=== PATIENT | male | born 1965 | race Hispanic/Latino ===

== ENCOUNTER 2022-12-07 20:18 | Emergency (ER) | payer OTHER ==
--- OUTSIDE RECORDS SUMMARY | 2022-12-07 20:35 | XMS REPORT | Continuity of Care Document ---
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 13:43:00, [place] DoseBolus Dose ketorolac 2012-09 No Neil 30 mg, Mem oria 2-10 Yee Route: IV, l 18:44: Drug form: [place] 00 INJ, ONCE, Dosing Weight 95.455, kg, Priority: STAT, Start date: 09/01/13 12:44:00, Stop date: 09/01/13 12:44:00 Sodium 2012- No Neil 1,000 mL, Mem oria Chloride 2-10 Yee Rate: l 0.9% 18:44: 1,000 [place] ([place]) IV 00 ml/hr, 1000 mL Infuse over: 1 hr, Route: IV, Dosing Weight 95.455 kg, Total Volume: 1,000, Priority: STAT, Start date: 09/01/13 12:44:00, Duration: 1 doses or times, Stop date: 09/01/13 13:43:00, [place] DoseBolus Dose ketorolac 2012-09 No Neil 30 mg, Mem oria 2-10 Yee Route: IV, l 18:44: Drug form: [place] 00 INJ, ONCE, Dosing Weight 95.455, kg, Priority: STAT, Start date: 09/01/13 12:44:00, Stop date: 09/01/13 12:44:00 Sodium 2012- No Neil 1,000 mL, Mem oria Chloride 2-10 Yee Rate: l 0.9% 18:44: 1,000 [place] ([place]) IV 00 ml/hr, 1000 mL Infuse over: 1 hr, Route: IV, Dosing Weight 95.455 kg, Total Volume: 1,000, Priority: STAT, Start date: 09/01/13 12:44:00, Duration: 1 doses or times, Stop date: 09/01/13 13:43:00, [place] DoseBolus Dose ketorolac 2012-09 No Neil 30 mg, Mem oria 2-10 Yee Route: IV, l 18:44: Drug form: [place] 00 INJ, ONCE, Dosing Weight 95.455, kg, Priority: STAT, Start date: 09/01/13 12:44:00, Stop date: 09/01/13 12:44:00 morphine 2012-09 No Neil 4 mg, Memor ia Sulfate 2-10 Yee Route: l 16:34: IVP, ONCE, [place] 00 Dosing Weight 95.455, kg, Start date: 09/01/13 10:34:00, Stop date: 09/01/13 10:34:00 morphine 2012-09 No Neil 4 mg, Memor ia Sulfate 2-10 Yee Route: l 16:34: IVP, ONCE, Dosing Weight 95.455, kg, Start date: 09/01/13 10:34:00, Stop date: 09/01/13 10:34:00 morphine 2012-09 No Neil 4 mg, Memor ia Sulfate 2-10 Yee Route: l 16:34: IVP, ONCE, Dosing Weight 95.455, kg, Start date: 09/01/13 10:34:00, Stop date: 09/01/13 10:34:00 Sodium 2012-09 No Neil 1,000 mL, Mem oria Chloride 2-10 Yee Rate: l 0.9% 16:33: 1,000 [place] ([place]) IV 00 ml/hr, 1000 mL Infuse over: 1 hr, Route: IV, Dosing Weight 95.455 kg, Total Volume: 1,000, Priority: STAT, Start date: 09/01/13 10:33:00, Duration: 1 doses or times, Stop date: 09/01/13 11:32:00, [place] DoseBolus Dose Sodium 2012-09 No Neil 1,000 mL, Mem oria Chloride 2-10 Yee Rate: l 0.9% 16:33: 1,000 [place] ([place]) IV 00 ml/hr, 1000 mL Infuse over: 1 hr, Route: IV, Dosing Weight 95.455 kg, Total Volume: 1,000, Priority: STAT, Start date: 09/01/13 10:33:00, Duration: 1 doses or times, Stop date: 09/01/13 11:32:00, [place] DoseBolus Dose Sodium 2013- No Neil 1,000 mL, Mem oria Chloride 2-10 Yee Rate: l 0.9% 16:33: 1,000 [place] ([place]) IV 00 ml/hr, 1000 mL Infuse over: 1 hr, Route: IV, Dosing Weight 95.455 kg, Total Volume: 1,000, Priority: STAT, Start date: 09/01/13 10:33:00, Duration: 1 doses or times, Stop date: 09/01/13 11:32:00, [place] DoseBolus Dose pravastatin pravastatin No 1 Q1D pravastati [facility] 10 mg 10 mg n 10 mg n tablet Take tablet Take tablet Health 1 tablet 1 tablet Take 1 Box every day every day tablet by oral by oral every day route for route for by oral 90 days. 90 days. route for 90 days. pravastatin pravastatin No 1 Q1D pravastati [facility] 20 mg 20 mg n 20 mg n tablet Take tablet Take tablet Health 1 tablet 1 tablet Take 1 Box every day every day tablet by oral by oral every day route. route. by oral route. red yeast red yeast No 600mg Q1D red yeast [facility] rice 600 mg rice 600 mg rice 600 n capsule capsule mg capsule [facility] Take 600 mg Take 600 mg Take 600 Box every day every day mg every by oral by oral day by route. route. oral route. Suprep Suprep No Suprep [facility] Bowel Prep Bowel Prep Bowel Prep n Kit 17.5 Kit 17.5 Kit 17.5 [facility] gram-3.13 gram-3.13 gram-3.13 Box gram-1.6 gram-1.6 gram-1.6 gram oral gram oral gram oral solution solution solution aspirin aspirin No aspirin [facility] ciprofloxac ciprofloxac No ciprofloxa [facility] in 500 mg in 500 mg rere 500 mg n tablet Take tablet Take tablet Health 1 tablet 1 tablet Take 1 Box every 12 every 12 tablet hours by hours by every 12 oral route oral route hours by for 10 for 10 oral route days. days. for 10 days. dicyclomine dicyclomine No dicyclomin [facility] 20 mg 20 mg e 20 mg n tablet tablet tablet Health Box famotidine famotidine No famotidine [facility] Box Fish Oil Fish Oil No Fish Oil [facility] Box Lexapro 10 Lexapro 10 No 1 Q1D Lexapro 10 [facility] mg tablet mg tablet mg tablet n Take 1 Take 1 Take 1 Health tablet tablet tablet Box every day every day every day by oral by oral by oral route for route for route for 90 days. 90 days. 90 days. lisinopril lisinopril No 1 Q1D lisinopril [facility] 30 mg 30 mg 30 mg n tablet Take tablet Take tablet Health 1 tablet 1 tablet Take 1 Box every day every day tablet by oral by oral every day route for route for by oral 90 days. 90 days. route for 90 days. metronidazo metronidazo No metronidaz [facility] le 500 mg le 500 mg ole 500 mg n tablet Take tablet Take tablet Health 1 tablet 1 tablet Take 1 Box every 8 every 8 tablet hours by hours by every 8 oral route oral route hours by for 10 for 10 oral route days. days. for 10 days. montelukast montelukast No montelukas [facility] 10 mg 10 mg t 10 mg n tablet tablet tablet Health Box multivitami multivitami No multivitam [facility] n n in n Health Box pravastatin pravastatin No 1 Q1D pravastati [facility] 10 mg 10 mg n 10 mg n tablet Take tablet Take tablet Health 1 tablet 1 tablet Take 1 Box every day every day tablet by oral by oral every day route for route for by oral 90 days. 90 days. route for 90 days. pravastatin pravastatin No 1 Q1D pravastati [facility] 20 mg 20 mg n 20 mg n tablet Take tablet Take tablet Health 1 tablet 1 tablet Take 1 Box every day every day tablet by oral by oral every day route. route. by oral route. red yeast red yeast No 600mg Q1D red yeast [facility] rice 600 mg rice 600 mg rice 600 n capsule capsule mg capsule [facility] Take 600 mg Take 600 mg Take 600 Box every day every day mg every by oral by oral day by route. route. oral route. Suprep Suprep No Suprep [facility] Bowel Prep Bowel Prep Bowel Prep n Kit 17.5 Kit 17.5 Kit 17.5 [facility] gram-3.13 gram-3.13 gram-3.13 Box gram-1.6 gram-1.6 gram-1.6 gram oral gram oral gram oral solution solution solution tadalafil 5 tadalafil 5 No tadalafil [facility] mg tablet mg tablet 5 mg n Take 1 Take 1 tablet Health tablet tablet Take 1 Box every day every day tablet by oral by oral every day route for route for by oral 30 days. 30 days. route for 30 days. aspirin aspirin No aspirin [facility] ciprofloxac ciprofloxac No ciprofloxa [facility] in 500 mg in 500 mg rere 500 mg n tablet Take tablet Take tablet Health 1 tablet 1 tablet Take 1 Box every 12 every 12 tablet hours by hours by every 12 oral route oral route hours by for 10 for 10 oral route days. days. for 10 days. dicyclomine dicyclomine No dicyclomin [facility] 20 mg 20 mg e 20 mg n tablet tablet tablet Health Box famotidine famotidine No famotidine [facility] Box Fish Oil Fish Oil No Fish Oil [facility] Box Lexapro 10 Lexapro 10 No 1 Q1D Lexapro 10 [facility] mg tablet mg tablet mg tablet n Take 1 Take 1 Take 1 Health tablet tablet tablet Box every day every day every day by oral by oral by oral route for route for route for 90 days. 90 days. 90 days. lisinopril lisinopril No 1 Q1D lisinopril [facility] 30 mg 30 mg 30 mg n tablet Take tablet Take tablet Health 1 tablet 1 tablet Take 1 Box every day every day tablet by oral by oral every day route for route for by oral 90 days. 90 days. route for 90 days. metronidazo metronidazo No metronidaz [facility] le 500 mg le 500 mg ole 500 mg n tablet Take tablet Take tablet Health 1 tablet 1 tablet Take 1 Box every 8 every 8 tablet hours by hours by every 8 oral route oral route hours by for 10 for 10 oral route days. days. for 10 days. montelukast montelukast No montelukas [facility] 10 mg 10 mg t 10 mg n tablet tablet tablet Health Box multivitami multivitami No multivitam [place] n n in n Health Box pravastatin pravastatin No 1 Q1D pravastati [place] 10 mg 10 mg n 10 mg n tablet Take tablet Take tablet Health 1 tablet 1 tablet Take 1 Box every day every day tablet by oral by oral every day route for route for by oral 90 days. 90 days. route for 90 days. pravastatin pravastatin No 1 Q1D pravastati [place] 20 mg 20 mg n 20 mg n tablet Take tablet Take tablet Health 1 tablet 1 tablet Take 1 Box every day every day tablet by oral by oral every day route. route. by oral route. red yeast red yeast No 600mg Q1D red yeast [place] rice 600 mg rice 600 mg rice 600 n capsule capsule mg capsule a [facility] Take 600 mg Take 600 mg Take 600 Box every day every day mg every by oral by oral day by route. route. oral route. Suprep Suprep No Suprep [place] Bowel Prep Bowel Prep Bowel Prep n Kit 17.5 Kit 17.5 Kit 17.5 [facility] gram-3.13 gram-3.13 gram-3.13 Box gram-1.6 gram-1.6 gram-1.6 gram oral gram oral gram oral solution solution solution tadalafil 5 tadalafil 5 No tadalafil [place] mg tablet mg tablet 5 mg n TAKE 1 TAKE 1 tablet Health TABLET BY TABLET BY TAKE 1 Box MOUTH EVERY MOUTH EVERY TABLET BY DAY DAY MOUTH EVERY DAY Advil Advil No Advil [facility] Box aspirin aspirin No aspirin [facility] Fish Oil Fish Oil No Fish Oil [facility] Box gabapentin gabapentin No 1capsul Q1D gabapentin [place] 300 mg 300 mg e(s) 300 mg n capsule capsule capsule Health Take 1 Take 1 Take 1 Box capsule capsule capsule every day every day every day by oral by oral by oral route at route at route at bedtime. bedtime. bedtime. lisinopril lisinopril No lisinopril [place] 10 mg 10 mg 10 mg n tablet tablet tablet Health Box Medrol Medrol No 1dose Medrol [place] (Chris) 4 mg (Chris) 4 mg pk(s) (Chris) 4 mg n tablets in tablets in tablets in Health a dose pack a dose pack a dose Box Take 1 dose Take 1 dose pack Take pk by oral pk by oral 1 dose pk route. route. by oral route. meloxicam meloxicam No 1 Q1D meloxicam [place] 15 mg 15 mg 15 mg n tablet Take tablet Take tablet Health 1 tablet 1 tablet Take 1 Box every day every day tablet by oral by oral every day route. route. by oral route. multivitami multivitami No multivitam [place] n n in n Health Box pravastatin pravastatin No pravastati [place] 10 mg 10 mg n 10 mg n tablet tablet tablet Health Box Advil Advil No Advil [place] [facility] Box aspirin aspirin No aspirin [facility] Box cyclobenzap cyclobenzap No 1 Q1D cyclobenza [facility] rine 10 mg rine 10 mg kevin 10 n tablet Take tablet Take mg tablet Health 1 tablet 1 tablet Take 1 Box every day every day tablet by oral by oral every day route at route at by oral bedtime. bedtime. route at bedtime. Fish Oil Fish Oil No Fish Oil [facility] Box lisinopril lisinopril No lisinopril [place] 10 mg 10 mg 10 mg n tablet tablet tablet Health Box multivitami multivitami No multivitam [place] n n in n [facility] Box naproxen naproxen No 1 BID naproxen [facility] 500 mg 500 mg 500 mg n tablet Take tablet Take tablet Health 1 tablet 1 tablet Take 1 Box twice a day twice a day tablet by oral by oral twice a route. route. day by oral route. pravastatin pravastatin No pravastati [place] 10 mg 10 mg n 10 mg n tablet tablet tablet Health Box Advil Advil No Advil [place] [facility] Box aspirin aspirin No aspirin [facility] cyclobenzap cyclobenzap No 1 Q1D cyclobenza [facility] rine 10 mg rine 10 mg kevin 10 n tablet Take tablet Take mg tablet Health 1 tablet 1 tablet Take 1 Box every day every day tablet by oral by oral every day route at route at by oral bedtime. bedtime. route at bedtime. Fish Oil Fish Oil No Fish Oil [facility] Box lisinopril lisinopril No lisinopril [place] 10 mg 10 mg 10 mg n tablet tablet tablet Health Box multivitami multivitami No multivitam [place] n n in n [facility] Box naproxen naproxen No 1 BID naproxen [facility] 500 mg 500 mg 500 mg n tablet Take tablet Take tablet Health 1 tablet 1 tablet Take 1 Box twice a day twice a day tablet by oral by oral twice a route. route. day by oral route. pravastatin pravastatin No pravastati [place] 10 mg 10 mg n 10 mg n tablet tablet tablet Health Box Advil Advil No Advil [place] [facility] Box aspirin aspirin No aspirin [facility] cyclobenzap cyclobenzap No 1 Q1D cyclobenza [facility] rine 10 mg rine 10 mg kevin 10 n tablet Take tablet Take mg tablet Health 1 tablet 1 tablet Take 1 Box every day every day tablet by oral by oral every day route at route at by oral bedtime. bedtime. route at bedtime. Fish Oil Fish Oil No Fish Oil [facility] Box gabapentin gabapentin No gabapentin [place] 100 mg 100 mg 100 mg n capsule capsule capsule Health Box lisinopril lisinopril No lisinopril [place] 10 mg 10 mg 10 mg n tablet tablet tablet Health Box multivitami multivitami No multivitam [place] n n in n [facility] Box naproxen naproxen No 1 BID naproxen [facility] 500 mg 500 mg 500 mg n tablet Take tablet Take tablet Health 1 tablet 1 tablet Take 1 Box twice a day twice a day tablet by oral by oral twice a route. route. day by oral route. pravastatin pravastatin No pravastati [place] 10 mg 10 mg n 10 mg n tablet tablet tablet Health Box Advil Advil No Advil [place] Box aspirin aspirin No aspirin [facility] Augmentin Augmentin No 1 Q12H Augmentin [facility] 875 mg-125 875 mg-125 875 mg-125 n mg tablet mg tablet mg tablet Health Take 1 Take 1 Take 1 Box tablet tablet tablet every 12 every 12 every 12 hours by hours by hours by oral route. oral route. oral route. Fish Oil Fish Oil No Fish Oil [facility] Box gabapentin gabapentin No gabapentin [place] 100 mg 100 mg 100 mg n capsule capsule capsule Health Box lisinopril lisinopril No lisinopril [place] 10 mg 10 mg 10 mg n tablet tablet tablet Health Box lisinopril lisinopril No 1 Q1D lisinopril [place] 20 mg 20 mg 20 mg n tablet Take tablet Take tablet Health 1 tablet 1 tablet Take 1 Box every day every day tablet by oral by oral every day route. route. by oral route. multivitami multivitami No multivitam [place] n n in n [facility] Box pravastatin pravastatin No pravastati [place] 10 mg 10 mg n 10 mg n tablet tablet tablet Health Box Advil Advil No Advil [place] n [facility] Box amoxicillin amoxicillin No amoxicilli [facility] 875 875 n 875 n mg-potassiu mg-potassiu mg-potassi [facility] Box clavulanate clavulanate clavulanat 125 mg 125 mg e 125 mg tablet Take tablet Take tablet 1 tablet 1 tablet Take 1 every 12 every 12 tablet hours by hours by every 12 oral route. oral route. hours by oral route. aspirin aspirin No aspirin [facility] Box Fish Oil Fish Oil No Fish Oil [facility] n [facility] Box gabapentin gabapentin No gabapentin [place] 100 mg 100 mg 100 mg n capsule capsule capsule Health Box Lexapro 5 Lexapro 5 No 1 Q1D Lexapro 5 [place] mg tablet mg tablet mg tablet n Take 1 Take 1 Take 1 Health tablet tablet tablet Box every day every day every day by oral by oral by oral route. route. route. lisinopril lisinopril No 1 Q1D lisinopril [place] 20 mg 20 mg 20 mg n tablet Take tablet Take tablet Health 1 tablet 1 tablet Take 1 Box every day every day tablet by oral by oral every day route. route. by oral route. multivitami multivitami No multivitam [facility] n n in n [facility] Box pravastatin pravastatin No pravastati [place] 10 mg 10 mg n 10 mg n tablet tablet tablet Health Box Advil Advil No Advil [place] Box aspirin aspirin No aspirin [facility] Box escitalopra escitalopra No escitalopr [place] m 5 mg m 5 mg am 5 mg n tablet Take tablet Take tablet Health 1 tablet 1 tablet Take 1 Box every day every day tablet by oral by oral every day route. route. by oral route. Fish Oil Fish Oil No Fish Oil [facility] Box lisinopril lisinopril No lisinopril [place] 10 mg 10 mg 10 mg n tablet tablet tablet Health Box lisinopril lisinopril No 1 Q1D lisinopril [place] 20 mg 20 mg 20 mg n tablet Take tablet Take tablet Health 1 tablet 1 tablet Take 1 Box every day every day tablet by oral by oral every day route. route. by oral route. multivitami multivitami No multivitam [place] n n in n [facility] Box pravastatin pravastatin No pravastati [place] 10 mg 10 mg n 10 mg n tablet tablet tablet Health Box Advil Advil No Advil [place] [facility] Box aspirin aspirin No aspirin [facility] Box escitalopra escitalopra No escitalopr [place] m 5 mg m 5 mg am 5 mg n tablet Take tablet Take tablet Health 1 tablet 1 tablet Take 1 Box every day every day tablet by oral by oral every day route. route. by oral route. famotidine famotidine No famotidine [facility] Box Fish Oil Fish Oil No Fish Oil [facility] Box Lexapro 10 Lexapro 10 No 1 Q1D Lexapro 10 [facility] mg tablet mg tablet mg tablet n Take 1 Take 1 Take 1 Health tablet tablet tablet Box every day every day every day by oral by oral by oral route. route. route. lisinopril lisinopril No lisinopril [place] 10 mg 10 mg 10 mg n tablet tablet tablet Health Box lisinopril lisinopril No 1 Q1D lisinopril [place] 20 mg 20 mg 20 mg n tablet Take tablet Take tablet Health 1 tablet 1 tablet Take 1 Box every day every day tablet by oral by oral every day route. route. by oral route. multivitami multivitami No multivitam [facility] n n in n [facility] Box pravastatin pravastatin No 1 Q1D pravastati [place] 10 mg 10 mg n 10 mg n tablet Take tablet Take tablet Health 1 tablet 1 tablet Take 1 Box every day every day tablet by oral by oral every day route. route. by oral route. Advil Advil No Advil [facility] Box aspirin aspirin No aspirin [facility] Box escitalopra escitalopra No escitalopr [place] m 5 mg m 5 mg am 5 mg n tablet Take tablet Take tablet Health 1 tablet 1 tablet Take 1 Box every day every day tablet by oral by oral every day route. route. by oral route. famotidine famotidine No famotidine [facility] Box Fish Oil Fish Oil No Fish Oil [facility] Box Lexapro 10 Lexapro 10 No 1 Q1D Lexapro 10 [facility] mg tablet mg tablet mg tablet n Take 1 Take 1 Take 1 Health tablet tablet tablet Box every day every day every day by oral by oral by oral route. route. route. lisinopril lisinopril No lisinopril [place] 10 mg 10 mg 10 mg n tablet tablet tablet Health Box lisinopril lisinopril No 1 Q1D lisinopril [place] 20 mg 20 mg 20 mg n tablet Take tablet Take tablet Health 1 tablet 1 tablet Take 1 Box every day every day tablet by oral by oral every day route. route. by oral route. multivitami multivitami No multivitam [facility] n n in n [facility] Box pravastatin pravastatin No 1 Q1D pravastati [place] 10 mg 10 mg n 10 mg n tablet Take tablet Take tablet Health 1 tablet 1 tablet Take 1 Box every day every day tablet by oral by oral every day route. route. by oral route. aspirin aspirin No aspirin [facility] Box Cialis 5 mg Cialis 5 mg No 1 Q1D Cialis 5 [facility] tablet Take tablet Take mg tablet n 1 tablet 1 tablet Take 1 Healt h every day every day tablet Box by oral by oral every day route. route. by oral route. escitalopra escitalopra No escitalopr [place] m 5 mg m 5 mg am 5 mg n tablet Take tablet Take tablet Health 1 tablet 1 tablet Take 1 Box every day every day tablet by oral by oral every day route. route. by oral route. famotidine famotidine No famotidine [facility] n [facility] Box Fish Oil Fish Oil No Fish Oil [facility] Box Lexapro 10 Lexapro 10 No 1 Q1D Lexapro 10 [facility] mg tablet mg tablet mg tablet n Take 1 Take 1 Take 1 Health tablet tablet tablet Box every day every day every day by oral by oral by oral route. route. route. lisinopril lisinopril No 1 Q1D lisinopril [facility] 20 mg 20 mg 20 mg n tablet Take tablet Take tablet Health 1 tablet 1 tablet Take 1 Box every day every day tablet by oral by oral every day route. route. by oral route. multivitami multivitami No multivitam [facility] n n in n [facility] Box pravastatin pravastatin No 1 Q1D pravastati [facility] 10 mg 10 mg n 10 mg n tablet Take tablet Take tablet Health 1 tablet 1 tablet Take 1 Box every day every day tablet by oral by oral every day route. route. by oral route. aspirin aspirin No aspirin [facility] Box Cialis 5 mg Cialis 5 mg No 1 Q1D Cialis 5 [facility] tablet Take tablet Take mg tablet n 1 tablet 1 tablet Take 1 Healt h every day every day tablet Box by oral by oral every day route. route. by oral route. escitalopra escitalopra No escitalopr [facility] m 5 mg m 5 mg am 5 mg n tablet Take tablet Take tablet Health 1 tablet 1 tablet Take 1 Box every day every day tablet by oral by oral every day route. route. by oral route. famotidine famotidine No famotidine [facility] n [facility] Box Fish Oil Fish Oil No Fish Oil [facility] Box Lexapro 10 Lexapro 10 No 1 Q1D Lexapro 10 [facility] mg tablet mg tablet mg tablet n Take 1 Take 1 Take 1 Health tablet tablet tablet Box every day every day every day by oral by oral by oral route. route. route. lisinopril lisinopril No 1 Q1D lisinopril [facility] 20 mg 20 mg 20 mg n tablet Take tablet Take tablet Health 1 tablet 1 tablet Take 1 Box every day every day tablet by oral by oral every day route. route. by oral route. multivitami multivitami No multivitam [facility] n n in n [facility] Box pravastatin pravastatin No 1 Q1D pravastati [facility] 10 mg 10 mg n 10 mg n tablet Take tablet Take tablet Health 1 tablet 1 tablet Take 1 Box every day every day tablet by oral by oral every day route. route. by oral route. aspirin aspirin No aspirin [facility] Box Cialis 5 mg Cialis 5 mg No 1 Q1D Cialis 5 [facility] tablet Take tablet Take mg tablet n 1 tablet 1 tablet Take 1 Healt h every day every day tablet Box by oral by oral every day route. route. by oral route. escitalopra escitalopra No escitalopr [place] m 5 mg m 5 mg am 5 mg n tablet Take tablet Take tablet Health 1 tablet 1 tablet Take 1 Box every day every day tablet by oral by oral every day route. route. by oral route. famotidine famotidine No famotidine [facility] n [facility] Box Fish Oil Fish Oil No Fish Oil [facility] Box Lexapro 10 Lexapro 10 No 1 Q1D Lexapro 10 [facility] mg tablet mg tablet mg tablet n Take 1 Take 1 Take 1 Health tablet tablet tablet Box every day every day every day by oral by oral by oral route. route. route. lisinopril lisinopril No 1 Q1D lisinopril [facility] 30 mg 30 mg 30 mg n tablet Take tablet Take tablet Health 1 tablet 1 tablet Take 1 Box every day every day tablet by oral by oral every day route. route. by oral route. multivitami multivitami No multivitam [facility] n n in n Health Box pravastatin pravastatin No 1 Q1D pravastati [facility] 10 mg 10 mg n 10 mg n tablet Take tablet Take tablet Health 1 tablet 1 tablet Take 1 Box every day every day tablet by oral by oral every day route. route. by oral route. aspirin aspirin No aspirin [facility] Box Cialis 5 mg Cialis 5 mg No 1 Q1D Cialis 5 [facility] tablet Take tablet Take mg tablet n 1 tablet 1 tablet Take 1 Healt h every day every day tablet Box by oral by oral every day route. route. by oral route. escitalopra escitalopra No escitalopr [place] m 5 mg m 5 mg am 5 mg n tablet Take tablet Take tablet Health 1 tablet 1 tablet Take 1 Box every day every day tablet by oral by oral every day route. route. by oral route. famotidine famotidine No famotidine [facility] n [facility] Box Fish Oil Fish Oil No Fish Oil [facility] Box Lexapro 10 Lexapro 10 No 1 Q1D Lexapro 10 [facility] mg tablet mg tablet mg tablet n Take 1 Take 1 Take 1 Health tablet tablet tablet Box every day every day every day by oral by oral by oral route. route. route. lisinopril lisinopril No 1 Q1D lisinopril [facility] 30 mg 30 mg 30 mg n tablet Take tablet Take tablet Health 1 tablet 1 tablet Take 1 Box every day every day tablet by oral by oral every day route. route. by oral route. multivitami multivitami No multivitam [facility] n n in n Health Box pravastatin pravastatin No 1 Q1D pravastati [facility] 10 mg 10 mg n 10 mg n tablet Take tablet Take tablet Health 1 tablet 1 tablet Take 1 Box every day every day tablet by oral by oral every day route. route. by oral route. aspirin aspirin No aspirin [facility] Cialis 5 mg Cialis 5 mg No 1 Q1D Cialis 5 [place] tablet Take tablet Take mg tablet n 1 tablet 1 tablet Take 1 [facility] every day every day tablet Box by oral by oral every day route. route. by oral route. escitalopra escitalopra No escitalopr [facility] m 5 mg m 5 mg am 5 mg n tablet Take tablet Take tablet Health 1 tablet 1 tablet Take 1 Box every day every day tablet by oral by oral every day route. route. by oral route. famotidine famotidine No famotidine [facility] Box Fish Oil Fish Oil No Fish Oil [facility] Box Lexapro 10 Lexapro 10 No 1 Q1D Lexapro 10 [facility] mg tablet mg tablet mg tablet n Take 1 Take 1 Take 1 Health tablet tablet tablet Box every day every day every day by oral by oral by oral route. route. route. lisinopril lisinopril No 1 Q1D lisinopril [facility] 30 mg 30 mg 30 mg n tablet Take tablet Take tablet Health 1 tablet 1 tablet Take 1 Box every day every day tablet by oral by oral every day route. route. by oral route. multivitami multivitami No multivitam [facility] n in n [facility] Box pravastatin pravastatin No 1 Q1D pravastati [facility] 10 mg 10 mg n 10 mg n tablet Take tablet Take tablet Health 1 tablet 1 tablet Take 1 Box every day every day tablet by oral by oral every day route. route. by oral route. aspirin aspirin No aspirin [facility] cefdinir cefdinir No 1capsul Q12H cefdinir [facility] 300 mg 300 mg e(s) 300 mg n capsule capsule capsule Health Take 1 Take 1 Take 1 Box capsule capsule capsule every 12 every 12 every 12 hours by hours by hours by oral route. oral route. oral route. Cialis 5 mg Cialis 5 mg No 1 Q1D Cialis 5 [place] tablet Take tablet Take mg tablet n 1 tablet 1 tablet Take 1 [facility] every day every day tablet Box by oral by oral every day route. route. by oral route. famotidine famotidine No famotidine [facility] Box Fish Oil Fish Oil No Fish Oil [facility] Box Lexapro 10 Lexapro 10 No 1 Q1D Lexapro 10 [facility] mg tablet mg tablet mg tablet n Take 1 Take 1 Take 1 Health tablet tablet tablet Box every day every day every day by oral by oral by oral route. route. route. lisinopril lisinopril No 1 Q1D lisinopril [facility] 40 mg 40 mg 40 mg n tablet Take tablet Take tablet Health 1 tablet 1 tablet Take 1 Box every day every day tablet by oral by oral every day route. route. by oral route. multivitami multivitami No multivitam [facility] n n in n [facility] Box pravastatin pravastatin No 1 Q1D pravastati [facility] 10 mg 10 mg n 10 mg n tablet Take tablet Take tablet Health 1 tablet 1 tablet Take 1 Box every day every day tablet by oral by oral every day route. route. by oral route. amoxicillin amoxicillin No 1 Q12H amoxicilli [facility] [id number] n 875 n mg-potassiu mg-potassiu mg-potassi [facility] clavulanate clavulanate clavulanat 125 mg 125 mg e 125 mg tablet Take tablet Take tablet 1 tablet 1 tablet Take 1 every 12 every 12 tablet hours by hours by every 12 oral route. oral route. hours by oral route. aspirin aspirin No aspirin [facility] cefdinir cefdinir No 1capsul Q12H cefdinir [facility] 300 mg 300 mg e(s) 300 mg n capsule capsule capsule Health Take 1 Take 1 Take 1 Box capsule capsule capsule every 12 every 12 every 12 hours by hours by hours by oral route. oral route. oral route. Cialis 5 mg Cialis 5 mg No 1 Q1D Cialis 5 [place] tablet Take tablet Take mg tablet n 1 tablet 1 tablet Take 1 [facility] every day every day tablet Box by oral by oral every day route. route. by oral route. famotidine famotidine No famotidine [facility] Box Fish Oil Fish Oil No Fish Oil [facility] Box Lexapro 10 Lexapro 10 No 1 Q1D Lexapro 10 [place] mg tablet mg tablet mg tablet n Take 1 Take 1 Take 1 Health tablet tablet tablet Box every day every day every day by oral by oral by oral route. route. route. lisinopril lisinopril No 1 Q1D lisinopril [facility] 40 mg 40 mg 40 mg n tablet Take tablet Take tablet Health 1 tablet 1 tablet Take 1 Box every day every day tablet by oral by oral every day route. route. by oral route. multivitami multivitami No multivitam [place] n n in n [facility] Box pravastatin pravastatin No 1 Q1D pravastati [place] 10 mg 10 mg n 10 mg n tablet Take tablet Take tablet Health 1 tablet 1 tablet Take 1 Box every day every day tablet by oral by oral every day route. route. by oral route. amoxicillin amoxicillin No amoxicilli [facility] [id number] n 875 n mg-potassiu mg-potassiu mg-potassi [facility] clavulanate clavulanate clavulanat 125 mg 125 mg e 125 mg tablet Take tablet Take tablet 1 tablet 1 tablet Take 1 every 12 every 12 tablet hours by hours by every 12 oral route. oral route. hours by oral route. aspirin aspirin No aspirin [facility] Box cefdinir cefdinir No 1capsul Q12H cefdinir [place] 300 mg 300 mg e(s) 300 mg n capsule capsule capsule Health Take 1 Take 1 Take 1 Box capsule capsule capsule every 12 every 12 every 12 hours by hours by hours by oral route. oral route. oral route. Cialis 5 mg Cialis 5 mg No 1 Q1D Cialis 5 [place] tablet Take tablet Take mg tablet n 1 tablet 1 tablet Take 1 [facility]alt [facility] every day every day tablet Box by oral by oral every day route. route. by oral route. famotidine famotidine No famotidine [facility] Box Fish Oil Fish Oil No Fish Oil [facility] Box Lexapro 10 Lexapro 10 No 1 Q1D Lexapro 10 [place] mg tablet mg tablet mg tablet n Take 1 Take 1 Take 1 Health tablet tablet tablet Box every day every day every day by oral by oral by oral route. route. route. lisinopril lisinopril No 1 Q1D lisinopril [facility] 40 mg 40 mg 40 mg n tablet Take tablet Take tablet Health 1 tablet 1 tablet Take 1 Box every day every day tablet by oral by oral every day route. route. by oral route. multivitami multivitami No multivitam [place] n n in n [facility] Box pravastatin pravastatin No pravastati [place] 10 mg 10 mg n 10 mg n tablet Take tablet Take tablet Health 1 tablet 1 tablet Take 1 Box every day every day tablet by oral by oral every day route. route. by oral route. amoxicillin amoxicillin No amoxicilli [facility] [id number] n 875 n mg-potassiu mg-potassiu mg-potassi [facility] Box clavulanate clavulanate clavulanat 125 mg 125 mg e 125 mg tablet Take tablet Take tablet 1 tablet 1 tablet Take 1 every 12 every 12 tablet hours by hours by every 12 oral route. oral route. hours by oral route. aspirin aspirin No aspirin [facility] Box cefdinir cefdinir No 1capsul Q12H cefdinir [place] 300 mg 300 mg e(s) 300 mg n capsule capsule capsule Health Take 1 Take 1 Take 1 Box capsule capsule capsule every 12 every 12 every 12 hours by hours by hours by oral route. oral route. oral route. Cialis 5 mg Cialis 5 mg No 1 Q1D Cialis 5 [place] tablet Take tablet Take mg tablet n 1 tablet 1 tablet Take 1 [facility]alt [facility] every day every day tablet Box by oral by oral every day route. route. by oral route. famotidine famotidine No famotidine [facility] n [facility] Box Fish Oil Fish Oil No Fish Oil [facility] Box Lexapro 10 Lexapro 10 No 1 Q1D Lexapro 10 [place] mg tablet mg tablet mg tablet n Take 1 Take 1 Take 1 Health tablet tablet tablet Box every day every day every day by oral by oral by oral route. route. route. lisinopril lisinopril No 1 Q1D lisinopril [facility] 40 mg 40 mg 40 mg n tablet Take tablet Take tablet Health 1 tablet 1 tablet Take 1 Box every day every day tablet by oral by oral every day route. route. by oral route. multivitami multivitami No multivitam [facility] n n in n [facility] Box pravastatin pravastatin No pravastati [facility] 10 mg 10 mg n 10 mg n tablet Take tablet Take tablet Health 1 tablet 1 tablet Take 1 Box every day every day tablet by oral by oral every day route. route. by oral route. red yeast red yeast No 600mg Q1D red yeast [place] rice 600 mg rice 600 mg rice 600 n capsule capsule mg capsule [facility] Take 600 mg Take 600 mg Take 600 Box every day every day mg every by oral by oral day by route. route. oral route. aspirin aspirin No aspirin [facility] Cialis 5 mg Cialis 5 mg No 1 Q1D Cialis 5 [place] tablet Take tablet Take mg tablet n 1 tablet 1 tablet Take 1 [facility] every day every day tablet Box by oral by oral every day route. route. by oral route. famotidine famotidine No famotidine [facility] Box Fish Oil Fish Oil No Fish Oil [facility] Box Lexapro 10 Lexapro 10 No 1 Q1D Lexapro 10 [place] mg tablet mg tablet mg tablet n Take 1 Take 1 Take 1 Health tablet tablet tablet Box every day every day every day by oral by oral by oral route. route. route. lisinopril lisinopril No 1 Q1D lisinopril [facility] 40 mg 40 mg 40 mg n tablet Take tablet Take tablet Health 1 tablet 1 tablet Take 1 Box every day every day tablet by oral by oral every day route. route. by oral route. multivitami multivitami No multivitam [place] n n in n [facility] Box ofloxacin ofloxacin No ofloxacin [facility] 0.3 % ear 0.3 % ear 0.3 % ear n drops drops drops Health INSTILL 10 INSTILL 10 INSTILL 10 Box DROPS INTO DROPS INTO DROPS INTO AFFECTED AFFECTED AFFECTED EAR(S) BY EAR(S) BY EAR(S) BY OTIC ROUTE OTIC ROUTE OTIC ROUTE ONCE DAILY ONCE DAILY ONCE DAILY x 7 days x 7 days x 7 days pravastatin pravastatin No pravastati [facility] 10 mg 10 mg n 10 mg n tablet Take tablet Take tablet Health 1 tablet 1 tablet Take 1 Box every day every day tablet by oral by oral every day route. route. by oral route. red yeast red yeast No 600mg Q1D red yeast [place] rice 600 mg rice 600 mg rice 600 n capsule capsule mg capsule [facility] Take 600 mg Take 600 mg Take 600 Box every day every day mg every by oral by oral day by route. route. oral route. aspirin aspirin No aspirin [facility] Box Cialis 5 mg Cialis 5 mg No 1 Q1D Cialis 5 [place] tablet Take tablet Take mg tablet n 1 tablet 1 tablet Take 1 [facility] every day every day tablet Box by oral by oral every day route. route. by oral route. famotidine famotidine No famotidine [facility] Box Fish Oil Fish Oil No Fish Oil [facility] Box Lexapro 10 Lexapro 10 No 1 Q1D Lexapro 10 [place] mg tablet mg tablet mg tablet n Take 1 Take 1 Take 1 Health tablet tablet tablet Box every day every day every day by oral by oral by oral route. route. route. lisinopril lisinopril No 1 Q1D lisinopril [facility] 40 mg 40 mg 40 mg n tablet Take tablet Take tablet Health 1 tablet 1 tablet Take 1 Box every day every day tablet by oral by oral every day route. route. by oral route. multivitami multivitami No multivitam [place] n n in n [facility] Box ofloxacin ofloxacin No ofloxacin [place] 0.3 % ear 0.3 % ear 0.3 % ear n drops drops drops Health INSTILL 10 INSTILL 10 INSTILL 10 Box DROPS INTO DROPS INTO DROPS INTO AFFECTED AFFECTED AFFECTED EAR(S) BY EAR(S) BY EAR(S) BY OTIC ROUTE OTIC ROUTE OTIC ROUTE ONCE DAILY ONCE DAILY ONCE DAILY x 7 days x 7 days x 7 days pravastatin pravastatin No pravastati [facility] 10 mg 10 mg n 10 mg n tablet Take tablet Take tablet Health 1 tablet 1 tablet Take 1 Box every day every day tablet by oral by oral every day route. route. by oral route. pravastatin pravastatin No 1 Q1D pravastati [facility] 20 mg 20 mg n 20 mg n tablet Take tablet Take tablet Health 1 tablet 1 tablet Take 1 Box every day every day tablet by oral by oral every day route. route. by oral route. red yeast red yeast No 600mg Q1D red yeast [facility] rice 600 mg rice 600 mg rice 600 n capsule capsule mg capsule [facility] Take 600 mg Take 600 mg Take 600 Box every day every day mg every by oral by oral day by route. route. oral route. aspirin aspirin No aspirin [facility] Box Cialis 5 mg Cialis 5 mg No 1 Q1D Cialis 5 [place] tablet Take tablet Take mg tablet n 1 tablet 1 tablet Take 1 [facility]alt [facility] every day every day tablet Box by oral by oral every day route. route. by oral route. famotidine famotidine No famotidine [facility] Box Fish Oil Fish Oil No Fish Oil [facility] Box Lexapro 10 Lexapro 10 No 1 Q1D Lexapro 10 [facility] mg tablet mg tablet mg tablet n Take 1 Take 1 Take 1 Health tablet tablet tablet Box every day every day every day by oral by oral by oral route. route. route. lisinopril lisinopril No 1 Q1D lisinopril [facility] 30 mg 30 mg 30 mg n tablet Take tablet Take tablet Health 1 tablet 1 tablet Take 1 Box every day every day tablet by oral by oral every day route. route. by oral route. multivitami multivitami No multivitam [place] n n in n [facility] Box ofloxacin ofloxacin No ofloxacin [place] 0.3 % ear 0.3 % ear 0.3 % ear n drops drops drops Health INSTILL 10 INSTILL 10 INSTILL 10 Box DROPS INTO DROPS INTO DROPS INTO AFFECTED AFFECTED AFFECTED EAR(S) BY EAR(S) BY EAR(S) BY OTIC ROUTE OTIC ROUTE OTIC ROUTE ONCE DAILY ONCE DAILY ONCE DAILY x 7 days x 7 days x 7 days pravastatin pravastatin No pravastati [facility] 10 mg 10 mg n 10 mg n tablet Take tablet Take tablet Health 1 tablet 1 tablet Take 1 Box every day every day tablet by oral by oral every day route. route. by oral route. pravastatin pravastatin No 1 Q1D pravastati [facility] 20 mg 20 mg n 20 mg n tablet Take tablet Take tablet Health 1 tablet 1 tablet Take 1 Box every day every day tablet by oral by oral every day route. route. by oral route. red yeast red yeast No 600mg Q1D red yeast [facility] rice 600 mg rice 600 mg rice 600 n capsule capsule mg capsule [facility] Take 600 mg Take 600 mg Take 600 Box every day every day mg every by oral by oral day by route. route. oral route. aspirin aspirin No aspirin [facility] Box Cialis 5 mg Cialis 5 mg No 1 Q1D Cialis 5 [place] tablet Take tablet Take mg tablet n 1 tablet 1 tablet Take 1 [facility]alt h every day every day tablet Box by oral by oral every day route. route. by oral route. ciprofloxac ciprofloxac No 1 Q12H ciprofloxa [facility] in 500 mg in 500 mg rere 500 mg n tablet Take tablet Take tablet Health 1 tablet 1 tablet Take 1 Box every 12 every 12 tablet hours by hours by every 12 oral route oral route hours by for 10 for 10 oral route days. days. for 10 days. famotidine famotidine No famotidine [facility] Box Fish Oil Fish Oil No Fish Oil [facility] Box Lexapro 10 Lexapro 10 No 1 Q1D Lexapro 10 [place] mg tablet mg tablet mg tablet n Take 1 Take 1 Take 1 Health tablet tablet tablet Box every day every day every day by oral by oral by oral route. route. route. lisinopril lisinopril No 1 Q1D lisinopril [facility] 30 mg 30 mg 30 mg n tablet Take tablet Take tablet Health 1 tablet 1 tablet Take 1 Box every day every day tablet by oral by oral every day route. route. by oral route. metronidazo metronidazo No 1 Q8H metronidaz [place] le 500 mg le 500 mg ole 500 mg n tablet Take tablet Take tablet Health 1 tablet 1 tablet Take 1 Box every 8 every 8 tablet hours by hours by every 8 oral route oral route hours by for 10 for 10 oral route days. days. for 10 days. multivitami multivitami No multivitam [place] n n in n [facility] Box pravastatin pravastatin No 1 Q1D pravastati [facility] 20 mg 20 mg n 20 mg n tablet Take tablet Take tablet Health 1 tablet 1 tablet Take 1 Box every day every day tablet by oral by oral every day route. route. by oral route. red yeast red yeast No 600mg Q1D red yeast [place] rice 600 mg rice 600 mg rice 600 n capsule capsule mg capsule [facility] Take 600 mg Take 600 mg Take 600 Box every day every day mg every by oral by oral day by route. route. oral route. aspirin aspirin No aspirin [facility] Cialis 5 mg Cialis 5 mg No 1 Q1D Cialis 5 [place] tablet Take tablet Take mg tablet n 1 tablet 1 tablet Take 1 [facility]alt h every day every day tablet Box by oral by oral every day route. route. by oral route. ciprofloxac ciprofloxac No ciprofloxa [facility] in 500 mg in 500 mg rere 500 mg n tablet Take tablet Take tablet Health 1 tablet 1 tablet Take 1 Box every 12 every 12 tablet hours by hours by every 12 oral route oral route hours by for 10 for 10 oral route days. days. for 10 days. famotidine famotidine No famotidine [facility] Box Fish Oil Fish Oil No Fish Oil [facility] Box Lexapro 10 Lexapro 10 No 1 Q1D Lexapro 10 [place] mg tablet mg tablet mg tablet n Take 1 Take 1 Take 1 Health tablet tablet tablet Box every day every day every day by oral by oral by oral route. route. route. lisinopril lisinopril No 1 Q1D lisinopril [facility] 30 mg 30 mg 30 mg n tablet Take tablet Take tablet Health 1 tablet 1 tablet Take 1 Box every day every day tablet by oral by oral every day route. route. by oral route. metronidazo metronidazo No metronidaz [place] le 500 mg le 500 mg ole 500 mg n tablet Take tablet Take tablet Health 1 tablet 1 tablet Take 1 Box every 8 every 8 tablet hours by hours by every 8 oral route oral route hours by for 10 for 10 oral route days. days. for 10 days. multivitami multivitami No multivitam [place] n n in n [facility] Box pravastatin pravastatin No 1 Q1D pravastati [facility] 20 mg 20 mg n 20 mg n tablet Take tablet Take tablet Health 1 tablet 1 tablet Take 1 Box every day every day tablet by oral by oral every day route. route. by oral route. red yeast red yeast No 600mg Q1D red yeast [place] rice 600 mg rice 600 mg rice 600 n capsule capsule mg capsule [facility] Take 600 mg Take 600 mg Take 600 Box every day every day mg every by oral by oral day by route. route. oral route. aspirin aspirin No aspirin [facility] Box Cialis 5 mg Cialis 5 mg No 1 Q1D Cialis 5 [place] tablet Take tablet Take mg tablet n 1 tablet 1 tablet Take 1 [facility]alt h every day every day tablet Box by oral by oral every day route. route. by oral route. ciprofloxac ciprofloxac No ciprofloxa [facility] in 500 mg in 500 mg rere 500 mg n tablet Take tablet Take tablet Health 1 tablet 1 tablet Take 1 Box every 12 every 12 tablet hours by hours by every 12 oral route oral route hours by for 10 for 10 oral route days. days. for 10 days. famotidine famotidine No famotidine [facility] Box Fish Oil Fish Oil No Fish Oil [facility] Box Lexapro 10 Lexapro 10 No 1 Q1D Lexapro 10 [facility] mg tablet mg tablet mg tablet n Take 1 Take 1 Take 1 Health tablet tablet tablet Box every day every day every day by oral by oral by oral route. route. route. lisinopril lisinopril No 1 Q1D lisinopril [facility] 30 mg 30 mg 30 mg n tablet Take tablet Take tablet Health 1 tablet 1 tablet Take 1 Box every day every day tablet by oral by oral every day route. route. by oral route. metronidazo metronidazo No metronidaz [place] le 500 mg le 500 mg ole 500 mg n tablet Take tablet Take tablet Health 1 tablet 1 tablet Take 1 Box every 8 every 8 tablet hours by hours by every 8 oral route oral route hours by for 10 for 10 oral route days. days. for 10 days. multivitami multivitami No multivitam [place] n n in n [facility] Box pravastatin pravastatin No 1 Q1D pravastati [facility] 20 mg 20 mg n 20 mg n tablet Take tablet Take tablet Health 1 tablet 1 tablet Take 1 Box every day every day tablet by oral by oral every day route. route. by oral route. red yeast red yeast No 600mg Q1D red yeast [place] rice 600 mg rice 600 mg rice 600 n capsule capsule mg capsule [facility] Take 600 mg Take 600 mg Take 600 Box every day every day mg every by oral by oral day by route. route. oral route. aspirin aspirin No aspirin [facility] Box Cialis 5 mg Cialis 5 mg No 1 Q1D Cialis 5 [place] tablet Take tablet Take mg tablet n 1 tablet 1 tablet Take 1 [facility]alt h every day every day tablet Box by oral by oral every day route. route. by oral route. ciprofloxac ciprofloxac No ciprofloxa [place] in 500 mg in 500 mg rere 500 mg n tablet Take tablet Take tablet Health 1 tablet 1 tablet Take 1 Box every 12 every 12 tablet hours by hours by every 12 oral route oral route hours by for 10 for 10 oral route days. days. for 10 days. famotidine famotidine No famotidine [facility] Box Fish Oil Fish Oil No Fish Oil [facility] Box Lexapro 10 Lexapro 10 No 1 Q1D Lexapro 10 [place] mg tablet mg tablet mg tablet n Take 1 Take 1 Take 1 Health tablet tablet tablet Box every day every day every day by oral by oral by oral route. route. route. lisinopril lisinopril No 1 Q1D lisinopril [facility] 30 mg 30 mg 30 mg n tablet Take tablet Take tablet Health 1 tablet 1 tablet Take 1 Box every day every day tablet by oral by oral every day route. route. by oral route. metronidazo metronidazo No metronidaz [place] le 500 mg le 500 mg ole 500 mg n tablet Take tablet Take tablet Health 1 tablet 1 tablet Take 1 Box every 8 every 8 tablet hours by hours by every 8 oral route oral route hours by for 10 for 10 oral route days. days. for 10 days. multivitami multivitami No multivitam [place] n n in n [facility] Box pravastatin pravastatin No 1 Q1D pravastati [facility] 20 mg 20 mg n 20 mg n tablet Take tablet Take tablet Health 1 tablet 1 tablet Take 1 Box every day every day tablet by oral by oral every day route. route. by oral route. red yeast red yeast No 600mg Q1D red yeast [place] rice 600 mg rice 600 mg rice 600 n capsule capsule mg capsule [facility] Take 600 mg Take 600 mg Take 600 Box every day every day mg every by oral by oral day by route. route. oral route. aspirin aspirin No aspirin [facility] Box Cialis 5 mg Cialis 5 mg No 1 Q1D Cialis 5 [place] tablet Take tablet Take mg tablet n 1 tablet 1 tablet Take 1 [facility] every day every day tablet Box by oral by oral every day route. route. by oral route. ciprofloxac ciprofloxac No ciprofloxa [place] in 500 mg in 500 mg rere 500 mg n tablet Take tablet Take tablet Health 1 tablet 1 tablet Take 1 Box every 12 every 12 tablet hours by hours by every 12 oral route oral route hours by for 10 for 10 oral route days. days. for 10 days. dicyclomine dicyclomine No dicyclomin [facility] 20 mg 20 mg e 20 mg n tablet tablet tablet Health Box famotidine famotidine No famotidine [place] [facility] Box Fish Oil Fish Oil No Fish Oil [facility] Box Lexapro 10 Lexapro 10 No 1 Q1D Lexapro 10 [facility] mg tablet mg tablet mg tablet n Take 1 Take 1 Take 1 Health tablet tablet tablet Box every day every day every day by oral by oral by oral route for route for route for 90 days. 90 days. 90 days. lisinopril lisinopril No 1 Q1D lisinopril [facility] 30 mg 30 mg 30 mg n tablet Take tablet Take tablet Health 1 tablet 1 tablet Take 1 Box every day every day tablet by oral by oral every day route. route. by oral route. metronidazo metronidazo No metronidaz [place] le 500 mg le 500 mg ole 500 mg n tablet Take tablet Take tablet Health 1 tablet 1 tablet Take 1 Box every 8 every 8 tablet hours by hours by every 8 oral route oral route hours by for 10 for 10 oral route days. days. for 10 days. montelukast montelukast No montelukas [facility] 10 mg 10 mg t 10 mg n tablet tablet tablet Health Box multivitami multivitami No multivitam [place] n n in n [facility] Box pravastatin pravastatin No pravastati [facility] 10 mg 10 mg n 10 mg n tablet tablet tablet Health Box pravastatin pravastatin No 1 Q1D pravastati [facility] 20 mg 20 mg n 20 mg n tablet Take tablet Take tablet Health 1 tablet 1 tablet Take 1 Box every day every day tablet by oral by oral every day route. route. by oral route. red yeast red yeast No 600mg Q1D red yeast [place] rice 600 mg rice 600 mg rice 600 n capsule capsule mg capsule [facility] Take 600 mg Take 600 mg Take 600 Box every day every day mg every by oral by oral day by route. route. oral route. Suprep Suprep No Suprep [facility] Bowel Prep Bowel Prep Bowel Prep n Kit 17.5 Kit 17.5 Kit 17.5 [facility] gram-3.13 gram-3.13 gram-3.13 Box gram-1.6 gram-1.6 gram-1.6 gram oral gram oral gram oral solution solution solution aspirin aspirin No aspirin [facility] Box Cialis 5 mg Cialis 5 mg No 1 Q1D Cialis 5 [place] tablet Take tablet Take mg tablet n 1 tablet 1 tablet Take 1 [facility] every day every day tablet Box by oral by oral every day route. route. by oral route. ciprofloxac ciprofloxac No ciprofloxa [facility] in 500 mg in 500 mg rere 500 mg n tablet Take tablet Take tablet Health 1 tablet 1 tablet Take 1 Box every 12 every 12 tablet hours by hours by every 12 oral route oral route hours by for 10 for 10 oral route days. days. for 10 days. dicyclomine dicyclomine No dicyclomin [facility] 20 mg 20 mg e 20 mg n tablet tablet tablet Health Box famotidine famotidine No famotidine [facility] Box Fish Oil Fish Oil No Fish Oil [facility] Lexapro 10 Lexapro 10 No 1 Q1D Lexapro 10 [facility] mg tablet mg tablet mg tablet n Take 1 Take 1 Take 1 Health tablet tablet tablet Box every day every day every day by oral by oral by oral route for route for route for 90 days. 90 days. 90 days. lisinopril lisinopril No 1 Q1D lisinopril [facility] 30 mg 30 mg 30 mg n tablet Take tablet Take tablet Health 1 tablet 1 tablet Take 1 Box every day every day tablet by oral by oral every day route for route for by oral 90 days. 90 days. route for 90 days. metronidazo metronidazo No metronidaz [facility] le 500 mg le 500 mg ole 500 mg n tablet Take tablet Take tablet Health 1 tablet 1 tablet Take 1 Box every 8 every 8 tablet hours by hours by every 8 oral route oral route hours by for 10 for 10 oral route days. days. for 10 days. montelukast montelukast No montelukas [facility] 10 mg 10 mg t 10 mg n tablet tablet tablet Health Box multivitami multivitami No multivitam [facility] n n in n [facility] Box pravastatin pravastatin No pravastati [facility] 10 mg 10 mg n 10 mg n tablet tablet tablet Health Box pravastatin pravastatin No 1 Q1D pravastati [facility] 20 mg 20 mg n 20 mg n tablet Take tablet Take tablet Health 1 tablet 1 tablet Take 1 Box every day every day tablet by oral by oral every day route. route. by oral route. red yeast red yeast No 600mg Q1D red yeast [facility] rice 600 mg rice 600 mg rice 600 n capsule capsule mg capsule [facility] Take 600 mg Take 600 mg Take 600 Box every day every day mg every by oral by oral day by route. route. oral route. Suprep Suprep No Suprep [facility] Bowel Prep Bowel Prep Bowel Prep n Kit 17.5 Kit 17.5 Kit 17.5 [facility] gram-3.13 gram-3.13 gram-3.13 Box gram-1.6 gram-1.6 gram-1.6 gram oral gram oral gram oral solution solution solution aspirin aspirin No aspirin [facility] Cialis 5 mg Cialis 5 mg No 1 Q1D Cialis 5 [facility] tablet Take tablet Take mg tablet n 1 tablet 1 tablet Take 1 Healt h every day every day tablet Box by oral by oral every day route. route. by oral route. ciprofloxac ciprofloxac No ciprofloxa [facility] in 500 mg in 500 mg rere 500 mg n tablet Take tablet Take tablet Health 1 tablet 1 tablet Take 1 Box every 12 every 12 tablet hours by hours by every 12 oral route oral route hours by for 10 for 10 oral route days. days. for 10 days. dicyclomine dicyclomine No dicyclomin [facility] 20 mg 20 mg e 20 mg n tablet tablet tablet Health Box famotidine famotidine No famotidine [facility] Box Fish Oil Fish Oil No Fish Oil [facility] Lexapro 10 Lexapro 10 No 1 Q1D Lexapro 10 [facility] mg tablet mg tablet mg tablet n Take 1 Take 1 Take 1 Health tablet tablet tablet Box every day every day every day by oral by oral by oral route for route for route for 90 days. 90 days. 90 days. lisinopril lisinopril No 1 Q1D lisinopril [facility] 30 mg 30 mg 30 mg n tablet Take tablet Take tablet Health 1 tablet 1 tablet Take 1 Box every day every day tablet by oral by oral every day route for route for by oral 90 days. 90 days. route for 90 days. metronidazo metronidazo No metronidaz [facility] le 500 mg le 500 mg ole 500 mg n tablet Take tablet Take tablet Health 1 tablet 1 tablet Take 1 Box every 8 every 8 tablet hours by hours by every 8 oral route oral route hours by for 10 for 10 oral route days. days. for 10 days. montelukast montelukast No montelukas [facility] 10 mg 10 mg t 10 mg n tablet tablet tablet Health Box multivitami multivitami No multivitam [facility] n n in n [facility] Box pravastatin pravastatin No pravastati [facility] 10 mg 10 mg n 10 mg n tablet tablet tablet Health Box pravastatin pravastatin No 1 Q1D pravastati [facility] 20 mg 20 mg n 20 mg n tablet Take tablet Take tablet Health 1 tablet 1 tablet Take 1 Box every day every day tablet by oral by oral every day route. route. by oral route. red yeast red yeast No 600mg Q1D red yeast [facility] rice 600 mg rice 600 mg rice 600 n capsule capsule mg capsule [facility] Take 600 mg Take 600 mg Take 600 Box every day every day mg every by oral by oral day by route. route. oral route. Suprep Suprep No Suprep [facility] Bowel Prep Bowel Prep Bowel Prep n Kit 17.5 Kit 17.5 Kit 17.5 [facility] gram-3.13 gram-3.13 gram-3.13 Box gram-1.6 gram-1.6 gram-1.6 gram oral gram oral gram oral solution solution solution aspirin aspirin No aspirin [facility] Cialis 5 mg Cialis 5 mg No 1 Q1D Cialis 5 [facility] tablet Take tablet Take mg tablet n 1 tablet 1 tablet Take 1 [facility]alt h every day every day tablet Box by oral by oral every day route for route for by oral 30 days. 30 days. route for 30 days. ciprofloxac ciprofloxac No ciprofloxa [facility] in 500 mg in 500 mg rere 500 mg n tablet Take tablet Take tablet Health 1 tablet 1 tablet Take 1 Box every 12 every 12 tablet hours by hours by every 12 oral route oral route hours by for 10 for 10 oral route days. days. for 10 days. dicyclomine dicyclomine No dicyclomin [facility] 20 mg 20 mg e 20 mg n tablet tablet tablet Health Box famotidine famotidine No famotidine [facility] Box Fish Oil Fish Oil No Fish Oil [facility] Lexapro 10 Lexapro 10 No 1 Q1D Lexapro 10 [facility] mg tablet mg tablet mg tablet n Take 1 Take 1 Take 1 Health tablet tablet tablet Box every day every day every day by oral by oral by oral route for route for route for 90 days. 90 days. 90 days. lisinopril lisinopril No 1 Q1D lisinopril [facility] 30 mg 30 mg 30 mg n tablet Take tablet Take tablet Health 1 tablet 1 tablet Take 1 Box every day every day tablet by oral by oral every day route for route for by oral 90 days. 90 days. route for 90 days. metronidazo metronidazo No metronidaz [facility] le 500 mg le 500 mg ole 500 mg n tablet Take tablet Take tablet Health 1 tablet 1 tablet Take 1 Box every 8 every 8 tablet hours by hours by every 8 oral route oral route hours by for 10 for 10 oral route days. days. for 10 days. montelukast montelukast No montelukas [facility] 10 mg 10 mg t 10 mg n tablet tablet tablet Health Box multivitami multivitami No multivitam [facility] n n in n [facility] Box pravastatin pravastatin No pravastati [facility] 10 mg 10 mg n 10 mg n tablet tablet tablet Health Box pravastatin pravastatin No 1 Q1D pravastati [facility] 20 mg 20 mg n 20 mg n tablet Take tablet Take tablet Health 1 tablet 1 tablet Take 1 Box every day every day tablet by oral by oral every day route. route. by oral route. red yeast red yeast No 600mg Q1D red yeast [facility] rice 600 mg rice 600 mg rice 600 n capsule capsule mg capsule [facility] Take 600 mg Take 600 mg Take 600 Box every day every day mg every by oral by oral day by route. route. oral route. Suprep Suprep No Suprep [facility] Bowel Prep Bowel Prep Bowel Prep n Kit 17.5 Kit 17.5 Kit 17.5 a lt gram-3.13 gram-3.13 gram-3.13 Box gram-1.6 gram-1.6 gram-1.6 gram oral gram oral gram oral solution solution solution aspirin aspirin No aspirin [facility] Cialis 5 mg Cialis 5 mg No 1 Q1D Cialis 5 [facility] tablet Take tablet Take mg tablet n 1 tablet 1 tablet Take 1 [facility]alt h every day every day tablet Box by oral by oral every day route for route for by oral 30 days. 30 days. route for 30 days. ciprofloxac ciprofloxac No ciprofloxa [facility] in 500 mg in 500 mg rere 500 mg n tablet Take tablet Take tablet Health 1 tablet 1 tablet Take 1 Box every 12 every 12 tablet hours by hours by every 12 oral route oral route hours by for 10 for 10 oral route days. days. for 10 days. dicyclomine dicyclomine No dicyclomin [facility] 20 mg 20 mg e 20 mg n tablet tablet tablet Health Box famotidine famotidine No famotidine [facility] Box Fish Oil Fish Oil No Fish Oil [facility] Lexapro 10 Lexapro 10 No 1 Q1D Lexapro 10 [facility] mg tablet mg tablet mg tablet n Take 1 Take 1 Take 1 Health tablet tablet tablet Box every day every day every day by oral by oral by oral route for route for route for 90 days. 90 days. 90 days. lisinopril lisinopril No 1 Q1D lisinopril [facility] 30 mg 30 mg 30 mg n tablet Take tablet Take tablet Health 1 tablet 1 tablet Take 1 Box every day every day tablet by oral by oral every day route for route for by oral 90 days. 90 days. route for 90 days. metronidazo metronidazo No metronidaz [facility] le 500 mg le 500 mg ole 500 mg n tablet Take tablet Take tablet Health 1 tablet 1 tablet Take 1 Box every 8 every 8 tablet hours by hours by every 8 oral route oral route hours by for 10 for 10 oral route days. days. for 10 days. montelukast montelukast No montelukas [facility] 10 mg 10 mg t 10 mg n tablet tablet tablet Health Box multivitami multivitami No multivitam [facility] n n in n [facility] Box pravastatin pravastatin No 1 Q1D pravastati [facility] 10 mg 10 mg n 10 mg n tablet Take tablet Take tablet Health 1 tablet 1 tablet Take 1 Box every day every day tablet by oral by oral every day route for route for by oral 90 days. 90 days. route for 90 days. pravastatin pravastatin No 1 Q1D pravastati [facility] 20 mg 20 mg n 20 mg n tablet Take tablet Take tablet Health 1 tablet 1 tablet Take 1 Box every day every day tablet by oral by oral every day route. route. by oral route. red yeast red yeast No 600mg Q1D red yeast [facility] rice 600 mg rice 600 mg rice 600 n capsule capsule mg capsule [facility] Take 600 mg Take 600 mg Take 600 Box every day every day mg every by oral by oral day by route. route. oral route. Suprep Suprep No Suprep [facility] Bowel Prep Bowel Prep Bowel Prep n Kit 17.5 Kit 17.5 Kit 17.5 [facility] gram-3.13 gram-3.13 gram-3.13 Box gram-1.6 gram-1.6 gram-1.6 gram oral gram oral gram oral solution solution solution aspirin aspirin No aspirin [facility] Cialis 5 mg Cialis 5 mg No 1 Q1D Cialis 5 [facility] tablet Take tablet Take mg tablet n 1 tablet 1 tablet Take 1 [facility]alt h every day every day tablet Box by oral by oral every day route for route for by oral 30 days. 30 days. route for 30 days. ciprofloxac ciprofloxac No ciprofloxa [facility] in 500 mg in 500 mg rere 500 mg n tablet Take tablet Take tablet Health 1 tablet 1 tablet Take 1 Box every 12 every 12 tablet hours by hours by every 12 oral route oral route hours by for 10 for 10 oral route days. days. for 10 days. dicyclomine dicyclomine No dicyclomin [facility] 20 mg 20 mg e 20 mg n tablet tablet tablet Health Box famotidine famotidine No famotidine [facility] Box Fish Oil Fish Oil No Fish Oil [facility] Lexapro 10 Lexapro 10 No 1 Q1D Lexapro 10 [facility] mg tablet mg tablet mg tablet n Take 1 Take 1 Take 1 Health tablet tablet tablet Box every day every day every day by oral by oral by oral route for route for route for 90 days. 90 days. 90 days. lisinopril lisinopril No 1 Q1D lisinopril [facility] 30 mg 30 mg 30 mg n tablet Take tablet Take tablet Health 1 tablet 1 tablet Take 1 Box every day every day tablet by oral by oral every day route for route for by oral 90 days. 90 days. route for 90 days. lisinopril lisinopril No 1 Q1D lisinopril [facility] 40 mg 40 mg 40 mg n tablet Take tablet Take tablet Health 1 tablet 1 tablet Take 1 Box every day every day tablet by oral by oral every day route for route for by oral 30 days. 30 days. route for 30 days. metronidazo metronidazo No metronidaz [facility] le 500 mg le 500 mg ole 500 mg n tablet Take tablet Take tablet Health 1 tablet 1 tablet Take 1 Box every 8 every 8 tablet hours by hours by every 8 oral route oral route hours by for 10 for 10 oral route days. days. for 10 days. montelukast montelukast No montelukas [facility] 10 mg 10 mg t 10 mg n tablet tablet tablet Health Box multivitami multivitami No multivitam [facility] n n in n [facility] Box pravastatin pravastatin No 1 Q1D pravastati [facility] 20 mg 20 mg n 20 mg n tablet Take tablet Take tablet Health 1 tablet 1 tablet Take 1 Box every day every day tablet by oral by oral every day route for route for by oral 90 days. 90 days. route for 90 days. red yeast red yeast No 600mg Q1D red yeast [facility] rice 600 mg rice 600 mg rice 600 n capsule capsule mg capsule [facility] Take 600 mg Take 600 mg Take 600 Box every day every day mg every by oral by oral day by route. route. oral route. Suprep Suprep No Suprep [facility] Bowel Prep Bowel Prep Bowel Prep n Kit 17.5 Kit 17.5 Kit 17.5 [facility] gram-3.13 gram-3.13 gram-3.13 Box gram-1.6 gram-1.6 gram-1.6 gram oral gram oral gram oral solution solution solution aspirin aspirin No aspirin [facility] Cialis 5 mg Cialis 5 mg No 1 Q1D Cialis 5 [facility] tablet Take tablet Take mg tablet n 1 tablet 1 tablet Take 1 [facility]alt h every day every day tablet Box by oral by oral every day route for route for by oral 30 days. 30 days. route for 30 days. ciprofloxac ciprofloxac No ciprofloxa [facility] in 500 mg in 500 mg rere 500 mg n tablet Take tablet Take tablet Health 1 tablet 1 tablet Take 1 Box every 12 every 12 tablet hours by hours by every 12 oral route oral route hours by for 10 for 10 oral route days. days. for 10 days. dicyclomine dicyclomine No dicyclomin [facility] 20 mg 20 mg e 20 mg n tablet tablet tablet Health Box famotidine famotidine No famotidine [facility] Box Fish Oil Fish Oil No Fish Oil [facility] Lexapro 10 Lexapro 10 No 1 Q1D Lexapro 10 [facility] mg tablet mg tablet mg tablet n Take 1 Take 1 Take 1 Health tablet tablet tablet Box every day every day every day by oral by oral by oral route for route for route for 90 days. 90 days. 90 days. lisinopril lisinopril No 1 Q1D lisinopril [facility] 40 mg 40 mg 40 mg n tablet Take tablet Take tablet Health 1 tablet 1 tablet Take 1 Box every day every day tablet by oral by oral every day route for route for by oral 30 days. 30 days. route for 30 days. metronidazo metronidazo No metronidaz [facility] le 500 mg le 500 mg ole 500 mg n tablet Take tablet Take tablet Health 1 tablet 1 tablet Take 1 Box every 8 every 8 tablet hours by hours by every 8 oral route oral route hours by for 10 for 10 oral route days. days. for 10 days. montelukast montelukast No montelukas [facility] 10 mg 10 mg t 10 mg n tablet tablet tablet Health Box multivitami multivitami No multivitam [facility] n n in n [facility] Box pravastatin pravastatin No 1 Q1D pravastati [facility] 20 mg 20 mg n 20 mg n tablet Take tablet Take tablet Health 1 tablet 1 tablet Take 1 Box every day every day tablet by oral by oral every day route for route for by oral 90 days. 90 days. route for 90 days. red yeast red yeast No 600mg Q1D red yeast [facility] rice 600 mg rice 600 mg rice 600 n capsule capsule mg capsule [facility] Take 600 mg Take 600 mg Take 600 Box every day every day mg every by oral by oral day by route. route. oral route. Suprep Suprep No Suprep [facility] Bowel Prep Bowel Prep Bowel Prep n Kit 17.5 Kit 17.5 Kit 17.5 [facility] gram-3.13 gram-3.13 gram-3.13 Box gram-1.6 gram-1.6 gram-1.6 gram oral gram oral gram oral solution solution solution aspirin aspirin No aspirin [facility] Cialis 5 mg Cialis 5 mg No 1 Q1D Cialis 5 [facility] tablet Take tablet Take mg tablet n 1 tablet 1 tablet Take 1 [facility]alt h every day every day tablet Box by oral by oral every day route for route for by oral 30 days. 30 days. route for 30 days. ciprofloxac ciprofloxac No ciprofloxa [facility] in 500 mg in 500 mg rere 500 mg n tablet Take tablet Take tablet Health 1 tablet 1 tablet Take 1 Box every 12 every 12 tablet hours by hours by every 12 oral route oral route hours by for 10 for 10 oral route days. days. for 10 days. dicyclomine dicyclomine No dicyclomin [facility] 20 mg 20 mg e 20 mg n tablet tablet tablet Health Box famotidine famotidine No famotidine [facility] Box Fish Oil Fish Oil No Fish Oil [facility] Box hydrochloro hydrochloro No 1capsul Q1D hydrochlor [facility] thiazide thiazide e(s) othiazide n 12.5 mg 12.5 mg 12.5 mg Health capsule capsule capsule Box Take 1 Take 1 Take 1 capsule capsule capsule every day every day every day by oral by oral by oral route for route for route for 30 days. 30 days. 30 days. Lexapro 10 Lexapro 10 No 1 Q1D Lexapro 10 [facility] mg tablet mg tablet mg tablet n Take 1 Take 1 Take 1 Health tablet tablet tablet Box every day every day every day by oral by oral by oral route for route for route for 90 days. 90 days. 90 days. lisinopril lisinopril No 1 Q1D lisinopril [facility] 40 mg 40 mg 40 mg n tablet Take tablet Take tablet Health 1 tablet 1 tablet Take 1 Box every day every day tablet by oral by oral every day route for route for by oral 30 days. 30 days. route for 30 days. metronidazo metronidazo No metronidaz [facility] le 500 mg le 500 mg ole 500 mg n tablet Take tablet Take tablet Health 1 tablet 1 tablet Take 1 Box every 8 every 8 tablet hours by hours by every 8 oral route oral route hours by for 10 for 10 oral route days. days. for 10 days. montelukast montelukast No montelukas [facility] 10 mg 10 mg t 10 mg n tablet tablet tablet Health Box multivitami multivitami No multivitam [facility] n n in n [facility] Box pravastatin pravastatin No 1 Q1D pravastati [facility] 20 mg 20 mg n 20 mg n tablet Take tablet Take tablet Health 1 tablet 1 tablet Take 1 Box every day every day tablet by oral by oral every day route for route for by oral 90 days. 90 days. route for 90 days. red yeast red yeast No 600mg Q1D red yeast [facility] rice 600 mg rice 600 mg rice 600 n capsule capsule mg capsule [facility] Take 600 mg Take 600 mg Take 600 Box every day every day mg every by oral by oral day by route. route. oral route. Suprep Suprep No Suprep [facility] Bowel Prep Bowel Prep Bowel Prep n Kit 17.5 Kit 17.5 Kit 17.5 [facility] gram-3.13 gram-3.13 gram-3.13 Box gram-1.6 gram-1.6 gram-1.6 gram oral gram oral gram oral solution solution solution aspirin aspirin No aspirin [facility] ciprofloxac ciprofloxac No ciprofloxa [facility] in 500 mg in 500 mg rere 500 mg n tablet Take tablet Take tablet Health 1 tablet 1 tablet Take 1 Box every 12 every 12 tablet hours by hours by every 12 oral route oral route hours by for 10 for 10 oral route days. days. for 10 days. dicyclomine dicyclomine No dicyclomin [facility] 20 mg 20 mg e 20 mg n tablet tablet tablet Health Box famotidine famotidine No famotidine [facility] Box Fish Oil Fish Oil No Fish Oil [facility] Box hydrochloro hydrochloro No 1capsul Q1D hydrochlor [facility] thiazide thiazide e(s) othiazide n 12.5 mg 12.5 mg 12.5 mg Health capsule capsule capsule Box Take 1 Take 1 Take 1 capsule capsule capsule every day every day every day by oral by oral by oral route for route for route for 30 days. 30 days. 30 days. Lexapro 10 Lexapro 10 No 1 Q1D Lexapro 10 [facility] mg tablet mg tablet mg tablet n Take 1 Take 1 Take 1 Health tablet tablet tablet Box every day every day every day by oral by oral by oral route for route for route for 90 days. 90 days. 90 days. lisinopril lisinopril No 1 Q1D lisinopril [facility] 40 mg 40 mg 40 mg n tablet Take tablet Take tablet Health 1 tablet 1 tablet Take 1 Box every day every day tablet by oral by oral every day route for route for by oral 30 days. 30 days. route for 30 days. metronidazo metronidazo No metronidaz [facility] le 500 mg le 500 mg ole 500 mg n tablet Take tablet Take tablet Health 1 tablet 1 tablet Take 1 Box every 8 every 8 tablet hours by hours by every 8 oral route oral route hours by for 10 for 10 oral route days. days. for 10 days. montelukast montelukast No montelukas [facility] 10 mg 10 mg t 10 mg n tablet tablet tablet Health Box multivitami multivitami No multivitam [facility] n n in n [facility] Box omeprazole omeprazole No 1capsul Q1D omeprazole [facility] 20 mg 20 mg e(s) 20 mg n capsule,del capsule,del capsule,de Health ayed ayed layed Box release release release Take 1 Take 1 Take 1 capsule capsule capsule every day every day every day by oral by oral by oral route. route. route. pravastatin pravastatin No 1 Q1D pravastati [facility] 20 mg 20 mg n 20 mg n tablet Take tablet Take tablet Health 1 tablet 1 tablet Take 1 Box every day every day tablet by oral by oral every day route for route for by oral 90 days. 90 days. route for 90 days. red yeast red yeast No 600mg Q1D red yeast [facility] rice 600 mg rice 600 mg rice 600 n capsule capsule mg capsule [facility] Take 600 mg Take 600 mg Take 600 Box every day every day mg every by oral by oral day by route. route. oral route. Suprep Suprep No Suprep [facility] Bowel Prep Bowel Prep Bowel Prep n Kit 17.5 Kit 17.5 Kit 17.5 [facility] gram-3.13 gram-3.13 gram-3.13 Box gram-1.6 gram-1.6 gram-1.6 gram oral gram oral gram oral solution solution solution tadalafil 5 tadalafil 5 No tadalafil [facility] mg tablet mg tablet 5 mg n TAKE 1 TAKE 1 tablet Health TABLET BY TABLET BY TAKE 1 Box MOUTH EVERY MOUTH EVERY TABLET BY DAY DAY MOUTH EVERY DAY aspirin aspirin No aspirin [facility] Box ciprofloxac ciprofloxac No ciprofloxa [facility] in 500 mg in 500 mg rere 500 mg n tablet Take tablet Take tablet Health 1 tablet 1 tablet Take 1 Box every 12 every 12 tablet hours by hours by every 12 oral route oral route hours by for 10 for 10 oral route days. days. for 10 days. dicyclomine dicyclomine No dicyclomin [facility] 20 mg 20 mg e 20 mg n tablet tablet tablet Health Box famotidine famotidine No famotidine [facility] n [facility] Box Fish Oil Fish Oil No Fish Oil [facility] Box hydrochloro hydrochloro No 1capsul Q1D hydrochlor [facility] thiazide thiazide e(s) othiazide n 12.5 mg 12.5 mg 12.5 mg Health capsule capsule capsule Box Take 1 Take 1 Take 1 capsule capsule capsule every day every day every day by oral by oral by oral route for route for route for 30 days. 30 days. 30 days. Lexapro 10 Lexapro 10 No 1 Q1D Lexapro 10 [facility] mg tablet mg tablet mg tablet n Take 1 Take 1 Take 1 Health tablet tablet tablet Box every day every day every day by oral by oral by oral route for route for route for 90 days. 90 days. 90 days. lisinopril lisinopril No 1 Q1D lisinopril [facility] 40 mg 40 mg 40 mg n tablet Take tablet Take tablet Health 1 tablet 1 tablet Take 1 Box every day every day tablet by oral by oral every day route for route for by oral 30 days. 30 days. route for 30 days. metronidazo metronidazo No metronidaz [facility] le 500 mg le 500 mg ole 500 mg n tablet Take tablet Take tablet Health 1 tablet 1 tablet Take 1 Box every 8 every 8 tablet hours by hours by every 8 oral route oral route hours by for 10 for 10 oral route days. days. for 10 days. montelukast montelukast No montelukas [facility] 10 mg 10 mg t 10 mg n tablet tablet tablet Health Box multivitami multivitami No multivitam [facility] n n in n [facility] Box omeprazole omeprazole No 1capsul Q1D omeprazole [facility] 20 mg 20 mg e(s) 20 mg n capsule,del capsule,del capsule,de Health ayed ayed layed Box release release release Take 1 Take 1 Take 1 capsule capsule capsule every day every day every day by oral by oral by oral route. route. route. pravastatin pravastatin No 1 Q1D pravastati [facility] 20 mg 20 mg n 20 mg n tablet Take tablet Take tablet Health 1 tablet 1 tablet Take 1 Box every day every day tablet by oral by oral every day route for route for by oral 90 days. 90 days. route for 90 days. red yeast red yeast No 600mg Q1D red yeast [facility] rice 600 mg rice 600 mg rice 600 n capsule capsule mg capsule [facility] Take 600 mg Take 600 mg Take 600 Box every day every day mg every by oral by oral day by route. route. oral route. Suprep Suprep No Suprep [facility] Bowel Prep Bowel Prep Bowel Prep n Kit 17.5 Kit 17.5 Kit 17.5 [facility] gram-3.13 gram-3.13 gram-3.13 Box gram-1.6 gram-1.6 gram-1.6 gram oral gram oral gram oral solution solution solution tadalafil 5 tadalafil 5 No tadalafil [facility] mg tablet mg tablet 5 mg n TAKE 1 TAKE 1 tablet Health TABLET BY TABLET BY TAKE 1 Box MOUTH EVERY MOUTH EVERY TABLET BY DAY DAY MOUTH EVERY DAY aspirin aspirin No aspirin [facility] Box ciprofloxac ciprofloxac No ciprofloxa [facility] in 500 mg in 500 mg rere 500 mg n tablet Take tablet Take tablet Health 1 tablet 1 tablet Take 1 Box every 12 every 12 tablet hours by hours by every 12 oral route oral route hours by for 10 for 10 oral route days. days. for 10 days. dicyclomine dicyclomine No dicyclomin [facility] 20 mg 20 mg e 20 mg n tablet tablet tablet Health Box famotidine famotidine No famotidine [facility] n [facility] Box Fish Oil Fish Oil No Fish Oil [facility] Box hydrochloro hydrochloro No 1capsul Q1D hydrochlor [facility] thiazide thiazide e(s) othiazide n 12.5 mg 12.5 mg 12.5 mg Health capsule capsule capsule Box Take 1 Take 1 Take 1 capsule capsule capsule every day every day every day by oral by oral by oral route for route for route for 30 days. 30 days. 30 days. Lexapro 10 Lexapro 10 No 1 Q1D Lexapro 10 [facility] mg tablet mg tablet mg tablet n Take 1 Take 1 Take 1 Health tablet tablet tablet Box every day every day every day by oral by oral by oral route for route for route for 90 days. 90 days. 90 days. lisinopril lisinopril No 1 Q1D lisinopril [facility] 40 mg 40 mg 40 mg n tablet Take tablet Take tablet Health 1 tablet 1 tablet Take 1 Box every day every day tablet by oral by oral every day route for route for by oral 30 days. 30 days. route for 30 days. metronidazo metronidazo No metronidaz [facility] le 500 mg le 500 mg ole 500 mg n tablet Take tablet Take tablet Health 1 tablet 1 tablet Take 1 Box every 8 every 8 tablet hours by hours by every 8 oral route oral route hours by for 10 for 10 oral route days. days. for 10 days. montelukast montelukast No montelukas [facility] 10 mg 10 mg t 10 mg n tablet tablet tablet Health Box multivitami multivitami No multivitam [facility] n n in n Health Box omeprazole omeprazole No 1capsul Q1D omeprazole [facility] 20 mg 20 mg e(s) 20 mg n capsule,del capsule,del capsule,de Health ayed ayed layed Box release release release Take 1 Take 1 Take 1 capsule capsule capsule every day every day every day by oral by oral by oral route. route. route. pravastatin pravastatin No 1 Q1D pravastati [facility] 20 mg 20 mg n 20 mg n tablet Take tablet Take tablet Health 1 tablet 1 tablet Take 1 Box every day every day tablet by oral by oral every day route for route for by oral 90 days. 90 days. route for 90 days. red yeast red yeast No 600mg Q1D red yeast [facility] rice 600 mg rice 600 mg rice 600 n capsule capsule mg capsule [facility] Take 600 mg Take 600 mg Take 600 Box every day every day mg every by oral by oral day by route. route. oral route. Suprep Suprep No Suprep [facility] Bowel Prep Bowel Prep Bowel Prep n Kit 17.5 Kit 17.5 Kit 17.5 [facility] gram-3.13 gram-3.13 gram-3.13 Box gram-1.6 gram-1.6 gram-1.6 gram oral gram oral gram oral solution solution solution tadalafil 5 tadalafil 5 No tadalafil [facility] mg tablet mg tablet 5 mg n TAKE 1 TAKE 1 tablet Health TABLET BY TABLET BY TAKE 1 Box MOUTH EVERY MOUTH EVERY TABLET BY DAY DAY MOUTH EVERY DAY aspirin aspirin No aspirin [facility] Box ciprofloxac ciprofloxac No ciprofloxa [facility] in 500 mg in 500 mg rere 500 mg n tablet Take tablet Take tablet Health 1 tablet 1 tablet Take 1 Box every 12 every 12 tablet hours by hours by every 12 oral route oral route hours by for 10 for 10 oral route days. days. for 10 days. dicyclomine dicyclomine No dicyclomin [facility] 20 mg 20 mg e 20 mg n tablet tablet tablet Health Box famotidine famotidine No famotidine [facility] n [facility] Box Fish Oil Fish Oil No Fish Oil [facility] Box hydrochloro hydrochloro No 1capsul Q1D hydrochlor [facility] thiazide thiazide e(s) othiazide n 12.5 mg 12.5 mg 12.5 mg [facility] capsule capsule capsule Box Take 1 Take 1 Take 1 capsule capsule capsule every day every day every day by oral by oral by oral route for route for route for 30 days. 30 days. 30 days. Lexapro 10 Lexapro 10 No 1 Q1D Lexapro 10 [facility] mg tablet mg tablet mg tablet n Take 1 Take 1 Take 1 Health tablet tablet tablet Box every day every day every day by oral by oral by oral route for route for route for 90 days. 90 days. 90 days. lisinopril lisinopril No 1 Q1D lisinopril [facility] 40 mg 40 mg 40 mg n tablet Take tablet Take tablet Health 1 tablet 1 tablet Take 1 Box every day every day tablet by oral by oral every day route for route for by oral 30 days. 30 days. route for 30 days. metronidazo metronidazo No metronidaz [facility] le 500 mg le 500 mg ole 500 mg n tablet Take tablet Take tablet Health 1 tablet 1 tablet Take 1 Box every 8 every 8 tablet hours by hours by every 8 oral route oral route hours by for 10 for 10 oral route days. days. for 10 days. montelukast montelukast No montelukas [facility] 10 mg 10 mg t 10 mg n tablet tablet tablet Health Box multivitami multivitami No multivitam [facility] n n in n [facility] Box omeprazole omeprazole No 1capsul Q1D omeprazole [facility] 20 mg 20 mg e(s) 20 mg n capsule,del capsule,del capsule,de [facility] ayed ayed layed Box release release release Take 1 Take 1 Take 1 capsule capsule capsule every day every day every day by oral by oral by oral route. route. route. pravastatin pravastatin No 1 Q1D pravastati [facility] 20 mg 20 mg n 20 mg n tablet Take tablet Take tablet Health 1 tablet 1 tablet Take 1 Box every day every day tablet by oral by oral every day route for route for by oral 90 days. 90 days. route for 90 days. red yeast red yeast No 600mg Q1D red yeast [facility] rice 600 mg rice 600 mg rice 600 n capsule capsule mg capsule [facility] Take 600 mg Take 600 mg Take 600 Box every day every day mg every by oral by oral day by route. route. oral route. Suprep Suprep No Suprep [facility] Bowel Prep Bowel Prep Bowel Prep n Kit 17.5 Kit 17.5 Kit 17.5 [facility] gram-3.13 gram-3.13 gram-3.13 Box gram-1.6 gram-1.6 gram-1.6 gram oral gram oral gram oral solution solution solution tadalafil 5 tadalafil 5 No tadalafil [facility] mg tablet mg tablet 5 mg n TAKE 1 TAKE 1 tablet Health TABLET BY TABLET BY TAKE 1 Box MOUTH EVERY MOUTH EVERY TABLET BY DAY DAY MOUTH EVERY DAY aspirin aspirin No aspirin [facility] Box Cialis 5 mg Cialis 5 mg No 1 Q1D Cialis 5 [facility] tablet Take tablet Take mg tablet n 1 tablet 1 tablet Take 1 Healt h every day every day tablet Box by oral by oral every day route for route for by oral 90 days. 90 days. route for 90 days. ciprofloxac ciprofloxac No ciprofloxa [facility] in 500 mg in 500 mg rere 500 mg n tablet Take tablet Take tablet Health 1 tablet 1 tablet Take 1 Box every 12 every 12 tablet hours by hours by every 12 oral route oral route hours by for 10 for 10 oral route days. days. for 10 days. dicyclomine dicyclomine No dicyclomin [facility] 20 mg 20 mg e 20 mg n tablet tablet tablet Health Box famotidine famotidine No famotidine [facility] n [facility] Box Fish Oil Fish Oil No Fish Oil [facility] Box hydrochloro hydrochloro No 1capsul Q1D hydrochlor [facility] thiazide thiazide e(s) othiazide n 12.5 mg 12.5 mg 12.5 mg [facility] capsule capsule capsule Box Take 1 Take 1 Take 1 capsule capsule capsule every day every day every day by oral by oral by oral route for route for route for 30 days. 30 days. 30 days. Lexapro 10 Lexapro 10 No 1 Q1D Lexapro 10 [facility] mg tablet mg tablet mg tablet n Take 1 Take 1 Take 1 Health tablet tablet tablet Box every day every day every day by oral by oral by oral route for route for route for 90 days. 90 days. 90 days. lisinopril lisinopril No 1 Q1D lisinopril [facility] 40 mg 40 mg 40 mg n tablet Take tablet Take tablet Health 1 tablet 1 tablet Take 1 Box every day every day tablet by oral by oral every day route for route for by oral 90 days. 90 days. route for 90 days. metronidazo metronidazo No metronidaz [facility] le 500 mg le 500 mg ole 500 mg n tablet Take tablet Take tablet Health 1 tablet 1 tablet Take 1 Box every 8 every 8 tablet hours by hours by every 8 oral route oral route hours by for 10 for 10 oral route days. days. for 10 days. montelukast montelukast No montelukas [facility] 10 mg 10 mg t 10 mg n tablet tablet tablet Health Box multivitami multivitami No multivitam [facility] n n in n [facility] Box omeprazole omeprazole No 1capsul Q1D omeprazole [facility] 20 mg 20 mg e(s) 20 mg n capsule,del capsule,del capsule,de [facility] ayed ayed layed Box release release release Take 1 Take 1 Take 1 capsule capsule capsule every day every day every day by oral by oral by oral route. route. route. pravastatin pravastatin No 1 Q1D pravastati [facility] 20 mg 20 mg n 20 mg n tablet Take tablet Take tablet Health 1 tablet 1 tablet Take 1 Box every day every day tablet by oral by oral every day route for route for by oral 90 days. 90 days. route for 90 days. red yeast red yeast No 600mg Q1D red yeast [facility] rice 600 mg rice 600 mg rice 600 n capsule capsule mg capsule [facility] Take 600 mg Take 600 mg Take 600 Box every day every day mg every by oral by oral day by route. route. oral route. Suprep Suprep No Suprep [facility] Bowel Prep Bowel Prep Bowel Prep n Kit 17.5 Kit 17.5 Kit 17.5 [facility] gram-3.13 gram-3.13 gram-3.13 Box gram-1.6 gram-1.6 gram-1.6 gram oral gram oral gram oral solution solution solution aspirin aspirin No aspirin [facility] Box Cialis 5 mg Cialis 5 mg No 1 Q1D Cialis 5 [facility] tablet Take tablet Take mg tablet n 1 tablet 1 tablet Take 1 [facility]alt h every day every day tablet Box by oral by oral every day route for route for by oral 90 days. 90 days. route for 90 days. ciprofloxac ciprofloxac No ciprofloxa [facility] in 500 mg in 500 mg rere 500 mg n tablet Take tablet Take tablet Health 1 tablet 1 tablet Take 1 Box every 12 every 12 tablet hours by hours by every 12 oral route oral route hours by for 10 for 10 oral route days. days. for 10 days. dicyclomine dicyclomine No dicyclomin [facility] 20 mg 20 mg e 20 mg n tablet tablet tablet Health Box famotidine famotidine No famotidine [facility] n [facility] Box Fish Oil Fish Oil No Fish Oil [facility] Box hydrochloro hydrochloro No 1capsul Q1D hydrochlor [facility] thiazide thiazide e(s) othiazide n 12.5 mg 12.5 mg 12.5 mg [facility] capsule capsule capsule Box Take 1 Take 1 Take 1 capsule capsule capsule every day every day every day by oral by oral by oral route for route for route for 30 days. 30 days. 30 days. Lexapro 10 Lexapro 10 No 1 Q1D Lexapro 10 [facility] mg tablet mg tablet mg tablet n Take 1 Take 1 Take 1 Health tablet tablet tablet Box every day every day every day by oral by oral by oral route for route for route for 90 days. 90 days. 90 days. lisinopril lisinopril No 1 Q1D lisinopril [facility] 40 mg 40 mg 40 mg n tablet Take tablet Take tablet Health 1 tablet 1 tablet Take 1 Box every day every day tablet by oral by oral every day route for route for by oral 90 days. 90 days. route for 90 days. metronidazo metronidazo No metronidaz [facility] le 500 mg le 500 mg ole 500 mg n tablet Take tablet Take tablet Health 1 tablet 1 tablet Take 1 Box every 8 every 8 tablet hours by hours by every 8 oral route oral route hours by for 10 for 10 oral route days. days. for 10 days. montelukast montelukast No montelukas [facility] 10 mg 10 mg t 10 mg n tablet tablet tablet Health Box multivitami multivitami No multivitam [facility] n n in n [facility] Box omeprazole omeprazole No 1capsul Q1D omeprazole [facility] 20 mg 20 mg e(s) 20 mg n capsule,del capsule,del capsule,de [facility] ayed ayed layed Box release release release Take 1 Take 1 Take 1 capsule capsule capsule every day every day every day by oral by oral by oral route. route. route. pravastatin pravastatin No 1 Q1D pravastati [facility] 20 mg 20 mg n 20 mg n tablet Take tablet Take tablet Health 1 tablet 1 tablet Take 1 Box every day every day tablet by oral by oral every day route for route for by oral 90 days. 90 days. route for 90 days. red yeast red yeast No 600mg Q1D red yeast [facility] rice 600 mg rice 600 mg rice 600 n capsule capsule mg capsule [facility] Take 600 mg Take 600 mg Take 600 Box every day every day mg every by oral by oral day by route. route. oral route. Suprep Suprep No Suprep [facility] Bowel Prep Bowel Prep Bowel Prep n Kit 17.5 Kit 17.5 Kit 17.5 [facility] gram-3.13 gram-3.13 gram-3.13 Box gram-1.6 gram-1.6 gram-1.6 gram oral gram oral gram oral solution solution solution aspirin aspirin No aspirin [facility] Box ciprofloxac ciprofloxac No ciprofloxa [facility] in 500 mg in 500 mg rere 500 mg n tablet Take tablet Take tablet Health 1 tablet 1 tablet Take 1 Box every 12 every 12 tablet hours by hours by every 12 oral route oral route hours by for 10 for 10 oral route days. days. for 10 days. dicyclomine dicyclomine No dicyclomin [facility] 20 mg 20 mg e 20 mg n tablet tablet tablet Health Box famotidine famotidine No famotidine [facility] n [facility] Box Fish Oil Fish Oil No Fish Oil [facility] Box hydrochloro hydrochloro No hydrochlor [facility] thiazide thiazide othiazide n 12.5 mg 12.5 mg 12.5 mg [facility] capsule capsule capsule Box TAKE ONE TAKE ONE TAKE ONE CAPSULE BY CAPSULE BY CAPSULE BY MOUTH ONCE MOUTH ONCE MOUTH ONCE A DAY FOR A DAY FOR A DAY FOR 30 DAYS 30 DAYS 30 DAYS Lexapro 10 Lexapro 10 No 1 Q1D Lexapro 10 [facility] mg tablet mg tablet mg tablet n Take 1 Take 1 Take 1 Health tablet tablet tablet Box every day every day every day by oral by oral by oral route for route for route for 90 days. 90 days. 90 days. lisinopril lisinopril No lisinopril [facility] 40 mg 40 mg 40 mg n tablet TAKE tablet TAKE tablet Health ONE TABLET ONE TABLET TAKE ONE Box BY MOUTH BY MOUTH TABLET BY ONCE A DAY ONCE A DAY MOUTH ONCE A DAY metronidazo metronidazo No metronidaz [facility] le 500 mg le 500 mg ole 500 mg n tablet Take tablet Take tablet [facility] 1 tablet 1 tablet Take 1 Box every 8 every 8 tablet hours by hours by every 8 oral route oral route hours by for 10 for 10 oral route days. days. for 10 days. montelukast montelukast No montelukas [facility] 10 mg 10 mg t 10 mg n tablet tablet tablet [facility] Box multivitami multivitami No multivitam [facility] n n in n [facility] Box omeprazole omeprazole No 1capsul Q1D omeprazole [facility] 20 mg 20 mg e(s) 20 mg n capsule,del capsule,del capsule,de [facility] ayed ayed layed Box release release release Take 1 Take 1 Take 1 capsule capsule capsule every day every day every day by oral by oral by oral route. route. route. pravastatin pravastatin No 1 Q1D pravastati [facility] 20 mg 20 mg n 20 mg n tablet Take tablet Take tablet [facility] 1 tablet 1 tablet Take 1 Box every day every day tablet by oral by oral every day route for route for by oral 90 days. 90 days. route for 90 days. red yeast red yeast No 600mg Q1D red yeast [facility] rice 600 mg rice 600 mg rice 600 n capsule capsule mg capsule [facility] Take 600 mg Take 600 mg Take 600 Box every day every day mg every by oral by oral day by route. route. oral route. Suprep Suprep No Suprep [facility] Bowel Prep Bowel Prep Bowel Prep n Kit 17.5 Kit 17.5 Kit 17.5 [facility] gram-3.13 gram-3.13 gram-3.13 Box gram-1.6 gram-1.6 gram-1.6 gram oral gram oral gram oral solution solution solution tadalafil 5 tadalafil 5 No tadalafil [facility] mg tablet mg tablet 5 mg n TAKE 1 TAKE 1 tablet Health TABLET BY TABLET BY TAKE 1 Box MOUTH EVERY MOUTH EVERY TABLET BY DAY DAY MOUTH EVERY DAY aspirin aspirin No aspirin [facility] Box famotidine famotidine No famotidine [facility] n [facility] Box Fish Oil Fish Oil No Fish Oil [facility] Box hydrochloro hydrochloro No hydrochlor [facility] thiazide thiazide othiazide n 12.5 mg 12.5 mg 12.5 mg [facility] capsule capsule capsule Box TAKE ONE TAKE ONE TAKE ONE CAPSULE BY CAPSULE BY CAPSULE BY MOUTH ONCE MOUTH ONCE MOUTH ONCE A DAY FOR A DAY FOR A DAY FOR 30 DAYS 30 DAYS 30 DAYS Lexapro 10 Lexapro 10 No 1 Q1D Lexapro 10 [facility] mg tablet mg tablet mg tablet n Take 1 Take 1 Take 1 Health tablet tablet tablet Box every day every day every day by oral by oral by oral route for route for route for 90 days. 90 days. 90 days. lisinopril lisinopril No lisinopril [facility] 40 mg 40 mg 40 mg n tablet TAKE tablet TAKE tablet Health ONE TABLET ONE TABLET TAKE ONE Box BY MOUTH BY MOUTH TABLET BY ONCE A DAY ONCE A DAY MOUTH ONCE A DAY multivitami multivitami No multivitam [facility] n n in n [facility] Box omeprazole omeprazole No 1capsul Q1D omeprazole [facility] 20 mg 20 mg e(s) 20 mg n capsule,del capsule,del capsule,de [facility] ayed ayed layed Box release release release Take 1 Take 1 Take 1 capsule capsule capsule every day every day every day by oral by oral by oral route. route. route. pravastatin pravastatin No 1 Q1D pravastati [facility] 20 mg 20 mg n 20 mg n tablet Take tablet Take tablet Health 1 tablet 1 tablet Take 1 Box every day every day tablet by oral by oral every day route for route for by oral 90 days. 90 days. route for 90 days. tadalafil 5 tadalafil 5 No tadalafil [facility] mg tablet mg tablet 5 mg n TAKE 1 TAKE 1 tablet Health TABLET BY TABLET BY TAKE 1 Box MOUTH EVERY MOUTH EVERY TABLET BY DAY DAY MOUTH EVERY DAY aspirin aspirin No aspirin [facility] Box escitalopra escitalopra No escitalopr [facility] m 10 mg m 10 mg am 10 mg n tablet TAKE tablet TAKE tablet Health ONE TABLET ONE TABLET TAKE ONE Box BY MOUTH BY MOUTH TABLET BY ONCE A DAY ONCE A DAY MOUTH ONCE A DAY famotidine famotidine No famotidine [facility] n [facility] Box Fish Oil Fish Oil No Fish Oil [facility] Box hydrochloro hydrochloro No hydrochlor [facility] thiazide thiazide othiazide n 12.5 mg 12.5 mg 12.5 mg [facility] capsule capsule capsule Box TAKE ONE TAKE ONE TAKE ONE CAPSULE BY CAPSULE BY CAPSULE BY MOUTH ONCE MOUTH ONCE MOUTH ONCE A DAY FOR A DAY FOR A DAY FOR 30 DAYS 30 DAYS 30 DAYS lisinopril lisinopril No lisinopril [facility] 40 mg 40 mg 40 mg n tablet TAKE tablet TAKE tablet Health ONE TABLET ONE TABLET TAKE ONE Box BY MOUTH BY MOUTH TABLET BY ONCE A DAY ONCE A DAY MOUTH ONCE A DAY multivitami multivitami No multivitam [facility] n n in n [facility] Box omeprazole omeprazole No omeprazole [facility] 20 mg 20 mg 20 mg n capsule,del capsule,del capsule,de [facility] ayed ayed layed Box release release release TAKE ONE TAKE ONE TAKE ONE CAPSULE BY CAPSULE BY CAPSULE BY MOUTH ONCE MOUTH ONCE MOUTH ONCE A DAY A DAY A DAY pravastatin pravastatin No 1 Q1D pravastati [facility] 20 mg 20 mg n 20 mg n tablet Take tablet Take tablet Health 1 tablet 1 tablet Take 1 Box every day every day tablet by oral by oral every day route for route for by oral 90 days. 90 days. route for 90 days. tadalafil 5 tadalafil 5 No tadalafil [facility] mg tablet mg tablet 5 mg n TAKE 1 TAKE 1 tablet Health TABLET BY TABLET BY TAKE 1 Box MOUTH EVERY MOUTH EVERY TABLET BY DAY DAY MOUTH EVERY DAY aspirin aspirin No aspirin [facility] Box escitalopra escitalopra No escitalopr [facility] m 10 mg m 10 mg am 10 mg n tablet TAKE tablet TAKE tablet Health ONE TABLET ONE TABLET TAKE ONE Box BY MOUTH BY MOUTH TABLET BY ONCE A DAY ONCE A DAY MOUTH ONCE A DAY famotidine famotidine No famotidine [facility] n [facility] Box Fish Oil Fish Oil No Fish Oil [facility] Box hydrochloro hydrochloro No 1capsul Q1D hydrochlor [facility] thiazide thiazide e(s) othiazide n 12.5 mg 12.5 mg 12.5 mg [facility] capsule capsule capsule Box Take 1 Take 1 Take 1 capsule capsule capsule every day every day every day by oral by oral by oral route for route for route for 30 days. 30 days. 30 days. lisinopril lisinopril No lisinopril [facility] 40 mg 40 mg 40 mg n tablet TAKE tablet TAKE tablet Health ONE TABLET ONE TABLET TAKE ONE Box BY MOUTH BY MOUTH TABLET BY ONCE A DAY ONCE A DAY MOUTH ONCE A DAY multivitami multivitami No multivitam [facility] n n in n [facility] Box omeprazole omeprazole No omeprazole [facility] 20 mg 20 mg 20 mg n capsule,del capsule,del capsule,de [facility] ayed ayed layed Box release release release TAKE ONE TAKE ONE TAKE ONE CAPSULE BY CAPSULE BY CAPSULE BY MOUTH ONCE MOUTH ONCE MOUTH ONCE A DAY A DAY A DAY pravastatin pravastatin No 1 Q1D pravastati [facility] 20 mg 20 mg n 20 mg n tablet Take tablet Take tablet Health 1 tablet 1 tablet Take 1 Box every day every day tablet by oral by oral every day route for route for by oral 90 days. 90 days. route for 90 days. tadalafil 5 tadalafil 5 No tadalafil [facility] mg tablet mg tablet 5 mg n TAKE 1 TAKE 1 tablet Health TABLET BY TABLET BY TAKE 1 Box MOUTH EVERY MOUTH EVERY TABLET BY DAY DAY MOUTH EVERY DAY aspirin aspirin No aspirin [facility] Box escitalopra escitalopra No escitalopr [facility] m 10 mg m 10 mg am 10 mg n tablet TAKE tablet TAKE tablet Health ONE TABLET ONE TABLET TAKE ONE Box BY MOUTH BY MOUTH TABLET BY ONCE A DAY ONCE A DAY MOUTH ONCE A DAY famotidine famotidine No famotidine [facility] n [facility] Box Fish Oil Fish Oil No Fish Oil [facility] Box hydrochloro hydrochloro No hydrochlor [facility] thiazide thiazide othiazide n 12.5 mg 12.5 mg 12.5 mg Health capsule capsule capsule Box TAKE ONE TAKE ONE TAKE ONE CAPSULE BY CAPSULE BY CAPSULE BY MOUTH ONCE MOUTH ONCE MOUTH ONCE A DAY FOR A DAY FOR A DAY FOR 30 DAYS 30 DAYS 30 DAYS lisinopril lisinopril No lisinopril [facility] 40 mg 40 mg 40 mg n tablet TAKE tablet TAKE tablet Health ONE TABLET ONE TABLET TAKE ONE Box BY MOUTH BY MOUTH TABLET BY ONCE A DAY ONCE A DAY MOUTH ONCE A DAY multivitami multivitami No multivitam [facility] n n in n [facility] Box omeprazole omeprazole No omeprazole [facility] 20 mg 20 mg 20 mg n capsule,del capsule,del capsule,de [facility] ayed ayed layed Box release release release TAKE ONE TAKE ONE TAKE ONE CAPSULE BY CAPSULE BY CAPSULE BY MOUTH ONCE MOUTH ONCE MOUTH ONCE A DAY A DAY A DAY pravastatin pravastatin No 1 Q1D pravastati [facility] 20 mg 20 mg n 20 mg n tablet Take tablet Take tablet Health 1 tablet 1 tablet Take 1 Box every day every day tablet by oral by oral every day route for route for by oral 90 days. 90 days. route for 90 days. tadalafil 5 tadalafil 5 No tadalafil [facility] mg tablet mg tablet 5 mg n TAKE 1 TAKE 1 tablet Health TABLET BY TABLET BY TAKE 1 Box MOUTH EVERY MOUTH EVERY TABLET BY DAY DAY MOUTH EVERY DAY aspirin aspirin No aspirin [facility] Box escitalopra escitalopra No escitalopr [facility] m 10 mg m 10 mg am 10 mg n tablet TAKE tablet TAKE tablet Health ONE TABLET ONE TABLET TAKE ONE Box BY MOUTH BY MOUTH TABLET BY ONCE A DAY ONCE A DAY MOUTH ONCE A DAY famotidine famotidine No famotidine [facility] n [facility] Box Fish Oil Fish Oil No Fish Oil [facility] Box hydrochloro hydrochloro No hydrochlor [facility] thiazide thiazide othiazide n 12.5 mg 12.5 mg 12.5 mg Health capsule capsule capsule Box TAKE ONE TAKE ONE TAKE ONE CAPSULE BY CAPSULE BY CAPSULE BY MOUTH ONCE MOUTH ONCE MOUTH ONCE A DAY FOR A DAY FOR A DAY FOR 30 DAYS 30 DAYS 30 DAYS lisinopril lisinopril No lisinopril [facility] 40 mg 40 mg 40 mg n tablet TAKE tablet TAKE tablet Health ONE TABLET ONE TABLET TAKE ONE Box BY MOUTH BY MOUTH TABLET BY ONCE A DAY ONCE A DAY MOUTH ONCE A DAY multivitami multivitami No multivitam [facility] n n in n [facility] Box omeprazole omeprazole No omeprazole [facility] 20 mg 20 mg 20 mg n capsule,del capsule,del capsule,de Health ayed ayed layed Box release release release TAKE ONE TAKE ONE TAKE ONE CAPSULE BY CAPSULE BY CAPSULE BY MOUTH ONCE MOUTH ONCE MOUTH ONCE A DAY A DAY A DAY pravastatin pravastatin No 1 Q1D pravastati [facility] 20 mg 20 mg n 20 mg n tablet Take tablet Take tablet Health 1 tablet 1 tablet Take 1 Box every day every day tablet by oral by oral every day route for route for by oral 90 days. 90 days. route for 90 days. tadalafil 5 tadalafil 5 No tadalafil [facility] mg tablet mg tablet 5 mg n TAKE 1 TAKE 1 tablet Health TABLET BY TABLET BY TAKE 1 Box MOUTH EVERY MOUTH EVERY TABLET BY DAY DAY MOUTH EVERY DAY aspirin aspirin No aspirin [facility] Box escitalopra escitalopra No escitalopr [facility] m 10 mg m 10 mg am 10 mg n tablet TAKE tablet TAKE tablet Health ONE TABLET ONE TABLET TAKE ONE Box BY MOUTH BY MOUTH TABLET BY ONCE A DAY ONCE A DAY MOUTH ONCE A DAY famotidine famotidine No famotidine [facility] n [facility] Box Fish Oil Fish Oil No Fish Oil [facility] Box hydrochloro hydrochloro No 1capsul Q1D hydrochlor [facility] thiazide thiazide e(s) othiazide n 12.5 mg 12.5 mg 12.5 mg Health capsule capsule capsule Box Take 1 Take 1 Take 1 capsule capsule capsule every day every day every day by oral by oral by oral route for route for route for 30 days. 30 days. 30 days. lisinopril lisinopril No lisinopril [facility] 40 mg 40 mg 40 mg n tablet TAKE tablet TAKE tablet Health ONE TABLET ONE TABLET TAKE ONE Box BY MOUTH BY MOUTH TABLET BY ONCE A DAY ONCE A DAY MOUTH ONCE A DAY multivitami multivitami No multivitam [facility] n n in n [facility] Box omeprazole omeprazole No omeprazole [facility] 20 mg 20 mg 20 mg n capsule,del capsule,del capsule,de Health ayed ayed layed Box release release release TAKE ONE TAKE ONE TAKE ONE CAPSULE BY CAPSULE BY CAPSULE BY MOUTH ONCE MOUTH ONCE MOUTH ONCE A DAY A DAY A DAY pravastatin pravastatin No 1 Q1D pravastati [facility] 20 mg 20 mg n 20 mg n tablet Take tablet Take tablet Health 1 tablet 1 tablet Take 1 Box every day every day tablet by oral by oral every day route for route for by oral 90 days. 90 days. route for 90 days. tadalafil 5 tadalafil 5 No tadalafil [facility] mg tablet mg tablet 5 mg n TAKE 1 TAKE 1 tablet Health TABLET BY TABLET BY TAKE 1 Box MOUTH EVERY MOUTH EVERY TABLET BY DAY DAY MOUTH EVERY DAY aspirin aspirin No aspirin [facility] Box Cialis 5 mg Cialis 5 mg No 1 Q1D Cialis 5 [facility] tablet Take tablet Take mg tablet n 1 tablet 1 tablet Take 1 Healt h every day every day tablet Box by oral by oral every day route for route for by oral 90 days. 90 days. route for 90 days. escitalopra escitalopra No escitalopr [facility] m 10 mg m 10 mg am 10 mg n tablet TAKE tablet TAKE tablet Health ONE TABLET ONE TABLET TAKE ONE Box BY MOUTH BY MOUTH TABLET BY ONCE A DAY ONCE A DAY MOUTH ONCE A DAY famotidine famotidine No famotidine [facility] Box Fish Oil Fish Oil No Fish Oil [facility] Box hydrochloro hydrochloro No 1capsul Q1D hydrochlor [facility] thiazide thiazide e(s) othiazide n 12.5 mg 12.5 mg 12.5 mg Health capsule capsule capsule Box Take 1 Take 1 Take 1 capsule capsule capsule every day every day every day by oral by oral by oral route for route for route for 30 days. 30 days. 30 days. lisinopril lisinopril No lisinopril [facility] 40 mg 40 mg 40 mg n tablet TAKE tablet TAKE tablet Health ONE TABLET ONE TABLET TAKE ONE Box BY MOUTH BY MOUTH TABLET BY ONCE A DAY ONCE A DAY MOUTH ONCE A DAY multivitami multivitami No multivitam [facility] n n in n Health Box omeprazole omeprazole No omeprazole [facility] 20 mg 20 mg 20 mg n capsule,del capsule,del capsule,de Health ayed ayed layed Box release release release TAKE ONE TAKE ONE TAKE ONE CAPSULE BY CAPSULE BY CAPSULE BY MOUTH ONCE MOUTH ONCE MOUTH ONCE A DAY A DAY A DAY pravastatin pravastatin No 1 Q1D pravastati [facility] 20 mg 20 mg n 20 mg n tablet Take tablet Take tablet Health 1 tablet 1 tablet Take 1 Box every day every day tablet by oral by oral every day route for route for by oral 90 days. 90 days. route for 90 days. aspirin aspirin No aspirin [facility] Box escitalopra escitalopra No escitalopr [facility] m 10 mg m 10 mg am 10 mg n tablet TAKE tablet TAKE tablet Health ONE TABLET ONE TABLET TAKE ONE Box BY MOUTH BY MOUTH TABLET BY ONCE A DAY ONCE A DAY MOUTH ONCE A DAY famotidine famotidine No famotidine [facility] Box Fish Oil Fish Oil No Fish Oil [facility] Box hydrochloro hydrochloro No hydrochlor [facility] thiazide thiazide othiazide n 12.5 mg 12.5 mg 12.5 mg Health capsule capsule capsule Box TAKE ONE TAKE ONE TAKE ONE CAPSULE BY CAPSULE BY CAPSULE BY MOUTH ONCE MOUTH ONCE MOUTH ONCE A DAY A DAY A DAY lisinopril lisinopril No lisinopril [facility] 40 mg 40 mg 40 mg n tablet TAKE tablet TAKE tablet Health ONE TABLET ONE TABLET TAKE ONE Box BY MOUTH BY MOUTH TABLET BY ONCE A DAY ONCE A DAY MOUTH ONCE A DAY multivitami multivitami No multivitam [facility] n in n [facility] Box omeprazole omeprazole No omeprazole [facility] 20 mg 20 mg 20 mg n capsule,del capsule,del capsule,de Health ayed ayed layed Box release release release TAKE ONE TAKE ONE TAKE ONE CAPSULE BY CAPSULE BY CAPSULE BY MOUTH ONCE MOUTH ONCE MOUTH ONCE A DAY A DAY A DAY pravastatin pravastatin No 1 Q1D pravastati [facility] 20 mg 20 mg n 20 mg n tablet Take tablet Take tablet Health 1 tablet 1 tablet Take 1 Box every day every day tablet by oral by oral every day route for route for by oral 90 days. 90 days. route for 90 days. tadalafil 5 tadalafil 5 No tadalafil [facility] mg tablet mg tablet 5 mg n TAKE ONE TAKE ONE tablet Healt [facility] TABLET BY TABLET BY TAKE ONE B ox MOUTH ONCE MOUTH ONCE TABLET BY A DAY FOR A DAY FOR MOUTH ONCE 90 DAYS 90 DAYS A DAY FOR 90 DAYS aspirin aspirin No aspirin [facility] Box Cialis 5 mg Cialis 5 mg No 1 Q1D Cialis 5 [facility] tablet Take tablet Take mg tablet n 1 tablet 1 tablet Take 1 Healt h every day every day tablet Box by oral by oral every day route for route for by oral 30 days. 30 days. route for 30 days. ciprofloxac ciprofloxac No ciprofloxa [facility] in 500 mg in 500 mg rere 500 mg n tablet Take tablet Take tablet Health 1 tablet 1 tablet Take 1 Box every 12 every 12 tablet hours by hours by every 12 oral route oral route hours by for 10 for 10 oral route days. days. for 10 days. dicyclomine dicyclomine No dicyclomin [facility] 20 mg 20 mg e 20 mg n tablet tablet tablet Health Box famotidine famotidine No famotidine [facility] Box Fish Oil Fish Oil No Fish Oil [facility] Box Lexapro 10 Lexapro 10 No 1 Q1D Lexapro 10 [facility] mg tablet mg tablet mg tablet n Take 1 Take 1 Take 1 Health tablet tablet tablet Box every day every day every day by oral by oral by oral route for route for route for 90 days. 90 days. 90 days. lisinopril lisinopril No 1 Q1D lisinopril [facility] 30 mg 30 mg 30 mg n tablet Take tablet Take tablet Health 1 tablet 1 tablet Take 1 Box every day every day tablet by oral by oral every day route for route for by oral 90 days. 90 days. route for 90 days. metronidazo metronidazo No metronidaz [facility] le 500 mg le 500 mg ole 500 mg n tablet Take tablet Take tablet Health 1 tablet 1 tablet Take 1 Box every 8 every 8 tablet hours by hours by every 8 oral route oral route hours by for 10 for 10 oral route days. days. for 10 days. montelukast montelukast No montelukas [facility] 10 mg 10 mg t 10 mg n tablet tablet tablet Health Box multivitami multivitami No multivitam [facility] n n in n Health Box pravastatin pravastatin No 1 Q1D pravastati [facility] 10 mg 10 mg n 10 mg n tablet Take tablet Take tablet Health 1 tablet 1 tablet Take 1 Box every day every day tablet by oral by oral every day route for route for by oral 90 days. 90 days. route for 90 days. pravastatin pravastatin No 1 Q1D pravastati [facility] 20 mg 20 mg n 20 mg n tablet Take tablet Take tablet Health 1 tablet 1 tablet Take 1 Box every day every day tablet by oral by oral every day route. route. by oral route. red yeast red yeast No 600mg Q1D red yeast [facility] rice 600 mg rice 600 mg rice 600 n capsule capsule mg capsule Hea lth Take 600 mg Take 600 mg Take 600 Box every day every day mg every by oral by oral day by route. route. oral route. Suprep Suprep No Suprep [facility] Bowel Prep Bowel Prep Bowel Prep n Kit 17.5 Kit 17.5 Kit 17.5 Hea lth gram-3.13 gram-3.13 gram-3.13 Box gram-1.6 gram-1.6 gram-1.6 gram oral gram oral gram oral solution solution solution aspirin aspirin No aspirin [facility] Box Cialis 5 mg Cialis 5 mg No 1 Q1D Cialis 5 [facility] tablet Take tablet Take mg tablet n 1 tablet 1 tablet Take 1 Healt h every day every day tablet Box by oral by oral every day route for route for by oral 30 days. 30 days. route for 30 days. ciprofloxac ciprofloxac No ciprofloxa [facility] in 500 mg in 500 mg rere 500 mg n tablet Take tablet Take tablet Health 1 tablet 1 tablet Take 1 Box every 12 every 12 tablet hours by hours by every 12 oral route oral route hours by for 10 for 10 oral route days. days. for 10 days. dicyclomine dicyclomine No dicyclomin [facility] 20 mg 20 mg e 20 mg n tablet tablet tablet Health Box famotidine famotidine No famotidine [facility] Box Fish Oil Fish Oil No Fish Oil [facility] Box Lexapro 10 Lexapro 10 No 1 Q1D Lexapro 10 [facility] mg tablet mg tablet mg tablet n Take 1 Take 1 Take 1 Health tablet tablet tablet Box every day every day every day by oral by oral by oral route for route for route for 90 days. 90 days. 90 days. lisinopril lisinopril No 1 Q1D lisinopril [facility] 30 mg 30 mg 30 mg n tablet Take tablet Take tablet Health 1 tablet 1 tablet Take 1 Box every day every day tablet by oral by oral every day route for route for by oral 90 days. 90 days. route for 90 days. metronidazo metronidazo No metronidaz [facility] le 500 mg le 500 mg ole 500 mg n tablet Take tablet Take tablet Health 1 tablet 1 tablet Take 1 Box every 8 every 8 tablet hours by hours by every 8 oral route oral route hours by for 10 for 10 oral route days. days. for 10 days. montelukast montelukast No montelukas [facility] 10 mg 10 mg t 10 mg n tablet tablet tablet Health Box multivitami multivitami No multivitam [facility] n n in n [facility] Box Immunizations Ordered Immunization Filled Immunization Date Status Commen ts Source Name Name Influenza Virus 2022-09-23 Completed [facility] garcia Vaccine, age 6 months 00:00:00 - E xternal and up Influenza Virus 2020-07-20 Completed [facility] garcia Vaccine, age 6 months 00:00:00 and up Influenza Virus 2020-07-20 Completed [facility] garcia Vaccine, age 6 months 00:00:00 - E xternal and up Influenza Virus 2018-08-21 Completed [facility] Se ybold Vaccine, age 6 months 00:00:00 and up Pneumococcal Vaccine, 2018-08-21 Completed Farhan sey Seybold Polysaccharide 00:00:00 Influenza Virus 2018-08-21 Completed [facility] Se ybold Vaccine, age 6 months 00:00:00 - E xternal and up Pneumococcal Vaccine, 2018-08-21 Completed Farhan sey Seybold Polysaccharide 00:00:00 - External Shingles IM 2018-04-28 Completed [facility] Seybol d (Shingrix) 00:00:00 Shingles IM 2018-04-28 Completed [facility] Seybol d (Shingrix) 00:00:00 - External Shingles IM 2017-12-24 Completed [facility] Seybol d (Shingrix) 00:00:00 Shingles IM 2017-12-24 Completed [facility] Seybol d (Shingrix) 00:00:00 - External Influenza Virus 2017-08-20 Completed [facility] Se ybold Vaccine, age 6 months 00:00:00 and up Influenza Virus 2017-08-20 Completed [facility] Se ybold Vaccine, age 6 months 00:00:00 - E xternal and up Tdap- (Boostrix, 2016-03-23 Completed [facility] toussaint Adacel) 00:00:00 Tdap- (Boostrix, 2016-03-23 Completed [facility] jenkinsbodemetrio Adacel) 00:00:00 - External Vital Signs Vital Name Observation Time Observation Value Comments Source Height 2022-11-27 00:00:00 67 [in_i] [facility] Height 2022-11-16 00:00:00 67 [in_i] [facility] Height 2022-11-12 00:00:00 67 [in_i] [facility] Systolic blood 2022-10-25 14:16:00 110 mm[Hg] [facility] Willybold - pressure External Diastolic blood 2022-10-25 14:16:00 62 mm[Hg] Russell villa Seybold - pressure External Heart rate 2022-10-25 14:16:00 76 /min [facility] jenkinsbold - External Respiratory rate 2022-10-25 14:16:00 18 /min Qiana ey Seybold - External Body height 2022-10-25 14:16:00 172.7 cm [facility] toussaint - External Body weight 2022-10-25 14:16:00 95.255 kg [facility] toussaint - External BMI 2022-10-25 14:16:00 31.93 kg/m2 [facility] toussaint - External Oxygen saturation in 2022-10-25 14:16:00 99 /min [facility] Emmanuel - Arterial blood by External Pulse oximetry Height 2022-10-24 00:00:00 67 [in_i] [facility] Box BP Diastolic 2022-10-23 00:00:00 88 mm[Hg] [facility] Box Height 2022-10-23 00:00:00 67 [in_i] [facility] Box BP Systolic 2022-10-23 00:00:00 130 mm[Hg] [facility] Box Height 2022-10-11 00:00:00 67 [in_i] [facility] Box BP Diastolic 2022-10-04 00:00:00 84 mm[Hg] [facility] Box Height 2022-10-04 00:00:00 67 [in_i] [facility] Box BP Systolic 2022-10-04 00:00:00 155 mm[Hg] [facility] Box BP Diastolic 2022-09-20 00:00:00 89 mm[Hg] [facility] Box Height 2022-09-20 00:00:00 67 [in_i] [facility] Box BMI (Body Mass Index) 2022-09-20 00:00:00 31.8 kg/m2 [facility] BP Systolic 2022-09-20 00:00:00 137 mm[Hg] [facility] Box Body Weight 2022-09-20 00:00:00 203 [lb_av] [facility] Box Height 2022-09-19 00:00:00 67 [in_i] [facility] Box Height 2022-09-04 00:00:00 67 [in_i] [facility] Box Height 2022-08-29 00:00:00 67 [in_i] [facility] Box Height 2022-08-15 00:00:00 67 [in_i] [facility] Box BP Diastolic 2022-08-13 00:00:00 79 mm[Hg] [facility] Box Height 2022-08-13 00:00:00 67 [in_i] [facility] Box BP Systolic 2022-08-13 00:00:00 121 mm[Hg] [facility] Box Height 2022-08-10 00:00:00 67 [in_i] [facility] Box BP Diastolic 2022-08-09 00:00:00 86 mm[Hg] [facility] Box Height 2022-08-09 00:00:00 67 [in_i] [facility] Box BMI (Body Mass Index) 2022-08-09 00:00:00 31.8 kg/m2 [facility] Box BP Systolic 2022-08-09 00:00:00 152 mm[Hg] [facility] Box Body Weight 2022-08-09 00:00:00 203 [lb_av] [facility] Box BP Diastolic 2022-08-08 00:00:00 88 mm[Hg] [facility] Box Height 2022-08-08 00:00:00 67 [in_i] [facility] Box BP Systolic 2022-08-08 00:00:00 150 mm[Hg] [facility] Box BP Diastolic 2022-07-31 00:00:00 80 mm[Hg] [facility] Box Height 2022-07-31 00:00:00 67 [in_i] [facility] Box BP Systolic 2022-07-31 00:00:00 155 mm[Hg] [facility] Box Height 2022-07-30 00:00:00 67 [in_i] [facility] Box BP Diastolic 2022-07-12 00:00:00 91 mm[Hg] [facility] Box Height 2022-07-12 00:00:00 67 [in_i] [facility] Box BP Systolic 2022-07-12 00:00:00 156 mm[Hg] [facility] Box BP Diastolic 2022-07-02 00:00:00 85 mm[Hg] [facility] Box Height 2022-07-02 00:00:00 67 [in_i] [facility] Box BP Systolic 2022-07-02 00:00:00 136 mm[Hg] [facility] Box Height 2022-06-28 00:00:00 67 [in_i] [facility] Box Height 2022-06-07 00:00:00 67 [in_i] [facility] Box Height 2022-05-29 00:00:00 67 [in_i] [facility] Box Height 2022-04-05 00:00:00 67 [in_i] [facility] Box Height 2022-03-27 00:00:00 67 [in_i] [facility] Box Height 2022-02-26 00:00:00 67 [in_i] [facility] Box Height 2022-02-22 00:00:00 67 [in_i] [facility] Box BP Diastolic 2022-02-15 00:00:00 81 mm[Hg] [facility] Box Height 2022-02-15 00:00:00 67 [in_i] [facility] Box BP Systolic 2022-02-15 00:00:00 115 mm[Hg] [facility] Box BP Diastolic 2022-02-06 00:00:00 85 mm[Hg] [facility] Box Height 2022-02-06 00:00:00 67 [in_i] [facility] Box BMI (Body Mass Index) 2022-02-06 00:00:00 31.8 kg/m2 [facility] Box BP Systolic 2022-02-06 00:00:00 125 mm[Hg] [facility] Box Body Weight 2022-02-06 00:00:00 203 [lb_av] [facility] Box BP Diastolic 2022-01-22 00:00:00 80 mm[Hg] [facility] Box Height 2022-01-22 00:00:00 67 [in_i] [facility] Box BP Systolic 2022-01-22 00:00:00 134 mm[Hg] [facility] Box Height 2022-01-11 00:00:00 67 [in_i] [facility] Box BP Diastolic 2022-01-01 00:00:00 84 mm[Hg] [facility] Box Height 2022-01-01 00:00:00 67 [in_i] [facility] Box BP Systolic 2022-01-01 00:00:00 130 mm[Hg] [facility] Box BP Diastolic 2021-12-27 00:00:00 87 mm[Hg] [facility] Box Height 2021-12-27 00:00:00 67 [in_i] [facility] Box BP Systolic 2021-12-27 00:00:00 132 mm[Hg] [facility] Box Height 2021-12-26 00:00:00 67 [in_i] [facility] Box BP Diastolic 2021-12-15 00:00:00 82 mm[Hg] [facility] Box Height 2021-12-15 00:00:00 67 [in_i] [facility] Box BMI (Body Mass Index) 2021-12-15 00:00:00 32.1 kg/m2 [facility] Box BP Systolic 2021-12-15 00:00:00 118 mm[Hg] [facility] Body Weight 2021-12-15 00:00:00 205 [lb_av] [facility] Box BP Diastolic 2021-11-27 00:00:00 84 mm[Hg] [facility] Box Height 2021-11-27 00:00:00 67 [in_i] [facility] Box BMI (Body Mass Index) 2021-11-27 00:00:00 32.4 kg/m2 [facility] Box BP Systolic 2021-11-27 00:00:00 129 mm[Hg] [facility] Body Weight 2021-11-27 00:00:00 207 [lb_av] [facility] Height 2021-11-21 00:00:00 67 [in_i] [facility] Box Height 2021-11-20 00:00:00 67 [in_i] [facility] Box BP Diastolic 2021-10-18 00:00:00 87 mm[Hg] [facility] Height 2021-10-18 00:00:00 67 [in_i] [facility] BP Systolic 2021-10-18 00:00:00 150 mm[Hg] [facility] Systolic blood 2021-10-12 20:48:00 150 mm[Hg] [facility] Seybold pressure Diastolic blood 2021-10-12 20:48:00 88 mm[Hg] Kelse y Seybold pressure Heart rate 2021-10-12 20:48:00 78 /min [facility] S alicebold Body temperature 2021-10-12 20:48:00 36.11 Brenda Qiana ey Seybold Respiratory rate 2021-10-12 20:48:00 18 /min Qiana ey Seybold Body height 2021-10-12 20:48:00 174 cm [facility] S eybold Body weight 2021-10-12 20:48:00 94.348 kg [facility] S eybold BMI 2021-10-12 20:48:00 31.16 kg/m2 [facility] S eybold BP Diastolic 2021-09-26 00:00:00 99 mm[Hg] [facility] Box Height 2021-09-26 00:00:00 67 [in_i] [facility] Box BMI (Body Mass Index) 2021-09-26 00:00:00 31.3 kg/m2 [facility] Box BP Systolic 2021-09-26 00:00:00 157 mm[Hg] [facility] Box Body Weight 2021-09-26 00:00:00 200 [lb_av] [facility] Box BP Diastolic 2021-09-19 00:00:00 115 mm[Hg] [facility] Box Height 2021-09-19 00:00:00 67 [in_i] [facility] Box BP Systolic 2021-09-19 00:00:00 152 mm[Hg] [facility] Box BP Diastolic 2021-05-18 00:00:00 92 mm[Hg] [facility] Box Height 2021-05-18 00:00:00 67 [in_i] [facility] Box BMI (Body Mass Index) 2021-05-18 00:00:00 32.4 kg/m2 [facility] Box BP Systolic 2021-05-18 00:00:00 140 mm[Hg] [facility] Box Body Weight 2021-05-18 00:00:00 207 [lb_av] [facility] Box BP Diastolic 2021-05-05 00:00:00 85 mm[Hg] [facility] Box Height 2021-05-05 00:00:00 67 [in_i] [facility] Box BMI (Body Mass Index) 2021-05-05 00:00:00 31.8 kg/m2 [facility] Box BP Systolic 2021-05-05 00:00:00 124 mm[Hg] [facility] Box Body Weight 2021-05-05 00:00:00 202.8 [lb_av] [facility] Box BP Diastolic 2021-04-26 00:00:00 99 mm[Hg] [facility] Box Height 2021-04-26 00:00:00 67 [in_i] [facility] Box BMI (Body Mass Index) 2021-04-26 00:00:00 32.1 kg/m2 [facility] Box BP Systolic 2021-04-26 00:00:00 139 mm[Hg] [facility] Box Body Weight 2021-04-26 00:00:00 205 [lb_av] [facility] BP Diastolic 2021-04-21 00:00:00 101 mm[Hg] [facility] Box Height 2021-04-21 00:00:00 67 [in_i] [facility] BP Systolic 2021-04-21 00:00:00 154 mm[Hg] [facility] Systolic blood 2021-04-04 14:24:00 143 mm[Hg] [facility] Diastolic blood 2021-04-04 14:24:00 92 mm[Hg] [facility] Heart rate 2021-04-04 14:24:00 94 [facility] Body temperature 2021-04-04 14:24:00 [facility].22 [facility] Body weight 2021-04-04 14:24:00 [facility]89 [facility] BMI 2021-04-04 14:24:00 33.11 kg[facility]m2 [facility] Body height 2021-03-07 19:51:00 [facility].2 [facility] Body weight 2021-03-07 19:51:00 [facility]255 [facility] BMI 2021-03-07 19:51:00 32.89 kg[facility]m2 [facility] Body height 2021-03-07 19:51:00 [facility]2 [facility] Body weight 2021-03-07 19:51:00 [facility]255 [facility] BMI 2021-03-07 19:51:00 32.89 kg[facility]m2 [facility] BP Diastolic 2021-02-27 00:00:00 100 mm[Hg] [facility] Height 2021-02-27 00:00:00 67 [in_i] [facility] BP Systolic 2021-02-27 00:00:00 158 mm[Hg] [facility] BP Diastolic 2021-02-06 00:00:00 95 mm[Hg] [facility] Height 2021-02-06 00:00:00 67 [in_i] [facility] BMI (Body Mass Index) 2021-02-06 00:00:00 34.1 kg/m2 [facility] BP Systolic 2021-02-06 00:00:00 140 mm[Hg] [facility] Body Weight 2021-02-06 00:00:00 218 [lb_av] [facility] Temperature Oral (F) 2014-12-13 18:54:00 98.2 F [facility] Heart Rate 2014-12-13 18:54:00 [facility] Respitory Rate 2014-12-13 18:54:00 [facility] Systolic (mm Hg) 2014-12-13 18:54:00 [facility] Diastolic (mm Hg) 2014-12-13 18:54:00 [facility] [place] Weight 2014-12-13 16:01:00 [facility] BMI Calculated 2014-12-13 16:01:00 [facility] [place] Height 2014-12-13 16:01:00 175.26 cm [facility] Heart Rate 2014-12-13 16:01:00 [facility] Systolic (mm Hg) 2014-12-13 16:01:00 [facility] Diastolic (mm Hg) 2014-12-13 16:01:00 [facility] Respitory Rate 2014-12-13 16:01:00 [facility] Temperature Oral (F) 2014-12-13 16:01:00 98.6 F [facility] Diastolic (mm Hg) 2014-05-07 21:08:00 [facility] Systolic (mm Hg) 2014-05-07 21:08:00 [facility] Heart Rate 2014-05-07 21:08:00 [facility] Respitory Rate 2014-05-07 21:08:00 [facility] Height 2014-05-07 15:54:00 172.72 cm [facility] Weight 2014-05-07 15:54:00 [facility] BMI Calculated 2014-05-07 15:54:00 [facility] Temperature Oral (F) 2014-05-07 15:54:00 98.1 F [facility] Respitory Rate 2014-05-07 15:54:00 [facility] [place] Heart Rate 2014-05-07 15:54:00 [facility] Diastolic (mm Hg) 2014-05-07 15:54:00 [facility] [place] Systolic (mm Hg) 2014-05-07 15:54:00 [facility] [place] Diastolic (mm Hg) 2013-09-01 21:35:00 [facility] [place] Respitory Rate 2013-09-01 21:35:00 [facility] [place] Systolic (mm Hg) 2013-09-01 21:35:00 [facility] Heart Rate 2013-09-01 21:35:00 [facility] Temperature Oral (F) 2013-09-01 21:35:00 100.3 F [facility] Temperature Oral (F) 2013-09-01 20:11:00 99.2 F [facility] Heart Rate 2013-09-01 20:11:00 [facility] Systolic (mm Hg) 2013-09-01 20:11:00 [facility] Respitory Rate 2013-09-01 20:11:00 [facility] Diastolic (mm Hg) 2013-09-01 20:11:00 [facility] [place] Temperature Oral (F) 2013-09-01 19:00:00 99.7 F [facility] Weight 2013-09-01 14:50:00 [facility] Height 2013-09-01 14:50:00 177.8 cm [facility] Heart Rate 2013-09-01 14:50:00 [facility] Respitory Rate 2013-09-01 14:50:00 [facility] Diastolic (mm Hg) 2013-09-01 14:50:00 [facility] Systolic (mm Hg) 2013-09-01 14:50:00 [facility] Procedures Procedure Date / Time Performing Clinician Source Performed XR, chest, 2 view 2022-10-24 00:00:00 [facility] Box electrocardiogram 2022-08-20 00:00:00 [facility] Box CT ABDOMEN AND PELVIS W +W/O 2022-02-06 00:00:00 [facility] $500 Box ECG- ADULT 2021-10-12 21:38:41 Foreign Obrien bold XR SHOULDER 2+ VIEWS RIGHT 2021-03-07 20:12:28 LillieStuart barba [facility] US, duplex, venous, upper 2021-02-27 00:00:00 [facility] extremity, unilateral Box XR, shoulder 2021-02-13 00:00:00 [facility] Box XR, cervical spine 2021-02-13 00:00:00 [facility] Excision of Colon 2019-10-25 00:00:00 [facility] Colonoscopy 2017-09-23 00:00:00 [facility] Box Procedure on Shoulder 2009-09-23 00:00:00 [facility] Box Complete Repair of Rotator 2009-09-23 00:00:00 [facility] Cuff Box Appendectomy [facility] Plan of Care Planned Activity Planned Date Details Comments Source Future Scheduled Test 2026-03-23 DTAP/TDAP/TD [facility] 00:00:00 VACCINES (2 - Td or Medical Center Tdap) [code = DTAP/TDAP/TD VACCINES (2 - Td or Tdap)] Diagnostic Test 2022-07-12 lipid panel, serum [facility] Pending 00:00:00 [code = lipid panel, Box serum] Future Scheduled Test 2021-12-[address] [facility] 00:00:00 (procedure) [code = [facility] [id number]] Future Scheduled Test 2021-05-[address] VACC[address] [facility] 00:00:00 (#1) [code = [facility] INFLUENZA VACCINE (#1)] Future Scheduled Test 2020-09-[address] [facility] 00:00:00 (12+) [code = [facility] DEPRESSION SCREENING (12+)] Future Scheduled Test 2013-12-07 SHINGLES VACCINES ([address] [facility] 00:00:00 of 2) [code = [facility] SHINGLES VACCINES (1 of 2)] Future Scheduled Test 1981-12-[address] [facility] 00:00:00 SCREENING [code = [facility] nter HEPATITIS C SCREENING] Future Scheduled Test 1975 COVID-19 VACCINE (1) [facility] 00:00:00 [code = COVID-[address] VACCINE (1)] Future Scheduled Test [facility]:00 malignant neoplasm Medical C enter of colon (procedure) [code = [id number]] Encounters Start End Encounter Admission Attending Care Care Encounter Source Date/Time Date/Time Type Type Clinicians Facility Department ID 2021-04-04 Outpatient DK ARENAS [facility] [id number] [place] 10:25:45 Health 2021-03-21 Outpatient STUART FENG [facility] [id number] [place] 15:49:05 Health 2021-03-07 Outpatient [facility] [id number] [place] 14:59:27 Health 2022-11-27 2022-11-27 Jordi CARLAB [facility] [place] 00:00:00 00:00:00 Omar: Flor najera [facility]324 [facility] [place] [address], [facility] PROPERTY [address] , Ph. 2022-11-16 2022-11-16 Outpatient DanielleOls B [facility] 425 [place] 00:00:00 00:00:00 zeski 224 n Health Box 2022-11-16 2022-11-16 Outpatient DanielleOls B B 425 [place] 00:00:00 00:00:00 zeski 307 n [facility] 2022-11-16 2022-11-16 Jordi HHB [facility] 24 [place] 00:00:00 00:00:00 Omar: Flor najera 7324 [facility] [place] [address], [facility] PROPERTY [address] , Ph. 2022-11-12 2022-11-12 Jordi B [facility] 20 [place] 00:00:00 00:00:00 Omar: Flor Bacon n [address] [facility] [address] [place] [address] , Ph. 2022-11-01 2022-11-01 Outpatient DanielleOls B [facility] 425 [place] 00:00:00 00:00:00 zeski 209 n Health Box 2022-11-01 2022-11-01 Outpatient DanielleOls B B 425 [place] 00:00:00 00:00:00 zeski 220 n Health Box 2022-11-01 2022-11-01 Outpatient DanielleOls B B 425 [place] 00:00:00 00:00:00 zeski 221 n Health Box 2022-10-25 2022-10-25 Outpatient LAURA SARABIA [id number] 95 [place] 10:00:00 10:00:00 Seybol d 2022-10-25 2022-10-25 Outpatient LAB47 MAHOGANY MAHOGANY [id number] 38 [place] 08:45:00 08:45:00 Seybol d 2022-10-25 2022-10-25 Outpatient CARUSO, MAHOGANY CEDENOSEY [id number] 25 [place] 08:00:00 08:00:00 RAPHAEL Seyb old 2022-10-24 2022-10-24 Jordi [facility] [place] 00:00:00 00:00:00 Omar: Flor - n 7324 [facility] [place] [address], [facility] PROPERTY [address] , Ph. 2022-10-23 2022-10-23 Jordi [facility] [place] 00:00:00 00:00:00 Omar: Flor - n 7324 [facility] [place] [address], [facility] PROPERTY [address] , Ph. 2022-10-11 2022-10-11 Jordi [facility] 19 [place] 00:00:00 00:00:00 Omar: Flor - n 7324 [facility] [place] [address], [facility] PROPERTY [address] , Ph. 2022-10-04 2022-10-04 Jordi [facility] [place] 00:00:00 00:00:00 Omar: Flor n 7324 [facility] [place] [address], [facility] PROPERTY [address] , Ph. 2022-09-20 2022-09-[address] [facility] 425 [place] 00:00:00 00:00:00 india Shrestha [facility] 2022-09-20 2022-09-[address] Brooks [facility] 425 [place] 00:00:00 00:00:00 zeski 123 n Health Box 2022-09-20 2022-09-20 Outpatient DanielleOls B [facility] 425 [place] 00:00:00 00:00:00 zeski 131 n Health Box 2022-09-20 2022-09-20 Outpatient DanielleOls B B 425 [place] 00:00:00 00:00:00 zeski 201 n Health Box 2022-09-20 2022-09-20 Outpatient DanielleOls B [facility] 425 [place] 00:00:00 00:00:00 zeski 229 n Health Box 2022-09-20 2022-09-20 Concha [facility] 229 [place] 00:00:00 00:00:00 Chuck najera 7324 [facility] [place] [address], [facility] [place]ERTY [address] , Ph. 2022-09-19 2022-09-19 Outpatient ConchaOls [facility] 425 [place] 00:00:00 00:00:00 zeski 228 n Health Box 2022-09-19 2022-09-19 Concha [facility] 228 [place] 00:00:00 00:00:00 Chuck najera 7324 [facility] [place] [address], [facility] PROPERTY [address] , Ph. 2022-09-04 2022-09-04 Outpatient ConchaOls [facility] 425 [place] 00:00:00 00:00:00 zeski 213 n Health Box 2022-09-04 2022-09-04 Erin Loy [facility] [id number] [place] 00:00:00 00:00:00 Flor Amado PA: 7324 [facility] Box y [place] [address], [facility] PROPERTY [address] , Ph. 2022-08-29 2022-08-29 Outpatient ConchaOls B B 425 [place] 00:00:00 00:00:00 zeski 207 n Health Box 2022-08-29 2022-08-29 Jordi HHB [facility] [id number] [place] 00:00:00 00:00:00 Omar: Flor - n 7324 [facility] Box y [place] [address], [facility] PROPERTY [address] , Ph. 2022-08-20 2022-08-20 Outpatient Brooks B [facility] 425 [place] 00:00:00 00:00:00 zeski 128 n Health Box 2022-08-15 2022-08-15 Jordi B [facility] [id number] [place] 00:00:00 00:00:00 Omar: Flor - n 7324 [facility] [place] [address], [facility] PROPERTY [address] , Ph. 2022-08-13 2022-08-[address] [facility] 425 [place] 00:00:00 00:00:00 zeski 121 n Health Box 2022-08-13 2022-08-13 Jordi B [facility] [id number] [place] 00:00:00 00:00:00 Omar: Flor - n 7324 [facility] Box y [place] [address], [facility] PROPERTY [address] , Ph. 2022-08-10 2022-08-10 [address] Brooks [facility] 425 [place] 00:00:00 00:00:00 zeski 118 n Health Box 2022-08-10 2022-08-10 Jordi B [facility] [id number] [place] 00:00:00 00:00:00 Omar: Flor - n 7324 [facility] Box y [place] [address], [facility] PROPERTY [address] , Ph. 2022-08-09 2022-08-09 Outpatient Brooks B B 425 [place] 00:00:00 00:00:00 zeski 117 n Health Box 2022-08-09 2022-08-09 Erin AGUIRREB [facility] [id number] [place] 00:00:00 00:00:00 Flor Amado PA: 7324 [facility] Box y [place] [address], [facility] PROPERTY [address] , Ph. 2022-08-08 2022-08-08 Outpatient Brooks B [facility] 425 [place] 00:00:00 00:00:00 zeski 116 n Health [place] 2022-08-08 2022-08-08 Jordi VICENTE [facility] [id number] [place] 00:00:00 00:00:00 Omar: Flor najera 7324 [facility] [place] [address], [facility] PROPERTY [address] , Ph. 2022-07-31 2022-07-[address] Brooks [facility] 425 [place] 00:00:00 00:00:00 edgarski 108 n Health Box 2022-07-31 2022-07-31 Erin VICENTE [facility] [id number] [place] 00:00:00 00:00:00 Flor Amado PA: 7324 [facility] Box y [place] [address], [facility] PROPERTY [address] , Ph. 2022-07-30 2022-07-30 Outpatient Brooks [facility] 425 [place] 00:00:00 00:00:00 zeski 107 n Health Box 2022-07-30 2022-07-30 [facility] [id number] [place] 00:00:00 00:00:00 Omar: Flor Guidry n 7314 [facility] Box y [place] [address], [facility] PROPERTY [address] , Ph. 2022-07-12 2022-07-12 Outpatient ConchaOls CARLAB B 425 [place] 00:00:00 00:00:00 zeski 020 n Health Box 2022-07-12 2022-07-12 Jordi HHB [facility] [place] 00:00:00 00:00:00 Omar: Flor najera [address] [facility], [facility] [address], [facility] BOXER [address] PROPERTY , Ph. 2022-07-02 2022-07-02 Outpatient Brooks B B 425 [place] 00:00:00 00:00:00 zeski 010 n Health Box 2022-07-02 2022-07-02 Jrodi CARLAB [facility] [place] 00:00:00 00:00:00 Omar: Flor najera [address] [facility], [facility] [address], [facility] BOXER [address] PROPERTY , Ph. 2022-06-28 2022-06-28 Outpatient Brooks Loy B 425 [place] 00:00:00 00:00:00 zeski 006 n Health Box 2022-06-28 2022-06-28 Erin AGUIRREB [facility] 06 [place] 00:00:00 00:00:00 Flor Amado PA: [address] [facility] [address], [facility] BOXER [address] PROPERTY , Ph. 2022-06-07 2022-06-07 Outpatient Brooks Loy B 425 [place] 00:00:00 00:00:00 zeski 915 n Health Box 2022-06-07 2022-06-07 Outpatient JULES Nelson [id number] 00:00:00 00:00:00 Jordi [id number] 2022-06-07 2022-06-07 Jordi B [facility] [place] 00:00:00 00:00:00 Omar: Hub - n [address] [facility], [address], OnSite [facility] BOXER [address] PROPERTY , Ph. 2022-05-29 2022-05-29 Outpatient ConchaOls B HHB 425 [place] 00:00:00 00:00:00 zeski 906 n [facility] 2022-05-29 2022-05-29 Outpatient Omar, HHB B [id number] 00:00:00 00:00:00 Jordi [id number] 2022-05-29 2022-05-29 Jodri B [facility] 06 [place] 00:00:00 00:00:00 Omar: Hub - n [address] [facility], [address], OnSite [facility] BOXER [address] PROPERTY , Ph. 2022-04-06 2022-04-06 Outpatient ConchaOls B B 425 [place] 09:45:00 09:45:00 zeski 715 n [facility] 2022-04-05 2022-04-05 Outpatient ConchaOls B HHB 425 [place] 12:25:00 12:25:00 zeski 714 n [facility] 2022-04-05 2022-04-05 Outpatient Omar, HHB B [id number] 00:00:00 00:00:00 Jordi [id number] 2022-04-05 2022-04-05 Outpatient Omar, HHB HHB [id number] 00:00:00 00:00:00 Jordi [id number] 2022-04-05 2022-04-05 Jordi B [facility] 14 [place] 00:00:00 00:00:00 Omar: Hub - n [address] [facility], [address], OnSite [facility] BOXER [address] PROPERTY , Ph. 2022-03-27 2022-03-27 Outpatient Brooks Loy [facility] 425 [place] 03:29:00 03:29:00 zeski 705 n Health Box 2022-03-27 2022-03-27 Outpatient JULES Nelson Loy [id number] 00:00:00 00:00:00 Jordi [id number] 2022-03-27 2022-03-27 Jordi VICENTE [facility] 05 [place] 00:00:00 00:00:00 Omar: Hub - n [address] [facility], [address], OnSite [facility] BOXER [address] PROPERTY , Ph. 2022-02-26 2022-02-26 Outpatient Brooks Loy [facility] 425 [place] 05:37:00 05:37:00 zeski 606 n Health [place] 2022-02-26 2022-02-26 Outpatient JULES Brown Loy [id number] 00:00:00 00:00:00 Concha [id number] 2022-02-26 2022-02-26 Concha VICENTE [facility] 606 [place] 00:00:00 00:00:00 Stephanie: Hub - n [address] [facility], [address], OnSite [facility] BOXER [address] PROPERTY , Ph. 2022-02-22 2022-02-22 Outpatient Brooks Loy [facility] 425 [place] 03:08:00 03:08:00 zeski 602 n Health Box 2022-02-22 2022-02-22 Concha VICENTE [facility] 602 [place] 00:00:00 00:00:00 Stephanie: Hub - n [address] [facility], [address], OnSite [facility] BOXER [address] PROPERTY , Ph. 2022-02-22 2022-02-22 Outpatient JULES Brown Loy [id number] 00:00:00 00:00:00 Concha [id number] 2022-02-15 2022-02-15 Outpatient Brooks Loy [facility] 425 [place] 04:29:00 04:29:00 zeski 526 n Health Box 2022-02-15 2022-02-15 Concha [facility] 526 [place] 00:00:00 00:00:00 Stephanie: Hub - n [address] [facility], [address], OnSite [facility] BOXER [address] PROPERTY , Ph. 2022-02-15 2022-02-15 Outpatient JULES Brown [facility] [id number] 00:00:00 00:00:00 Concha [id number] 2022-02-06 Outpatient Brooks Loy [facility] 425 [place] 07:32:00 07:32:00 zeski 517 n Health Box 2022-02-06 2022-02-06 Concha [facility] 517 [place] 00:00:00 00:00:00 Stephanie: Hub - n [address] [facility], [address], On[address] [facility] BOXER [address] PROPERTY , Ph. 2022-02-06 2022-02-06 Outpatient JULES Brown Loy [id number] 00:00:00 00:00:00 Concha [id number] 2022-01-23 2022-01-23 Outpatient Brooks Loy [facility] 425 [place] 05:21:00 05:21:00 zeski 503 n Health Box 2022-01-22 2022-01-22 Concha Loy [facility] 502 [place] 00:00:00 00:00:00 Stephanie: Hub - n [address] [facility], [address], OnSite [facility] BOXER [address] PROPERTY , Ph. 2022-01-22 2022-01-22 Outpatient JULES Brown Loy [id number] 00:00:00 00:00:00 Concha [id number] 2022-01-11 2022-01-11 Outpatient Brooks Loy [facility] 425 [place] 03:19:00 03:19:00 zeski 421 n Health Box 2022-01-11 2022-01-11 Concha Loy [facility] 421 [place] 00:00:00 00:00:00 Stephanie: Hub - n [address] [facility], [address], OnSite [facility] BOXER [address] PROPERTY , Ph. 2022-01-11 2022-01-11 Outpatient JULES Brown Loy [id number] 00:00:00 00:00:00 Concha [id number] 2022-01-02 2022-01-02 Outpatient Brooks Loy [facility] 425 [place] 10:51:00 10:51:00 zeski 412 n Health Box 2022-01-01 2022-01-01 [address] Brooks [facility] 425 [place] 03:47:00 03:47:00 zeski 411 n Health Box 2022-01-01 2022-01-01 Concha Loy [facility] 411 [place] 00:00:00 00:00:00 Stephanie: Hub - n [address] [facility], [address], OnSite [facility] BOXER [address] PROPERTY , Ph. 2022-01-01 2022-01-01 Outpatient JULES Brown B [id number] 00:00:00 00:00:00 Concha [id number] 2021-12-27 2021-12-27 [address]patient Brooks [facility] 425 [place] 04:58:00 04:58:00 zeski 406 n Health Box 2021-12-27 2021-12-27 Concha [facility] 406 [place] 00:00:00 00:00:00 Stephanie: Hub - n [address] [facility], [address], OnSite [facility] BOXER [address] PROPERTY , Ph. 2021-12-27 2021-12-27 Outpatient CARLA BrownLoy [facility] [id number] 00:00:00 00:00:00 Concha [id number] 2021-12-26 2021-12-26 Outpatient Brooks [facility] 425 [place] 01:17:00 01:17:00 zeski 405 n Health Box 2021-12-26 2021-12-26 Concha [facility] 405 [place] 00:00:00 00:00:00 Stephanie: Hub - n [address] [facility], [address], OnSite [facility] BOXER [address] PROPERTY , Ph. 2021-12-26 2021-12-26 Outpatient CARLA BrownLoy [facility] [id number] 00:00:00 00:00:00 Concha [id number] 2021-12-15 2021-12-[address] Brooks [facility] 425 [place] 02:03:00 02:03:00 zeski 325 n Health Box 2021-12-15 2021-12-15 Concha [facility] 325 [place] 00:00:00 00:00:00 Stephanie: Hub - n [address] [facility], [address], On[address] [facility] BOXER [address] PROPERTY , Ph. 2021-12-15 2021-12-15 Outpatient JULES Brown Loy beefe [id number] 00:00:00 00:00:00 Concha [id number] 2021-12-07 2021-12-07 Out[address]Ols [facility] 425 [place] 02:07:00 02:07:00 zeski 317 n Health Box 2021-11-30 2021-11-30 Outpatient ConchaOls Loy [facility] 425 [place] 12:50:00 12:50:00 zeski 310 n Health Box 2021-11-27 2021-11-27 Outpatient ConchaOls Loy [facility] 425 [place] 03:14:00 03:14:00 zeski 307 n Health Box 2021-11-27 2021-11-27 Concha [facility] 307 [place] 00:00:00 00:00:00 Stephanie: Hub - n [address] [facility], [address], OnSite [facility] BOXER [address] PROPERTY , Ph. 2021-11-27 2021-11-27 Outpatient JULES Brown Loy [id number] 00:00:00 00:00:00 Concha [id number] 2021-11-22 2021-11-22 Outpatient Brooks Loy [facility] 425 [place] 08:52:00 08:52:00 zeski 302 n Health Box 2021-11-21 2021-11-21 Outpatient ConchaOls Loy [facility] 425 [place] 09:30:00 09:30:00 zeski 301 n Health Box 2021-11-21 2021-11-21 Concha [facility] [place] [facility] 301 [place] 00:00:00 00:00:00 Stephanie: Hub - n [address] [facility], [address], OnSite [facility] BOXER [address] PROPERTY , Ph. 2021-11-21 2021-11-21 Outpatient Stephanie Loy B [id number] 00:00:00 00:00:00 Concha [id number] 2021-11-20 2021-11-[address] Brooks [facility] 425 [place] 09:28:00 09:28:00 zeski 228 n Health [place] 2021-11-20 2021-11-20 Concha Loy [facility] 228 [place] 00:00:00 00:00:00 Stephanie: Hub - n [address] [facility], [address], OnSite [facility] BOXER [address] PROPERTY , Ph. 2021-11-20 2021-11-20 Outpatient Stephanie Loy [facility] [id number] 00:00:00 00:00:00 Concha [id number] 2021-10-24 2021-10-24 Outpatient MAHOGANY OBRIEN [id number] [place] 00:00:00 00:00:00 FOREIGN ramirez 2021-10-18 2021-10-[address] Brooks [facility] 425 [place] 11:42:00 11:42:00 zeski 126 n [facility] 2021-10-18 2021-10-18 Outpatient Jasonbecky Loy Loy [id number] 00:00:00 00:00:00 Concha [id number] 2021-10-18 2021-10-18 Concha VICENTE [facility] 126 [place] 00:00:00 00:00:00 Stephanie: Hub - n [address] [facility], [address], OnSite [facility] BOXER [address] PROPERTY , Ph. 2021-10-12 2021-10-12 Outpatient TRED08 MAHOGANY SARABIA [id number] [place] 16:15:00 16:15:00 Seybol d 2021-10-12 2021-10-12 Outpatient LAB08 MAHOGANY SARABIA [id number] [place] 15:45:00 15:45:00 Seybol d 2021-10-12 2021-10-12 Office Nilesh NICAKar [id number] [place] 15:00:00 15:30:00 Visit Foreign [id number] Se ybold [id number] 2021-10-05 2021-10-05 Outpatient MAHOGANY OBRIEN [id number] [place] 08:15:00 08:15:00 FOREIGN Seybol d 2021-09-27 2021-09-27 Outpatient MAHOGANY OBRIEN [id number] [place] 00:00:00 00:00:00 FOREIGN Seybol d 2021-09-26 2021-09-26 [address] Brooks [facility] 425 [place] 11:14:00 11:14:00 zeski 104 n [facility] 2021-09-26 2021-09-26 Outpatient JULES Brown [id number] 00:00:00 00:00:00 Concha [id number] 2021-09-26 2021-09-26 Concha Loy [facility] 104 [place] 00:00:00 00:00:00 Stephanie: Hub - n [address] [facility], [address], OnSite [facility] BOXER [address] PROPERTY , Ph. 2021-09-19 2021-09-19 Outpatient Brooks Loy [facility] 425 [place] 11:25:00 11:25:00 zeski 228 n [facility] 2021-09-19 2021-09-19 Outpatient JULES BrownB [id number] 00:00:00 00:00:00 Concha [id number] 2021-09-19 2021-09-19 Concha [facility] 228 [place] 00:00:00 00:00:00 Olsindia: Hub - n [address] [facility], [address], OnSite [facility] BOXER [address] PROPERTY , Ph. 2021-06-16 2021-06-16 Outpatient Stephanie Loy [facility] [id number] 00:00:00 00:00:00 Concha [id number] 2021-06-16 Concha [facility] 924 [place] 00:00:00 00:00:00 Stephanie: Hub - n [address] [facility], [address], OnSite [facility] BOXER [address] PROPERTY , Ph. 2021-05-18 2021-05-18 [address] Brooks [facility] 425 [place] 09:02:00 09:02:00 zeski 826 n [facility] 2021-05-18 2021-05-[address] Stephanie [facility] [id number] 00:00:00 00:00:00 Concha [id number] 2021-05-18 2021-05-18 Concha [facility] [id number] 826 [place] 00:00:00 00:00:00 Stephanie: Hub - n [address] [facility], [address], On[address] [facility] BOXER [address] PROPERTY , Ph. 2021-05-05 2021-05-05 Outpatient ShayneSilvana [facility] 425 [place] 01:40:00 01:40:00 zeski 813 n [facility] 2021-05-052021-05-05 Outpatient Stephanie Loy B [id number] 00:00:00 00:00:00 Concha [id number] 2021-05-05 2021-05-05 Concha Loy [facility] 813 [place] 00:00:00 00:00:00 [place]: [place] [address] [facility], [facility] [address] TRIO , Ph. ELECTRIC 2021-04-26 2021-04-26 Outpatient Brooks [facility] 425 [place] 09:10:00 09:10:00 zerustyi 804 n [facility] 2021-04-26 2021-04-26 Outpatient JULES Brown Loy [id number] 00:00:00 00:00:00 Concha [id number] 2021-04-26 2021-04-26 Concha [facility] 804 [place] 00:00:00 00:00:00 Rosezesbecky: Hub - n [address] [facility], [place] [address], [facility] BOXER [address] PROPERTY , Ph. 2021-04-21 2021-04-21 Outpatient Brooks [facility] 425 [place] 11:37:00 11:37:00 zeyousif 730 n [facility] 2021-04-21 2021-04-21 Outpatient Stephanie Loy [facility] [id number] 00:00:00 00:00:00 Concha [id number] 2021-04-21 2021-04-21 Concha [facility] 730 [place] 00:00:00 00:00:00 Rosezesbecky: Hub - n [address] [facility], [place] [address], [facility] [address] PROPERTY , Ph. 2021-04-05 2021-04-05 Refill Stuart Feng [facility] [id number] [place] 00:00:00 00:00:00 ADELIA [id number] H ealth MEDICAL [id number] PLAZA 0 [id number] 2021-04-04 2021-04-04 Office Dk Arenas [facility] [id number] [place] 08:53:47 10:26:13 Visit ORTHO AND [id number] Health SPINE [id number] MEDICAL [id number] PLAZA 1 2021-03-21 2021-03-21 Office Stuart Feng UTP H [id number] [place] 13:59:28 15:46:35 Visit ADELIA [id number] H ealt MEDICAL [id number] PLAZA 0 [id number] 5 2021-03-13 2021-03-13 Telephone Reginaldo [facility]HH 1.2.269.102 [id number] 00:00:00 00:00:00 Jac DELVALLE 350.1.13.58 MEDICAL 9.2.7.2.686 PLAZA 6 [phone] 5 2021-03-13 2021-03-13 Telephone [facility] 1.2.777.208 [id number] [id number] NE 00:00:00 00:00:00 Jac DELVALLE 350.1.13.58 H ealt MEDICAL 9.2.7.2.686 PLAZA 8 [phone] 5 2021-03-07 2021-03-07 Office Stuart Feng [facility] H 1.2.840.114 12 [id number] 14:09:20 15:54:48 Visit [facility] 350.1.13.58 MEDICAL 9.2.7.2.686 PLAZA 8 [id number] 5 2021-03-07 2021-03-07 Office Stuart Feng [facility]TP H 1.2.840.114 12 [id number] NE 14:09:20 15:54:48 Visit ADELIA 350.1.13.58 H [facility] [place] 9.2.7.2.686 PLAZA 0 [id number] 5 2021-03-06 2021-03-06 Telephone Reginaldo [facility] 1.2.579.113 [id number] 00:00:00 00:00:00 Jac DELVALLE 350.1.13.58 MEDICAL 9.2.7.2.686 PLAZA 4 [id number] 5 2021-03-06 2021-03-06 Telephone Reginaldo, [facility] 1.2.148.356 [id number] NE 00:00:00 00:00:00 Jac DELVALLE 350.1.13.58 H [facility] [place] 9.2.7.2.686 PLAZA 0 [id number] 5 2021-02-27 2021-02-27 [address] [facility] [address] 04:18:00 04:18:00 [place] hospital7 [facility] 2021-02-27 2021-02-27 [facility] 00:[facility]00 00:00:00 Stephanie: [facility] - OC- n [address] [facility], [address], [place] [address] , Ph. 2021-02-27 2021-02-27 Outpatient JULES Brown [facility] [id number] 00:00:00 00:00:00 Concha [id number] 2021-02-27 2021-02-27 Outpatient Stephanie Loy [facility] [id number] 00:00:00 00:00:00 Concha [id number] 2021-02-27 2021-02-27 Outpatient JULES Brown [facility] [id number] 00:00:00 00:00:00 Concha [id number] 2021-02-06 2021-02-[address] [facility] [address] 10:04:00 10:04:00 zerustyi [address] 2021-02-06 2021-02-06 Outpatient JULES Brown [facility] [id number] [id number] 00:00:00 00:00:00 Concha [id number] 2021-02-06 2021-02-06 Concha JULES [facility] [address] 00:00:00 00:00:00 Stephanie: [facility] - [facility]OC- n [address], [address], [place] [address] , Ph. 2020-05-11 2020-05-11 Outpatient COH COH PDPFELD YBU COH 00:00:00 00:00:00 [id number] 2016-06-27 2016-06-27 Outpatient MHIE MHIE [id number] 15:45:00 15:45:00 03 amparo Mathew 2016-06-27 2016-06-27 Outpatient MHIE MHIE [id number] 15:45:00 15:45:00 03 amparo Mathew 2016-02-22 2016-02-22 Outpatient MHIE MHIE [id number] 08:45:00 08:45:00 02 amparo Mathew 2016-02-22 2016-02-22 Outpatient MHIE MHIE [id number] 08:45:00 08:45:00 02 amparo Mathew 2015-10-12 2015-10-12 Outpatient MHIE MHIE [id number] 15:45:00 15:45:00 01 amparo Mathew 2015-10-12 2015-10-12 Outpatient MHIE MHIE [id number] 15:45:00 15:45:00 01 amparo Mathew 2015-06-15 2015-06-15 Outpatient MHIE MHIE [id number] 08:15:00 08:15:00 00 amparo Mathew 2015-06-15 2015-06-15 Outpatient MHIE MHIE [id number] 08:15:00 08:15:00 00 amparo Mathew 2014-12-13 2014-12-13 [facility] [id number] 15:50:00 18:55:00 Emergency r [place] 07 l [facility] 2014-12-13 2014-12-13 [facility] [id number] 15:50:00 18:55:00 Emergency r [place] 07 l [facility] 2014-12-13 2014-12-13 Outpatient Mohsen Manriquez 2.16.840. 2.16.840. 1. [id number] 10:50:00 13:55:00 R [id number] 3.615.0.1 5.0.505 41 4704-08-15 2014-05-07 [facility] [id number] 15:53:00 21:11:00 Emergency r [place] 06 l [facility] 2014-05-07 2014-05-07 [facility] [id number] 15:53:00 21:11:00 Emergency r [place] 06 [facility] 2014-05-07 2014-05-07 Outpatient Nelson, 2.16.840. 2.16.840.1. 3 [id number] 10:53:00 16:11:00 [place] [id number] [place] 3.615.0.1 5.0.464 43 0577-12-10 2013-09-01 Outpatient 2.16.840. 2.16.840.1. 3 [id number] Memoria 08:42:00 15:51:00 [id number] l 3.615.0.[address] 2013-09-01 2013-09-01 Emergency nullFlavo [id number] [address] 08:42:00 15:51:00 [place] [address] amparo Mathew 2013-09-01 2013-09-01 Emergency nullFlavo [id number] [address] 08:42:00 15:51:[address] [place] Results Test Description Test Time Test Comments Results Result Comments Source Lipid 1996 panel - Serum or Plasma 2022-10-25 00:00:00 Test Item Value Reference Range Interpretation Comme nts Cholesterol [Mass/volume] in 205 mg/dL <200 H Serum or Plasma (test code = 2093-3) Cholesterol in HDL 53 mg/dL See_Comment [Automat ed message] The [Mass/volume] in Serum or sy stem which generated Plasma (test code = 2085-9) this result transmitted reference range : > or = 40. The referen ce range was not used to interpret this result as normal/abnormal . Triglyceride [Mass/volume] 125 mg/dL <150 in Serum or Plasma (test code = 2571-8) Cholesterol in LDL 128 mg/dL (calc) H [Mass/volume] in Serum or Plasma by calculation (test code = 73762-5) Cholesterol.total/Cholestero 3.9 (calc) <5.0 l in HDL [Mass Ratio] in Serum or Plasma (test code = 9830-1) Cholesterol non HDL 152 mg/dL (calc) <130 H [Mass/volume] in Serum or Plasma (test code = 35786-8) [facility] BoxComprehensive metabolic 2000 panel - Serum or Plasma 2022-10-25 00:00:00 Test Item Value Reference Range Interpretation Comments Glucose [Mass/volume] 125 mg/dL 65-99 H in Serum or Plasma (test code = 2345-7) Urea nitrogen 19 mg/dL 7-25 [Mass/volume] in Serum or Plasma (test code = 3094-0) Creatinine 1.05 mg/dL 0.70-1.30 [Mass/volume] in Serum or Plasma (test code = 2160-0) Glomerular filtration 82 mL/min/1.73m2 See_Comment [ Automated rate/1.73 sq message] The M.predicted [[facility] Rate[facility]Area] in Serum, generat ed this Plasma or Blood by result Creatinine-based transmitted formula (CKD-EPI 2020) refer ence range: (test code = 53651-7) > or = 60. The reference range was not used to interpret this result as normal/abnormal . Urea not applicable 6-22 nitrogen/Creatinine [Mass Ratio] in Serum or Plasma (test code = 3097-3) Sodium [Moles/volume] 139 mmol/L 135-146 in Serum or Plasma (test code = 2951-2) Potassium 4.8 mmol/L 3.5-5.3 [Moles/volume] in Serum or Plasma (test code = 2823-3) Chloride 104 mmol/L 98-110 [Moles/volume] in Serum or Plasma (test code = 2074-0) Carbon dioxide, total 28 mmol/L 20-32 [Moles/volume] in Serum or Plasma (test code = 2027-) Calcium [Mass/volume] 9.4 mg/dL 8.6-10.3 in Serum or Plasma (test code = 55642-3) Protein [Mass/volume] 6.7 g/dL 6.1-8.1 in Serum or Plasma (test code = 2885-2) Albumin [Mass/volume] 4.4 g/dL 3.6-5.1 in Serum or Plasma (test code = 175-7) Globulin [Mass/volume] 2.3 g/dL (calc) 1.9-3.7 in Serum by calculation (test code = 71586-7) Albumin/Globulin [Mass 1.9 (calc) 1.0-2.5 Ratio] in Serum or Plasma (test code = 175-0) Bilirubin.total 0.4 mg/dL 0.2-1.2 [Mass/volume] in Serum or Plasma (test code = 1974-) Alkaline phosphatase 41 U/L 35-144 [Enzymatic activity/volume] in Serum or Plasma (test code = 6768-6) Aspartate 12 U/L 10-35 aminotransferase [Enzymatic activity/volume] in Serum or Plasma (test code = 1920-8) Alanine 14 U/L 9-46 aminotransferase [Enzymatic activity/volume] in Serum or Plasma (test code = 1742-6) [facility] BoxLipid 1996 panel - Serum or [id number] 00:00:00 Test Item Value Reference Range Interpretation Comments Cholesterol 205 mg/dL <200 H [Mass/volume] in Serum or Plasma (test code = 2092-3) Cholesterol in HDL 53 mg/dL See_Comment [Automat ed [Mass/volume] in message] Th e system Serum or Plasma (test which generated code = 2084-) this result transmitted reference range : > or = 40. The reference range was not used to interpret this result as normal/abnormal . Triglyceride 125 mg/dL <150 [Mass/volume] in Serum or Plasma (test code = 2571-8) Cholesterol in LDL 128 mg/dL H [Mass/volume] in (calc) Serum or Plasma by calculation (test code = 85110-1) Cholesterol.total/Cho 3.9 (calc) <5.0 lesterol in HDL [Mass Ratio] in Serum or Plasma (test code = 9830-1) Cholesterol non HDL 152 mg/dL <130 H [Mass/volume] in (calc) Serum or Plasma (test code = 73207-4) [facility] - Serum or Plasma 2022-10-25 00:00:00 Test Item Value Reference Range Interpretation Comments Glucose [Mass/volume] 125 mg/dL 65-99 H in Serum or Plasma (test code = 2345-7) Urea nitrogen 19 mg/dL 7-25 [Mass/volume] in Serum or Plasma (test code = 3094-0) Creatinine 1.05 mg/dL 0.70-1.30 [Mass/volume] in Serum or Plasma (test code = 2160-0) Glomerular filtration 82 mL/min/1.73m2 See_Comment [ Automated rate/1.73 sq message] The M.predicted [Volume system w hich Rate/Area] in Serum, generat ed this Plasma or Blood by result Creatinine-based transmitted formula (CKD-EPI 2020) refer ence range: (test code = 52533-0) > or = 60. The reference range was not used to interpret this result as normal/abnormal . Urea not applicable 6-22 nitrogen/Creatinine [Mass Ratio] in Serum or Plasma (test code = 3097-3) Sodium [Moles/volume] 139 mmol/L 135-146 in Serum or Plasma (test code = 2951-2) Potassium 4.8 mmol/L 3.5-5.3 [Moles/volume] in Serum or Plasma (test code = 2823-3) Chloride 104 mmol/L 98-110 [Moles/volume] in Serum or Plasma (test code = 5-0) Carbon dioxide, total 28 mmol/L 20-32 [Moles/volume] in Serum or Plasma (test code = 2027-) Calcium [Mass/volume] 9.4 mg/dL 8.6-10.3 in Serum or Plasma (test code = 22171-7) Protein [Mass/volume] 6.7 g/dL 6.1-8.1 in Serum or Plasma (test code = 2885-2) Albumin [Mass/volume] 4.4 g/dL 3.6-5.1 in Serum or Plasma (test code = 1751-7) Globulin [Mass/volume] 2.3 g/dL (calc) 1.9-3.7 in Serum by calculation (test code = 42309-2) Albumin/Globulin [Mass 1.9 (calc) 1.0-2.5 Ratio] in Serum or Plasma (test code = 1759-0) Bilirubin.total 0.4 mg/dL 0.2-1.2 [Mass/volume] in Serum or Plasma (test code = 1975-2) Alkaline phosphatase 41 U/L 35-144 [Enzymatic activity/volume] in Serum or Plasma (test code = 6768-6) Aspartate 12 U/L 10-35 aminotransferase [Enzymatic activity/volume] in Serum or Plasma (test code = 1920-8) Alanine 14 U/L 9-46 aminotransferase [Enzymatic activity/volume] in Serum or Plasma (test code = 1742-6) [facility] W Auto Differential panel - [id number] 00:00:00 Test Item Value Reference Range Interpretation Comments Leukocytes [#/volume] in 5.3 thousand/uL 3.8-10.8 Blood by Automated count (test code = 6690-2) Erythrocytes [#/volume] in 4.51 million/uL 4.20-5.80 Blood by Automated count (test code = 789-8) Hemoglobin [Mass/volume] in 15.0 g/dL 13.2-17.1 Blood (test code = 718-7) Hematocrit [Volume Fraction] 42.0 % 38.5-50.0 of Blood by Automated count (test code = 4544-3) Erythrocyte mean corpuscular 93.1 fL 80.0-100.0 volume [Entitic volume] by Automated count (test code = 787-2) Erythrocyte mean corpuscular 33.3 pg 27.0-33.0 H hemoglobin [Entitic mass] by Automated count (test code = 785-6) Erythrocyte mean corpuscular 35.7 g/dL 32.0-36.0 hemoglobin concentration [Mass/volume] by Automated count (test code = 786-4) Erythrocyte distribution 12.6 % 11.0-15.0 width [Ratio] by Automated count (test code = 788-0) Platelets [#/volume] in Blood 244 thousand/uL 140-400 by Automated count (test code = 777-3) Platelet mean volume [Entitic 11.6 fL 7.5-12.5 volume] in Blood by Chari (test code = 776-5) Neutrophils [#/volume] in 3381 cells/uL 0608-0980 Blood by Automated count (test code = 751-8) Lymphocytes [#/volume] in 1383 cells/uL 850-3900 Blood by Automated count (test code = 731-0) Monocytes [#/volume] in Blood 461 cells/uL 200-950 by Automated count (test code = 742-7) Eosinophils [#/volume] in 42 cells/uL 15-500 Blood by Automated count (test code = 711-2) Basophils [#/volume] in Blood 32 cells/uL 0-200 by Automated count (test code = 704-7) Neutrophils/100 leukocytes in 63.8 % Blood by Automated count (test code = 770-8) Lymphocytes/100 leukocytes in 26.1 % Blood by Automated count (test code = 736-9) Monocytes/100 leukocytes in 8.7 % Blood by Automated count (test code = 5905-5) Eosinophils/100 leukocytes in 0.8 % Blood by Automated count (test code = 713-8) Basophils/100 leukocytes in 0.6 % Blood by Automated count (test code = 706-2) [facility] [id number] 00:00:00 Test Item Value Reference Range Interpretation Comments Hemoglobin 5.6 % of total HGB <5.7 A1c/Hemoglobin.total in Blood (test code = 4548-4) [facility] - Serum or [id number] 00:00:00 Test Item Value Reference Range Interpretation Comments Cholesterol 205 mg/dL <200 H [Mass/volume] in Serum or Plasma (test code = 2093-3) Cholesterol in HDL 53 mg/dL See_Comment [Automat ed [Mass/volume] in message] Th e system Serum or Plasma (test which generated code = 2085-9) this result transmitted reference range : > or = 40. The reference range was not used to interpret this result as normal/abnormal . Triglyceride 125 mg/dL <150 [Mass/volume] in Serum or Plasma (test code = 2571-8) Cholesterol in LDL 128 mg/dL H [Mass/volume] in (calc) Serum or Plasma by calculation (test code = 15667-9) Cholesterol.total/Cho 3.9 (calc) <5.0 lesterol in HDL [Mass Ratio] in Serum or Plasma (test code = 9830-1) Cholesterol non HDL 152 mg/dL <130 H [Mass/volume] in (calc) Serum or Plasma (test code = 07353-4) [facility] BoxComprehensive metabolic 2000 panel - Serum or Plasma 2022-10-25 00:00:00 Test Item Value Reference Range Interpretation Comments Glucose [Mass/volume] 125 mg/dL 65-99 H in Serum or Plasma (test code = 2345-7) Urea nitrogen 19 mg/dL 7-25 [Mass/volume] in Serum or Plasma (test code = 3094-0) Creatinine 1.05 mg/dL 0.70-1.30 [Mass/volume] in Serum or Plasma (test code = 2160-0) Glomerular filtration 82 mL/min/1.73m2 See_Comment [ Automated rate/1.73 sq message] The M.predicted [Volume system w hich Rate/Area] in Serum, generat ed this Plasma or Blood by result Creatinine-based transmitted formula (CKD-EPI 2020) refer ence range: (test code = 74001-0) > or = 60. The reference range was not used to interpret this result as normal/abnormal . Urea not applicable 6-22 nitrogen/Creatinine [Mass Ratio] in Serum or Plasma (test code = 3097-3) Sodium [Moles/volume] 139 mmol/L 135-146 in Serum or Plasma (test code = 2951-2) Potassium 4.8 mmol/L 3.5-5.3 [Moles/volume] in Serum or Plasma (test code = 2823-3) Chloride 104 mmol/L 98-110 [Moles/volume] in Serum or Plasma (test code = 2075-0) Carbon dioxide, total 28 mmol/L 20-32 [Moles/volume] in Serum or Plasma (test code = 2027-) Calcium [Mass/volume] 9.4 mg/dL 8.6-10.3 in Serum or Plasma (test code = 57448-9) Protein [Mass/volume] 6.7 g/dL 6.1-8.1 in Serum or Plasma (test code = 2885-2) Albumin [Mass/volume] 4.4 g/dL 3.6-5.1 in Serum or Plasma (test code = 1751-7) Globulin [Mass/volume] 2.3 g/dL (calc) 1.9-3.7 in Serum by calculation (test code = 59910-8) Albumin/Globulin [Mass 1.9 (calc) 1.0-2.5 Ratio] in Serum or Plasma (test code = 175-0) Bilirubin.total 0.4 mg/dL 0.2-1.2 [Mass/volume] in Serum or Plasma (test code = 1974-) Alkaline phosphatase 41 U/L 35-144 [Enzymatic activity/volume] in Serum or Plasma (test code = 6768-6) Aspartate 12 U/L 10-35 aminotransferase [Enzymatic activity/volume] in Serum or Plasma (test code = 1920-8) Alanine 14 U/L 9-46 aminotransferase [Enzymatic activity/volume] in Serum or Plasma (test code = 1742-6) [facility] W Auto Differential panel - [id number] 00:00:00 Test Item Value Reference Range Interpretation Comments Leukocytes [#/volume] in 5.3 thousand/uL 3.8-10.8 Blood by Automated count (test code = 6690-2) Erythrocytes [#/volume] in 4.51 million/uL 4.20-5.80 Blood by Automated count (test code = 789-8) Hemoglobin [Mass/volume] in 15.0 g/dL 13.2-17.1 Blood (test code = 718-7) Hematocrit [Volume Fraction] 42.0 % 38.5-50.0 of Blood by Automated count (test code = 4544-3) Erythrocyte mean corpuscular 93.1 fL 80.0-100.0 volume [Entitic volume] by Automated count (test code = 787-2) Erythrocyte mean corpuscular 33.3 pg 27.0-33.0 H hemoglobin [Entitic mass] by Automated count (test code = 785-6) Erythrocyte mean corpuscular 35.7 g/dL 32.0-36.0 hemoglobin concentration [Mass/volume] by Automated count (test code = 786-4) Erythrocyte distribution 12.6 % 11.0-15.0 width [Ratio] by Automated count (test code = 788-0) Platelets [#/volume] in Blood 244 thousand/uL 140-400 by Automated count (test code = 777-3) Platelet mean volume [Entitic 11.6 fL 7.5-12.5 volume] in Blood by Slick-Bin (test code = 776-5) Neutrophils [#/volume] in 3381 cells/uL 2889-4376 Blood by Automated count (test code = 751-8) Lymphocytes [#/volume] in 1383 cells/uL 850-3900 Blood by Automated count (test code = 731-0) Monocytes [#/volume] in Blood 461 cells/uL 200-950 by Automated count (test code = 742-7) Eosinophils [#/volume] in 42 cells/uL 15-500 Blood by Automated count (test code = 711-2) Basophils [#/volume] in Blood 32 cells/uL 0-200 by Automated count (test code = 704-7) Neutrophils/100 leukocytes in 63.8 % Blood by Automated count (test code = 770-8) Lymphocytes/100 leukocytes in 26.1 % Blood by Automated count (test code = 736-9) Monocytes/100 leukocytes in 8.7 % Blood by Automated count (test code = 5905-5) Eosinophils/100 leukocytes in 0.8 % Blood by Automated count (test code = 713-8) Basophils/100 leukocytes in 0.6 % Blood by Automated count (test code = 706-2) [facility].total in [id number] 00:00:00 Test Item Value Reference Range Interpretation Comments Hemoglobin 5.6 % of total HGB <5.7 A1c/Hemoglobin.total in Blood (test code = 4548-4) [facility] - Serum or [id number] 00:00:00 Test Item Value Reference Range Interpretation Comments Cholesterol 208 mg/dL <200 H [Mass/volume] in Serum or Plasma (test code = 2092-) Cholesterol in HDL 56 mg/dL See_Comment [Automat ed [Mass/volume] in message] e system Serum or Plasma (test which generated code = 2085-05) this result transmitted reference range : > or = 40. The reference range was not used to interpret this result as normal/abnormal . Triglyceride 103 mg/dL <150 [Mass/volume] in Serum or Plasma (test code = 2571-8) Cholesterol in LDL 131 mg/dL H [Mass/volume] in (calc) Serum or Plasma by calculation (test code = 53035-8) Cholesterol.total/Cho 3.7 (calc) <5.0 lesterol in HDL [Mass Ratio] in Serum or Plasma (test code = 9830-1) Cholesterol non HDL 152 mg/dL <130 H [Mass/volume] in (calc) Serum or Plasma (test code = 09163-8) [facility] BoxLipid 1995 panel - Serum or [id number] 00:00:00 Test Item Value Reference Range Interpretation Comments Cholesterol 208 mg/dL <200 H [Mass/volume] in Serum or Plasma (test code = 2092-) Cholesterol in HDL 56 mg/dL See_Comment [Automat ed [Mass/volume] in message] e system Serum or Plasma (test which generated code = 2085-05) this result transmitted reference range : > or = 40. The reference range was not used to interpret this result as normal/abnormal . Triglyceride 103 mg/dL <150 [Mass/volume] in Serum or Plasma (test code = 2571-8) Cholesterol in LDL 131 mg/dL H [Mass/volume] in (calc) Serum or Plasma by calculation (test code = 41157-2) Cholesterol.total/Cho 3.7 (calc) <5.0 lesterol in HDL [Mass Ratio] in Serum or Plasma (test code = 9830-1) Cholesterol non HDL 152 mg/dL <130 H [Mass/volume] in (calc) Serum or Plasma (test code = 60691-7) [facility] BoxLipid 1995 panel - Serum or [id number] 00:00:00 Test Item Value Reference Range Interpretation Comments Cholesterol 208 mg/dL <200 H [Mass/volume] in Serum or Plasma (test code = 2092-3) Cholesterol in HDL 56 mg/dL See_Comment [Automat ed [Mass/volume] in message] e system Serum or Plasma (test which generated code = 5-9) this result transmitted reference range : > or = 40. The reference range was not used to interpret this result as normal/abnormal . Triglyceride 103 mg/dL <150 [Mass/volume] in Serum or Plasma (test code = 2571-8) Cholesterol in LDL 131 mg/dL H [Mass/volume] in (calc) Serum or Plasma by calculation (test code = 90073-0) Cholesterol.total/Cho 3.7 (calc) <5.0 lesterol in HDL [Mass Ratio] in Serum or Plasma (test code = 9830-1) Cholesterol non HDL 152 mg/dL <130 H [Mass/volume] in (calc) Serum or Plasma (test code = 42597-8) [facility] BoxLipid 1995 panel - Serum or [id number] 00:00:00 Test Item Value Reference Range Interpretation Comments Cholesterol 208 mg/dL <200 H [Mass/volume] in Serum or Plasma (test code = 2092-3) Cholesterol in HDL 56 mg/dL See_Comment [Automat ed [Mass/volume] in message] e system Serum or Plasma (test which generated code = 5-9) this result transmitted reference range : > or = 40. The reference range was not used to interpret this result as normal/abnormal . Triglyceride 103 mg/dL <150 [Mass/volume] in Serum or Plasma (test code = 2571-8) Cholesterol in LDL 131 mg/dL H [Mass/volume] in (calc) Serum or Plasma by calculation (test code = 77709-3) Cholesterol.total/Cho 3.7 (calc) <5.0 lesterol in HDL [Mass Ratio] in Serum or Plasma (test code = 9830-1) Cholesterol non HDL 152 mg/dL <130 H [Mass/volume] in (calc) Serum or Plasma (test code = 73784-8) [facility] BoxLipid 1995 panel - Serum or [id number] 00:00:00 Test Item Value Reference Range Interpretation Comments Cholesterol 208 mg/dL <200 H [Mass/volume] in Serum or Plasma (test code = 3-3) Cholesterol in HDL 56 mg/dL See_Comment [Automat ed [Mass/volume] in message] Th e system Serum or Plasma (test which generated code = 2085-9) this result transmitted reference range : > or = 40. The reference range was not used to interpret this result as normal/abnormal . Triglyceride 103 mg/dL <150 [Mass/volume] in Serum or Plasma (test code = 2571-8) Cholesterol in LDL 131 mg/dL H [Mass/volume] in (calc) Serum or Plasma by calculation (test code = 14013-7) Cholesterol.total/Cho 3.7 (calc) <5.0 lesterol in HDL [Mass Ratio] in Serum or Plasma (test code = 9830-1) Cholesterol non HDL 152 mg/dL <130 H [Mass/volume] in (calc) Serum or Plasma (test code = 41278-8) [facility] BoxComprehensive metabolic 2000 panel - Serum or Plasma 2022-02-27 00:00:00 Test Item Value Reference Range Interpretation Comments Glucose [Mass/volume] 99 mg/dL 65-99 in Serum or Plasma (test code = 2345-7) Urea nitrogen 18 mg/dL 7-25 [Mass/volume] in Serum or Plasma (test code = 3094-0) Creatinine 0.99 mg/dL 0.70-1.33 [Mass/volume] in Serum or Plasma (test code = 2160-0) Glomerular filtration 84 mL/min/1.73m2 See_Comment [ Automated rate/1.73 sq message] The M.predicted among system [facility] non-blacks [Volume generated this Rate/Area] in Serum, result Plasma or Blood by transmitt ed Creatinine-based reference r [place]: formula (CKD-EPI) > or = 60. The (test code = 81789-9) refere nce range was not used to interpret this result as normal/abnormal . Glomerular filtration 97 mL/min/1.73m2 See_Comment [ Automated rate/1.73 sq message] The M.predicted among system [facility] blacks [Volume generated thi s Rate/Area] in Serum, result Plasma or Blood by transmitt ed Creatinine-based reference r [place]: formula (CKD-EPI) > or = 60. The (test code = 91724-3) refere nce range was not used to interpret this result as normal/abnormal . Urea not applicable 6-22 nitrogen/Creatinine [Mass Ratio] in Serum or Plasma (test code = 3097-3) Sodium [Moles/volume] 140 mmol/L 135-146 in Serum or Plasma (test code = 2951-2) Potassium 4.3 mmol/L 3.5-5.3 [Moles/volume] in Serum or Plasma (test code = 2823-3) Chloride 106 mmol/L 98-110 [Moles/volume] in Serum or Plasma (test code = 2074-0) Carbon dioxide, total 27 mmol/L 20-32 [Moles/volume] in Serum or Plasma (test code = 2027-) Calcium [Mass/volume] 9.1 mg/dL 8.6-10.3 in Serum or Plasma (test code = 29188-7) Protein [Mass/volume] 6.7 g/dL 6.1-8.1 in Serum or Plasma (test code = 2885-2) Albumin [Mass/volume] 4.5 g/dL 3.6-5.1 in Serum or Plasma (test code = 175-7) Globulin [Mass/volume] 2.2 g/dL (calc) 1.9-3.7 in Serum by calculation (test code = 43336-8) Albumin/Globulin [Mass 2.0 (calc) 1.0-2.5 Ratio] in Serum or Plasma (test code = 1759-0) Bilirubin.total 0.3 mg/dL 0.2-1.2 [Mass/volume] in Serum or Plasma (test code = 1974-) Alkaline phosphatase 35 U/L 35-144 [Enzymatic activity/volume] in Serum or Plasma (test code = 6768-6) Aspartate 13 U/L 10-35 aminotransferase [Enzymatic activity/volume] in Serum or Plasma (test code = 1920-8) Alanine 11 U/L 9-46 aminotransferase [Enzymatic activity/volume] in Serum or Plasma (test code = 1742-6) [facility] BoxLipid 1996 panel - Serum or [id number] 00:00:00 Test Item Value Reference Range Interpretation Comments Cholesterol 174 mg/dL <200 [Mass/volume] in Serum or Plasma (test code = 2092-3) Cholesterol in HDL 58 mg/dL See_Comment [Automat ed [Mass/volume] in message] Th e system Serum or Plasma (test which generated code = 5-9) this result transmitted reference range : > or = 40. The reference range was not used to interpret this result as normal/abnormal . Triglyceride 99 mg/dL <150 [Mass/volume] in Serum or Plasma (test code = 2571-8) Cholesterol in LDL 97 mg/dL [Mass/volume] in (calc) Serum or Plasma by calculation (test code = 81904-0) Cholesterol.total/Cho 3.0 (calc) <5.0 lesterol in HDL [Mass Ratio] in Serum or Plasma (test code = 9830-1) Cholesterol non HDL 116 mg/dL <130 [Mass/volume] in (calc) Serum or Plasma (test code = 29039-9) [facility] or Plasma 2022-02-16 00:00:00 Test Item Value Reference Range Interpretation Comments Glucose [Mass/volume] 108 mg/dL 65-139 in Serum or Plasma (test code = 2345-7) Urea nitrogen 17 mg/dL 7-25 [Mass/volume] in Serum or Plasma (test code = 3094-0) Creatinine 1.17 mg/dL 0.70-1.33 [Mass/volume] in Serum or Plasma (test code = 2160-0) Glomerular filtration 68 mL/min/1.73m2 See_Comment [ Automated rate/1.73 sq message] The M.predicted among system [facility] non-blacks [Volume generated this Rate/Area] in Serum, result Plasma or Blood by transmitt ed Creatinine-based reference r [place]: formula (CKD-EPI) > or = 60. The (test code = 01096-4) refere nce range was not used to interpret this result as normal/abnormal . Glomerular filtration 79 mL/min/1.73m2 See_Comment [ Automated rate/1.73 sq message] The M.predicted among system [facility] blacks [Volume generated thi s Rate/Area] in Serum, result Plasma or Blood by transmitt ed Creatinine-based reference r [place]: formula (CKD-EPI) > or = 60. The (test code = 63124-4) refere nce range was not used to interpret this result as normal/abnormal . Urea not applicable 6-22 nitrogen/Creatinine [Mass Ratio] in Serum or Plasma (test code = 3097-3) Sodium [Moles/volume] 137 mmol/L 135-146 in Serum or Plasma (test code = 2951-2) Potassium 5.4 mmol/L 3.5-5.3 H [Moles/volume] in Serum or Plasma (test code = 2823-3) Chloride 104 mmol/L 98-110 [Moles/volume] in Serum or Plasma (test code = 2074-0) Carbon dioxide, total 26 mmol/L 20-32 [Moles/volume] in Serum or Plasma (test code = 2027-) Calcium [Mass/volume] 9.7 mg/dL 8.6-10.3 in Serum or Plasma (test code = 55445-9) Protein [Mass/volume] 7.1 g/dL 6.1-8.1 in Serum or Plasma (test code = 2885-2) Albumin [Mass/volume] 4.6 g/dL 3.6-5.1 in Serum or Plasma (test code = 175-7) Globulin [Mass/volume] 2.5 g/dL (calc) 1.9-3.7 in Serum by calculation (test code = 53715-0) Albumin/Globulin [Mass 1.8 (calc) 1.0-2.5 Ratio] in Serum or Plasma (test code = 175-0) Bilirubin.total 0.4 mg/dL 0.2-1.2 [Mass/volume] in Serum or Plasma (test code = 1974-) Alkaline phosphatase 38 U/L 35-144 [Enzymatic activity/volume] in Serum or Plasma (test code = 6768-6) Aspartate 22 U/L 10-35 aminotransferase [Enzymatic activity/volume] in Serum or Plasma (test code = 192-8) Alanine 27 U/L 9-46 aminotransferase [Enzymatic activity/volume] in Serum or Plasma (test code = 174-6) [facility] BoxLipid 1996 panel - Serum or [id number] 00:00:00 Test Item Value Reference Range Interpretation Comments Cholesterol 174 mg/dL <200 [Mass/volume] in Serum or Plasma (test code = 2092-) Cholesterol in HDL 58 mg/dL See_Comment [Automat ed [Mass/volume] in message] Th e system Serum or Plasma (test which generated code = 2085-05) this result transmitted reference range : > or = 40. The reference range was not used to interpret this result as normal/abnormal . Triglyceride 99 mg/dL <150 [Mass/volume] in Serum or Plasma (test code = 2571-8) Cholesterol in LDL 97 mg/dL [Mass/volume] in (calc) Serum or Plasma by calculation (test code = 57259-4) Cholesterol.total/Cho 3.0 (calc) <5.0 lesterol in HDL [Mass Ratio] in Serum or Plasma (test code = 9830-1) Cholesterol non HDL 116 mg/dL <130 [Mass/volume] in (calc) Serum or Plasma (test code = 18895-0) [facility] - [facility] or Plasma 2022-02-16 00:00:00 Test Item Value Reference Range Interpretation Comments Glucose [Mass/volume] 108 mg/dL 65-139 in Serum or Plasma (test code = 2345-7) Urea nitrogen 17 mg/dL 7-25 [Mass/volume] in Serum or Plasma (test code = 3094-0) Creatinine 1.17 mg/dL 0.70-1.33 [Mass/volume] in Serum or Plasma (test code = 2160-0) Glomerular filtration 68 mL/min/1.73m2 See_Comment [ Automated rate/1.73 sq message] The M.predicted among system [facility] non-blacks [Volume generated this Rate/Area] in Serum, result Plasma or Blood by transmitt ed Creatinine-based reference r [place]: formula (CKD-EPI) > or = 60. The (test code = 97609-2) refere nce range was not used to interpret this result as normal/abnormal . Glomerular filtration 79 mL/min/1.73m2 See_Comment [ Automated rate/1.73 sq message] The M.predicted among system [facility] blacks [Volume generated thi s Rate/Area] in Serum, result Plasma or Blood by transmitt ed Creatinine-based reference r [place]: formula (CKD-EPI) > or = 60. The (test code = 84492-1) refere nce range was not used to interpret this result as normal/abnormal . Urea not applicable 6-22 nitrogen/Creatinine [Mass Ratio] in Serum or Plasma (test code = 3097-3) Sodium [Moles/volume] 137 mmol/L 135-146 in Serum or Plasma (test code = 2951-2) Potassium 5.4 mmol/L 3.5-5.3 H [Moles/volume] in Serum or Plasma (test code = 2823-3) Chloride 104 mmol/L 98-110 [Moles/volume] in Serum or Plasma (test code = 2074-0) Carbon dioxide, total 26 mmol/L 20-32 [Moles/volume] in Serum or Plasma (test code = 2027-) Calcium [Mass/volume] 9.7 mg/dL 8.6-10.3 in Serum or Plasma (test code = 60366-1) Protein [Mass/volume] 7.1 g/dL 6.1-8.1 in Serum or Plasma (test code = 2885-2) Albumin [Mass/volume] 4.6 g/dL 3.6-5.1 in Serum or Plasma (test code = 175-7) Globulin [Mass/volume] 2.5 g/dL (calc) 1.9-3.7 in Serum by calculation (test code = 72025-1) Albumin/Globulin [Mass 1.8 (calc) 1.0-2.5 Ratio] in Serum or Plasma (test code = 175-0) Bilirubin.total 0.4 mg/dL 0.2-1.2 [Mass/volume] in Serum or Plasma (test code = 1974-) Alkaline phosphatase 38 U/L 35-144 [Enzymatic activity/volume] in Serum or Plasma (test code = 6768-6) Aspartate 22 U/L 10-35 aminotransferase [Enzymatic activity/volume] in Serum or Plasma (test code = 192-8) Alanine 27 U/L 9-46 aminotransferase [Enzymatic activity/volume] in Serum or Plasma (test code = 174-6) [facility] BoxLipid 1996 panel - Serum or [id number] 00:00:00 Test Item Value Reference Range Interpretation Comments Cholesterol 204 mg/dL <200 H [Mass/volume] in Serum or Plasma (test code = 2092-) Cholesterol in HDL 57 mg/dL See_Comment [Automat ed [Mass/volume] in message] Th e system Serum or Plasma (test which generated code = 2085-05) this result transmitted reference range : > or = 40. The reference range was not used to interpret this result as normal/abnormal . Triglyceride 156 mg/dL <150 H [Mass/volume] in Serum or Plasma (test code = 2571-8) Cholesterol in LDL 120 mg/dL H [Mass/volume] in (calc) Serum or Plasma by calculation (test code = 61998-8) Cholesterol.total/Cho 3.6 (calc) <5.0 lesterol in HDL [Mass Ratio] in Serum or Plasma (test code = 9830-1) Cholesterol non HDL 147 mg/dL <130 H [Mass/volume] in (calc) Serum or Plasma (test code = 45775-2) [facility] metabolic 2000 panel - Serum or Plasma 2021-11-22 00:00:00 Test Item Value Reference Range Interpretation Comments Glucose [Mass/volume] 124 mg/dL 65-99 H in Serum or Plasma (test code = 2345-7) Urea nitrogen 19 mg/dL 7-25 [Mass/volume] in Serum or Plasma (test code = 3094-0) Creatinine 1.06 mg/dL 0.70-1.33 [Mass/volume] in Serum or Plasma (test code = 2160-0) Glomerular filtration 78 mL/min/1.73m2 See_Comment [ Automated rate/1.73 sq message] The M.predicted among system [facility] non-blacks [Volume generated this Rate/Area] in Serum, result Plasma or Blood by transmitt ed Creatinine-based reference r [place]: formula (CKD-EPI) > or = 60. The (test code = 89600-1) refere nce range was not used to interpret this result as normal/abnormal . Glomerular filtration 90 mL/min/1.73m2 See_Comment [ Automated rate/1.73 sq message] The M.predicted among system [facility] blacks [Volume generated thi s Rate/Area] in Serum, result Plasma or Blood by transmitt ed Creatinine-based reference r [place]: formula (CKD-EPI) > or = 60. The (test code = 78963-6) refere nce range was not used to interpret this result as normal/abnormal . Urea not applicable 6-22 nitrogen/Creatinine [Mass Ratio] in Serum or Plasma (test code = 3097-3) Sodium [Moles/volume] 139 mmol/L 135-146 in Serum or Plasma (test code = 2951-2) Potassium 5.2 mmol/L 3.5-5.3 [Moles/volume] in Serum or Plasma (test code = 2823-3) Chloride 105 mmol/L 98-110 [Moles/volume] in Serum or Plasma (test code = 2074-0) Carbon dioxide, total 28 mmol/L 20-32 [Moles/volume] in Serum or Plasma (test code = 2027-9) Calcium [Mass/volume] 9.7 mg/dL 8.6-10.3 in Serum or Plasma (test code = 31944-8) Protein [Mass/volume] 6.8 g/dL 6.1-8.1 in Serum or Plasma (test code = 2885-2) Albumin [Mass/volume] 4.3 g/dL 3.6-5.1 in Serum or Plasma (test code = 175-7) Globulin [Mass/volume] 2.5 g/dL (calc) 1.9-3.7 in Serum by calculation (test code = 81355-2) Albumin/Globulin [Mass 1.7 (calc) 1.0-2.5 Ratio] in Serum or Plasma (test code = 175-0) Bilirubin.total 0.4 mg/dL 0.2-1.2 [Mass/volume] in Serum or Plasma (test code = 1974-) Alkaline phosphatase 44 U/L 35-144 [Enzymatic activity/volume] in Serum or Plasma (test code = 6768-6) Aspartate 12 U/L 10-35 aminotransferase [Enzymatic activity/volume] in Serum or Plasma (test code = 1920-8) Alanine 13 U/L 9-46 aminotransferase [Enzymatic activity/volume] in Serum or Plasma (test code = 1742-6) [facility]em[facility].total in [id number] 00:00:00 Test Item Value Reference Range Interpretation Comments Hemoglobin 5.6 % of total HGB <5.7 A1c/Hemoglobin.total in Blood (test code = 4548-4) [facility] - Serum or [id number] 00:00:00 Test Item Value Reference Range Interpretation Comments Cholesterol 204 mg/dL <200 H [Mass/volume] in Serum or Plasma (test code = 209-3) Cholesterol in HDL 57 mg/dL See_Comment [Automat ed [Mass/volume] in message] Th e system Serum or Plasma (test which generated code = 2085-9) this result transmitted reference range : > or = 40. The reference range was not used to interpret this result as normal/abnormal . Triglyceride 156 mg/dL <150 H [Mass/volume] in Serum or Plasma (test code = 2571-8) Cholesterol in LDL 120 mg/dL H [Mass/volume] in (calc) Serum or Plasma by calculation (test code = 02395-3) Cholesterol.total/Cho 3.6 (calc) <5.0 lesterol in HDL [Mass Ratio] in Serum or Plasma (test code = 9830-1) Cholesterol non HDL 147 mg/dL <130 H [Mass/volume] in (calc) Serum or Plasma (test code = 86791-2) [facility] BoxComprehensive metabolic 2000 panel - Serum or Plasma 2021-11-22 00:00:00 Test Item Value Reference Range Interpretation Comments Glucose [Mass/volume] 124 mg/dL 65-99 H in Serum or Plasma (test code = 2345-7) Urea nitrogen 19 mg/dL 7-25 [Mass/volume] in Serum or Plasma (test code = 3094-0) Creatinine 1.06 mg/dL 0.70-1.33 [Mass/volume] in Serum or Plasma (test code = 2160-0) Glomerular filtration 78 mL/min/1.73m2 See_Comment [ Automated rate/1.73 sq message] The M.predicted among system [facility] non-blacks [Volume generated this Rate/Area] in Serum, result Plasma or Blood by transmitt ed Creatinine-based reference r [place]: formula (CKD-EPI) > or = 60. The (test code = 43366-1) refere nce range was not used to interpret this result as normal/abnormal . Glomerular filtration 90 mL/min/1.73m2 See_Comment [ Automated rate/1.73 sq message] The M.predicted among system [facility] blacks [Volume generated thi s Rate/Area] in Serum, result Plasma or Blood by transmitt ed Creatinine-based reference r [place]: formula (CKD-EPI) > or = 60. The (test code = 60603-6) refere nce range was not used to interpret this result as normal/abnormal . Urea not applicable 6-22 nitrogen/Creatinine [Mass Ratio] in Serum or Plasma (test code = 3097-3) Sodium [Moles/volume] 139 mmol/L 135-146 in Serum or Plasma (test code = 2951-2) Potassium 5.2 mmol/L 3.5-5.3 [Moles/volume] in Serum or Plasma (test code = 2823-3) Chloride 105 mmol/L 98-110 [Moles/volume] in Serum or Plasma (test code = 2074-0) Carbon dioxide, total 28 mmol/L 20-32 [Moles/volume] in Serum or Plasma (test code = 2027-9) Calcium [Mass/volume] 9.7 mg/dL 8.6-10.3 in Serum or Plasma (test code = 22329-5) Protein [Mass/volume] 6.8 g/dL 6.1-8.1 in Serum or Plasma (test code = 2885-2) Albumin [Mass/volume] 4.3 g/dL 3.6-5.1 in Serum or Plasma (test code = 175-7) Globulin [Mass/volume] 2.5 g/dL (calc) 1.9-3.7 in Serum by calculation (test code = 18041-5) Albumin/Globulin [Mass 1.7 (calc) 1.0-2.5 Ratio] in Serum or Plasma (test code = 1759-0) Bilirubin.total 0.4 mg/dL 0.2-1.2 [Mass/volume] in Serum or Plasma (test code = 1974-2) Alkaline phosphatase 44 U/L 35-144 [Enzymatic activity/volume] in Serum or Plasma (test code = 6768-6) Aspartate 12 U/L 10-35 aminotransferase [Enzymatic activity/volume] in Serum or Plasma (test code = 1920-8) Alanine 13 U/L 9-46 aminotransferase [Enzymatic activity/volume] in Serum or Plasma (test code = 1742-6) [facility]emoglobin.total in [id number] 00:00:00 Test Item Value Reference Range Interpretation Comments Hemoglobin 5.6 % of total HGB <5.7 A1c/Hemoglobin.total in Blood (test code = 4548-4) [facility]- [id number] 23:01:34 Test Item Value Reference Range Interpretation Comments VENTRICULAR RATE BPM (test code = 11262) ATRIAL RATE (test BPM code = 89293) P-R INTERVAL (test 128 ms code = 42331) QRS DURATION (test 90 ms code = 59036) Q-T INTERVAL (test 380 ms code = 06379) QTC CALCULATION(BEZE 424 ms (test code = 89923) CALCULATED P AXIS degrees (test code = 38768) CALCULATED R AXIS degrees (test code = 62253) CALCULATED T AXIS degrees (test code = 94220) DIAGNOSIS (test code Normal sinus = 36204) rhythmNormal ECGWhen compared with ECG of 22-OCT-2019 14:06,No significant change was foundConfirmed by JAQUAN VALLEJO ([id number]) on 10/12/2021 5:01:30 PM [facility] W Auto Differential panel - [id number] 00:00:00 Test Item Value Reference Range Interpretation Comments Leukocytes [#/volume] in Blood by tnp Automated count (test code = 6690-2) [facility], serum or [id number] 00:00:00 Test Item Value Reference Range Interpretation Comments Prostate specific Ag 0.7 NG/mL See_Comment [Autom ated message] [Mass/volume] in The system which Serum or Plasma (test genera josr this result code = 2857-1) transmitted r eference range: < or = 4 .0. The reference range was not used to interpr et this result as normal/abnormal . [facility] [id number] 00:00:00[facility] BoxBacteria identified in Urine by Culture 2021-04-27 00:00:00Culture, Urine, [facility] BoxLipid 1996 panel - Serum or [id number] 00:00:00 Test Item Value Reference Range Interpretation Comments Cholesterol 172 mg/dL <200 [Mass/volume] in Serum or Plasma (test code = 2093-3) Cholesterol in HDL 41 mg/dL See_Comment [Automat ed [Mass/volume] in message] Th e system Serum or Plasma (test which generated code = 2085-9) this result transmitted reference range : > or = 40. The reference range was not used to interpret this result as normal/abnormal . Triglyceride 119 mg/dL <150 [Mass/volume] in Serum or Plasma (test code = 2571-8) Cholesterol in LDL 108 mg/dL H [Mass/volume] in (calc) Serum or Plasma by calculation (test code = 07992-9) Cholesterol.total/Cho 4.2 (calc) <5.0 lesterol in HDL [Mass Ratio] in Serum or Plasma (test code = 9830-1) Cholesterol non HDL 131 mg/dL <130 H [Mass/volume] in (calc) Serum or Plasma (test code = 42889-9) [facility] metabolic 2000 panel - Serum or Plasma 2021-04-27 00:00:00 Test Item Value Reference Range Interpretation Comments Glucose [Mass/volume] 124 mg/dL 65-139 in Serum or Plasma (test code = 2345-7) Urea nitrogen 15 mg/dL 7-25 [Mass/volume] in Serum or Plasma (test code = 3094-0) Creatinine 0.98 mg/dL 0.70-1.33 [Mass/volume] in Serum or Plasma (test code = 2160-0) Glomerular filtration 85 mL/min/1.73m2 See_Comment [ Automated rate/1.73 sq message] The M.predicted among system [facility] non-blacks [Volume generated this Rate/Area] in Serum, result Plasma or Blood by transmitt ed Creatinine-based reference r [place]: formula (CKD-EPI) > or = 60. The (test code = 20326-4) refere nce range was not used to interpret this result as normal/abnormal . Glomerular filtration 99 mL/min/1.73m2 See_Comment [ Automated rate/1.73 sq message] The M.predicted among system [facility] blacks [Volume generated thi s Rate/Area] in Serum, result Plasma or Blood by transmitt ed Creatinine-based reference r [place]: formula (CKD-EPI) > or = 60. The (test code = 27999-1) refere nce range was not used to interpret this result as normal/abnormal . Urea not applicable 6-22 nitrogen/Creatinine [Mass Ratio] in Serum or Plasma (test code = 3097-3) Sodium [Moles/volume] 137 mmol/L 135-146 in Serum or Plasma (test code = 2951-2) Potassium 4.4 mmol/L 3.5-5.3 [Moles/volume] in Serum or Plasma (test code = 2823-3) Chloride 104 mmol/L 98-110 [Moles/volume] in Serum or Plasma (test code = 2074-0) Carbon dioxide, total 21 mmol/L 20-32 [Moles/volume] in Serum or Plasma (test code = 2027-) Calcium [Mass/volume] 8.9 mg/dL 8.6-10.3 in Serum or Plasma (test code = 35983-3) Protein [Mass/volume] 7.4 g/dL 6.1-8.1 in Serum or Plasma (test code = 2885-2) Albumin [Mass/volume] 4.5 g/dL 3.6-5.1 in Serum or Plasma (test code = 175-7) Globulin [Mass/volume] 2.9 g/dL (calc) 1.9-3.7 in Serum by calculation (test code = 40884-2) Albumin/Globulin [Mass 1.6 (calc) 1.0-2.5 Ratio] in Serum or Plasma (test code = 1758-0) Bilirubin.total 0.4 mg/dL 0.2-1.2 [Mass/volume] in Serum or Plasma (test code = 1974-) Alkaline phosphatase 54 U/L 35-144 [Enzymatic activity/volume] in Serum or Plasma (test code = 6768-6) Aspartate 25 U/L 10-35 aminotransferase [Enzymatic activity/volume] in Serum or Plasma (test code = 192-8) Alanine 29 U/L 9-46 aminotransferase [Enzymatic activity/volume] in Serum or Plasma (test code = 1742-6) [facility] W Auto Differential panel - [id number] 00:00:00 Test Item Value Reference Range Interpretation Comments Leukocytes [#/volume] in 2.6 thousand/uL 3.8-10.8 L Blood by Automated count (test code = 6690-2) Erythrocytes [#/volume] in 5.31 million/uL 4.20-5.80 Blood by Automated count (test code = 789-8) Hemoglobin [Mass/volume] in 16.9 g/dL 13.2-17.1 Blood (test code = 718-7) Hematocrit [Volume Fraction] 48.9 % 38.5-50.0 of Blood by Automated count (test code = 4544-3) MCV [Entitic volume] by 92.1 fL 80.0-100.0 Automated count (test code = 787-2) MCH [Entitic mass] by 31.8 pg 27.0-33.0 Automated count (test code = 785-6) MCHC [Mass/volume] by 34.6 g/dL 32.0-36.0 Automated count (test code = 786-4) Erythrocyte distribution 12.8 % 11.0-15.0 width [Ratio] by Automated count (test code = 788-0) Platelets [#/volume] in Blood 239 thousand/uL 140-400 by Automated count (test code = 777-3) Platelet mean volume [Entitic 10.7 fL 7.5-12.5 volume] in Blood by Parishker (test code = 776-5) Neutrophils [#/volume] in 1269 cells/uL 5094-8173 L Blood by Automated count (test code = 751-8) Lymphocytes [#/volume] in 954 cells/uL 850-3900 Blood by Automated count (test code = 731-0) Monocytes [#/volume] in Blood 335 cells/uL 200-950 by Automated count (test code = 742-7) Eosinophils [#/volume] in 21 cells/uL 15-500 Blood by Automated count (test code = 711-2) Basophils [#/volume] in Blood 21 cells/uL 0-200 by Automated count (test code = 704-7) Neutrophils/100 leukocytes in 48.8 % Blood by Automated count (test code = 770-8) Lymphocytes/100 leukocytes in 36.7 % Blood by Automated count (test code = 736-9) Monocytes/100 leukocytes in 12.9 % Blood by Automated count (test code = 5905-5) Eosinophils/100 leukocytes in 0.8 % Blood by Automated count (test code = 713-8) Basophils/100 leukocytes in 0.8 % Blood by Automated count (test code = 706-2) [facility] [id number] 00:00:00Extra Urine SpecimenComUMMC GrenadaHemoglobin A1c/Hemoglobin.total in Blood 2021-04-27 00:00:00 Test Item Value Reference Range Interpretation Comments Hemoglobin 5.9 % of total HGB <5.7 H A1c/Hemoglobin.total in Blood (test code = 4548-4) [facility] BoxBacteria identified in Urine by [id number] 00:00:00 Culture, Urine, [facility]ineCamden [facility] Center BoxTISSUE [id number] 18:39:00Surgical Pathology Report Case: [id number] Authorizing Provider: Rosendo Kern MD Collected: 11/11/2019 1017 [facility] Received: 11/11/2019 1428 SERVICES Pathologist: Magda Goldsmith MD Specimens: A) - Large Intestine, Colon - Sigmoid B) - Soft Tissue, Other, Distal and proximal donuts A. COLON, SIGMOID, RESECTION: - MULTIPLE DIVERTICULA - NINE BENIGN LYMPH NODES ( 0/9) - VIABLE SURGICAL RESECTION MARGINSB. DONUTS, EXCISION: - NO SIGINIFICANT PATHOLOGIC CHANGES Signing Pathologist Direct Phone Line: [phone] signed by Magda Goldsmith MD on 11/20/2019 at 6:39 [id number], [id number] diagnosis: Diverticulitis A. Large intestine, colon - sigmoid; B. Soft tissue, otherA. Received in formalin labeled with the patient's name, accession number and "sigmoid colon" is a 12.6 cm in length x 2.2 cm in diameter unoriented portion of colon with up to 4.5 cm of attached pericolic fat. The serosa is purple-pink, smooth, hyperemic and displays focal areas of adhesions. The specimen is opened to reveal a beckett-pink mucosa that displays its normal folds. Sectioning reveals multiple diverticula throughout the entire colon. The wall measures up to 0.5 cm thick. Terrestrial Ecologist sections are submitted as follows.Section code: A1. Margins en face, differentially inked blue and black; A2, mesenteric margin en face; A3-A5, diverticula; A6-A8, multiple lymph nodes.B. Received in formalin labeled with the patient's name, accession number and "distal and proximal donuts" aretwo unoriented annular portions of colon that range from 1.5 to 2.3 cm in greatest diameter. The mucosa is beckett-pink and grossly unremarkable. The margins are differentially inked blue and black and radially sectioned. Terrestrial Ecologist sections are submitted in B1- B2. PA/pl Performed.BASIC METABOLIC [id number] 06:44:00 Test Item Value Reference Range Interpretation Comments SODIUM (BEAKER) 139 meq/L 136-145 (test code = 381) POTASSIUM (BEAKER) 4.4 meq/L 3.5-5.1 (test code = 379) CHLORIDE (BEAKER) 107 meq/L 98-107 (test code = 382) CO2 (BEAKER) (test 25 meq/L 22-29 code = 355) BLOOD UREA NITROGEN 12 mg/dL 7-21 (BEAKER) (test code = 354) CREATININE (BEAKER) 0.94 mg/dL 0.57-1.25 (test code = 358) GLUCOSE RANDOM 120 mg/dL 70-105 H (BEAKER) (test code = 652) CALCIUM (BEAKER) 8.6 mg/dL 8.4-10.2 (test code = 697) EGFR (BEAKER) (test 83 mL/min/1.73 ESTIMA JOSR GFR IS code = 1092) sq m NOT ACCURATE CREATININE CLEARANCE IN PREDICTING GLOMERULAR FILTRATION RATE . ESTIMATED GFR I S NOT APPLICABLE FOR DIALYSIS PATIEN TS. Trials Manager ID - GALAPHEMOGLOBIN AND [id number] 06:09:00 Test Item Value Reference Range Interpretation Comments HEMOGLOBIN (BEAKER) (test code = 13.1 GM/DL 13.7-17.5 L 410) HEMATOCRIT (BEAKER) (test code = 38.7 % 40.1-51.0 L 411) Trials Manager ID - [id number] 08:14:00 Test Item Value Reference Range Interpretation Comments POC-GLUCOSE METER 137 mg/dL 70-110 H : TESTED A T [facility] 6720 (BEAKER) (test code = MISAEL PIEDRA [place], 1538) 40693: Trials Manager/Techni dana ID = [id number] for ED WARDS, HYAMPOM CT, [id number] 13:18:00Reason for exam:->EMESISReason for exam:- >ABDOMINAL PAINWhat is the patient's sedation requirement?->No Sedation FINAL REPORT CT abdomen and pelvis with contrast History: abdominal pain Comparison: 03/05/2019 Technique: serial axial imaging was performed following up to 100cc of non ionic iodinated intravenous contrast as per departmental protocol. Multiplanar images are reconstructed and reviewed when indicated. This CT examination is performed using one or more of the following dose reduction techniques: Automated exposure control, adjustment of the mA and /or kV according to patient size, and/or use of iterative reconstruction technique. Findings:Unremarkable appearance of pancreas and s pleen. Unremarkable appearance of liver and gallbladder. Unremarkable appearance of adrenal glands, kidneys, ureters, and urinary bladder. . Moderate diverticulosis of the left colon. Interval development of concentric wall thickening and surrounding fat stranding within the proximal sigmoid colon, wit hout extraluminal air or fluid collection. No small or large bowel obstruction. No findings to indicate acute appendicitis. No free fluid or lymphadenopathy. No abdominal aortic aneurysm. No aggressiveosseous lesion. Impression:Acute, uncomplicated diverticulitis of the proximal sigmoid colon. Signed: Kennedy Barrett MDReport Verified Date/Time: 06/04/2019 13:18:46 Reading Location: [facility] Diagnostic Imaging Reading Room - [place] [address] URINALYSIS W/ REFLEX URINE [id number] 13:10:00 Test Item Value Reference Range Interpretation Comments COLOR (BEAKER) (test code = 470) Light Yellow CLARITY (BEAKER) (test code = Clear 469) SPECIFIC GRAVITY UA (BEAKER) 1.034 1.001-1.035 (test code = 468) PH UA (BEAKER) (test code = 467) 5.5 5.0-8.0 PROTEIN UA (BEAKER) (test code = Negative Negative 464) GLUCOSE UA (BEAKER) (test code = Negative Negative 365) KETONES UA (BEAKER) (test code = Negative Negative 371) BILIRUBIN UA (BEAKER) (test code Negative Negative = 462) BLOOD UA (BEAKER) (test code = Negative Negative 461) NITRITE UA (BEAKER) (test code = Negative Negative 465) LEUKOCYTE ESTERASE UA (BEAKER) Negative Negative (test code = 466) UROBILINOGEN UA (BEAKER) (test 0.2 mg/dL 0.2-1.0 code = 463) RBC UA (BEAKER) (test code = < /HPF 519) WBC UA (BEAKER) (test code = 1 /HPF 520) MUCUS (BEAKER) (test code = Rare 1574) SOURCE(BEAKER) (test code = 5235) [id number] 11:39:00 Test Item Value Reference Range Interpretation Comments PROTIME (BEAKER) (test code = 14.6 seconds 11.9-14.2 H 759) INR (BEAKER) (test code = 370) 1.2 <=5.9 PARTIAL THROMBOPLASTIN TIME 32.5 seconds 22.5-36.0 (BEAKER) (test code = 760) Effective 02/18/2019: PT Reference Range ChangeNew: 11.9-14.2 Previous: 11.7- 14.7RECOMMENDED COUMADIN/WARFARIN INR THERAPY RANGESSTANDARD DOSE: 2.0-3.0 Includes: PROPHYLAXIS for venous thrombosis, systemic embolization; TREATMENT for venous thrombosis and/or pulmonary embolus.HIGH RISK: Target INR is 2.5-3.5 for patients wiht mechanical heart valves.[id number] 11:17:00 Test Item Value Reference Range Interpretation Comments LIPASE (BEAKER) (test code = 749) 14 U/L 8-78 HEPATIC FUNCTION [id number] 11:17:00 Test Item Value Reference Range Interpretation Comments TOTAL PROTEIN (BEAKER) (test code = 7.6 gm/dL 6.0-8.3 770) ALBUMIN (BEAKER) (test code = 1145) 4.3 g/dL 3.5-5.0 BILIRUBIN TOTAL (BEAKER) (test code 0.7 mg/dL 0.2-1.2 = 377) BILIRUBIN DIRECT (BEAKER) (test 0.3 mg/dL 0.1-0.5 code = 706) ALKALINE PHOSPHATASE (BEAKER) (test 52 U/L 40-150 code = 346) AST (SGOT) (BEAKER) (test code = 17 U/L 5-34 353) ALT (SGPT) (BEAKER) (test code = 25 U/L 6-55 347) BASIC METABOLIC [id number] 10:12:00 Test Item Value Reference Range Interpretation Comments SODIUM (BEAKER) 137 meq/L 136-145 (test code = 381) POTASSIUM (BEAKER) 4.8 meq/L 3.5-5.1 Specimen slightly (test code = 379) hemolyzed CHLORIDE (BEAKER) 104 meq/L 98-107 (test code = 382) CO2 (BEAKER) (test 26 meq/L 22-29 code = 355) BLOOD UREA NITROGEN 11 mg/dL 7-21 (BEAKER) (test code = 354) CREATININE (BEAKER) 1.15 mg/dL 0.57-1.25 Specimen slightly (test code = 358) hemolyzed GLUCOSE RANDOM 123 mg/dL 70-105 H (BEAKER) (test code = 652) CALCIUM (BEAKER) 9.9 mg/dL 8.4-10.2 (test code = 697) EGFR (BEAKER) (test 66 mL/min/1.73 ESTIMA JOSR GFR IS code = 1092) sq m NOT ACCURATE CREATININE CLEARANCE IN PREDICTING GLOMERULAR FILTRATION RATE . ESTIMATED GFR I S NOT APPLICABLE FOR DIALYSIS PATIEN TS. CBC W/PLT COUNT & AUTO [id number] 10:02:00 Test Item Value Reference Range Interpretation Comments WHITE BLOOD CELL COUNT (BEAKER) 11.1 K/ L 3.5-10.5 H (test code = 775) RED BLOOD CELL COUNT (BEAKER) 4.76 M/ L 4.63-6.08 (test code = 761) HEMOGLOBIN (BEAKER) (test code = 15.1 GM/DL 13.7-17.5 410) HEMATOCRIT (BEAKER) (test code = 42.9 % 40.1-51.0 411) MEAN CORPUSCULAR VOLUME (BEAKER) 90.1 fL 79.0-92.2 (test code = 753) MEAN CORPUSCULAR HEMOGLOBIN 31.7 pg 25.7-32.2 (BEAKER) (test code = 751) MEAN CORPUSCULAR HEMOGLOBIN CONC 35.2 GM/DL 32.3-36.5 (BEAKER) (test code = 752) RED CELL DISTRIBUTION WIDTH 12.3 % 11.6-14.4 (BEAKER) (test code = 412) PLATELET COUNT (BEAKER) (test 305 K/CU MM 150-450 code = 756) MEAN PLATELET VOLUME (BEAKER) 10.3 fL 9.4-12.4 (test code = 754) NUCLEATED RED BLOOD CELLS 0 /100 WBC 0-0 (BEAKER) (test code = 413) NEUTROPHILS RELATIVE PERCENT 77 % (BEAKER) (test code = 429) LYMPHOCYTES RELATIVE PERCENT 13 % (BEAKER) (test code = 430) MONOCYTES RELATIVE PERCENT 9 % (BEAKER) (test code = 431) EOSINOPHILS RELATIVE PERCENT 0 % (BEAKER) (test code = 432) BASOPHILS RELATIVE PERCENT 0 % (BEAKER) (test code = 437) NEUTROPHILS ABSOLUTE COUNT 8.58 K/ L 1.78-5.38 H (BEAKER) (test code = 670) LYMPHOCYTES ABSOLUTE COUNT 1.42 K/ L 1.32-3.57 (BEAKER) (test code = 414) MONOCYTES ABSOLUTE COUNT (BEAKER) 1.05 K/ L 0.30-0.82 H (test code = 415) EOSINOPHILS ABSOLUTE COUNT 0.03 K/ L 0.04-0.54 L (BEAKER) (test code = 416) BASOPHILS ABSOLUTE COUNT (BEAKER) 0.02 K/ L 0.01-0.08 (test code = 417) IMMATURE GRANULOCYTES-RELATIVE 0 % 0-1 PERCENT (BEAKER) (test code = 2801) CBC W/PLT COUNT & AUTO [id number] 06:57:00 Test Item Value Reference Range Interpretation Comments WHITE BLOOD CELL COUNT (BEAKER) 10.2 K/ L 3.5-10.5 (test code = 775) RED BLOOD CELL COUNT (BEAKER) 3.81 M/ L 4.63-6.08 L (test code = 761) HEMOGLOBIN (BEAKER) (test code = 12.2 GM/DL 13.7-17.5 L 410) HEMATOCRIT (BEAKER) (test code = 36.0 % 40.1-51.0 L 411) MEAN CORPUSCULAR VOLUME (BEAKER) 94.5 fL 79.0-92.2 H (test code = 753) MEAN CORPUSCULAR HEMOGLOBIN 32.0 pg 25.7-32.2 (BEAKER) (test code = 751) MEAN CORPUSCULAR HEMOGLOBIN CONC 33.9 GM/DL 32.3-36.5 (BEAKER) (test code = 752) RED CELL DISTRIBUTION WIDTH 12.1 % 11.6-14.4 (BEAKER) (test code = 412) PLATELET COUNT (BEAKER) (test 209 K/CU MM 150-450 code = 756) MEAN PLATELET VOLUME (BEAKER) 11.2 fL 9.4-12.4 (test code = 754) NUCLEATED RED BLOOD CELLS 0 /100 WBC 0-0 (BEAKER) (test code = 413) NEUTROPHILS RELATIVE PERCENT 83 % (BEAKER) (test code = 429) LYMPHOCYTES RELATIVE PERCENT 9 % (BEAKER) (test code = 430) MONOCYTES RELATIVE PERCENT 8 % (BEAKER) (test code = 431) EOSINOPHILS RELATIVE PERCENT 0 % (BEAKER) (test code = 432) BASOPHILS RELATIVE PERCENT 0 % (BEAKER) (test code = 437) NEUTROPHILS ABSOLUTE COUNT 8.39 K/ L 1.78-5.38 H (BEAKER) (test code = 670) LYMPHOCYTES ABSOLUTE COUNT 0.92 K/ L 1.32-3.57 L (BEAKER) (test code = 414) MONOCYTES ABSOLUTE COUNT (BEAKER) 0.80 K/ L 0.30-0.82 (test code = 415) EOSINOPHILS ABSOLUTE COUNT 0.03 K/ L 0.04-0.54 L (BEAKER) (test code = 416) BASOPHILS ABSOLUTE COUNT (BEAKER) 0.01 K/ L 0.01-0.08 (test code = 417) IMMATURE GRANULOCYTES-RELATIVE 0 % 0-1 PERCENT (BEAKER) (test code = 2801) BASIC METABOLIC [id number] 06:01:00 Test Item Value Reference Range Interpretation Comments SODIUM (BEAKER) 137 meq/L 136-145 (test code = 381) POTASSIUM (BEAKER) 4.3 meq/L 3.5-5.1 (test code = 379) CHLORIDE (BEAKER) 107 meq/L 98-107 (test code = 382) CO2 (BEAKER) (test 21 meq/L 22-29 L code = 355) BLOOD UREA NITROGEN 8 mg/dL 7-21 (BEAKER) (test code = 354) CREATININE (BEAKER) 0.96 mg/dL 0.57-1.25 (test code = 358) GLUCOSE RANDOM 90 mg/dL 70-105 (BEAKER) (test code = 652) CALCIUM (BEAKER) 8.5 mg/dL 8.4-10.2 (test code = 697) EGFR (BEAKER) (test 81 mL/min/1.73 ESTIMA JOSR GFR IS code = 1092) sq m NOT ACCURATE CREATININE CLEARANCE IN PREDICTING GLOMERULAR FILTRATION RATE . ESTIMATED GFR I S NOT APPLICABLE FOR DIALYSIS PATIEN TS. BASIC METABOLIC [id number] 05:31:00 Test Item Value Reference Range Interpretation Comments SODIUM (BEAKER) 136 meq/L 136-145 (test code = 381) POTASSIUM (BEAKER) 4.0 meq/L 3.5-5.1 (test code = 379) CHLORIDE (BEAKER) 106 meq/L 98-107 (test code = 382) CO2 (BEAKER) (test 24 meq/L 22-29 code = 355) BLOOD UREA NITROGEN 10 mg/dL 7-21 (BEAKER) (test code = 354) CREATININE (BEAKER) 1.04 mg/dL 0.57-1.25 (test code = 358) GLUCOSE RANDOM 127 mg/dL 70-105 H (BEAKER) (test code = 652) CALCIUM (BEAKER) 8.6 mg/dL 8.4-10.2 (test code = 697) EGFR (BEAKER) (test 74 mL/min/1.73 ESTIMA JOSR GFR IS code = 1092) sq m NOT ACCURATE CREATININE CLEARANCE IN PREDICTING GLOMERULAR FILTRATION RATE . ESTIMATED GFR I S NOT APPLICABLE FOR DIALYSIS PATIEN TS. CBC W/PLT COUNT & AUTO [id number] 05:07:00 Test Item Value Reference Range Interpretation Comments WHITE BLOOD CELL COUNT (BEAKER) 11.3 K/ L 3.5-10.5 H (test code = 775) RED BLOOD CELL COUNT (BEAKER) 4.21 M/ L 4.63-6.08 L (test code = 761) HEMOGLOBIN (BEAKER) (test code = 13.4 GM/DL 13.7-17.5 L 410) HEMATOCRIT (BEAKER) (test code = 38.9 % 40.1-51.0 L 411) MEAN CORPUSCULAR VOLUME (BEAKER) 92.4 fL 79.0-92.2 H (test code = 753) MEAN CORPUSCULAR HEMOGLOBIN 31.8 pg 25.7-32.2 (BEAKER) (test code = 751) MEAN CORPUSCULAR HEMOGLOBIN CONC 34.4 GM/DL 32.3-36.5 (BEAKER) (test code = 752) RED CELL DISTRIBUTION WIDTH 12.0 % 11.6-14.4 (BEAKER) (test code = 412) PLATELET COUNT (BEAKER) (test 229 K/CU MM 150-450 code = 756) MEAN PLATELET VOLUME (BEAKER) 11.0 fL 9.4-12.4 (test code = 754) NUCLEATED RED BLOOD CELLS 0 /100 WBC 0-0 (BEAKER) (test code = 413) NEUTROPHILS RELATIVE PERCENT 82 % (BEAKER) (test code = 429) LYMPHOCYTES RELATIVE PERCENT 8 % (BEAKER) (test code = 430) MONOCYTES RELATIVE PERCENT 9 % (BEAKER) (test code = 431) EOSINOPHILS RELATIVE PERCENT 0 % (BEAKER) (test code = 432) BASOPHILS RELATIVE PERCENT 0 % (BEAKER) (test code = 437) NEUTROPHILS ABSOLUTE COUNT 9.29 K/ L 1.78-5.38 H (BEAKER) (test code = 670) LYMPHOCYTES ABSOLUTE COUNT 0.86 K/ L 1.32-3.57 L (BEAKER) (test code = 414) MONOCYTES ABSOLUTE COUNT (BEAKER) 1.02 K/ L 0.30-0.82 H (test code = 415) EOSINOPHILS ABSOLUTE COUNT 0.02 K/ L 0.04-0.54 L (BEAKER) (test code = 416) BASOPHILS ABSOLUTE COUNT (BEAKER) 0.03 K/ L 0.01-0.08 (test code = 417) IMMATURE GRANULOCYTES-RELATIVE 0 % 0-1 PERCENT (BEAKER) (test code = 2801) CT, [id number] 19:53:00FINAL REPORT CT scan of the abdomen and pelvis. MEDICAL HISTORY: Left lower quadrant pain, suspect diverticulitis. COMPARISON STUDY: None available. TECHNIQUE: Contiguous helical slices were acquired through the abdomen and pelvis post administration of intravenous contrast. No oral contrast was administered. This exam was performed according to our department dose optimization program which includes automated exposure control, adjustment of the mA and/or kV according to the patient's size and/or use of iterative reconstruction technique. FINDINGS: Atelectatic changes are seen in the lung bases. The liver, spleen, pancreas, adrenal glands and kidneys are unremarkable. The gallbladder and biliary tree are within normal limits. No dilated loops of bowel are seen to suggest obstruction. Diverticulosis is seen with thickening of the mid descending colon, adjacent inflammatory changes and fascial thickening. No extra luminal fluid or gas is seen. The appendix has been resected. There is no free fluid or free air. A right-sided fat-containing inguinal hernia is seen. The aorta is normal in caliber. Mild atherosclerosis is seen. Bone windows demonstrate degenerative changes. IMPRESSION:1. Diverticulitis of the mid descending colon with adjacent inflammatory stranding and fascial thickening. Signed: Jo Ann Clark MDReport Verified Date/Time: 03/05/2019 19:53:47 Reading Location: [address] Consult Reading Room [facility] METABOLIC [id number] 18:19:00 Test Item Value Reference Range Interpretation Comments SODIUM (BEAKER) 136 meq/L 136-145 (test code = 381) POTASSIUM (BEAKER) 4.6 meq/L 3.5-5.1 (test code = 379) CHLORIDE (BEAKER) 103 meq/L 98-107 (test code = 382) CO2 (BEAKER) (test 24 meq/L 22-29 code = 355) BLOOD UREA NITROGEN 10 mg/dL 7-21 (BEAKER) (test code = 354) CREATININE (BEAKER) 1.12 mg/dL 0.57-1.25 (test code = 358) GLUCOSE RANDOM 121 mg/dL 70-105 H (BEAKER) (test code = 652) CALCIUM (BEAKER) 9.7 mg/dL 8.4-10.2 (test code = 697) EGFR (BEAKER) (test 68 mL/min/1.73 ESTIMA JOSR GFR IS code = 1092) sq m NOT ACCURATE CREATININE CLEARANCE IN PREDICTING GLOMERULAR FILTRATION RATE . ESTIMATED GFR I S NOT APPLICABLE FOR DIALYSIS PATIEN TS. URINALYSIS W/ [id number] 16:10:00 Test Item Value Reference Range Interpretation Comments COLOR (BEAKER) (test code = 470) Yellow CLARITY (BEAKER) (test code = 469) Clear SPECIFIC GRAVITY UA (BEAKER) (test 1.020 1.001-1.035 code = 468) PH UA (BEAKER) (test code = 467) 5.5 5.0-8.0 PROTEIN UA (BEAKER) (test code = Negative Negative 464) GLUCOSE UA (BEAKER) (test code = Negative Negative 365) KETONES UA (BEAKER) (test code = 10 mg/dL Negative A 371) BILIRUBIN UA (BEAKER) (test code = Negative Negative 462) BLOOD UA (BEAKER) (test code = 461) Negative Negative NITRITE UA (BEAKER) (test code = Negative Negative 465) LEUKOCYTE ESTERASE UA (BEAKER) Negative Negative (test code = 466) UROBILINOGEN UA (BEAKER) (test code 0.2 mg/dL 0.2-1.0 = 463) RBC UA (BEAKER) (test code = 519) 0 /HPF WBC UA (BEAKER) (test code = 520) 0 /HPF MUCUS (BEAKER) (test code = 1574) Moderate HYALINE CASTS (BEAKER) (test code = 2 /LPF 514) SOURCE(BEAKER) (test code = 2795) [id number] 15:48:00 Test Item Value Reference Range Interpretation Comments LIPASE (BEAKER) (test code = 749) 9 U/L 8-78 HEPATIC FUNCTION [id number] 15:48:00 Test Item Value Reference Range Interpretation Comments TOTAL PROTEIN (BEAKER) (test code = 7.8 gm/dL 6.0-8.3 770) ALBUMIN (BEAKER) (test code = 1145) 4.5 g/dL 3.5-5.0 BILIRUBIN TOTAL (BEAKER) (test code 0.8 mg/dL 0.2-1.2 = 377) BILIRUBIN DIRECT (BEAKER) (test 0.3 mg/dL 0.1-0.5 code = 706) ALKALINE PHOSPHATASE (BEAKER) (test 56 U/L 40-150 code = 346) AST (SGOT) (BEAKER) (test code = 14 U/L 5-34 353) ALT (SGPT) (BEAKER) (test code = 17 U/L 6-55 347) CBC W/PLT COUNT & AUTO [id number] 15:27:00 Test Item Value Reference Range Interpretation Comments WHITE BLOOD CELL COUNT (BEAKER) 15.3 K/ L 3.5-10.5 H (test code = 775) RED BLOOD CELL COUNT (BEAKER) 4.90 M/ L 4.63-6.08 (test code = 761) HEMOGLOBIN (BEAKER) (test code = 15.6 GM/DL 13.7-17.5 410) HEMATOCRIT (BEAKER) (test code = 44.5 % 40.1-51.0 411) MEAN CORPUSCULAR VOLUME (BEAKER) 90.8 fL 79.0-92.2 (test code = 753) MEAN CORPUSCULAR HEMOGLOBIN 31.8 pg 25.7-32.2 (BEAKER) (test code = 751) MEAN CORPUSCULAR HEMOGLOBIN CONC 35.1 GM/DL 32.3-36.5 (BEAKER) (test code = 752) RED CELL DISTRIBUTION WIDTH 11.9 % 11.6-14.4 (BEAKER) (test code = 412) PLATELET COUNT (BEAKER) (test 262 K/CU MM 150-450 code = 756) MEAN PLATELET VOLUME (BEAKER) 10.8 fL 9.4-12.4 (test code = 754) NUCLEATED RED BLOOD CELLS 0 /100 WBC 0-0 (BEAKER) (test code = 413) NEUTROPHILS RELATIVE PERCENT 86 % (BEAKER) (test code = 429) LYMPHOCYTES RELATIVE PERCENT 5 % (BEAKER) (test code = 430) MONOCYTES RELATIVE PERCENT 8 % (BEAKER) (test code = 431) EOSINOPHILS RELATIVE PERCENT 0 % (BEAKER) (test code = 432) BASOPHILS RELATIVE PERCENT 0 % (BEAKER) (test code = 437) NEUTROPHILS ABSOLUTE COUNT 13.24 K/ L 1.78-5.38 H (BEAKER) (test code = 670) LYMPHOCYTES ABSOLUTE COUNT 0.80 K/ L 1.32-3.57 L (BEAKER) (test code = 414) MONOCYTES ABSOLUTE COUNT (BEAKER) 1.21 K/ L 0.30-0.82 H (test code = 415) EOSINOPHILS ABSOLUTE COUNT 0.00 K/ L 0.04-0.54 L (BEAKER) (test code = 416) BASOPHILS ABSOLUTE COUNT (BEAKER) 0.03 K/ L 0.01-0.08 (test code = 417) IMMATURE GRANULOCYTES-RELATIVE 0 % 0-1 PERCENT (BEAKER) (test code = 2801) [id number] 17:18:00 Test Item Value Reference Range Interpretation Comments ACTIVATED CLOTTING TIME 511 sec TEST ED AT [facility] [address] ([facility]) (test code = MISAEL PEARSON [facility]) [id number] 10:38:00 Test Item Value Reference Range Interpretation Comments D-DIMER QUANTITATIVE (BEAKER) < MG/L FEU <0.50 (test code = 671) Intended Use: The D-Dimer Assay can be used to aid in the diagnosis of Deep Vein Thrombosis (DVT) and Pulmonary Embolism Disease (PED).In patients with low pre- test probability, various studies concerning STA Liatest D-dimer test have reported that with a cutoff value of 0.50 MG/L FEU, the Negative Predictive Value (NPV) regarding the exclusion of thrombosis is within 95-100% range. CREATINE KINASE (CK), TOTAL AND [id number] 10:21:00 Test Item Value Reference Range Interpretation Comments CREATINE KINASE TOTAL (BEAKER) 71 U/L 29-200 (test code = 380) CREATINE KINASE-MB (BEAKER) (test 0.5 ng/mL 0.0-6.6 code = 750) CREATINE KINASE-MB INDEX (BEAKER) 0.7 % (test code = 395) CK-MB Reference Range:<6.7 Normal6.7-10.0 Borderline>10.0 AbnormalTROPONIN [id number] 10:21:00 Test Item Value Reference Range Interpretation Comments TROPONIN I (BEAKER) (test code = 397) < ng/mL 0.00-0.03 Troponin I (TnI) levels must be interpreted in the context of the presenting symptoms and the clinical findings. Elevated TnI levels indicate myocardial damage, but are not specific for ischemic heart disease. Elevated TnI levels are seen in patients with other cardiac conditions (including myocarditis and congestive heart failure), and slight TnI elevations occur in patients with other conditions, including sepsis, renal failure, acidosis, acute neurological disease, and persistent tachyarrhythmia.BASIC METABOLIC [id number] 10:14:00 Test Item Value Reference Range Interpretation Comments SODIUM (BEAKER) 139 meq/L 136-145 (test code = 381) POTASSIUM (BEAKER) 4.6 meq/L 3.5-5.1 Specimen slightly (test code = 379) hemolyzed CHLORIDE (BEAKER) 106 meq/L 98-107 (test code = 382) CO2 (BEAKER) (test 24 meq/L 22-29 code = 355) BLOOD UREA NITROGEN 15 mg/dL 7-21 (BEAKER) (test code = 354) CREATININE (BEAKER) 1.22 mg/dL 0.57-1.25 Specimen slightly (test code = 358) hemolyzed GLUCOSE RANDOM 177 mg/dL 70-105 H (BEAKER) (test code = 652) CALCIUM (BEAKER) 9.7 mg/dL 8.4-10.2 (test code = 697) EGFR (BEAKER) (test 62 mL/min/1.73 INSUFF ICIENT CLINICAL code = 1092) sq m DATA TO CALCULA TE ESTIMATED GFR. RAD, CHEST, 1 VIEW, NON [id number] 10:14:00Reason for exam:->SHORTNESS OF BREATHShould this be performed at the bedside?->YesFINAL REPORT Chest one view AP 08/12/2017 10:14 AM CLINICAL HISTORY: SHORTNESS OF BREATH COMPARISON: None available FINDINGS: The lungs are clear, save for bibasilar linear atelectasis. Cardiomediastinal contours are within normal limits. The central pulmonary vasculature is not engorged. IMPRESSION: Unremarkable frontal chest radiograph. Signed: Tereso Del Rio Verified Date/Time: 08/12/2017 10:14:27 Reading Location: [facility] Radiology Reading Room Electronicallysigned by: TERESO DEL RIO M.D. on 08/12/2017 10:14 AMCBC W/PLT COUNT & AUTO [id number] 10:01:00 Test Item Value Reference Range Interpretation Comments WHITE BLOOD CELL COUNT (BEAKER) 5.2 K/ L 3.5-10.5 (test code = 775) RED BLOOD CELL COUNT (BEAKER) 4.77 M/ L 4.63-6.08 (test code = 761) HEMOGLOBIN (BEAKER) (test code = 15.3 GM/DL 13.7-17.5 410) HEMATOCRIT (BEAKER) (test code = 43.4 % 40.1-51.0 411) MEAN CORPUSCULAR VOLUME (BEAKER) 91.0 fL 79.0-92.2 (test code = 753) MEAN CORPUSCULAR HEMOGLOBIN 32.1 pg 25.7-32.2 (BEAKER) (test code = 751) MEAN CORPUSCULAR HEMOGLOBIN CONC 35.3 GM/DL 32.3-36.5 (BEAKER) (test code = 752) RED CELL DISTRIBUTION WIDTH 12.3 % 11.6-14.4 (BEAKER) (test code = 412) PLATELET COUNT (BEAKER) (test 283 K/CU MM 150-450 code = 756) MEAN PLATELET VOLUME (BEAKER) 11.1 fL 9.4-12.4 (test code = 754) NUCLEATED RED BLOOD CELLS 0 /100 WBC 0-0 (BEAKER) (test code = 413) NEUTROPHILS RELATIVE PERCENT 63 % (BEAKER) (test code = 429) LYMPHOCYTES RELATIVE PERCENT 28 % (BEAKER) (test code = 430) MONOCYTES RELATIVE PERCENT 7 % (BEAKER) (test code = 431) EOSINOPHILS RELATIVE PERCENT 1 % (BEAKER) (test code = 432) BASOPHILS RELATIVE PERCENT 1 % (BEAKER) (test code = 437) NEUTROPHILS ABSOLUTE COUNT 3.25 K/ L 1.78-5.38 (BEAKER) (test code = 670) LYMPHOCYTES ABSOLUTE COUNT 1.46 K/ L 1.32-3.57 (BEAKER) (test code = 414) MONOCYTES ABSOLUTE COUNT (BEAKER) 0.38 K/ L 0.30-0.82 (test code = 415) EOSINOPHILS ABSOLUTE COUNT 0.06 K/ L 0.04-0.54 (BEAKER) (test code = 416) BASOPHILS ABSOLUTE COUNT (BEAKER) 0.03 K/ L 0.01-0.08 (test code = 417) IMMATURE GRANULOCYTES-RELATIVE 0 % 0-1 PERCENT (BEAKER) (test code = 2801) URINE AND [id number] 16:17:00 Test Item Value Reference Range Interpretation Comments UA Nitrite (test code Negative (05/07/14 11:17 = UA Nitrite) AM) [facility] AND [id number] 16:17:00 Test Item Value Reference Range Interpretation Comments UA Leuk Est (test Negative (05/07/14 11:17 code = UA Leuk Est) AM) [facility] AND [id number] 16:17:00 Test Item Value Reference Range Interpretation Comments UA Blood (test code = Negative (05/07/14 11:17 UA Blood) AM) [facility] AND [id number] 16:17:00 Test Item Value Reference Range Interpretation Comments UA Mucus (test code = UA Mucus) Few /LPF [facility] P21annCARDIAC [id number] 16:17:00 Test Item Value Reference Range Interpretation Comments Troponin-I (test code no gt See_Comment [Auto mated message] The = Troponin-I) system which g enerated this result transmit josr reference range : <=0.40. The reference r [place] was not used to interpr et this result as sujey l/abnormal. [facility] P21annCARMovolo.comAC [id number] 16:17:00 Test Item Value Reference Range Interpretation Comments Total CK (test code = Total CK) 92 12-191 [facility]100PlusAC [id number] 16:17:00 Test Item Value Reference Range Interpretation Comments CK MB (test code = CK MB) 0.6 0.5-3.6 [facility]100PlusAC [id number] 16:17:00 Test Item Value Reference Range Interpretation Comments CK MB Index (test 0.7 See_Comment [Automate d message] The code = CK MB Index) [facility] transmit josr reference range : <=2.5. The reference range was not used to interpr et this result as sujey l/abnormal. [facility] [id number] 16:17:00 Test Item Value Reference Range Interpretation Comments Lipase Lvl (test code = Lipase Lvl) 100 73-393 [facility] [id number] 16:17:00 Test Item Value Reference Range Interpretation Comments Amylase Lvl (test code = Amylase Lvl) 59 25-115 [facility] [id number] 16:17:00 Test Item Value Reference Range Interpretation Comments eGFR (test code = eGFR) 70 [facility] [id number] 16:17:00 Test Item Value Reference Range Interpretation Comments Potassium Lvl (test code = Potassium 4.3 3.5-5.1 Lvl) [facility] [id number] 16:17:00 Test Item Value Reference Range Interpretation Comments Chloride Lvl (test code = Chloride Lvl) 105 95-109 [facility] [id number] 16:17:00 Test Item Value Reference Range Interpretation Comments CO2 (test code = CO2) 24 24-32 [facility]2014-08-15 16:17:00 Test Item Value Reference Range Interpretation Comments Sodium Lvl (test code = Sodium Lvl) 138 135-145 [facility]2014-08-15 16:17:00 Test Item Value Reference Range Interpretation Comments ALT (test code = ALT) 32 See_Comment [Auto mated message] The system which ge nerated this result transmit josr reference range : <=65. The reference range was not used to interpr et this result as sujey l/abnormal. [place] [id number] 16:17:00 Test Item Value Reference Range Interpretation Comments AST (test code = AST) 18 See_Comment [Auto mated message] The system which ge nerated this result transmit josr reference range : <=37. The reference range was not used to interpr et this result as sujey l/abnormal. [place] 209584-08-15 16:17:00 Test Item Value Reference Range Interpretation Comments Alk Phos (test code = Alk Phos) 72 39-136 [facility]2014-08-15 16:17:00 Test Item Value Reference Range Interpretation Comments Bili Total (test code = Bili Total) 0.4 0.2-1.3 [place] 209584-08-15 16:17:00 Test Item Value Reference Range Interpretation Comments Total Protein (test code = Total 7.7 6.4-8.4 Protein) [place] 209584-08-15 16:17:00 Test Item Value Reference Range Interpretation Comments Albumin Lvl (test code = Albumin Lvl) 4.3 3.5-5.0 [place] 209584-08-15 16:17:00 Test Item Value Reference Range Interpretation Comments Calcium Lvl (test code = Calcium Lvl) 9.1 8.5-10.5 [place] 209584-08-15 16:17:00 Test Item Value Reference Range Interpretation Comments Creatinine Lvl (test code = Creatinine 1.2 0.5-1.4 Lvl) [facility]2014-08-15 16:17:00 Test Item Value Reference Range Interpretation Comments BUN (test code = BUN) 14 7-22 [place] 209584-08-15 16:17:00 Test Item Value Reference Range Interpretation Comments Glucose Lvl (test code = Glucose Lvl) 96 70-99 [facility]2014-08-15 16:17:00 Test Item Value Reference Range Interpretation Comments AGAP (test code = AGAP) 13.3 10.0-20.0 [facility]2014-08-15 16:17:00 Test Item Value Reference Range Interpretation Comments B/C Ratio (test code = B/C Ratio) 12 6-25 [facility]2014-08-15 16:17:00 Test Item Value Reference Range Interpretation Comments Globulin (test code = Globulin) 3.4 2.0-4.0 [facility]2014-08-15 16:17:00 Test Item Value Reference Range Interpretation Comments A/G Ratio (test code = A/G Ratio) 1.3 0.7-1.6 [facility]NfwljgmQMHPYUSEJY5168-40-87 16:17:00 Test Item Value Reference Range Interpretation Comments Lymphocytes # (test code = Lymphocytes 1.2 1.0-5.5 #) [facility] CenterBoccmnlUIURTBKFTT1798-08-58 16:17:00 Test Item Value Reference Range Interpretation Comments Segs-Bands # (test code = Segs-Bands #) 2.8 1.5-8.1 [facility] CenterSwkitfgTJXFDLNYNO8758-13-70 16:17:00 Test Item Value Reference Range Interpretation Comments Monocytes # (test code 0.4 See_Comment [Aut omated message] The = Monocytes #) system which generated this result tra nsmitted reference range : <=0.8. The reference r [place] was not used to int erpret this result as normal/abnormal . [facility] CenterWxlsgtpKDYFIUNELZ9677-49-34 16:17:00 Test Item Value Reference Range Interpretation Comments Eosinophils # (test code 0.1 See_Comment [A utomated message] The = Eosinophils #) system whic h generated this result tra nsmitted reference range : <=0.5. The reference r [place] was not used to int erpret this result as normal/abnormal . [facility] CenterPxlivxuYBAKQAMCON4382-43-72 16:17:00 Test Item Value Reference Range Interpretation Comments Lymphocytes (test code = Lymphocytes) 27.9 20.0-40.0 [facility] CenterOzbvudrBXEOJZWGXA2209-13-21 16:17:00 Test Item Value Reference Range Interpretation Comments Segs (test code = Segs) 62.0 45.0-75.0 [facility] CenterMcuhvivVILCTXXGEE9997-22-64 16:17:00 Test Item Value Reference Range Interpretation Comments Basophils (test code = 0.6 See_Comment [Aut omated message] The Basophils) system which ge nerated this result tra nsmitted reference range : <=1.0. The reference r [place] was not used to int erpret this result as normal/abnormal . [facility] CenterBrfxpyoESOBIAOBSO7495-84-77 16:17:00 Test Item Value Reference Range Interpretation Comments Eosinophils (test code = 1.3 See_Comment [A utomated message] The Eosinophils) system which ge nerated this result tra nsmitted reference range : <=4.0. The reference r [place] was not used to int erpret this result as normal/abnormal . [facility] CenterHsfrxjvOMHASDJBKO0774-73-52 16:17:00 Test Item Value Reference Range Interpretation Comments Monocytes (test code = Monocytes) 8.2 2.0-12.0 [facility] CenterQhrysrjDRSZCDEWBV2145-17-03 16:17:00 Test Item Value Reference Range Interpretation Comments Hct (test code = Hct) 43.4 42.0-54.0 [facility] CenterKeypmnhDFXROJCTAY0498-68-39 16:17:00 Test Item Value Reference Range Interpretation Comments Hgb (test code = Hgb) 15.1 14.0-18.0 [facility] CenterTuifhhzACVOXHGDLC5582-51-64 16:17:00 Test Item Value Reference Range Interpretation Comments RBC (test code = RBC) 4.74 4.70-6.10 [facility] CenterAfhanvkFDRUQIIXNX0414-93-61 16:17:00 Test Item Value Reference Range Interpretation Comments MCV (test code = MCV) 91.7 80.0-94.0 [facility] CenterIqcmmhvYZLRLPXYEI9682-92-80 16:17:00 Test Item Value Reference Range Interpretation Comments RDW (test code = RDW) 12.8 11.5-14.5 [facility] CenterQwmnolqNHRLIPAUTV3854-19-92 16:17:00 Test Item Value Reference Range Interpretation Comments MCHC (test code = MCHC) 34.8 32.0-36.0 [facility] CenterWjmfdhgAMQEVBBQCG8032-90-93 16:17:00 Test Item Value Reference Range Interpretation Comments MCH (test code = MCH) 31.9 pg 27.0-31.0 [facility] CenterCgrevhkWZITFUTPOI8568-23-68 16:17:00 Test Item Value Reference Range Interpretation Comments Platelet (test code = Platelet) 261 133-450 [facility] CenterSbgazadUPLXKMHHCC0933-60-45 16:17:00 Test Item Value Reference Range Interpretation Comments MPV (test code = MPV) 9.6 7.4-10.4 [facility] CenterUcefwxnYBBFINXDYW3580-40-91 16:17:00 Test Item Value Reference Range Interpretation Comments WBC (test code = WBC) 4.4 3.7-10.4 [facility] AND [id number] 16:17:00 Test Item Value Reference Range Interpretation Comments UA Urobilinogen (test code = UA <=1.0 mg/dL 0.1-1.0 Urobilinogen) [facility] AND [id number] 16:17:00 Test Item Value Reference Range Interpretation Comments UA Sq Epi (test code = UA Sq Epi) None Seen [facility] AND [id number] 16:17:00 Test Item Value Reference Range Interpretation Comments UA Ketones (test code = UA Negative mg/dL Ketones) [facility] AND [id number] 16:17:00 Test Item Value Reference Range Interpretation Comments UA pH (test code = UA pH) 5.0 5.0-8.0 [facility] AND [id number] 16:17:00 Test Item Value Reference Range Interpretation Comments UA Bili (test code = Negative *NA*(05/07/14 UA Bili) 11:17 AM) [facility] AND [id number] 16:17:00 Test Item Value Reference Range Interpretation Comments UA Glucose (test code = UA Negative mg/dL Glucose) [facility] AND [id number] 16:17:00 Test Item Value Reference Range Interpretation Comments UA Color (test code = Yellow *NA*(05/07/14 UA Color) 11:17 AM) [facility] AND [id number] 16:17:00 Test Item Value Reference Range Interpretation Comments UA WBC (test code = 2 See_Comment [Automa josr message] The UA WBC) system which ge nerated this result transmit josr reference range : <=5. The reference range was not used to interpr et this result as sujey l/abnormal. [facility] AND [id number] 16:17:00 Test Item Value Reference Range Interpretation Comments UA RBC (test code = 1 See_Comment [Automa josr message] The UA RBC) system which ge nerated this result transmit josr reference range : <=2. The reference range was not used to interpr et this result as sujey l/abnormal. [facility] [id number] 16:17:00 Test Item Value Reference Range Interpretation Comments UA Protein (test code = UA Negative mg/dL Protein) [facility] AND [id number] 16:17:00 Test Item Value Reference Range Interpretation Comments UA Turbidity (test code = Clear (05/07/14 11:17 UA Turbidity) AM) [facility] AND [id number] 16:17:00 Test Item Value Reference Range Interpretation Comments UA Spec Grav (test code = UA Spec Grav) 1.021 [facility] AND [id number] 16:17:00 Test Item Value Reference Range Interpretation Comments UA Leuk Est (test Negative (05/07/14 11:17 code = UA Leuk Est) AM) [facility] AND [id number] 16:17:00 Test Item Value Reference Range Interpretation Comments UA Blood (test code = Negative (05/07/14 11:17 UA Blood) AM) [facility] AND [id number] 16:17:00 Test Item Value Reference Range Interpretation Comments UA Mucus (test code = UA Mucus) Few /LPF [facility] [id number] 16:17:00 Test Item Value Reference Range Interpretation Comments Troponin-I (test code no gt See_Comment [Auto mated message] The = Troponin-I) system which g enerated this result transmit josr reference range : <=0.40. The reference r [place] was not used to interpr et this result as sujey l/abnormal. [facility] [id number] 16:17:00 Test Item Value Reference Range Interpretation Comments Total CK (test code = Total CK) 92 12-191 [facility] [id number] 16:17:00 Test Item Value Reference Range Interpretation Comments CK MB (test code = CK MB) 0.6 0.5-3.6 [facility] [id number] 16:17:00 Test Item Value Reference Range Interpretation Comments CK MB Index (test 0.7 See_Comment [Automate d message] The code = CK MB Index) system w [employer] generated this result transmit josr reference range : <=2.5. The reference range was not used to interpr et this result as sujey l/abnormal. [facility]2014-08-15 16:17:00 Test Item Value Reference Range Interpretation Comments Lipase Lvl (test code = Lipase Lvl) 100 73-393 [facility]2014-08-15 16:17:00 Test Item Value Reference Range Interpretation Comments Amylase Lvl (test code = Amylase Lvl) 59 25-115 [facility]2014-08-15 16:17:00 Test Item Value Reference Range Interpretation Comments eGFR (test code = eGFR) 70 [facility]2014-08-15 16:17:00 Test Item Value Reference Range Interpretation Comments Potassium Lvl (test code = Potassium 4.3 3.5-5.1 Lvl) [facility]2014-08-15 16:17:00 Test Item Value Reference Range Interpretation Comments Chloride Lvl (test code = Chloride Lvl) 105 95-109 [facility]2014-08-15 16:17:00 Test Item Value Reference Range Interpretation Comments CO2 (test code = CO2) 24 24-32 [facility]2014-08-15 16:17:00 Test Item Value Reference Range Interpretation Comments Sodium Lvl (test code = Sodium Lvl) 138 135-145 [facility]2014-08-15 16:17:00 Test Item Value Reference Range Interpretation Comments ALT (test code = ALT) 32 See_Comment [Auto mated message] The system which ge nerated this result transmit josr reference range : <=65. The reference range was not used to interpr et this result as sujey l/abnormal. [facility] CenterAdMob [id number] 16:17:00 Test Item Value Reference Range Interpretation Comments AST (test code = AST) 18 See_Comment [Auto mated message] The system which ge nerated this result transmit josr reference range : <=37. The reference range was not used to interpr et this result as sujey l/abnormal. [facility]2014-08-15 16:17:00 Test Item Value Reference Range Interpretation Comments Alk Phos (test code = Alk Phos) 72 39-136 [facility]2014-08-15 16:17:00 Test Item Value Reference Range Interpretation Comments Bili Total (test code = Bili Total) 0.4 0.2-1.3 [facility]2014-08-15 16:17:00 Test Item Value Reference Range Interpretation Comments Total Protein (test code = Total 7.7 6.4-8.4 Protein) [facility]2014-08-15 16:17:00 Test Item Value Reference Range Interpretation Comments Albumin Lvl (test code = Albumin Lvl) 4.3 3.5-5.0 [facility]2014-08-15 16:17:00 Test Item Value Reference Range Interpretation Comments Calcium Lvl (test code = Calcium Lvl) 9.1 8.5-10.5 [facility]2014-08-15 16:17:00 Test Item Value Reference Range Interpretation Comments Creatinine Lvl (test code = Creatinine 1.2 0.5-1.4 Lvl) [facility]2014-08-15 16:17:00 Test Item Value Reference Range Interpretation Comments BUN (test code = BUN) 14 7-22 [facility]2014-08-15 16:17:00 Test Item Value Reference Range Interpretation Comments Glucose Lvl (test code = Glucose Lvl) 96 70-99 [facility]2014-08-15 16:17:00 Test Item Value Reference Range Interpretation Comments AGAP (test code = AGAP) 13.3 10.0-20.0 [facility]2014-08-15 16:17:00 Test Item Value Reference Range Interpretation Comments B/C Ratio (test code = B/C Ratio) 12 6-25 [facility]2014-08-15 16:17:00 Test Item Value Reference Range Interpretation Comments Globulin (test code = Globulin) 3.4 2.0-4.0 [facility]2014-08-15 16:17:00 Test Item Value Reference Range Interpretation Comments A/G Ratio (test code = A/G Ratio) 1.3 0.7-1.6 [facility] C[id number] 16:17:00 Test Item Value Reference Range Interpretation Comments Lymphocytes # (test code = Lymphocytes 1.2 1.0-5.5 #) [facility] [id number] 16:17:00 Test Item Value Reference Range Interpretation Comments Segs-Bands # (test code = Segs-Bands #) 2.8 1.5-8.1 [facility] C[id number] 16:17:00 Test Item Value Reference Range Interpretation Comments Monocytes # (test code 0.4 See_Comment [Aut omated message] The = Monocytes #) system which generated this result tra nsmitted reference range : <=0.8. The reference r [place] was not used to int erpret this result as normal/abnormal . [facility] CenterTikgzotIXKTXSWKAX5022-76-66 16:17:00 Test Item Value Reference Range Interpretation Comments Eosinophils # (test code 0.1 See_Comment [A utomated message] The = Eosinophils #) system wh h generated this result tra nsmitted reference range : <=0.5. The reference r [place] was not used to int erpret this result as normal/abnormal . [facility] CenterWwcaljvTYNWUABLXJ3265-95-53 16:17:00 Test Item Value Reference Range Interpretation Comments Lymphocytes (test code = Lymphocytes) 27.9 20.0-40.0 [facility] CenterTlzqvepUIYPAOJSFE9417-30-14 16:17:00 Test Item Value Reference Range Interpretation Comments Segs (test code = Segs) 62.0 45.0-75.0 [facility] CenterZpcrvhaVITJRZSMXQ6568-50-10 16:17:00 Test Item Value Reference Range Interpretation Comments Basophils (test code = 0.6 See_Comment [Aut omated message] The Basophils) system which ge nerated this result tra nsmitted reference range : <=1.0. The reference r [place] was not used to int erpret this result as normal/abnormal . [facility] CenterVbsqhomQXOFZSESLC5090-56-62 16:17:00 Test Item Value Reference Range Interpretation Comments Eosinophils (test code = 1.3 See_Comment [A utomated message] The Eosinophils) system which ge nerated this result tra nsmitted reference range : <=4.0. The reference r [place] was not used to int erpret this result as normal/abnormal . [facility] CenterVczvaikGWNTWVSVNV5001-60-34 16:17:00 Test Item Value Reference Range Interpretation Comments Monocytes (test code = Monocytes) 8.2 2.0-12.0 [facility] CenterLpjdkwxRKEEBPDRFN3500-90-17 16:17:00 Test Item Value Reference Range Interpretation Comments Hct (test code = Hct) 43.4 42.0-54.0 [facility] CenterVdrrhdgUAEBIAFXDL4198-09-75 16:17:00 Test Item Value Reference Range Interpretation Comments Hgb (test code = Hgb) 15.1 14.0-18.0 [facility] CenterBrnaxrwGBRACDKSSL8707-19-35 16:17:00 Test Item Value Reference Range Interpretation Comments RBC (test code = RBC) 4.74 4.70-6.10 [facility] Cent[id number] 16:17:00 Test Item Value Reference Range Interpretation Comments MCV (test code = MCV) 91.7 80.0-94.0 [facility] CenterWjhxfpsRPGRXCMCFY2815-57-06 16:17:00 Test Item Value Reference Range Interpretation Comments RDW (test code = RDW) 12.8 11.5-14.5 [facility] CenterExmlnwxZIDENGUPIP7079-91-09 16:17:00 Test Item Value Reference Range Interpretation Comments MCHC (test code = MCHC) 34.8 32.0-36.0 [facility] CenterQwnlflhHUILPEXKHL1827-69-88 16:17:00 Test Item Value Reference Range Interpretation Comments MCH (test code = MCH) 31.9 pg 27.0-31.0 [facility] Cent[id number] 16:17:00 Test Item Value Reference Range Interpretation Comments Platelet (test code = Platelet) 261 133-450 [facility] CenterGgilzhfPAYFYWNURF1317-64-57 16:17:00 Test Item Value Reference Range Interpretation Comments MPV (test code = MPV) 9.6 7.4-10.4 [facility] CenterTybipupRGSHFTFZZF7678-28-96 16:17:00 Test Item Value Reference Range Interpretation Comments WBC (test code = WBC) 4.4 3.7-10.4 [facility]2014-08-15 16:17:00 Test Item Value Reference Range Interpretation Comments UA Urobilinogen (test code = UA <=1.0 mg/dL 0.1-1.0 Urobilinogen) [facility]2014-08-15 16:17:00 Test Item Value Reference Range Interpretation Comments UA Sq Epi (test code = UA Sq Epi) None Seen [facility] AND [id number] 16:17:00 Test Item Value Reference Range Interpretation Comments UA Ketones (test code = UA Negative mg/dL Ketones) [facility] AND [id number] 16:17:00 Test Item Value Reference Range Interpretation Comments UA pH (test code = UA pH) 5.0 5.0-8.0 [facility] AND [id number] 16:17:00 Test Item Value Reference Range Interpretation Comments UA Bili (test code = Negative *NA*(05/07/14 UA Bili) 11:17 AM) [facility] AND [id number] 16:17:00 Test Item Value Reference Range Interpretation Comments UA Glucose (test code = UA Negative mg/dL Glucose) [facility] AND [id number] 16:17:00 Test Item Value Reference Range Interpretation Comments UA Color (test code = Yellow *NA*(05/07/14 UA Color) 11:17 AM) [facility] AND [id number] 16:17:00 Test Item Value Reference Range Interpretation Comments UA WBC (test code = 2 See_Comment [Automa josr message] The UA WBC) system which ge nerated this result transmit josr reference range : <=5. The reference range was not used to interpr et this result as sujey l/abnormal. [facility] AND [id number] 16:17:00 Test Item Value Reference Range Interpretation Comments UA RBC (test code = 1 See_Comment [Automa josr message] The UA RBC) system which ge nerated this result transmit josr reference range : <=2. The reference range was not used to interpr et this result as sujey l/abnormal. [facility] AND [id number] 16:17:00 Test Item Value Reference Range Interpretation Comments UA Protein (test code = UA Negative mg/dL Protein) [facility] AND [id number] 16:17:00 Test Item Value Reference Range Interpretation Comments UA Turbidity (test code = Clear (05/07/14 11:17 UA Turbidity) AM) [facility] AND [id number] 16:17:00 Test Item Value Reference Range Interpretation Comments UA Spec Grav (test code = UA Spec Grav) 1.021 [facility] [id number] 16:17:00 Test Item Value Reference Range Interpretation Comments UA Nitrite (test code Negative (05/07/14 11:17 = UA Nitrite) AM) [facility] [id number] 16:17:00 Test Item Value Reference Range Interpretation Comments UA Leuk Est (test Negative (05/07/14 11:17 code = UA Leuk Est) AM) [facility] [id number] 16:17:00 Test Item Value Reference Range Interpretation Comments UA Blood (test code = Negative (05/07/14 11:17 UA Blood) AM) [facility] [id number] 16:17:00 Test Item Value Reference Range Interpretation Comments UA Mucus (test code = UA Mucus) Few /LPF [facility] [email or web address] [id number] 16:17:00 Test Item Value Reference Range Interpretation Comments Troponin-I (test code no gt See_Comment [Auto mated message] The = Troponin-I) system which g enerated this result transmit josr reference range : <=0.40. The reference r [place] was not used to interpr et this result as sujey l/abnormal. [facility] [employer] [id number] 16:17:00 Test Item Value Reference Range Interpretation Comments Total CK (test code = Total CK) 92 12-191 [facility] Reflex SystemsAC [id number] 16:17:00 Test Item Value Reference Range Interpretation Comments CK MB (test code = CK MB) 0.6 0.5-3.6 [facility] [email or web address].comAC [id number] 16:17:00 Test Item Value Reference Range Interpretation Comments CK MB Index (test 0.7 See_Comment [Automate d message] The code = CK MB Index) system w [facility] generated this result transmit josr reference range : <=2.5. The reference range was not used to interpr et this result as sujey l/abnormal. [facility] [employer] [id number] 16:17:00 Test Item Value Reference Range Interpretation Comments Lipase Lvl (test code = Lipase Lvl) 100 73-393 [facility] [employer] [id number] 16:17:00 Test Item Value Reference Range Interpretation Comments Amylase Lvl (test code = Amylase Lvl) 59 25-115 [facility]2014-08-15 16:17:00 Test Item Value Reference Range Interpretation Comments eGFR (test code = eGFR) 70 [place] 209584-08-15 16:17:00 Test Item Value Reference Range Interpretation Comments Potassium Lvl (test code = Potassium 4.3 3.5-5.1 Lvl) [facility]2014-08-15 16:17:00 Test Item Value Reference Range Interpretation Comments Chloride Lvl (test code = Chloride Lvl) 105 95-109 [facility]2014-08-15 16:17:00 Test Item Value Reference Range Interpretation Comments CO2 (test code = CO2) 24 24-32 [facility]2014-08-15 16:17:00 Test Item Value Reference Range Interpretation Comments Sodium Lvl (test code = Sodium Lvl) 138 135-145 [facility]2014-08-15 16:17:00 Test Item Value Reference Range Interpretation Comments ALT (test code = ALT) 32 See_Comment [Auto mated message] The system which ge nerated this result transmit josr reference range : <=65. The reference range was not used to interpr et this result as sujey l/abnormal. [facility]2014-08-15 16:17:00 Test Item Value Reference Range Interpretation Comments AST (test code = AST) 18 See_Comment [Auto mated message] The system which ge nerated this result transmit josr reference range : <=37. The reference range was not used to interpr et this result as sujey l/abnormal. [facility]2014-08-15 16:17:00 Test Item Value Reference Range Interpretation Comments Alk Phos (test code = Alk Phos) 72 39-136 [place] 209584-08-15 16:17:00 Test Item Value Reference Range Interpretation Comments Bili Total (test code = Bili Total) 0.4 0.2-1.3 [place] [id number] 16:17:00 Test Item Value Reference Range Interpretation Comments Total Protein (test code = Total 7.7 6.4-8.4 Protein) [place] [id number] 16:17:00 Test Item Value Reference Range Interpretation Comments Albumin Lvl (test code = Albumin Lvl) 4.3 3.5-5.0 [facility]2014-08-15 16:17:00 Test Item Value Reference Range Interpretation Comments Calcium Lvl (test code = Calcium Lvl) 9.1 8.5-10.5 [facility]2014-08-15 16:17:00 Test Item Value Reference Range Interpretation Comments Creatinine Lvl (test code = Creatinine 1.2 0.5-1.4 Lvl) [facility]2014-08-15 16:17:00 Test Item Value Reference Range Interpretation Comments BUN (test code = BUN) 14 7-22 [facility]2014-08-15 16:17:00 Test Item Value Reference Range Interpretation Comments Glucose Lvl (test code = Glucose Lvl) 96 70-99 [facility]2014-08-15 16:17:00 Test Item Value Reference Range Interpretation Comments AGAP (test code = AGAP) 13.3 10.0-20.0 [facility]2014-08-15 16:17:00 Test Item Value Reference Range Interpretation Comments B/C Ratio (test code = B/C Ratio) 12 6-25 [facility]2014-08-15 16:17:00 Test Item Value Reference Range Interpretation Comments Globulin (test code = Globulin) 3.4 2.0-4.0 [facility]2014-08-15 16:17:00 Test Item Value Reference Range Interpretation Comments A/G Ratio (test code = A/G Ratio) 1.3 0.7-1.6 [facility] CenterFqnoqjeHTMNBNYGYG1116-85-33 16:17:00 Test Item Value Reference Range Interpretation Comments Lymphocytes # (test code = Lymphocytes 1.2 1.0-5.5 #) [facility] CenterJyurtcgAWHVVOEWUA3538-72-54 16:17:00 Test Item Value Reference Range Interpretation Comments Segs-Bands # (test code = Segs-Bands #) 2.8 1.5-8.1 [facility] CenterCeblyngHBMXWVOWCU7828-26-67 16:17:00 Test Item Value Reference Range Interpretation Comments Monocytes # (test code 0.4 See_Comment [Aut omated message] The = Monocytes #) system which generated this result tra nsmitted reference range : <=0.8. The reference r [place] was not used to int erpret this result as normal/abnormal . [facility] CenterPdpvzwjELQNIFNSNC4683-85-16 16:17:00 Test Item Value Reference Range Interpretation Comments Eosinophils # (test code 0.1 See_Comment [A utomated message] The = Eosinophils #) system whic h generated this result tra nsmitted reference range : <=0.5. The reference r [place] was not used to int erpret this result as normal/abnormal . [facility] CenterXreznnzLEIJHRFSTS6291-16-37 16:17:00 Test Item Value Reference Range Interpretation Comments Lymphocytes (test code = Lymphocytes) 27.9 20.0-40.0 [facility] CenterLtcqmyyFVZMMZJDHZ4396-26-69 16:17:00 Test Item Value Reference Range Interpretation Comments Segs (test code = Segs) 62.0 45.0-75.0 [facility] CenterReecvuvYJMPYQUWBO0885-91-73 16:17:00 Test Item Value Reference Range Interpretation Comments Basophils (test code = 0.6 See_Comment [Aut omated message] The Basophils) system which ge nerated this result tra nsmitted reference range : <=1.0. The reference r [place] was not used to int erpret this result as normal/abnormal . [facility] CenterRwboqlbLFTFZQEELN2163-71-80 16:17:00 Test Item Value Reference Range Interpretation Comments Eosinophils (test code = 1.3 See_Comment [A utomated message] The Eosinophils) system which ge nerated this result tra nsmitted reference range : <=4.0. The reference r [place] was not used to int erpret this result as normal/abnormal . [facility] CenterHqeuzdiLSEEHYBCXI3193-14-89 16:17:00 Test Item Value Reference Range Interpretation Comments Monocytes (test code = Monocytes) 8.2 2.0-12.0 [facility] CenterSgptadbMAAHZIFKQI7467-09-93 16:17:00 Test Item Value Reference Range Interpretation Comments Hct (test code = Hct) 43.4 42.0-54.0 [facility] CenterRulhnykVOIEFEIVXF5803-37-49 16:17:00 Test Item Value Reference Range Interpretation Comments Hgb (test code = Hgb) 15.1 14.0-18.0 [facility] CenterXiwckfhLYGQWUGRYD2956-74-86 16:17:00 Test Item Value Reference Range Interpretation Comments RBC (test code = RBC) 4.74 4.70-6.10 [facility] CenterBczopejMAYGVDRCOH0256-83-73 16:17:00 Test Item Value Reference Range Interpretation Comments MCV (test code = MCV) 91.7 80.0-94.0 [facility] CenterYtyofgsHTAEXLTEWN7563-05-52 16:17:00 Test Item Value Reference Range Interpretation Comments RDW (test code = RDW) 12.8 11.5-14.5 [facility] CenterLziklafOZFCLXSKQM8110-53-22 16:17:00 Test Item Value Reference Range Interpretation Comments MCHC (test code = MCHC) 34.8 32.0-36.0 [facility] CenterKlugzbcVVYRVGWYXI8620-35-39 16:17:00 Test Item Value Reference Range Interpretation Comments MCH (test code = MCH) 31.9 pg 27.0-31.0 [facility] CenterUdkefgvAZKUVNOLSR7206-06-26 16:17:00 Test Item Value Reference Range Interpretation Comments Platelet (test code = Platelet) 261 133-450 [facility] CenterAlpksqiGQCMATQRFC1444-03-12 16:17:00 Test Item Value Reference Range Interpretation Comments MPV (test code = MPV) 9.6 7.4-10.4 [facility] CenterDxezbmkGZRFDSDPQL1281-11-86 16:17:00 Test Item Value Reference Range Interpretation Comments WBC (test code = WBC) 4.4 3.7-10.4 [facility]2014-08-15 16:17:00 Test Item Value Reference Range Interpretation Comments UA Urobilinogen (test code = UA <=1.0 mg/dL 0.1-1.0 Urobilinogen) [facility] AND [id number] 16:17:00 Test Item Value Reference Range Interpretation Comments UA Sq Epi (test code = UA Sq Epi) None Seen [facility] AND [id number] 16:17:00 Test Item Value Reference Range Interpretation Comments UA Ketones (test code = UA Negative mg/dL Ketones) [facility] AND [id number] 16:17:00 Test Item Value Reference Range Interpretation Comments UA pH (test code = UA pH) 5.0 5.0-8.0 [facility] AND [id number] 16:17:00 Test Item Value Reference Range Interpretation Comments UA Bili (test code = Negative *NA*(05/07/14 UA Bili) 11:17 AM) [facility] AND [id number] 16:17:00 Test Item Value Reference Range Interpretation Comments UA Glucose (test code = UA Negative mg/dL Glucose) [facility] AND [id number] 16:17:00 Test Item Value Reference Range Interpretation Comments UA Color (test code = Yellow *NA*(05/07/14 UA Color) 11:17 AM) [facility] AND [id number] 16:17:00 Test Item Value Reference Range Interpretation Comments UA WBC (test code = 2 See_Comment [Automa josr message] The UA WBC) system which ge nerated this result transmit josr reference range : <=5. The reference range was not used to interpr et this result as sujey l/abnormal. [facility] AND [id number] 16:17:00 Test Item Value Reference Range Interpretation Comments UA RBC (test code = 1 See_Comment [Automa josr message] The UA RBC) system which ge nerated this result transmit josr reference range : <=2. The reference range was not used to interpr et this result as sujey l/abnormal. [facility] AND [id number] 16:17:00 Test Item Value Reference Range Interpretation Comments UA Protein (test code = UA Negative mg/dL Protein) [facility] AND [id number] 16:17:00 Test Item Value Reference Range Interpretation Comments UA Turbidity (test code = Clear (05/07/14 11:17 UA Turbidity) AM) [facility] AND [id number] 16:17:00 Test Item Value Reference Range Interpretation Comments UA Spec Grav (test code = UA Spec Grav) 1.021 [facility] AND [id number] 16:17:00 Test Item Value Reference Range Interpretation Comments UA Nitrite (test code Negative (05/07/14 11:17 = UA Nitrite) AM) [facility]YmheexnPLCTCHVPR0169-15-91 16:55:00 Test Item Value Reference Range Interpretation Comments AGAP (test code = AGAP) 10.9 10.0-20.0 N [facility] HospitalMwyiqhoHDCYZVJZH8895-91-13 16:55:00 Test Item Value Reference Range Interpretation Comments eGFR (test code = eGFR) 78 [facility] HospitalGmnscveNWDDEMOAG5554-65-95 16:55:00 Test Item Value Reference Range Interpretation Comments Calcium Lvl (test code = Calcium Lvl) 9.0 8.5-10.5 N [facility] HospitalPtdvaubBDIVNTAEY2825-04-03 16:55:00 Test Item Value Reference Range Interpretation Comments Creatinine Lvl (test code = Creatinine 1.1 0.5-1.4 N Lvl) [facility] HospitalSrmpvwlAJQTXZBBW7260-93-04 16:55:00 Test Item Value Reference Range Interpretation Comments BUN (test code = BUN) 11 7-22 N [facility] HospitalImmpsfgSRMRYMCSC5220-41-84 16:55:00 Test Item Value Reference Range Interpretation Comments Sodium Lvl (test code = Sodium Lvl) 136 135-145 N [facility] HospitalQbsbsnePJESNIXHX2948-96-12 16:55:00 Test Item Value Reference Range Interpretation Comments Chloride Lvl (test code = Chloride Lvl) 105 95-109 N [facility] HospitalJxgjyzzESSNQLRXV7232-07-58 16:55:00 Test Item Value Reference Range Interpretation Comments CO2 (test code = CO2) 24 24-32 N [facility] HospitalDdhysraRWOJVULTD3218-93-98 16:55:00 Test Item Value Reference Range Interpretation Comments Potassium Lvl (test code = Potassium 3.9 3.5-5.1 N Lvl) [facility] HospitalQvqmziiDBRASVABE7838-67-54 16:55:00 Test Item Value Reference Range Interpretation Comments Glucose Lvl (test code = Glucose Lvl) 114 70-99 H [facility] HospitalHuhxeznAWGRNIXFK6048-16-65 16:55:00 Test Item Value Reference Range Interpretation Comments Lactic Acid Lvl (test code = Lactic 1.2 0.5-2.2 N Acid Lvl) [facility] CenterHohellsDBFJCTTKKL7829-38-58 16:55:00 Test Item Value Reference Range Interpretation Comments MPV (test code = MPV) 8.8 7.4-10.4 N [facility] CenterAoxgbriBNLVVWQBDQ8608-35-72 16:55:00 Test Item Value Reference Range Interpretation Comments WBC X 10x3 (test code = WBC X 10x3) 6.6 3.7-10.4 N [facility] CenterEnlowyaOZPGYORWUN1338-22-13 16:55:00 Test Item Value Reference Range Interpretation Comments RBC X 10x6 (test code = RBC X 10x6) 4.63 4.70-6.10 L [facility] CenterUemkruvUJWOPJHCKD5019-72-01 16:55:00 Test Item Value Reference Range Interpretation Comments Hgb (test code = Hgb) 14.8 14.0-18.0 N [facility] CenterJahmqdzLNTMBGULVJ8869-53-86 16:55:00 Test Item Value Reference Range Interpretation Comments MCH (test code = MCH) 32.0 pg 27.0-31.0 H [facility] CenterQpqtacrDANOGCOTTP4097-98-51 16:55:00 Test Item Value Reference Range Interpretation Comments Hct (test code = Hct) 43.2 42.0-54.0 N [facility] CenterMdwynsyZBXSKRHSGF7490-54-06 16:55:00 Test Item Value Reference Range Interpretation Comments MCV (test code = MCV) 93.3 80.0-94.0 N [facility] CenterJgtcrahHCHRPPAPIW9132-40-61 16:55:00 Test Item Value Reference Range Interpretation Comments RDW (test code = RDW) 12.8 11.5-14.5 N [facility] CenterEdqdntwOVLJUUPFPC4119-57-48 16:55:00 Test Item Value Reference Range Interpretation Comments MCHC (test code = MCHC) 34.3 32.0-36.0 N [facility] CenterEplcsddMFFEZBHPTU4373-18-52 16:55:00 Test Item Value Reference Range Interpretation Comments Platelet (test code = Platelet) 221 133-450 N [facility] CenterWvvfpgaFWARFDXDQI4652-65-18 16:55:00 Test Item Value Reference Range Interpretation Comments Monocytes (test code = Monocytes) 11.4 2.0-12.0 N [facility] CenterLyyqtiaBZHGYVASPD8897-21-93 16:55:00 Test Item Value Reference Range Interpretation Comments Eosinophils (test code = 0.2 See_Comment N [A utomated message] The Eosinophils) system which ge nerated this result tra nsmitted reference range : <=4.0. The reference r [place] was not used to int erpret this result as normal/abnormal . [facility] CenterDqpbuasJQHTMNARDX9220-81-83 16:55:00 Test Item Value Reference Range Interpretation Comments Basophils (test code = 0.2 See_Comment N [Aut omated message] The Basophils) system which ge nerated this result tra nsmitted reference range : <=1.0. The reference r [place] was not used to int erpret this result as normal/abnormal . [facility] CenterQpufocfMRGBMTZWCZ2853-34-72 16:55:00 Test Item Value Reference Range Interpretation Comments Segs-Bands # (test code = Segs-Bands #) 5.4 1.5-8.1 N [facility] CenterIzvxopmZETYQVTYLZ6235-94-19 16:55:00 Test Item Value Reference Range Interpretation Comments Lymphocytes # (test code = Lymphocytes 0.4 1.0-5.5 L #) [facility] CenterEewxicvYCJRTVCFLD7724-71-19 16:55:00 Test Item Value Reference Range Interpretation Comments Monocytes # (test code 0.8 See_Comment N [Aut omated message] The = Monocytes #) system which generated this result tra nsmitted reference range : <=0.8. The reference r [place] was not used to int erpret this result as normal/abnormal . [facility] CenterWuigzuvKCSTIIQUHX4897-88-32 16:55:00 Test Item Value Reference Range Interpretation Comments Eosinophils # (test code 0.0 See_Comment N [A utomated message] The = Eosinophils #) system whic h generated this result tra nsmitted reference range : <=0.5. The reference r [place] was not used to int erpret this result as normal/abnormal . [facility] CenterHdqwdaiZRQKDVLXHY8513-88-30 16:55:00 Test Item Value Reference Range Interpretation Comments Basophils # (test code 0.0 See_Comment N [Aut omated message] The = Basophils #) system which generated this result tra nsmitted reference range : <=0.2. The reference r [place] was not used to int erpret this result as normal/abnormal . [facility] CenterPhgjymnHJDMLQBRHT3077-18-75 16:55:00 Test Item Value Reference Range Interpretation Comments Lymphocytes (test code = Lymphocytes) 6.5 20.0-40.0 L [facility] CenterMmeuslnIDKDTUQUES0508-63-76 16:55:00 Test Item Value Reference Range Interpretation Comments Segs (test code = Segs) 81.7 45.0-75.0 H [facility] BudaAekzetvYKCWXAJCCG3401-49-93 16:55:00 Test Item Value Reference Range Interpretation Comments UA Urobilinogen (test code = UA <=1.0 mg/dL 0.1-1.0 Urobilinogen) [facility] CenterKdekvgkKMYMGVOLGV3828-73-70 16:55:00 Test Item Value Reference Range Interpretation Comments UA Color (test code = UA Color) Ltyellow [facility] BudaVknrawbWHAUXTFAWH4147-65-59 16:55:00 Test Item Value Reference Range Interpretation Comments UA Sq Epi (test code = UA Sq Epi) None Seen [facility] BudaChzhwbtEGZJOUIFQD8553-28-33 16:55:00 Test Item Value Reference Range Interpretation Comments UA Mucus (test code = UA Mucus) Few /LPF [facility] BudaGhawoavRZFDQFIHES2329-43-55 16:55:00 Test Item Value Reference Range Interpretation Comments UA WBC (test code = no gt See_Comment N [Automa josr message] The UA WBC) system which ge nerated this result transmit josr reference range : <=5. The reference range was not used to interpr et this result as sujey l/abnormal. [facility] BudaTrylgigNBQZEYDWQP8450-47-06 16:55:00 Test Item Value Reference Range Interpretation Comments UA Bili (test code = Negative *NA*(09/01/2013 UA Bili) 10:55:00) [facility] BudaGxedqljWFDGOUHBIJ0000-33-36 16:55:00 Test Item Value Reference Range Interpretation Comments UA Ketones (test code = UA Negative mg/dL Ketones) [facility] BudaMtzjtsdGTKRHSXMLD3917-65-40 16:55:00 Test Item Value Reference Range Interpretation Comments UA pH (test code = UA pH) 5.0 5.0-8.0 N [facility] BudaAikqrasBNMEYTNNYO2151-79-92 16:55:00 Test Item Value Reference Range Interpretation Comments UA Nitrite (test code Negative (09/01/2013 N = UA Nitrite) 10:55:00) [facility] BudaHbzclyjPRHGYMGAFD4194-11-81 16:55:00 Test Item Value Reference Range Interpretation Comments UA Blood (test code = Negative (09/01/2013 N UA Blood) 10:55:00) [facility] BudaQikyjsjHOXQJGGBVW6358-03-53 16:55:00 Test Item Value Reference Range Interpretation Comments UA Leuk Est (test Negative (09/01/2013 N code = UA Leuk Est) 10:55:00) [facility] BudaOltajlrINKUCVNYIG6863-16-87 16:55:00 Test Item Value Reference Range Interpretation Comments UA Protein (test code = UA Negative mg/dL N Protein) [facility] BudaDwnxiddZRRRFARRUS1689-67-43 16:55:00 Test Item Value Reference Range Interpretation Comments UA Glucose (test code = UA Negative mg/dL Glucose) [facility] CenterCndtgowMPEDNUTOIM8331-50-69 16:55:00 Test Item Value Reference Range Interpretation Comments UA Spec Grav (test code = UA Spec Grav) 1.024 N [facility] CenterRlcgkyfZASRSBUUNM2501-45-95 16:55:00 Test Item Value Reference Range Interpretation Comments UA Turbidity (test code = Clear (09/01/2013 N UA Turbidity) 10:55:00) [facility] CenterVIRAL - LCTMWUNO4473-43-45 16:55:00 Test Item Value Reference Range Interpretation Comments Influ B (test code = Negative 1(09/01/2013 N Influ B) 10:55:00) [facility] CenterVIRAL VWPONGZG3044-27-24 16:55:00 Test Item Value Reference Range Interpretation Comments Influ A (test code = Negative (09/01/2013 N Influ A) 10:55:00) [facility] HospitalLsrdnwsSVAWVNVVA2213-52-34 16:55:00 Test Item Value Reference Range Interpretation Comments AGAP (test code = AGAP) 10.9 10.0-20.0 N [facility] HospitalXuuyppyJKAKEZGRI0446-55-70 16:55:00 Test Item Value Reference Range Interpretation Comments eGFR (test code = eGFR) 78 [facility] HospitalYjhuhlpEWTDXJDIO7852-11-42 16:55:00 Test Item Value Reference Range Interpretation Comments Calcium Lvl (test code = Calcium Lvl) 9.0 8.5-10.5 N [facility] HospitalPkmegccCBUZKLMDI6400-90-63 16:55:00 Test Item Value Reference Range Interpretation Comments Creatinine Lvl (test code = Creatinine 1.1 0.5-1.4 N Lvl) [facility] HospitalOwqvnqhNCIMFUSMV1925-11-19 16:55:00 Test Item Value Reference Range Interpretation Comments BUN (test code = BUN) 11 7-22 N [facility] HospitalLqvnzgwZSJDXQTDV3056-56-68 16:55:00 Test Item Value Reference Range Interpretation Comments Sodium Lvl (test code = Sodium Lvl) 136 135-145 N [facility] HospitalJhzmxzvFYMEBYOEW9040-23-87 16:55:00 Test Item Value Reference Range Interpretation Comments Chloride Lvl (test code = Chloride Lvl) 105 95-109 N [facility] HospitalLasvpslPPXPSIPLC3893-67-11 16:55:00 Test Item Value Reference Range Interpretation Comments CO2 (test code = CO2) 24 24-32 N [facility] HospitalYhmshkzYPHDNAPTP4294-47-32 16:55:00 Test Item Value Reference Range Interpretation Comments Potassium Lvl (test code = Potassium 3.9 3.5-5.1 N Lvl) [facility] HospitalRaftlvhCENWISOEP2167-50-47 16:55:00 Test Item Value Reference Range Interpretation Comments Glucose Lvl (test code = Glucose Lvl) 114 70-99 H [facility] HospitalYqyxhmcRKFXHWRAN5557-30-55 16:55:00 Test Item Value Reference Range Interpretation Comments Lactic Acid Lvl (test code = Lactic 1.2 0.5-2.2 N Acid Lvl) [facility] CenterNhiynzpXFLLNFXTCF4525-17-32 16:55:00 Test Item Value Reference Range Interpretation Comments MPV (test code = MPV) 8.8 7.4-10.4 N [facility] CenterMacnityKBHQRETZYY4813-31-40 16:55:00 Test Item Value Reference Range Interpretation Comments WBC X 10x3 (test code = WBC X 10x3) 6.6 3.7-10.4 N [facility] CenterLgdxggsWCNHBLERNS1935-38-74 16:55:00 Test Item Value Reference Range Interpretation Comments RBC X 10x6 (test code = RBC X 10x6) 4.63 4.70-6.10 L [facility] CenterXzdztfeDFQVZQOHIQ5609-69-49 16:55:00 Test Item Value Reference Range Interpretation Comments Hgb (test code = Hgb) 14.8 14.0-18.0 N [facility] CenterZtskjrePYWRRRMECE4607-52-82 16:55:00 Test Item Value Reference Range Interpretation Comments MCH (test code = MCH) 32.0 pg 27.0-31.0 H [facility] CenterPautekmHEMKOJVCNK8964-93-42 16:55:00 Test Item Value Reference Range Interpretation Comments Hct (test code = Hct) 43.2 42.0-54.0 N [facility] CenterBkiwescRVUQZRBOIG8167-12-50 16:55:00 Test Item Value Reference Range Interpretation Comments MCV (test code = MCV) 93.3 80.0-94.0 N [facility] CenterYlypyjxCXMLTVQIWO5875-99-61 16:55:00 Test Item Value Reference Range Interpretation Comments RDW (test code = RDW) 12.8 11.5-14.5 N [facility] CenterKtyctyvNIFSIAWVXU6356-10-54 16:55:00 Test Item Value Reference Range Interpretation Comments MCHC (test code = MCHC) 34.3 32.0-36.0 N [facility] CenterIsxayccVCFIHTCYWR0158-23-54 16:55:00 Test Item Value Reference Range Interpretation Comments Platelet (test code = Platelet) 221 133-450 N [facility] CenterBasswuuMTRXPMYQLN2130-72-01 16:55:00 Test Item Value Reference Range Interpretation Comments Monocytes (test code = Monocytes) 11.4 2.0-12.0 N [facility] CenterRdnjvtxOVCUTOQHNR1293-06-93 16:55:00 Test Item Value Reference Range Interpretation Comments Eosinophils (test code = 0.2 See_Comment N [A utomated message] The Eosinophils) system which ge nerated this result tra nsmitted reference range : <=4.0. The reference r [place] was not used to int erpret this result as normal/abnormal . [facility] CenterZawabrtPDFGKCZDFJ0079-49-20 16:55:00 Test Item Value Reference Range Interpretation Comments Basophils (test code = 0.2 See_Comment N [Aut omated message] The Basophils) system which ge nerated this result tra nsmitted reference range : <=1.0. The reference r [place] was not used to int erpret this result as normal/abnormal . [facility] CenterMzoxbatUDUVKDZTLT3855-64-07 16:55:00 Test Item Value Reference Range Interpretation Comments Segs-Bands # (test code = Segs-Bands #) 5.4 1.5-8.1 N [facility] CenterQhvvaprYYXKITSHXF4813-28-38 16:55:00 Test Item Value Reference Range Interpretation Comments Lymphocytes # (test code = Lymphocytes 0.4 1.0-5.5 L #) [facility] CenterArdvxasBQIARXPITG6748-65-80 16:55:00 Test Item Value Reference Range Interpretation Comments Monocytes # (test code 0.8 See_Comment N [Aut omated message] The = Monocytes #) system which generated this result tra nsmitted reference range : <=0.8. The reference r [place] was not used to int erpret this result as normal/abnormal . [facility] CenterSoevpaiWLJTITAXRQ8727-37-23 16:55:00 Test Item Value Reference Range Interpretation Comments Eosinophils # (test code 0.0 See_Comment N [A utomated message] The = Eosinophils #) system whic h generated this result tra nsmitted reference range : <=0.5. The reference r [place] was not used to int erpret this result as normal/abnormal . [facility] CenterAjoquilWZNUTXJSFX1866-99-87 16:55:00 Test Item Value Reference Range Interpretation Comments Basophils # (test code 0.0 See_Comment N [Aut omated message] The = Basophils #) system which generated this result tra nsmitted reference range : <=0.2. The reference r [place] was not used to int erpret this result as normal/abnormal . [facility] CenterNapluwwBVYYEHCRAO6824-53-19 16:55:00 Test Item Value Reference Range Interpretation Comments Lymphocytes (test code = Lymphocytes) 6.5 20.0-40.0 L [facility] CenterDfdbhieWUOFLJWYTO3709-54-22 16:55:00 Test Item Value Reference Range Interpretation Comments Segs (test code = Segs) 81.7 45.0-75.0 H [facility] BudaZwqdydnFXFJSEFOYZ6954-86-81 16:55:00 Test Item Value Reference Range Interpretation Comments UA Urobilinogen (test code = UA <=1.0 mg/dL 0.1-1.0 Urobilinogen) [facility]udaEnqneilDNAEIBHWHO2730-10-04 16:55:00 Test Item Value Reference Range Interpretation Comments UA Color (test code = UA Color) Ltyellow [facility] BudaEwnwjwsNPRTHGPHCX1896-06-74 16:55:00 Test Item Value Reference Range Interpretation Comments UA Sq Epi (test code = UA Sq Epi) None Seen [facility] Bu[id number] 16:55:00 Test Item Value Reference Range Interpretation Comments UA Mucus (test code = UA Mucus) Few /LPF [facility] BudaY[id number] 16:55:00 Test Item Value Reference Range Interpretation Comments UA WBC (test code = no gt See_Comment N [Automa josr message] The UA WBC) system which ge nerated this result transmit josr reference range : <=5. The reference range was not used to interpr et this result as sujey l/abnormal. [facility] Bu[id number] 16:55:00 Test Item Value Reference Range Interpretation Comments UA Bili (test code = Negative *NA*(09/01/2013 UA Bili) 10:55:00) [facility]bek[facility]vZEXJERLLEY1145-89-18 16:55:00 Test Item Value Reference Range Interpretation Comments UA Ketones (test code = UA Negative mg/dL Ketones) [facility] HospitalTkzihuaIAJUMNVVHH4429-41-51 16:55:00 Test Item Value Reference Range Interpretation Comments UA pH (test code = UA pH) 5.0 5.0-8.0 N [facility] HospitalWedqzbyFOOJHWCBRY4936-18-76 16:55:00 Test Item Value Reference Range Interpretation Comments UA Nitrite (test code Negative (09/01/2013 N = UA Nitrite) 10:55:00) [facility] HospitalOkaeofiNXLKAGBBQR6310-61-34 16:55:00 Test Item Value Reference Range Interpretation Comments UA Blood (test code = Negative (09/01/2013 N UA Blood) 10:55:00) [facility] HospitalDevwkniDPABJXYJKX0948-73-87 16:55:00 Test Item Value Reference Range Interpretation Comments UA Leuk Est (test Negative (09/01/2013 N code = UA Leuk Est) 10:55:00) [facility] HospitalKwawydkJMJOZGVBDB6895-28-94 16:55:00 Test Item Value Reference Range Interpretation Comments UA Protein (test code = UA Negative mg/dL N Protein) [facility] HospitalAajsswkHTBZUBLZRW5188-75-31 16:55:00 Test Item Value Reference Range Interpretation Comments UA Glucose (test code = UA Negative mg/dL Glucose) [facility] HospitalOxgpsfaEYORWBONFP2477-67-92 16:55:00 Test Item Value Reference Range Interpretation Comments UA Spec Grav (test code = UA Spec Grav) 1.024 N [facility] HospitalGzbajjgXNSTONRQPO1519-19-79 16:55:00 Test Item Value Reference Range Interpretation Comments UA Turbidity (test code = Clear (09/01/2013 N UA Turbidity) 10:55:00) [facility] [id number] 16:55:00 Test Item Value Reference Range Interpretation Comments Influ B (test code = Negative 1(09/01/2013 N Influ B) 10:55:00) [facility] [id number] 16:55:00 Test Item Value Reference Range Interpretation Comments Influ A (test code = Negative (09/01/2013 N Influ A) 10:55:00) [facility] CenterGajrxxkVCIARZSYK9791-44-69 16:55:00 Test Item Value Reference Range Interpretation Comments AGAP (test code = AGAP) 10.9 10.0-20.0 N [facility]RlagtuhGBMDCOJSP0267-29-56 16:55:00 Test Item Value Reference Range Interpretation Comments eGFR (test code = eGFR) 78 [facility] HospitalUordrfeKTMEWKRIN0955-95-40 16:55:00 Test Item Value Reference Range Interpretation Comments Calcium Lvl (test code = Calcium Lvl) 9.0 8.5-10.5 N [facility] HospitalZcatpbtTZVATOKGT2464-64-72 16:55:00 Test Item Value Reference Range Interpretation Comments Creatinine Lvl (test code = Creatinine 1.1 0.5-1.4 N Lvl) [facility] HospitalZtqrxwhARSAATECZ1068-04-90 16:55:00 Test Item Value Reference Range Interpretation Comments BUN (test code = BUN) 11 7-22 N [facility] HospitalNgqcxcbCQZZXYENZ8278-75-50 16:55:00 Test Item Value Reference Range Interpretation Comments Sodium Lvl (test code = Sodium Lvl) 136 135-145 N [facility] HospitalWaymubzWOLCEIMUP5319-55-52 16:55:00 Test Item Value Reference Range Interpretation Comments Chloride Lvl (test code = Chloride Lvl) 105 95-109 N [facility] HospitalQnxtnnlDRWBSQLAO9894-68-79 16:55:00 Test Item Value Reference Range Interpretation Comments CO2 (test code = CO2) 24 24-32 N [facility] HospitalJfqasxvNAOQIBCXT5500-21-56 16:55:00 Test Item Value Reference Range Interpretation Comments Potassium Lvl (test code = Potassium 3.9 3.5-5.1 N Lvl) [facility] HospitalHtndgxwQHDMCMOUJ4860-16-15 16:55:00 Test Item Value Reference Range Interpretation Comments Glucose Lvl (test code = Glucose Lvl) 114 70-99 H [facility] HospitalMjbixtaHKRKVIAQY5753-73-09 16:55:00 Test Item Value Reference Range Interpretation Comments Lactic Acid Lvl (test code = Lactic 1.2 0.5-2.2 N Acid Lvl) [facility] CenterJixroneYQMNOQEZQU4654-78-97 16:55:00 Test Item Value Reference Range Interpretation Comments MPV (test code = MPV) 8.8 7.4-10.4 N [facility] CenterBzvhnbvUIFITGWUXK4693-10-76 16:55:00 Test Item Value Reference Range Interpretation Comments WBC X 10x3 (test code = WBC X 10x3) 6.6 3.7-10.4 N [facility] CenterKttajwySRSDEYRAPY2680-80-49 16:55:00 Test Item Value Reference Range Interpretation Comments RBC X 10x6 (test code = RBC X 10x6) 4.63 4.70-6.10 L [facility] CenterPxnzzalSOSVZSVQTJ1181-91-53 16:55:00 Test Item Value Reference Range Interpretation Comments Hgb (test code = Hgb) 14.8 14.0-18.0 N [facility] CenterDgdrxluOIZONUSKSX9858-33-29 16:55:00 Test Item Value Reference Range Interpretation Comments MCH (test code = MCH) 32.0 pg 27.0-31.0 H [facility] CenterAgrlbvwSUYVFJXOCH6227-82-12 16:55:00 Test Item Value Reference Range Interpretation Comments Hct (test code = Hct) 43.2 42.0-54.0 N [facility] CenterNtzgbckIYFJIFGYIW2128-98-24 16:55:00 Test Item Value Reference Range Interpretation Comments MCV (test code = MCV) 93.3 80.0-94.0 N [facility] CenterSgvqqzgHNYZLSWKNC5723-07-79 16:55:00 Test Item Value Reference Range Interpretation Comments RDW (test code = RDW) 12.8 11.5-14.5 N [facility] CenterInybudrVVVTDSODZR5573-76-91 16:55:00 Test Item Value Reference Range Interpretation Comments MCHC (test code = MCHC) 34.3 32.0-36.0 N [facility] CenterDhstgnxEGNBQEMKXT8774-92-14 16:55:00 Test Item Value Reference Range Interpretation Comments Platelet (test code = Platelet) 221 133-450 N [facility] CenterLuqteglQWEDDUYCSY9105-84-44 16:55:00 Test Item Value Reference Range Interpretation Comments Monocytes (test code = Monocytes) 11.4 2.0-12.0 N [facility] CenterOvdbttwZZRNBWFNJU2210-45-36 16:55:00 Test Item Value Reference Range Interpretation Comments Eosinophils (test code = 0.2 See_Comment N [A utomated message] The Eosinophils) system which ge nerated this result tra nsmitted reference range : <=4.0. The reference r [place] was not used to int erpret this result as normal/abnormal . [facility] CenterVbpmlbqXDRFPERNVR9881-76-46 16:55:00 Test Item Value Reference Range Interpretation Comments Basophils (test code = 0.2 See_Comment N [Aut omated message] The Basophils) system which ge nerated this result tra nsmitted reference range : <=1.0. The reference r [place] was not used to int erpret this result as normal/abnormal . [facility] CenterHmkkkqxHGTRTZMPNO1849-45-58 16:55:00 Test Item Value Reference Range Interpretation Comments Segs-Bands # (test code = Segs-Bands #) 5.4 1.5-8.1 N [facility] CenterRslhxcrUYNGBBKJPT3649-51-71 16:55:00 Test Item Value Reference Range Interpretation Comments Lymphocytes # (test code = Lymphocytes 0.4 1.0-5.5 L #) [facility] CenterViihywqUFKTCBKEAN6377-53-49 16:55:00 Test Item Value Reference Range Interpretation Comments Monocytes # (test code 0.8 See_Comment N [Aut omated message] The = Monocytes #) system which generated this result tra nsmitted reference range : <=0.8. The reference r [place] was not used to int erpret this result as normal/abnormal . [facility] CenterAdbvtpqIZZPJIAIQV9774-93-41 16:55:00 Test Item Value Reference Range Interpretation Comments Eosinophils # (test code 0.0 See_Comment N [A utomated message] The = Eosinophils #) system whic h generated this result tra nsmitted reference range : <=0.5. The reference r [place] was not used to int erpret this result as normal/abnormal . [facility] CenterOovvkarYTPGYGDAGP3190-33-29 16:55:00 Test Item Value Reference Range Interpretation Comments Basophils # (test code 0.0 See_Comment N [Aut omated message] The = Basophils #) system which generated this result tra nsmitted reference range : <=0.2. The reference r [place] was not used to int erpret this result as normal/abnormal . [facility] CenterQtnlbplJOVANVLOTS9293-89-18 16:55:00 Test Item Value Reference Range Interpretation Comments Lymphocytes (test code = Lymphocytes) 6.5 20.0-40.0 L [facility] CenterShyyislQIXBTMPLOS7846-47-70 16:55:00 Test Item Value Reference Range Interpretation Comments Segs (test code = Segs) 81.7 45.0-75.0 H [facility] HospitalWcicptsRXXSYSEDHP7104-08-52 16:55:00 Test Item Value Reference Range Interpretation Comments UA Urobilinogen (test code = UA <=1.0 mg/dL 0.1-1.0 Urobilinogen) [facility]udaInynyjzGGZTWXZGBK4409-56-07 16:55:00 Test Item Value Reference Range Interpretation Comments UA Color (test code = UA Color) Ltyellow [facility] BudaPnndecrNGGRDEUTNX0128-57-34 16:55:00 Test Item Value Reference Range Interpretation Comments UA Sq Epi (test code = UA Sq Epi) None Seen [facility] BudaIimkwbyGKOGVPHUEA5032-43-67 16:55:00 Test Item Value Reference Range Interpretation Comments UA Mucus (test code = UA Mucus) Few /LPF [facility] BudaOnqrirnHWWUTMBLAX1024-29-28 16:55:00 Test Item Value Reference Range Interpretation Comments UA WBC (test code = no gt See_Comment N [Automa josr message] The UA WBC) system which ge nerated this result transmit josr reference range : <=5. The reference range was not used to interpr et this result as sujey l/abnormal. [facility] BudaYfjsipiKURUUPUBCL1522-95-46 16:55:00 Test Item Value Reference Range Interpretation Comments UA Bili (test code = Negative *NA*(09/01/2013 UA Bili) 10:55:00) [facility] BudaCwebresZPEUBSYBPR9421-58-23 16:55:00 Test Item Value Reference Range Interpretation Comments UA Ketones (test code = UA Negative mg/dL Ketones) [facility] BudaDrrykmvXEDXRBRYVK3086-48-86 16:55:00 Test Item Value Reference Range Interpretation Comments UA pH (test code = UA pH) 5.0 5.0-8.0 N [facility] BudaQswoqixTMGZPQHQJH9061-52-02 16:55:00 Test Item Value Reference Range Interpretation Comments UA Nitrite (test code Negative (09/01/2013 N = UA Nitrite) 10:55:00) [facility] BudaIkuwrvmBOLLUDEQMC1571-10-40 16:55:00 Test Item Value Reference Range Interpretation Comments UA Blood (test code = Negative (09/01/2013 N UA Blood) 10:55:00) [facility] BudaDnaabljADLZRNGFHZ5423-39-51 16:55:00 Test Item Value Reference Range Interpretation Comments UA Leuk Est (test Negative (09/01/2013 N code = UA Leuk Est) 10:55:00) [facility] CenterXlxackoLAFLFHPGFU7855-24-04 16:55:00 Test Item Value Reference Range Interpretation Comments UA Protein (test code = UA Negative mg/dL N Protein) [facility] HospitalJnzjdulHUORKFDHTY5972-52-32 16:55:00 Test Item Value Reference Range Interpretation Comments UA Glucose (test code = UA Negative mg/dL Glucose) [facility] CenterBugfspmMENCUUFBCM7918-96-94 16:55:00 Test Item Value Reference Range Interpretation Comments UA Spec Grav (test code = UA Spec Grav) 1.024 N [facility] CenterHzmfecuOLZMBGRSXI7486-80-85 16:55:00 Test Item Value Reference Range Interpretation Comments UA Turbidity (test code = Clear (09/01/2013 N UA Turbidity) 10:55:00) [facility] CenterVIR[facility] - [id number] 16:55:00 Test Item Value Reference Range Interpretation Comments Influ B (test code = Negative 1(09/01/2013 N Influ B) 10:55:00) [facility] CenterVIRAL [id number] 16:55:00 Test Item Value Reference Range Interpretation Comments Influ A (test code = Negative (09/01/2013 N Influ A) 10:55:00) [facility]
[2022-12-07] MEDS ORDERED: PROMETHAZINE INJ 25 MG/ML AMP ONE (21:05)
[2022-12-07] MEDS ORDERED: NA CHLORIDE 0.9% 1,000 ML ONE ×2 (21:05→23:10)
[2022-12-07] MEDS ORDERED: NA CHLORIDE 0.9% 250 ML ONE (21:05)
[2022-12-07 21:28] LABS: SARS-CoV-2 Antigen Rapid Res Negative (Negative)
[2022-12-07 21:37] LABS: Absolute Lymphocytes (CBC) 0.2 K/uL (0.7-4.9); Hematocrit 42.3 % (39.6-49.0); Lymphocytes % 3.2 % (15.3-44.8); MCV 91.9 fL (80-100); MPV 8.8 fL (7.6-11.3); RBC Red Blood Cell Count 4.61 M/uL (4.33-5.43)
[2022-12-07 21:38] LABS: Protime INR 1.1
[2022-12-07 21:50] LABS: Albumin 3.8 g/dL (3.4-5.0); Bilirubin Total 0.4 mg/dL (0.2-1.0); Potassium 3.9 mEq/L (3.5-5.1); Protein, Total 7.3 g/dL (6.4-8.2); Troponin High Sensitivity 8.9 pg/mL (<58.9)
--- NOTE | 2022-12-07 21:51 | RAD REPORT ---
EXAM DESCRIPTION: RAD - Chest Single View - 12/07/2022 9:29 pm CLINICAL HISTORY: CHEST PAIN Chest pain. COMPARISON: No comparisons FINDINGS: Portable technique limits examination quality. The lungs are grossly clear. The heart is normal in size. No displaced fractures. IMPRESSION: No acute intrathoracic process suspected.
[2022-12-07] MEDS ORDERED: ACETAMINOPHEN 500 MG TAB ONE (22:18)
--- NOTE | 2022-12-08 00:08 | EDPHYS ---
Physician Documentation [facility] Name: Luis Moura Age: 57 yrs Sex: Male : 1965 Arrival Date: 12/07/2022 Time: 20:21 Bed 14 Private MD: ED Physician Kiran Montero HPI: 12/07 23:25 This 57 yrs old Male presents to ER via Ambulatory with complaints of snw Nausea/Vomiting. 23:25 The patient presents to the emergency department with nausea, vomiting. Onset: The snw symptoms/episode began/occurred acutely. Possible causes: unknown. The symptoms are aggravated by nothing. The symptoms are alleviated by nothing. Severity of symptoms: At their worst the symptoms were moderate in the emergency department the symptoms have improved. The patient has not experienced similar symptoms in the past. It is unknown whether or not the patient has recently seen a physician. Historical: - Allergies: 20:29 No Known Allergies; kl - Home Meds: 20:30 lisinopril 20 mg Oral tablet daily [Active]; Pepcid 20 mg Oral tablet once [Active]; kl tadalafil 5 mg oral tablet once [Active]; hydrochlorothiazide 12.5 mg Oral capsule once [Active]; aspirin 81 mg Oral tablet, delayed release (enteric coated) daily [Active]; - PMHx: 20:29 Hypertensive disorder; kl - PSHx: 20:30 rotator cuff; Appendectomy; kl - Immunization history:: Adult Immunizations not up to date. - Social history:: Smoking status: . ROS: 23:25 Eyes: Negative for injury, pain, redness, and discharge, ENT: Negative for injury, snw pain, and discharge, Neck: Negative for injury, pain, and swelling, Cardiovascular: Negative for chest pain, palpitations, and edema. 23:25 : Negative for injury, bleeding, discharge, and swelling, MS/Extremity: Negative for injury and deformity, Skin: Negative for injury, rash, and discoloration, Neuro: Negative for headache, weakness, numbness, tingling, and seizure, Psych: Negative for depression, anxiety, suicide ideation, homicidal ideation, and hallucinations. 23:25 Constitutional: Positive for body aches, fatigue, fever, malaise, poor PO intake. 23:25 Respiratory: Positive for cough, with no reported sputum. 23:25 Abdomen/GI: Positive for nausea and vomiting, no abdominal pain, no gi bleeding. 23:25 Back: Positive for pain with cough. Exam: 20:49 Eyes: Pupils equal round and reactive to light, extra-ocular motions intact. Lids and snw lashes normal. Conjunctiva and sclera are non-icteric and not injected. Cornea within normal limits. Periorbital areas with no swelling, redness, or edema. 20:49 Chest/axilla: Normal chest wall appearance and motion. Nontender with no deformity. No lesions are appreciated. 20:49 Abdomen/GI: Soft, non-tender, with normal bowel sounds. No distension or tympany. No guarding or rebound. No evidence of tenderness throughout. Back: No spinal tenderness. No costovertebral tenderness. Full range of motion. 20:49 MS/ Extremity: Pulses equal, no cyanosis. Neurovascular intact. Full, normal range of motion. Neuro: Awake and alert, GCS 15, oriented to person, place, time, and situation. Cranial nerves II-XII grossly intact. Motor strength 5/5 in all extremities. Sensory grossly intact. Cerebellar exam normal. Normal gait. Psych: Awake, alert, with orientation to person, place and time. Behavior, mood, and affect are within normal limits. 20:49 Constitutional: The patient appears alert, listless, flushed 20:49 Head/face: Noted is flushed. 20:49 Cardiovascular: Rate: tachycardic, Rhythm: regular, Heart sounds: normal. 20:49 Respiratory: the patient does not display signs of respiratory distress, Respirations: normal, Breath sounds: bronchial sounds, that are moderate, are heard in the left posterior lower lobe, right posterior middle lobe and right posterior lower lobe. 20:49 Skin: Appearance: Color: erythematous, Temperature: hot, flushing. Vital Signs: 20:28 BP 150 / 103; Pulse 124; Resp 18; Temp 100.1(O); Pulse Ox 97% on R/A; Weight 90.72 kg kl (R); Height 5 ft. 8 in. ; Pain 8/10; 21:00 BP 163 / 92; Pulse 121; Resp 18; Pulse Ox 97% on R/A; eh3 21:59 BP 138 / 69; Pulse 116; kl 22:00 BP 138 / 69; Pulse 115; Resp 18; Pulse Ox 96% on R/A; eh3 23:00 BP 173 / 88; Pulse 117; Resp 18; Temp 99.4(O); Pulse Ox 96% on R/A; eh3 20:28 Body Mass Index 30.41 (90.72 kg, 172.72 cm) kl 20:28 Pain Scale: Adult kl MDM: 20:30 Patient medically screened. snw 20:51 Differential diagnosis: Nonspecific abd pain, cholecystitis, hx of diverticulitis with snw resection/reanastomosis, appy, shoulder surg. Data reviewed: vital signs, nurses notes. Historians other than the Patient: Spouse/Significant Other: . 23:54 Counseling: I had a detailed discussion with the patient and/or guardian regarding: the snw historical points, exam findings, and any diagnostic results supporting the discharge/admit diagnosis, the presence of at least one elevated blood pressure reading (>120/80) during this emergency department visit, lab results, radiology results, the need for outpatient follow up, for definitive care, to return to the emergency department if symptoms worsen or persist or if there are any questions or concerns that arise at home. Response to treatment: the patient's symptoms have markedly improved after treatment. Special discussion: I have referred the patient to see his PCP for further evaluation of high blood pressure. Based on the history and exam findings, there is no indication for further emergent testing or inpatient evaluation. I discussed with the patient/guardian the need to see the primary care provider for further evaluation of the symptoms. 12/07 20:37 Order name: Blood Culture Adult (2) formerly [facility] 12/07 20:37 Order name: CBC with Diff; Complete Time: 21:40 formerly [facility] 12/07 20:37 Order name: Protime (+inr); Complete Time: 21:39 formerly [facility] 12/07 20:37 Order name: Ptt, Activated; Complete Time: 21:39 formerly [facility] 12/07 20:37 Order name: Urine Culture formerly [facility] 12/07 20:37 Order name: Urine Microscopic Only formerly [facility] 12/07 20:37 Order name: EKG; Complete Time: 20:38 formerly [facility] 12/07 20:37 Order name: EKG - Nurse/Tech; Complete Time: 21:44 formerly [facility] 12/07 20:37 Order name: IV Saline Lock - Large Bore; Complete Time: 21:44 snw 12/07 20:37 Order name: Labs collected and sent; Complete Time: 21:44 w 12/07 20:37 Order name: O2 Per Protocol; Complete Time: :44 w 12/07 20:37 Order name: O2 Sat Monitoring; Complete Time: 21:44 w 12/07 20:37 Order name: Vital Signs; Complete Time: 21:44 w 12/07 20:37 Order name: SARS RAPID; Complete Time: 21:39 snw 12/07 20:37 Order name: CMP; Complete Time: 21:53 snw 12/07 20:37 Order name: Troponin High Sensitivity; Complete Time: 21:53 snw 12/07 20:37 Order name: Lipase; Complete Time: 21:53 snw 12/07 20:37 Order name: Chest Single View XRAY; Complete Time: 21:53 w 12/07 20:37 Order name: Lactate w/ 2H reflex if indic.; Complete Time: 21:57 w 12/07 20:37 Order name: Cardiac monitoring; Complete Time: 22:26 w 12/07 20:37 Order name: Accucheck; Complete Time: 22:27 w 12/07 22:14 Order name: CT Chest For PE Angio snw EC:05 Rate is 118 beats/min. Rhythm is regular. QRS [place] is Normal. ME interval is normal. snw Clinical impression: Sinus tachycardia. Administered Medications: 21:30 Drug: NS 0.9% IV 1000 ml Route: IV; Rate: 1 bolus; Site: right antecubital; 3 21:30 Drug: Promethazine IVP 25 mg Route: IVP; Site: right antecubital; eh3 22:30 Follow up: Response: Nausea is decreased eh3 21:30 Drug: NS 0.9% IV 250 ml Route: IV; Rate: bolus; Site: right antecubital; eh3 22:30 Follow up: IV Status: Completed infusion; IV Intake: 250ml eh3 22:30 Drug: NS 0.9% IV 1000 ml Route: IV; Rate: 1 bolus; Site: right antecubital; eh3 23:30 Drug: Acetaminophen PO 1000 mg Route: PO; 3 23:53 CANCELLED (Duplicate Order): Acetaminophen PO 1000 mg PO once snw Disposition: 23:49 Co-signature as Attending Physician, Kiran Montero DO I was immediately available on-site ms3 in the Emergency Department for consultation in the care of the patient. Disposition Summary: 12/08/22 00:07 Discharge Ordered Location: Home snw Condition: Stable snw Diagnosis - Viral infection, unspecified snw - Volume depletion, unspecified snw - Nausea with vomiting, unspecified snw Followup: snw - With: Emergency Department - When: As needed - Reason: Worsening of condition Followup: snw - With: Private Physician - When: 2 - 3 days - Reason: Recheck today's complaints, Continuance of care, Re-evaluation by your physician Discharge Instructions: - Discharge Summary Sheet snw - Dehydration, Adult snw - Ibuprofen Dosage Chart, Pediatric snw - Acetaminophen Dosage Chart, Pediatric snw - Fever, Adult snw - Viral Respiratory Infection snw - Rehydration, Adult snw Forms: - Work release form snw - SBAR form eh3 - Medication Reconciliation Form snw - Thank You Letter snw - Antibiotic Education snw - Prescription Opioid Use snw Prescriptions: - Tessalon Perles 100 mg Oral Capsule - take 2 capsule by ORAL route every 8 hours As needed; 46 capsule; Refills: 0, snw Product Selection Permitted - Pepcid 20 mg Oral Tablet - take 1 tablet by ORAL route once daily; 20 tablet; Refills: 0, Product snw Selection Permitted - promethazine 25 mg Oral Tablet - take 1 tablet by ORAL route every 6 hours As needed; 20 tablet; Refills: 0, snw Product Selection Permitted Signatures: Dispatcher [employer] EDCorine Ganadra RN Alecia Belcher FNP-C [employer]-Csnw Kiran Montero DO DO ms3 Analilia Jimenez RN RN eh3 Corrections: (The following items were deleted from the chart) 23:53 22:01 Acetaminophen PO 1000 mg PO once ordered. snw snw 23:53 23:53 Acetaminophen PO 1000 mg PO once ordered. snw snw
--- NOTE | 2022-12-08 00:08 | ER ---
Nurse's Notes [facility] Name: Luis Moura Age: 57 yrs Sex: Male : 1965 Arrival Date: 12/07/2022 Time: 20:21 Bed 14 Private MD: Diagnosis: Viral infection, unspecified;Volume depletion, unspecified;Nausea with vomiting, unspecified Presentation: 12/07 20:28 Chief complaint: Patient states: back pain cough fever vomiting x 2 days. Coronavirus kl screen: Vaccine status: Patient reports receiving the 2nd dose of the covid vaccine. Ebola Screen: Patient negative for fever greater than or equal to 101.5 degrees Fahrenheit, and additional compatible Ebola Virus Disease symptoms. Initial Sepsis Screen: Does the patient meet any 2 criteria? HR > 90 bpm. Does the patient have a suspected source of infection? No. Patient's initial sepsis screen is negative. Risk Assessment: Do you want to hurt yourself or someone else? Patient reports no desire to harm self or others. 20:28 Method Of Arrival: Ambulatory 20:28 Acuity: OK 3 kl Triage Assessment: 20:32 General: Appears distressed, uncomfortable, Behavior is cooperative. Pain: Complains of kl pain in back Pain currently is 8 out of 10 on a pain scale. GI: Reports intolerance of fluids, intolerance of food, vomiting, when coughing. Historical: - Allergies: 20:29 No Known Allergies; kl - Home Meds: 20:30 lisinopril 20 mg Oral tablet daily [Active]; Pepcid 20 mg Oral tablet once [Active]; kl tadalafil 5 mg oral tablet once [Active]; hydrochlorothiazide 12.5 mg Oral capsule once [Active]; aspirin 81 mg Oral tablet, delayed release (enteric coated) daily [Active]; - PMHx: 20:29 Hypertensive disorder; kl - PSHx: 20:30 rotator cuff; Appendectomy; kl - Immunization history:: Adult Immunizations not up to date. - Social history:: Smoking status: . Assessment: 21:00 General: Appears in no apparent distress. uncomfortable, Behavior is cooperative, eh3 appropriate for age. Pain: Complains of pain in head. Neuro: Level of Consciousness is awake, alert, obeys commands, Oriented to person, place, time, situation. Cardiovascular: Capillary refill < 3 seconds Patient's skin is warm and dry. Respiratory: Airway is patent Respiratory effort is even, unlabored, Respiratory pattern is regular, symmetrical. GI: Abdomen is round non-distended, Reports intolerance of fluids, intolerance of food, nausea, vomiting. : No signs and/or symptoms were reported regarding the genitourinary system. EENT: No signs and/or symptoms were reported regarding the EENT system. Derm: Skin is pink, warm \T\ dry. Musculoskeletal: No signs and/or symptoms reported regarding the musculoskeletal system. 22:00 Reassessment: Patient appears in no apparent distress at this time. Patient and/or 3 family updated on plan of care and expected duration. Pain level reassessed. Patient is alert, oriented x 3, equal unlabored respirations, skin warm/dry/pink. 23:00 Reassessment: Patient appears in no apparent distress at this time. Patient and/or 3 family updated on plan of care and expected duration. Pain level reassessed. Patient is alert, oriented x 3, equal unlabored respirations, skin warm/dry/pink. Vital Signs: 20:28 BP 150 / 103; Pulse 124; Resp 18; Temp 100.1(O); Pulse Ox 97% on R/A; Weight 90.72 kg (R); Height 5 ft. 8 in. ; Pain 8/10; 21:00 BP 163 / 92; Pulse 121; Resp 18; Pulse Ox 97% on R/A; eh3 21:59 BP 138 / 69; Pulse 116; kl 22:00 BP 138 / 69; Pulse 115; Resp 18; Pulse Ox 96% on R/A; eh3 23:00 BP 173 / 88; Pulse 117; Resp 18; Temp 99.4(O); Pulse Ox 96% on R/A; eh3 20:28 Body Mass Index 30.41 (90.72 kg, 172.72 cm) 20:28 Pain Scale: Adult ED Course: 20:21 Patient arrived in ED. [id number] 20:22 Alecia Grant FNP-C is PHCP. snw 20:22 Kiran Montero DO is Attending Physician. snw 20:29 Triage completed. kl 20:47 Analilia Jimenez, RN is Primary Nurse. eh3 21:00 Inserted saline lock: 20 gauge in right antecubital area, using aseptic technique. ha1 Blood collected. 21:31 Chest Single View XRAY In Process Unspecified. EDMS 22:38 CT Chest For PE Angio In Process Unspecified. EDMS Administered Medications: 21:30 Drug: NS 0.9% IV 1000 ml Route: IV; Rate: 1 bolus; Site: right antecubital; 3 21:30 Drug: Promethazine IVP 25 mg Route: IVP; Site: right antecubital; 3 22:30 Follow up: Response: Nausea is decreased eh3 21:30 Drug: NS 0.9% IV 250 ml Route: IV; Rate: bolus; Site: right antecubital; eh3 22:30 Follow up: IV Status: Completed infusion; IV Intake: 250ml 3 22:30 Drug: NS 0.9% IV 1000 ml Route: IV; Rate: 1 bolus; Site: right antecubital; 3 23:30 Drug: Acetaminophen PO 1000 mg Route: PO; 3 23:53 CANCELLED (Duplicate Order): Acetaminophen PO 1000 mg PO once snw Intake: 22:30 IV: 250ml; Total: 250ml. 3 Outcome: 12/08 00:07 Discharge ordered by . snw Signatures: Dispatcher [employer] EDMS Corine Duran RN RN Alecia Portillo, SUPPLY CHAIN DIRECTOR-C SUPPLY CHAIN DIRECTOR-[employer] Alethea Ortiz [email or web address] Analilia Jimenez RN RN 3 Janette Mathew RN RN 1
[2022-12-08 03:39] VITALS: TEMP 99.4
[2022-12-08 03:40] VITALS: BP 141/79; O2SAT 94
--- NOTE | 2022-12-08 21:39 | RAD REPORT ---
EXAM DESCRIPTION: CT - Chest For Pe Angio - 12/08/2022 6:46 am CLINICAL HISTORY: Cough. Tachycardia. Back pain. Assess for pulmonary embolus. TECHNIQUE: Chest CTA. 2.0 mm reconstructed axial images were obtained. Coronal and sagittal reformat josr images were obtained. Coronal , coronal oblique, and sagittal MIP images were obtained. COMPARISON: None. DOSE OPTIMIZATION: This facility uses dose optimization techniques as appropriate to perform exams, including at least one of the following techniques: 1. Automated exposure control. 2. Adjustment of the mA and/or kV according to patient size (this includes techniques or standardized protocols for targeted exams where dose is matched to the indication/reason for exam, i.e. extremiti es or head). 3. Use of iterative reconstructive technique. FINDINGS: Lung Campa: Normal. Mediastinal Structures: No aortic dissection. No pericardial effusion. No adenopathy. Pulmonary Arteries: Normal. Pleural Space: Normal. Axillae: Normal. Upper Abdomen: Normal. Bony Structures: No suspicious lesions. IMPRESSION: 1. No evidence of pulmonary embolism. 2. No active infiltrates. Electronically signed by: Onel Palacios MD 12/07/2022 11:21 PM CDT Due to temporary technical issues with the PACS/Fluency reporting system, reports are being signed by the in house radiologists without review as a courtesy to insure prompt reporting. The interpreting radiologist is fully responsible for the content of the report.
--- NOTE | 2022-12-10 17:40 | EKG ---
Test Date: 2022-12-07 Test Time: 21:01:05 Estate Conservator: PEACE MEASUREMENT RESULTS: Intervals: Rate: 118 MT: 146 QRSD: 88 QT: 324 QTc: 454 Urs[place]: P: 75 MT: 146 QRS: 39 T: 76 INTERPRETIVE STATEMENTS: Sinus tachycardia Right atrial enlargement Borderline ECG No previous ECG available for comparison Electronically Signed On 12-10-22 17:36:36 CDT by Elias Pimentel
== END 2022-12-08 00:32 | disposition home or self-care (01) ==
LOC: ER 20:18
DX: B34.9 Viral infection, unspecified (principal); E86.9 Volume depletion, unspecified; I10 Essential (primary) hypertension; Z20.822 Contact with and (suspected) exposure to COVID-19; Z79.82 Long term (current) use of aspirin
CPT/HCPCS: 96365; 96361; 93005; 87040 ×2; 85025; 36415; 85610; 83605; 85730; 84484; 83690; 80053; 71275; 71045; 96375; 99284; 87811; Q9967; J2550; J7050; J7030 ×2

== ENCOUNTER 2023-06-11 09:57 | Emergency (ER) | payer OTHER ==
--- OUTSIDE RECORDS SUMMARY | 2023-06-11 10:10 | XMS REPORT | Continuity of Care Document ---
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 NEEDED FOR CONGESTION CONGESTION COUGH AND CONGESTION escitalopra escitalopra No escitalopr [facility] m 10 mg m 10 mg am 10 mg n tablet TAKE tablet TAKE tablet Health ONE TABLET ONE TABLET TAKE ONE Box BY MOUTH BY MOUTH TABLET BY ONCE A DAY ONCE A DAY MOUTH ONCE A DAY famotidine famotidine No famotidine [facility] Box famotidine famotidine No famotidine [facility] 20 mg 20 mg 20 mg n tablet TAKE tablet TAKE tablet Health 1 TABLET BY 1 TABLET BY TAKE 1 Box MOUTH ONCE MOUTH ONCE TABLET BY DAILY DAILY MOUTH ONCE DAILY Fish Oil Fish Oil No Fish Oil [facility] Box hydrochloro hydrochloro No hydrochlor [facility] thiazide thiazide othiazide n 12.5 mg 12.5 mg 12.5 mg Health capsule capsule capsule Box TAKE ONE TAKE ONE TAKE ONE CAPSULE BY CAPSULE BY CAPSULE BY MOUTH DAILY MOUTH DAILY MOUTH DAILY lisinopril lisinopril No 1 Q1D lisinopril [facility] 40 mg 40 mg 40 mg n tablet Take tablet Take tablet Health 1 tablet 1 tablet Take 1 Box every day every day tablet by oral by oral every day route for route for by oral 90 days. 90 days. route for 90 days. multivitami multivitami No multivitam [facility] n [...] days. 90 days. route for 90 days. promethazin promethazin No promethazi [facility] e 25 mg e 25 mg ne 25 mg n tablet TAKE tablet TAKE tablet Health 1 TABLET BY 1 TABLET BY TAKE 1 Box MOUTH EVERY MOUTH EVERY TABLET BY 6 HOURS 6 HOURS MOUTH NEEDED FOR NEEDED FOR EVERY 6 FORNAUSEA FORNAUSEA HOURS AND AND NEEDED FOR VOMITING VOMITING FORNAUSEA AND VOMITING tadalafil 5 tadalafil 5 No tadalafil [facility] mg tablet mg tablet 5 mg n TAKE ONE TAKE ONE tablet Healt h TABLET BY TABLET BY TAKE ONE B ox MOUTH ONCE MOUTH ONCE TABLET BY A DAY FOR A DAY FOR MOUTH ONCE 90 DAYS 90 DAYS A DAY FOR 90 DAYS albuterol albuterol No albuterol [place] sulfate HFA sulfate HFA sulfate n 90 90 HFA 90 Health mcg/actuati mcg/actuati mcg/actuat Box on aerosol on aerosol ion inhaler inhaler aerosol INHALE TWO INHALE TWO inhaler PUFFS BY PUFFS BY INHALE TWO MOUTH EVERY MOUTH EVERY PUFFS BY 4 HOURS 4 HOURS MOUTH NEEDED NEEDED EVERY 4 HOURS NEEDED aspirin aspirin No aspirin [facility] Box benzonatate benzonatate No benzonatat [facility] 100 mg 100 mg e 100 mg n capsule capsule capsule Health TAKE 2 TAKE 2 TAKE 2 Box CAPSULE BY CAPSULE BY CAPSULE BY MOUTH EVERY MOUTH EVERY MOUTH 8 HOURS 8 HOURS EVERY 8 NEEDED FOR NEEDED FOR HOURS COUGH AND COUGH AND NEEDED FOR CONGESTION CONGESTION COUGH AND CONGESTION escitalopra escitalopra No escitalopr [facility] m 10 mg m 10 mg am 10 mg n tablet TAKE tablet TAKE tablet Health ONE TABLET ONE TABLET TAKE ONE Box BY MOUTH BY MOUTH TABLET BY ONCE A DAY ONCE A DAY MOUTH ONCE A DAY famotidine famotidine No famotidine [facility] Box famotidine famotidine No famotidine [facility] 20 mg 20 mg 20 mg n tablet TAKE tablet TAKE tablet Health 1 TABLET BY 1 TABLET BY TAKE 1 Box MOUTH ONCE MOUTH ONCE TABLET BY DAILY DAILY MOUTH ONCE DAILY Fish Oil Fish Oil No Fish Oil [facility] Box hydrochloro hydrochloro No hydrochlor [facility] thiazide thiazide othiazide n 12.5 mg 12.5 mg 12.5 mg Health capsule capsule capsule Box TAKE ONE TAKE ONE TAKE ONE CAPSULE BY CAPSULE BY CAPSULE BY MOUTH DAILY MOUTH DAILY MOUTH DAILY lisinopril lisinopril No 1 Q1D lisinopril [facility] 40 mg 40 mg 40 mg n tablet Take tablet Take tablet Health 1 tablet 1 tablet Take 1 Box every day every day tablet by oral by oral every day route for route for by oral 90 days. 90 days. route for 90 days. multivitami multivitami No multivitam [facility] n [...] days. 90 days. route for 90 days. promethazin promethazin No promethazi [facility] e 25 mg e 25 mg ne 25 mg n tablet TAKE tablet TAKE tablet Health 1 TABLET BY 1 TABLET BY TAKE 1 Box MOUTH EVERY MOUTH EVERY TABLET BY 6 HOURS 6 HOURS MOUTH NEEDED FOR NEEDED FOR EVERY 6 FORNAUSEA FORNAUSEA HOURS AND AND NEEDED FOR VOMITING VOMITING FORNAUSEA AND VOMITING tadalafil 5 tadalafil 5 No tadalafil [facility] mg tablet mg tablet 5 mg n TAKE ONE TAKE ONE tablet Healt h TABLET BY TABLET BY TAKE ONE B ox MOUTH ONCE MOUTH ONCE TABLET BY A DAY FOR A DAY FOR MOUTH ONCE 90 DAYS 90 DAYS A DAY FOR 90 DAYS albuterol albuterol No albuterol [place] sulfate HFA sulfate HFA sulfate n 90 90 HFA 90 Health mcg/actuati mcg/actuati mcg/actuat Box on aerosol on aerosol ion inhaler inhaler aerosol INHALE TWO INHALE TWO inhaler PUFFS BY PUFFS BY INHALE TWO MOUTH EVERY MOUTH EVERY PUFFS BY 4 HOURS 4 HOURS MOUTH NEEDED NEEDED EVERY 4 HOURS NEEDED aspirin aspirin No aspirin [facility] Box benzonatate benzonatate No benzonatat [facility] 100 mg 100 mg e 100 mg n capsule capsule capsule Health TAKE 2 TAKE 2 TAKE 2 Box CAPSULE BY CAPSULE BY CAPSULE BY MOUTH EVERY MOUTH EVERY MOUTH 8 HOURS 8 HOURS EVERY 8 NEEDED FOR NEEDED FOR HOURS COUGH AND COUGH AND NEEDED FOR CONGESTION CONGESTION COUGH AND CONGESTION Cialis 5 mg Cialis 5 mg No [...] famotidine No famotidine [facility] Box famotidine famotidine No famotidine [facility] 20 mg 20 mg 20 mg n tablet TAKE tablet TAKE tablet Health 1 TABLET BY 1 TABLET BY TAKE 1 Box MOUTH ONCE MOUTH ONCE TABLET BY DAILY DAILY MOUTH ONCE DAILY Fish Oil Fish Oil No Fish Oil [facility] Box hydrochloro hydrochloro No hydrochlor [facility] thiazide thiazide othiazide n 12.5 mg 12.5 mg 12.5 mg Health capsule capsule capsule Box TAKE ONE TAKE ONE TAKE ONE CAPSULE BY CAPSULE BY CAPSULE BY MOUTH DAILY MOUTH DAILY MOUTH DAILY lisinopril lisinopril No lisinopril [facility] 40 mg [...] ONCE A DAY A DAY A DAY omeprazole omeprazole No omeprazole [facility] 40 mg 40 mg 40 mg n capsule,del capsule,del capsule,de Health ayed ayed layed Box release release release pravastatin pravastatin No pravastati [facility] 20 mg 20 mg n 20 mg n tablet TAKE tablet TAKE tablet Health ONE TABLET ONE TABLET TAKE ONE Box BY MOUTH BY MOUTH TABLET BY ONCE A DAY ONCE A DAY MOUTH ONCE A DAY promethazin promethazin No promethazi [facility] e 25 mg e 25 mg ne 25 mg n tablet TAKE tablet TAKE tablet Health 1 TABLET BY 1 TABLET BY TAKE 1 Box MOUTH EVERY MOUTH EVERY TABLET BY 6 HOURS 6 HOURS MOUTH NEEDED FOR NEEDED FOR EVERY 6 FORNAUSEA FORNAUSEA HOURS AND AND NEEDED FOR VOMITING VOMITING FORNAUSEA AND VOMITING albuterol albuterol No albuterol [place] sulfate HFA sulfate HFA sulfate n 90 90 HFA 90 Health mcg/actuati mcg/actuati mcg/actuat Box on aerosol on aerosol ion inhaler inhaler aerosol INHALE TWO INHALE TWO inhaler PUFFS BY PUFFS BY INHALE TWO MOUTH EVERY MOUTH EVERY PUFFS BY 4 HOURS 4 HOURS MOUTH NEEDED NEEDED EVERY 4 HOURS NEEDED aspirin aspirin No aspirin [facility] Box benzonatate benzonatate No benzonatat [facility] 100 mg 100 mg e 100 mg n capsule capsule capsule Health TAKE 2 TAKE 2 TAKE 2 Box CAPSULE BY CAPSULE BY CAPSULE BY MOUTH EVERY MOUTH EVERY MOUTH 8 HOURS 8 HOURS EVERY 8 NEEDED FOR NEEDED FOR HOURS COUGH AND COUGH AND NEEDED FOR CONGESTION CONGESTION COUGH AND CONGESTION Cialis 5 mg Cialis 5 mg No [...] famotidine No famotidine [facility] n [facility] Box famotidine famotidine No famotidine [facility] 20 mg 20 mg 20 mg n tablet TAKE tablet TAKE tablet Health 1 TABLET BY 1 TABLET BY TAKE 1 Box MOUTH ONCE MOUTH ONCE TABLET BY DAILY DAILY MOUTH ONCE DAILY Fish Oil Fish Oil No Fish Oil [...] 20 mg 20 mg n capsule,del capsule,del capsule,[facility] ayed ayed layed Box release release release TAKE ONE TAKE ONE TAKE ONE CAPSULE BY CAPSULE BY CAPSULE BY MOUTH ONCE MOUTH ONCE MOUTH ONCE A DAY A DAY A DAY omeprazole omeprazole No omeprazole [facility] 40 mg 40 mg 40 mg n capsule,del capsule,del capsule,[facility] ayed ayed layed Box release release release pravastatin pravastatin No pravastati [facility] 20 mg 20 mg n 20 mg n tablet TAKE tablet TAKE tablet Health ONE TABLET ONE TABLET TAKE ONE Box BY MOUTH BY MOUTH TABLET BY ONCE A DAY ONCE A DAY MOUTH ONCE A DAY promethazin promethazin No promethazi [facility] e 25 mg e 25 mg ne 25 mg n tablet TAKE tablet TAKE tablet Health 1 TABLET BY 1 TABLET BY TAKE 1 Box MOUTH EVERY MOUTH EVERY TABLET BY 6 HOURS 6 HOURS MOUTH NEEDED FOR NEEDED FOR EVERY 6 FORNAUSEA FORNAUSEA HOURS AND AND NEEDED FOR VOMITING VOMITING FORNAUSEA AND VOMITING albuterol albuterol No albuterol [place] sulfate HFA sulfate HFA sulfate n 90 90 HFA 90 Health mcg/actuati mcg/actuati mcg/actuat Box on aerosol on aerosol ion inhaler inhaler aerosol INHALE TWO INHALE TWO inhaler PUFFS BY PUFFS BY INHALE TWO MOUTH EVERY MOUTH EVERY PUFFS BY 4 HOURS 4 HOURS MOUTH NEEDED NEEDED EVERY 4 HOURS NEEDED aspirin aspirin No aspirin [facility] Box atorvastati atorvastati No atorvastat [facility] n 40 mg n 40 mg in 40 mg n tablet tablet tablet Health Box benzonatate benzonatate No benzonatat [facility] 100 mg 100 mg e 100 mg n capsule capsule capsule Health TAKE 2 TAKE 2 TAKE 2 Box CAPSULE BY CAPSULE BY CAPSULE BY MOUTH EVERY MOUTH EVERY MOUTH 8 HOURS 8 HOURS EVERY 8 NEEDED FOR NEEDED FOR HOURS COUGH AND COUGH AND NEEDED FOR CONGESTION CONGESTION COUGH AND CONGESTION escitalopra escitalopra No escitalopr [facility] m 10 mg m 10 mg am 10 mg n tablet TAKE tablet TAKE tablet Health ONE TABLET ONE TABLET TAKE ONE Box BY MOUTH BY MOUTH TABLET BY ONCE A DAY ONCE A DAY MOUTH ONCE A DAY famotidine famotidine No famotidine [facility] n [facility] Box famotidine famotidine No famotidine [facility] 20 mg 20 mg 20 mg n tablet TAKE tablet TAKE tablet Health 1 TABLET BY 1 TABLET BY TAKE 1 Box MOUTH ONCE MOUTH ONCE TABLET BY DAILY DAILY MOUTH ONCE DAILY Fish Oil Fish Oil No Fish Oil [...] ONCE A DAY A DAY A DAY omeprazole omeprazole No omeprazole [facility] 40 mg 40 mg 40 mg n capsule,del capsule,del capsule,[facility] ayed ayed layed Box release release release pravastatin pravastatin No pravastati [facility] 20 mg 20 mg n 20 mg n tablet TAKE tablet TAKE tablet Health ONE TABLET ONE TABLET TAKE ONE Box BY MOUTH BY MOUTH TABLET BY ONCE A DAY ONCE A DAY MOUTH ONCE A DAY promethazin promethazin No promethazi [facility] e 25 mg e 25 mg ne 25 mg n tablet TAKE tablet TAKE tablet Health 1 TABLET BY 1 TABLET BY TAKE 1 Box MOUTH EVERY MOUTH EVERY TABLET BY 6 HOURS 6 HOURS MOUTH NEEDED FOR NEEDED FOR EVERY 6 FORNAUSEA FORNAUSEA HOURS AND AND NEEDED FOR VOMITING VOMITING FORNAUSEA AND VOMITING tadalafil 5 tadalafil 5 No tadalafil [facility] mg tablet mg tablet 5 mg n TAKE ONE TAKE ONE tablet Healt h TABLET BY TABLET BY TAKE ONE B ox MOUTH ONCE MOUTH ONCE TABLET BY A DAY A DAY MOUTH ONCE A DAY albuterol albuterol No albuterol [place] sulfate HFA sulfate HFA sulfate n 90 90 HFA 90 Health mcg/actuati mcg/actuati mcg/actuat Box on aerosol on aerosol ion inhaler inhaler aerosol INHALE TWO INHALE TWO inhaler PUFFS BY PUFFS BY INHALE TWO MOUTH EVERY MOUTH EVERY PUFFS BY 4 HOURS 4 HOURS MOUTH NEEDED NEEDED EVERY 4 HOURS NEEDED aspirin aspirin No aspirin [facility] Box aspirin 81 aspirin 81 No 1 Q1D aspirin 81 [facility] mg mg mg n tablet,sharlene tablet,sharlene tablet,del Health yed release yed release ayed B ox Take 1 Take 1 release tablet tablet Take 1 every day every day tablet by oral by oral every day route for route for by oral 100 days. 100 days. route for 100 days. atorvastati atorvastati No 1 Q1D atorvastat [facility] n 40 mg n 40 mg in 40 mg n tablet Take tablet Take tablet Health 1 tablet 1 tablet Take 1 Box every day every day tablet by oral by oral every day route for route for by oral 90 days. 90 days. route for 90 days. benzonatate benzonatate No benzonatat [facility] 100 mg 100 mg e 100 mg n capsule capsule capsule Health TAKE 2 TAKE 2 TAKE 2 Box CAPSULE BY CAPSULE BY CAPSULE BY MOUTH EVERY MOUTH EVERY MOUTH 8 HOURS 8 HOURS EVERY 8 NEEDED FOR NEEDED FOR HOURS COUGH AND COUGH AND NEEDED FOR CONGESTION CONGESTION COUGH AND CONGESTION Cialis 5 mg Cialis 5 mg No 1 Q1D Cialis 5 [facility] tablet Take tablet Take mg tablet n 1 tablet 1 tablet Take 1 Healt h every day every day tablet Box by oral by oral every day route for route for by oral 90 days. 90 days. route for 90 days. famotidine famotidine No famotidine [facility] n [facility] Box famotidine famotidine No famotidine [facility] 20 mg 20 mg 20 mg n tablet TAKE tablet TAKE tablet Health 1 TABLET BY 1 TABLET BY TAKE 1 Box MOUTH ONCE MOUTH ONCE TABLET BY DAILY DAILY MOUTH ONCE DAILY Fish Oil Fish Oil No Fish Oil [...] for 90 days. 90 days. 90 days. Lexapro 10 Lexapro 10 No 1 [...] days. 90 days. route for 90 days. multivitami multivitami No multivitam [facility] n n in n Health Box pravastatin pravastatin No pravastati [facility] 20 mg 20 mg n 20 mg n tablet TAKE tablet TAKE tablet Health ONE TABLET ONE TABLET TAKE ONE Box BY MOUTH BY MOUTH TABLET BY ONCE A DAY ONCE A DAY MOUTH ONCE A DAY promethazin promethazin No promethazi [facility] e 25 mg e 25 mg ne 25 mg n tablet TAKE tablet TAKE tablet Health 1 TABLET BY 1 TABLET BY TAKE 1 Box MOUTH EVERY MOUTH EVERY TABLET BY 6 HOURS 6 HOURS MOUTH NEEDED FOR NEEDED FOR EVERY 6 FORNAUSEA FORNAUSEA HOURS AND AND NEEDED FOR VOMITING VOMITING FORNAUSEA AND VOMITING aspirin aspirin No aspirin [facility] o n [...] rice 600 n capsule capsule mg capsule [facility] Take 600 mg Take 600 mg Take 600 Box every day every day mg every by oral by oral day by route. route. oral route. Suprep Suprep No Suprep [facility] Bowel Prep Bowel Prep Bowel Prep n Kit 17.5 Kit 17.5 Kit 17.5 [facility] gram-3.13 gram-3.13 gram-3.13 Box gram-1.6 gram-1.6 gram-1.6 [...] Oil No Fish Oil [facility] n [facility] Box gabapentin gabapentin No gabapentin [facility] 100 [...] Box Advil Advil No Advil [facility] n [facility] Box amoxicillin amoxicillin No amoxicilli [facility] [phone] n 875 n mg-potassiu mg-potassiu mg-potassi [facility] Box clavulanate clavulanate clavulanat 125 mg 125 mg e 125 mg tablet Take tablet Take tablet 1 tablet 1 tablet Take 1 every 12 every 12 tablet hours by hours by every 12 oral route. oral route. hours by oral route. aspirin aspirin No aspirin [facility] n [facility] Box Fish Oil Fish Oil No Fish [...] 875 n 875 n mg-potassiu mg-potassiu mg-potassi Health m m Box clavulanate clavulanate clavulanat 125 mg 125 [...] 875 n 875 n mg-potassiu mg-potassiu mg-potassi Health m [facility] Box clavulanate clavulanate clavulanat 125 mg 125 [...] 875 n 875 n mg-potassiu mg-potassiu mg-potassi [facility] Box clavulanate clavulanate clavulanat 125 mg 125 [...] Kit 17.5 Kit 17.5 Kit 17.5 Hea lt gram-3.13 gram-3.13 gram-3.13 Box gram-1.6 gram-1.6 [...] FOR 30 DAYS 30 DAYS 30 DAYS Immunizations Ordered Immunization Filled Immunization Date Status Commen ts Source Name Name Influenza Virus 2022-09-23 Completed [facility] maloneypia Vaccine, age 6 months 00:00:00 - E xternal and up Influenza Virus 2020-07-20 Completed [facility] Will ybold Vaccine, age 6 months 00:00:00 - E xternal and up Influenza Virus 2020-07-20 Completed [facility] Will ybold Vaccine, age 6 months 00:00:00 and up Influenza Virus 2018-08-21 Completed [facility] Will ybold Vaccine, age 6 months 00:00:00 and up Pneumococcal Vaccine, 2018-08-21 Completed Farhan Emmanuel Polysaccharide 00:00:00 Influenza Virus 2018-08-21 Completed [facility] Will ybold Vaccine, age 6 months 00:00:00 - E xternal and up Pneumococcal Vaccine, 2018-08-21 Completed Farhan baker Seybold Polysaccharide 00:00:00 - External Shingles IM [...] and up Tdap- (Boostrix, 2016-03-23 Completed [facility] Puri eybodemetrio Adacel) 00:00:00 Tdap- (Boostrix, 2016-03-23 Completed [facility] Puri eybodemetrio Adacel) 00:00:00 - External Vital Signs Vital Name Observation Time Observation Value Comments Source BP Diastolic 2023-04-24 00:00:00 83 mm[Hg] [facility] BP Systolic 2023-04-24 00:00:00 131 mm[Hg] [facility] Height 2023-04-24 00:00:00 67 [in_i] [facility] Height 2023-03-13 00:00:00 67 [in_i] [facility] Height 2023-03-12 00:00:00 67 [in_i] [facility] Box BP Diastolic 2023-02-27 00:00:00 90 mm[Hg] [facility] Height 2023-02-27 00:00:00 67 [in_i] [facility] Box BP Systolic 2023-02-27 00:00:00 133 mm[Hg] [facility] Height 2023-02-25 00:00:00 67 [in_i] [facility] Height 2022-12-20 00:00:00 67 [in_i] [facility] Box BP Diastolic 2022-12-13 00:00:00 88 mm[Hg] [facility] Height 2022-12-13 00:00:00 67 [in_i] [facility] BP Systolic 2022-12-13 00:00:00 152 mm[Hg] [facility] Height 2022-12-10 00:00:00 67 [in_i] [facility] Height 2022-11-27 00:00:00 67 [in_i] [facility] Height 2022-11-16 00:00:00 67 [in_i] [facility] Height 2022-11-12 00:00:00 67 [in_i] [facility] Systolic blood 2022-10-25 14:16:00 110 mm[Hg] [facility] Willybold - pressure External Diastolic blood 2022-10-25 14:16:00 62 mm[Hg] [facility] Seybold - pressure External Heart rate 2022-10-25 14:16:00 76 /min [facility] jenkinsbold - External Respiratory rate 2022-10-25 14:16:00 18 /min Qiana Hobbsold - External Body height 2022-10-25 14:16:00 172.7 cm [facility] jenkinsbodemetrio - External Body weight 2022-10-25 14:16:00 95.255 kg [facility] jenkinsbodemetrio - External BMI 2022-10-25 14:16:00 31.93 kg/m2 [facility] jenkinsbodemetrio - External Oxygen saturation in 2022-10-25 14:16:00 99 /min [facility] Emmanuel - Arterial blood by External Pulse oximetry [facility] 2022-10-24 00:00:00 67 [in_i] [facility] BP Diastolic 2022-10-23 00:00:00 88 mm[Hg] [facility] Height 2022-10-23 00:00:00 67 [in_i] [facility] BP Systolic 2022-10-23 00:00:00 130 mm[Hg] [facility] Height 2022-10-11 00:00:00 67 [in_i] [facility] BP Diastolic 2022-10-04 00:00:00 84 mm[Hg] [facility] Height 2022-10-04 00:00:00 67 [in_i] [facility] BP Systolic 2022-10-04 00:00:00 155 mm[Hg] [facility] BP Diastolic 2022-09-20 00:00:00 89 mm[Hg] [facility] Height 2022-09-20 00:00:00 67 [in_i] [facility] Box BMI (Body Mass Index) 2022-09-20 00:00:00 31.8 kg/m2 [facility] BP Systolic 2022-09-20 00:00:00 137 mm[Hg] [facility] Body Weight 2022-09-20 00:00:00 203 [lb_av] [facility] Height 2022-09-19 00:00:00 67 [in_i] [facility] Height 2022-09-04 00:00:00 67 [in_i] [facility] Height 2022-08-29 00:00:00 67 [in_i] [facility] Height 2022-08-15 00:00:00 67 [in_i] [facility] Box BP Diastolic 2022-08-13 00:00:00 79 mm[Hg] [facility] Height 2022-08-13 00:00:00 67 [in_i] [facility] BP Systolic 2022-08-13 00:00:00 121 mm[Hg] [facility] Height 2022-08-10 00:00:00 67 [in_i] [facility] BP Diastolic 2022-08-09 00:00:00 86 mm[Hg] [facility] Height 2022-08-09 00:00:00 67 [in_i] [facility] BMI (Body Mass Index) 2022-08-09 00:00:00 31.8 kg/m2 [facility] BP Systolic 2022-08-09 00:00:00 152 mm[Hg] [facility] Body Weight 2022-08-09 00:00:00 203 [lb_av] [facility] BP Diastolic 2022-08-08 00:00:00 88 mm[Hg] [facility] Height 2022-08-08 00:00:00 67 [in_i] [facility] BP Systolic 2022-08-08 00:00:00 150 mm[Hg] [facility] BP Diastolic 2022-07-31 00:00:00 80 mm[Hg] [facility] Height 2022-07-31 00:00:00 67 [in_i] [facility] BP Systolic 2022-07-31 00:00:00 155 mm[Hg] [facility] Height 2022-07-30 00:00:00 67 [in_i] [facility] BP Diastolic 2022-07-12 00:00:00 91 mm[Hg] [facility] Height 2022-07-12 00:00:00 67 [in_i] [facility] BP Systolic 2022-07-12 00:00:00 156 mm[Hg] [facility] BP Diastolic 2022-07-02 00:00:00 85 mm[Hg] [facility] Height 2022-07-02 00:00:00 67 [in_i] [facility] BP Systolic 2022-07-02 00:00:00 136 mm[Hg] [facility] Height 2022-06-28 00:00:00 67 [in_i] [facility] Height 2022-06-07 00:00:00 67 [in_i] [facility] Height 2022-05-29 00:00:00 67 [in_i] [facility] Height 2022-04-05 00:00:00 67 [in_i] [facility] Height 2022-03-27 00:00:00 67 [in_i] [facility] Height 2022-02-26 00:00:00 67 [in_i] [facility] Height 2022-02-22 00:00:00 67 [in_i] [facility] BP Diastolic 2022-02-15 00:00:00 81 mm[Hg] [facility] Height 2022-02-15 00:00:00 67 [in_i] [facility] BP Systolic 2022-02-15 00:00:00 115 mm[Hg] [facility] BP Diastolic 2022-02-06 00:00:00 85 mm[Hg] [facility] Height 2022-02-06 00:00:00 67 [in_i] [facility] BMI (Body Mass Index) 2022-02-06 00:00:00 31.8 kg/m2 [facility] BP Systolic 2022-02-06 00:00:00 125 mm[Hg] [facility] Box Body Weight 2022-02-06 00:00:00 203 [lb_av] [facility] BP Diastolic 2022-01-22 00:00:00 80 mm[Hg] [facility] Height 2022-01-22 00:00:00 67 [in_i] [facility] BP Systolic 2022-01-22 00:00:00 134 mm[Hg] [facility] Height 2022-01-11 00:00:00 67 [in_i] [...] Box BP Diastolic 2021-12-15 00:00:00 82 mm[Hg] [facility] Height 2021-12-15 00:00:00 67 [in_i] [facility] BMI (Body Mass Index) 2021-12-15 00:00:00 32.1 kg/m2 [facility] BP Systolic 2021-12-15 00:00:00 118 mm[Hg] [facility] Body Weight 2021-12-15 00:00:00 205 [lb_av] [facility] BP Diastolic 2021-11-27 00:00:00 84 mm[Hg] [facility] Height 2021-11-27 00:00:00 67 [in_i] [facility] BMI (Body Mass Index) 2021-11-27 00:00:00 32.4 kg/m2 [facility] BP Systolic 2021-11-27 00:00:00 129 mm[Hg] [facility] Body Weight 2021-11-27 00:00:00 207 [lb_av] [facility] Height 2021-11-21 00:00:00 67 [in_i] [facility] Height 2021-11-20 00:00:00 67 [in_i] [facility] BP Diastolic 2021-10-18 00:00:00 87 mm[Hg] [facility] Height 2021-10-18 00:00:00 67 [in_i] [facility] BP Systolic 2021-10-18 00:00:00 150 mm[Hg] [facility] Box Systolic blood 2021-10-12 20:48:00 150 mm[Hg] [facility] Seybold pressure Diastolic blood 2021-10-12 20:48:00 88 mm[Hg] Kelse y Seybold pressure Heart rate 2021-10-12 20:48:00 78 /min [facility] jenkinsbodemetrio Body temperature 2021-10-12 20:48:00 36.11 Brenda Qiana ey Seybold Respiratory rate 2021-10-12 20:48:00 18 /min Qiana Emmanuel Body height 2021-10-12 20:48:00 174 cm [facility] jenkinsbodemetrio Body weight 2021-10-12 20:48:00 94.348 kg [facility] jenkinsbodemetrio BMI 2021-10-12 20:48:00 31.16 kg/m2 [facility] jenkinsbodemetrio BP Diastolic 2021-09-26 00:00:00 99 mm[Hg] [facility] Height 2021-09-26 00:00:00 67 [in_i] [facility] BMI (Body Mass Index) 2021-09-26 00:00:00 31.3 kg/m2 [facility] BP Systolic 2021-09-26 00:00:00 157 mm[Hg] [facility] Body Weight 2021-09-26 00:00:00 200 [lb_av] [facility] BP Diastolic 2021-09-19 00:00:00 115 mm[Hg] [facility] Height 2021-09-19 00:00:00 67 [in_i] [facility] Box BP Systolic 2021-09-19 00:00:00 152 mm[Hg] [facility] BP Diastolic 2021-05-18 00:00:00 92 mm[Hg] [facility] Height 2021-05-18 00:00:00 67 [in_i] [facility] Box BMI (Body Mass Index) 2021-05-18 00:00:00 32.4 kg/m2 [facility] Box BP Systolic 2021-05-18 00:00:00 140 mm[Hg] [facility] [facility] Body Weight 2021-05-18 00:00:00 207 [lb_av] [facility] Box BP Diastolic 2021-05-05 00:00:00 85 mm[Hg] [facility] Height 2021-05-05 00:00:00 67 [in_i] [facility] BMI (Body Mass Index) 2021-05-05 00:00:00 31.8 kg/m2 [facility] BP Systolic 2021-05-05 00:00:00 124 mm[Hg] [facility] Body Weight 2021-05-05 00:00:00 202.8 [lb_av] [facility] BP Diastolic 2021-04-26 00:00:00 99 mm[Hg] [facility] Height 2021-04-26 00:00:00 67 [in_i] [facility] BMI (Body Mass Index) 2021-04-26 00:00:00 32.1 kg/m2 [facility] BP Systolic 2021-04-26 00:00:00 139 mm[Hg] [facility] Body Weight 2021-04-26 00:00:00 205 [lb_av] [facility] BP Diastolic 2021-04-21 00:00:00 101 mm[Hg] [facility] Height 2021-04-21 00:00:00 67 [in_i] [facility] BP Systolic 2021-04-21 00:00:00 154 mm[Hg] [facility] Systolic blood 2021-04-04 14:24:00 143 mm[Hg] [facility] [...] Healt h BMI 2021-03-07 19:51:00 32.89 kg/m2 [facility] h BP Diastolic 2021-02-27 00:00:00 100 mm[Hg] [facility] Height 2021-02-27 00:00:00 67 [in_i] [facility] BP Systolic 2021-02-27 00:00:00 158 mm[Hg] [facility] BP Diastolic 2021-02-06 00:00:00 95 mm[Hg] [facility] Height 2021-02-06 00:00:00 67 [in_i] [facility] BMI (Body Mass Index) 2021-02-06 00:00:00 34.1 kg/m2 [facility] BP Systolic 2021-02-06 00:00:00 140 mm[Hg] [facility] Body Weight 2021-02-06 00:00:00 218 [lb_av] [facility] Temperature Oral (F) 2014-12-13 18:54:00 98.2 F [facility] Heart Rate 2014-12-13 18:54:00 [facility] [place] Respitory Rate 2014-12-13 18:54:00 [facility] [place] Systolic (mm Hg) 2014-12-13 18:54:00 [facility] [place] Diastolic (mm Hg) 2014-12-13 18:54:00 [facility] [place] Weight 2014-12-13 16:01:00 [facility] BMI Calculated 2014-12-13 16:01:00 [facility] [place] Height 2014-12-13 16:01:00 175.26 cm [facility] [place] Heart Rate 2014-12-13 16:01:00 [facility] [place] Systolic (mm Hg) 2014-12-13 16:01:00 Darian [facility] [place] Diastolic (mm Hg) 2014-12-13 16:01:00 [facility] [place] Respitory Rate 2014-12-13 16:01:00 [facility] [place] Temperature Oral (F) 2014-12-13 16:01:00 98.6 F [facility] [place] Diastolic (mm Hg) 2014-05-07 21:08:00 [facility] [place] Systolic (mm Hg) 2014-05-07 21:08:00 Adrian [facility] [place] Heart Rate 2014-05-07 21:08:00 [facility] Respitory Rate 2014-05-07 21:08:00 [facility] [place] Height 2014-05-07 15:54:00 172.72 cm [facility] Weight 2014-05-07 15:54:00 [facility] [place] BMI Calculated 2014-05-07 15:54:00 [facility] [place] Temperature Oral (F) 2014-05-07 15:54:00 98.1 F [facility] [place] Respitory Rate 2014-05-07 15:54:00 [facility] [place] Heart Rate 2014-05-07 15:54:00 [facility] Diastolic (mm Hg) 2014-05-07 15:54:00 [facility] [place] Systolic (mm Hg) 2014-05-07 15:54:00 Adrina [facility] [place] Diastolic (mm Hg) 2013-09-01 21:35:00 [facility] [place] Respitory Rate 2013-09-01 21:35:00 [facility] [place] Systolic (mm Hg) 2013-09-01 21:35:00 Adrian [facility] [place] Heart Rate 2013-09-01 21:35:00 [facility] Temperature Oral (F) 2013-09-01 21:35:00 100.3 F [facility] [place] Temperature Oral (F) 2013-09-01 20:11:00 99.2 F [facility] Heart Rate 2013-09-01 20:11:00 [facility] [place] Systolic (mm Hg) 2013-09-01 20:11:00 Adrian [facility] [place] Respitory Rate 2013-09-01 20:11:00 [facility] [place] Diastolic (mm Hg) 2013-09-01 20:11:00 [facility] [place] Temperature Oral (F) 2013-09-01 19:00:00 99.7 F [facility] [place] Weight 2013-09-01 14:50:00 [facility] [place] Height 2013-09-01 14:50:00 177.8 cm [facility] [place] Heart Rate 2013-09-01 14:50:00 [facility] [place] Respitory Rate 2013-09-01 14:50:00 [facility] [place] Diastolic (mm Hg) 2013-09-01 14:50:00 [facility] [place] Systolic (mm Hg) 2013-09-01 14:50:00 Adrian [facility] [place] Procedures Procedure Date / Time Performing Clinician Source Performed electrocardiogram 2023-02-27 00:00:00 [facility] Box XR, chest, 2 view 2022-10-24 00:00:00 [facility] Box electrocardiogram 2022-08-20 00:00:00 [facility] Box CT ABDOMEN AND PELVIS W +W/O 2022-02-06 00:00:00 [facility] $500 Box ECG- ADULT 2021-10-12 21:38:41 Foreign Obrien bold XR SHOULDER 2+ VIEWS RIGHT 2021-03-07 20:12:28 [facility] Stuart [facility], duplex, venous, upper 2021-02-27 00:00:00 [facility] extremity, unilateral Box XR, shoulder 2021-02-13 00:00:00 [facility] Box XR, cervical spine 2021-02-13 00:00:00 [facility] Excision of Colon 2019-10-25 00:00:00 [facility] Box Colonoscopy 2017-09-23 00:00:00 [facility] Box Procedure on Shoulder 2009-09-23 [facility] Complete Repair of Rotator 2009-09-23 00:00:00 [facility] Cuff Box Appendectomy [facility] Plan of Care Planned Activity Planned Date Details Comments Source Future Scheduled Test 2026-03-23 DTAP/TDAP/TD [facility] 00:00:00 VACCINES (2 - Td or Medical Center Tdap) [code = DTAP/TDAP/TD VACCINES (2 - Td or Tdap)] Diagnostic Test 2023-04-24 drug screen, urine [facility] Pending 00:00:00 [code = drug screen, Box urine] Future Scheduled Test 2021-12-[address] [facility] 00:00:00 (procedure) [code = [facility] [id number]] Future Scheduled Test 2021-05-[address] [facility] 00:00:00 (#1) [code = [facility] INFLUENZA VACCINE (#1)] Future Scheduled Test 2020-09-[address] [facility] 00:00:00 (12+) [code = Medical Center DEPRESSION SCREENING (12+)] Future Scheduled Test 2013-12-07 SHINGLES VACCINES ([address] [facility] 00:00:00 of 2) [code = Medical Center SHINGLES VACCINES (1 of 2)] Future Scheduled Test 1981-12-[address] [facility] 00:00:00 SCREENING [code = Medical Ce nter HEPATITIS C SCREENING] Future Scheduled Test 1975 COVID-19 VACCINE (1) [facility] 00:00:00 [code = COVID-[address] VACCINE (1)] Future Scheduled Test [facility] malignant neoplasm Medical C enter of colon (procedure) [code = 873395370] Encounters Start End Encounter Admission Attending Care Care Encounter Source Date/Time Date/Time Type Type Clinicians Facility Department ID 2021-04-04 Outpatient [facility] [id number] [place] 10:25:45 [facility] 2021-03-21 Outpatient PING, [facility] [id number] [place] 15:49:05 Health 2021-03-07 [facility] [id number] [place] 14:59:27 [facility] 2023-06-06 2023-06-06 Jordi [facility] 14 [place] 00:00:00 00:00:00 Omar: Flor najera [address] [facility] OnSite 115[facility] PROPERTY [address] , Ph. 2023-04-24 2023-04-24 Jordi [facility] [id number] 02 [place] 00:00:00 00:00:00 Omar: Flor najera [address] [facility] OnSite 115[facility] PROPERTY [address] , Ph. 2023-03-13 2023-03-13 Jordi [facility] [id number] 21 [place] 00:00:00 00:00:00 Omar: Flor najera [address] Thuan Nelson PA-C [facility], [address], [place] [address] , Ph. 2023-03-12 2023-03-12 Jordi [facility] [id number] 20 [place] 00:00:00 00:00:00 Omar: Hub - Jordi n 2450 Omar, Healt h Frank PA-C [address], [place] [id number] , Ph. 2023-02-27 2023-02-27 Jordi [facility] [id number] 07 [place] 00:00:00 00:00:00 Omar: Hub - Jordi n 2450 Omar, Healt h [place] PA-C [address], [place] [id number] , Ph. 2023-02-25 2023-02-25 Jordi [facility] [id number] 05 [place] 00:00:00 00:00:00 Omar: Hub - Jordi n 2450 Omar, Healt h Frank PA-C [address], [place] [id number] , Ph. 2022-12-20 2022-12-20 Jordi [facility] [id number] 30 [place] 00:00:00 00:00:00 Omar: Hub - Jordi n 2450 Omar, Healt h [place] PA-C [address], [place] [id number] , Ph. 2022-12-13 2022-12-13 Jordi [facility] [id number] 23 [place] 00:00:00 00:00:00 Omar: Hub - Jordi n [address] Omar, Healt h [place] PA-C [address], [place] [address] , Ph. 2022-12-10 2022-12-10 Jordi [facility] [id number] 20 [place] 00:00:00 00:00:00 Omar: Hub - Jordi n 2450 Omar, Healt h [place] PA-C [address], [place] [address] , Ph. 2022-11-27 2022-11-27 Jordi HHB [facility] 07 [place] 00:00:00 00:00:00 Omar: Hub - n [address] [facility] Box [facility] [place] [address], [facility] PROPERTY [address] , Ph. 2022-11-16 2022-11-16 Outpatient DanielleOls HHB [facility] 425 [place] 00:00:00 00:00:00 zeski 224 n Health Box 2022-11-16 2022-11-16 Outpatient DanielleOls [facility]HB [facility] 425 [place] 00:00:00 00:00:00 zeski 307 n Health Box 2022-11-16 2022-11-16 Outpatient DanielleOls [facility]HB [facility] 425 [place] 00:00:00 00:00:00 zeski 320 n Health Box 2022-11-16 2022-11-16 Outpatient DanielleOls HHB HHB 425 [place] 00:00:00 00:00:00 zeski 322 n Health Box 2022-11-16 2022-11-16 Outpatient DanielleOls HHB HHB 425 [place] 00:00:00 00:00:00 zeski 323 n Health Box 2022-11-16 2022-11-16 Outpatient DanielleOls HHB HHB 425 [place] 00:00:00 00:00:00 zeski 330 n Health Box 2022-11-16 2022-11-16 Outpatient DanielleOls HHB H[facility] 425 [place] 00:00:00 00:00:00 zeski 605 n Health Box 2022-11-16 2022-11-16 Outpatient DanielleOls HHB HHB 425 [place] 00:00:00 00:00:00 zeski 607 n Health Box 2022-11-16 2022-11-16 Outpatient DanielleOls HHB HHB 425 [place] 00:00:00 00:00:00 zeski 620 n Health Box 2022-11-16 2022-11-16 Outpatient DanielleOls HHB HHB 425 [place] 00:00:00 00:00:00 zeski 621 n Health Box 2022-11-16 2022-11-16 Outpatient DanielleOls B [facility] 425 [place] 00:00:00 00:00:00 zeski 802 n Health Box 2022-11-16 2022-11-16 Outpatient DanielleOls [facility] 425 [place] 00:00:00 00:00:00 zeski 914 n Health Box 2022-11-16 2022-11-16 Jordi B [facility] [place] 00:00:00 00:00:00 Omar: Flor Guidry n [address] [facility] Box y [place] [address], [facility] [address] , Ph. 2022-11-12 2022-11-12 Jordi B [facility] [place] 00:00:00 00:00:00 Omar: Flor najera [address]50 Thuan Nelson [facility], [address], [place] [address] , Ph. 2022-11-01 2022-11-01 Outpatient DanirichardOls [facility] [place] 00:00:00 00:00:00 zeski 209 n Health Box 2022-11-01 2022-11-01 Outpatient DanielleOls [facility] [place] 00:00:00 00:00:00 zeski 220 n Health Box 2022-11-01 2022-11-01 Outpatient DanielleOls B [facility] [place] 00:00:00 00:00:00 zeski 221 n Health Box 2022-10-25 2022-10-25 Outpatient TRED47 [facility] [facility] [id number] [place] 10:00:00 10:00:00 Seybol d 2022-10-25 2022-10-25 Outpatient LAB47 [place] [id number] [place] 08:45:00 08:45:00 Seybol d 2022-10-25 2022-10-25 Outpatient SHADY, MAHOGANY MAHOGANY [id number] 25 [place] 08:00:00 08:00:00 RAPHAEL palacio 2022-10-24 2022-10-24 Jordi [facility] [place] 00:00:00 00:00:00 Omar: Hub - n [address] [facility] [address] [place] [address], [facility] PROPERTY [address] , Ph. 2022-10-23 2022-10-23 Jordi [facility] [place] 00:00:00 00:00:00 Omar: Hub - n [address] [facility] [address] [place] [address], [facility] PROPERTY [address] , Ph. 2022-10-11 2022-10-11 Jordi [facility] [place] 00:00:00 00:00:00 Omar: Hub - n [address] [facility] [address] [place] [address], [facility] PROPERTY [address] , Ph. 2022-10-04 2022-10-04 Jordi [facility] [place] 00:00:00 00:00:00 Omar: Hub - n [address] [facility] [address] [place] [address], [facility] PROPERTY [address] , Ph. 2022-09-20 2022-09-20 Outpatient DanielleOls [facility] 425 [place] 00:00:00 00:00:00 zeski 112 n Health Box 2022-09-20 2022-09-20 Outpatient DanielleOls B B 425 [place] 00:00:00 00:00:00 zeski 123 n Health Box 2022-09-20 2022-09-20 Outpatient DanielleOls B B 425 [place] 00:00:00 00:00:00 zeski 131 n Health Box 2022-09-20 2022-09-20 Outpatient Brooks Loy [facility] 425 [place] 00:00:00 00:00:00 zeski 201 n Health Box 2022-09-20 2022-09-20 Outpatient Brooks Loy [facility] 425 [place] 00:00:00 00:00:00 zeski 229 n Health Box 2022-09-20 2022-09-20 Concha [facility] 229 [place] 00:00:00 00:00:00 Stephanie: Flor najera [address] [facility] [address] [place] [address], [facility] PROPERTY [address] , Ph. 2022-09-19 2022-09-19 Outpatient Brooks Loy [facility] 425 [place] 00:00:00 00:00:00 zeski 228 n [facility] 2022-09-19 2022-09-19 Concha [facility] 228 [place] 00:00:00 00:00:00 Stephanie: Flor najera [address] [facility] [address] [place] [address], [facility] PROPERTY [address] , Ph. 2022-09-04 2022-09-04 Outpatient Brooks [facility] 425 [place] 00:00:00 00:00:00 zeski 213 n [facility] 2022-09-04 2022-09-04 Erin [facility] [id number] [place] 00:00:00 00:00:00 Flor Amado PA: [address] [facility] [address] [place] [address], [facility] PROPERTY [address] , Ph. 2022-08-29 2022-08-29 Outpatient Brooks [facility] 425 [place] 00:00:00 00:00:00 zeski 207 n Health Box 2022-08-29 2022-08-29 Jordi VICENTE [facility] [id number] [place] 00:00:00 00:00:00 Omar: Hub - n [address] [facility] [address] [place] [address], [facility] PROPERTY [address] , Ph. 2022-08-20 2022-08-20 Outpatient Brooks B B 425 [place] 00:00:00 00:00:00 zeski 128 n Health Box 2022-08-15 2022-08-15 Jordi B [facility] [id number] [place] 00:00:00 00:00:00 Omar: Hub - n [address] [facility] [address] [place] [address], [facility] PROPERTY [address] , Ph. 2022-08-13 2022-08-13 [facility] 425 [place] 00:00:00 00:00:00 zeski 121 n Health Box 2022-08-13 2022-08-13 Jordi B [facility] [id number] [place] 00:00:00 00:00:00 Omar: Hub - n [address] [facility] [address] [place] [address], [facility] PROPERTY [address] , Ph. 2022-08-10 2022-08-10 [facility] 425 [place] 00:00:00 00:00:00 zeski 118 n Health Box 2022-08-10 2022-08-10 Jordi B [facility] [id number] [place] 00:00:00 00:00:00 Omar: Flor - n [address] [facility] [address] [place] [address], [facility] PROPERTY [address] , Ph. 2022-08-09 2022-08-09 Out[facility] 425 [place] 00:00:00 00:00:00 zeski 117 n Health Box 2022-08-09 2022-08-09 Erin B [facility] [id number] 17 [place] 00:00:00 00:00:00 Flor Amado PA: [address] [facility] [address] [place] [address], [facility] PROPERTY [address] , Ph. 2022-08-08 2022-08-08 Outpatient Brooks Loy B 425 [place] 00:00:00 00:00:00 zeski 116 n Health Box 2022-08-08 2022-08-08 Jordi B [facility] [id number] [place] 00:00:00 00:00:00 Moar: Flor - n [address] [facility] [address] [place] [address], [facility] PROPERTY [address] , Ph. 2022-07-31 2022-07-31 Outpatient Brooks B B 425 [place] 00:00:00 00:00:00 zeski 108 n [facility] 2022-07-31 2022-07-31 Erin B [facility] [id number] [place] 00:00:00 00:00:00 Flor Amado PA: [address] [facility] [address] [place] [address], [facility] PROPERTY [address] , Ph. 2022-07-30 2022-07-30 Outpatient Brooks Loy B 425 [place] 00:00:00 00:00:00 zeski 107 n Health Box 2022-07-30 2022-07-30 Jordi B [facility] [id number] [place] 00:00:00 00:00:00 Omar: Flor - n [address] [facility] [address] [place] [address], [facility] PROPERTY [address] , Ph. 2022-07-12 2022-07-12 Outpatient Brooks Loy B 425 [place] 00:00:00 00:00:00 zeski 020 n Health Box 2022-07-12 2022-07-12 Jordi [facility] 20 [place] 00:00:00 00:00:00 Omar: Hub - n [address] [facility], [address] [place] [address], [facility] BOXER [address] PROPERTY , Ph. 2022-07-02 2022-07-02 Outpatient ShaynerichardRose B B 425 [place] 00:00:00 00:00:00 zeski 010 n Health Box 2022-07-02 2022-07-02 Jordi [facility] 10 [place] 00:00:00 00:00:00 Omar: Hub - n [address] [facility], [address] [place] [address], [facility] [address] PROPERTY , Ph. 2022-06-28 2022-06-28 Outpatient ShaynerichardOls [facility] 425 [place] 00:00:00 00:00:00 zeski 006 n Health [place] 2022-06-28 2022-06-28 Erin [facility] 06 [place] 00:00:00 00:00:00 Flor Amado PA: [address] [facility]alt [facility] [address], [facility] BOXER [address] PROPERTY , Ph. 2022-06-07 2022-06-07 Outpatient Brooks [facility] 425 [place] 00:00:00 00:00:00 zeski 915 n Health Box 2022-06-07 2022-06-07 Outpatient Omar, B B [id number] 00:00:00 00:00:00 Jordi [id number] 2022-06-07 2022-06-07 Jordi [facility] 15 [place] 00:00:00 00:00:00 Omar: Hub - n [address] [facility], [address] [place] [address], [facility] [place] [address] PROPERTY , Ph. 2022-05-29 2022-05-29 Outpatient ConchaOls B [facility] 425 [place] 00:00:00 00:00:00 zeski 906 n Health Box 2022-05-29 2022-05-29 Outpatient Omar, CARLAB B [id number] 00:00:00 00:00:00 Jordi [id number] 2022-05-29 2022-05-29 Jordi B [facility] 06 [place] 00:00:00 00:00:00 Omar: Hub - n [address] [facility], [address] [place] [address], [facility] [address] PROPERTY , Ph. 2022-04-06 2022-04-06 Outpatient Brooks B B 425 [place] 09:45:00 09:45:00 zeski 715 n Health Box 2022-04-05 2022-04-05 Outpatient Brooks B [facility] 425 [place] 12:25:00 12:25:00 zeski 714 n [facility] Box 2022-04-05 2022-04-05 Outpatient Omar, B B [id number] 00:00:00 00:00:00 Jordi [id number] 2022-04-05 2022-04-05 Outpatient Omar, B B [id number] 00:00:00 00:00:00 Jordi [id number] 2022-04-05 2022-04-05 Jordi [facility] 14 [place] 00:00:00 00:00:00 Omar: Hub - n [address] [facility], [address] [place] [address], On[facility] BOXER [address] PROPERTY , Ph. 2022-03-27 2022-03-27 Outpatient ConchaOls B B 425 [place] 03:29:00 03:29:00 zeski 705 n Health Box 2022-03-27 2022-03-27 Outpatient JULES Nelson Loy [id number] 00:00:00 00:00:00 Jordi [id number] 2022-03-27 2022-03-27 Jordi VICENTE [place] [facility] [id number] 05 [place] 00:00:00 00:00:00 Omar: Hub - n [address] [facility], [address] [place] [address], On[facility] BOXER [address] PROPERTY , Ph. 2022-02-26 2022-02-26 Outpatient Brooks Loy [facility] 425 [place] 05:37:00 05:37:00 zeski 606 n [facility] 2022-02-26 2022-02-26 Outpatient JULES Brown Loy [id number] 00:00:00 00:00:00 Concha [id number] 2022-02-26 2022-02-26 Concha VICENTE [facility] [id number] 606 [place] 00:00:00 00:00:00 Stephanie: Hub - n [address] [facility], [address] [place] [address], On[facility] BOXER [address] PROPERTY , Ph. 2022-02-22 2022-02-22 Outpatient Brooks Loy [facility] 425 [place] 03:08:00 03:08:00 zeski 602 n Health Box 2022-02-22 2022-02-22 Concha VICENTE [place] [facility] [id number] 602 [place] 00:00:00 00:00:00 Stephanie: Hub - n [address] [facility], [address] [place] [address], On[facility] BOXER [address] PROPERTY , Ph. 2022-02-22 2022-02-22 Outpatient JULES Brown [facility] [id number] 00:00:00 00:00:00 Concha [id number] 2022-02-15 2022-02-15 Outpatient Brooks Loy [facility] 425 [place] 04:29:00 04:29:00 zeski 526 n Health Box 2022-02-15 2022-02-15 Concha [facility] 526 [place] 00:00:00 00:00:00 Stephanie: Hub - n [address] [facility], [address] [place] [address], [facility] BOXER [address] PROPERTY , Ph. 2022-02-15 2022-02-15 Outpatient JULES Brown Loy [id number] 00:00:00 00:00:00 Concha [id number] 2022-02-06 Outpatient Brooks VICENTE [facility] 425 [place] 07:32:00 07:32:00 zeski 517 n Health Box 2022-02-06 2022-02-06 Concha [facility] 517 [place] 00:00:00 00:00:00 Stephanie: Hub - n [address] [facility], [address] [place] [address], [facility] [place] [address] PROPERTY , Ph. 2022-02-06 2022-02-06 Outpatient JULES Brown Loy [id number] 00:00:00 00:00:00 Concha [id number] 2022-01-23 2022-01-23 Outpatient Brooks Loy [facility] 425 [place] 05:21:00 05:21:00 zeski 503 n Health Box 2022-01-22 2022-01-22 Concha [facility] 502 [place] 00:00:00 00:00:00 Stephanie: Hub - n [address] [facility], [address] [place] [address], On[facility] [place]OXER [address] PROPERTY , Ph. 2022-01-22 2022-01-22 Outpatient JULES Brown Loy [id number] 00:00:00 00:00:00 Concha [id number] 2022-01-11 2022-01-11 Outpatient ConchaRose Loy [facility] 425 [place] 03:19:00 03:19:00 zeski 421 n Health Box 2022-01-11 2022-01-11 Concha [facility] 421 [place] 00:00:00 00:00:00 Stephanie: Hub - n [address] [facility], [address] [place] [address], [facility] BOXER [address] PROPERTY , Ph. 2022-01-11 2022-01-11 Outpatient JULES Brown Loy [id number] 00:00:00 00:00:00 Concha [id number] 2022-01-02 2022-01-02 Outpatient Brooks Loy [facility] 425 [place] 10:51:00 10:51:00 zeski 412 n Health [place] 2022-01-01 2022-01-01 Outpatient Brooks Loy [facility] 425 [place] 03:47:00 03:47:00 zeski [address] 2022-01-01 2022-01-01 Concha [facility] [address] 00:00:00 00:00:00 Stephanie: Hub - n [address] [facility], [address] [place] [address], [facility] [place] [address] PROPERTY , Ph. 2022-01-01 2022-01-01 Outpatient JULES Brown Loy [id number] 00:00:00 00:00:00 Concha [id number] 2021-12-27 2021-12-27 Outpatient Brooks B B [address] 04:58:00 04:58:00 zeski [address] 2021-12-27 2021-12-27 Concha [facility] [address] 00:00:00 00:00:00 Olszeski: Hub - n [address] [facility], [address] [place] [address], [facility] [place] [address] PROP[employer] , Ph. 2021-12-27 2021-12-27 Outpatient Stephanie Loy [facility] [id number] 00:00:00 00:00:00 Concha [id number] 2021-12-26 2021-12-26 Outpatient Brooks [facility] [address] 01:17:00 01:17:00 zeski 405 n Health Box 2021-12-26 2021-12-26 Concha [facility] [address] 00:00:00 00:00:00 Olszeski: Hub - n [address] [facility], [address] [place] [address], [facility] BOXER [address] PROPERTY , Ph. 2021-12-26 2021-12-26 Outpatient Stephanie Loy [facility] [id number] 00:00:00 00:00:00 Concha [id number] 2021-12-15 2021-12-15 Outpatient Brooks [facility] [address] 02:03:00 02:03:00 zeski 325 [address] Health Box 2021-12-15 2021-12-15 Concha [facility] [address] 00:00:00 00:00:00 Olszeski: Hub - n [address] [facility], [address] [place] [address], [facility] BOXER [address] PROPERTY , Ph. 2021-12-15 2021-12-15 Outpatient JULES Brown Loy beefe 734-[id number] 00:00:00 00:00:00 Concha [id number] 2021-12-07 2021-12-07 Outpatient [facility] [address] 02:07:00 02:07:00 zeski 317 [address] Health Box 2021-11-30 2021-11-30 [facility] [address] 12:50:00 12:50:00 zeski 310 n Health Box 2021-11-27 2021-11-27 [facility] [address] 03:14:00 03:14:00 zeski 307 [address] Health Box 2021-11-27 2021-11-27 Concha [facility] [address] 00:00:00 00:00:00 Stephanie: Hub - n [address] [facility], [address] [place] [address], [facility] [place]OXER [address] PROPERTY , Ph. 2021-11-27 2021-11-27 Outpatient JULES Brown [facility] [id number] 00:00:00 00:00:00 Concha [id number] 2021-11-22 2021-11-22 Outpatient Brooks Loy [facility] [address] 08:52:00 08:52:00 zeski 302 [address] Health Box 2021-11-21 2021-11-21 Outpatient ShaynerichardRose [facility] [address] 09:30:00 09:30:00 zeski 301 [address] Health Box 2021-11-21 2021-11-21 Concha Loy [facility] [address] 00:00:00 00:00:00 Stephanie: Flor - n [address] [facility], [address] [place] [address], [facility] BOXER [address] PROPERTY , Ph. 2021-11-212021-11-21 Outpatient Stephanie Loy B [id number] 00:00:00 00:00:00 Concha [id number] 2021-11-20 2021-11-20 Outpatient Brooks Loy [facility] [address] 09:28:00 09:28:00 zeski 228 [address] Health Box 2021-11-20 2021-11-20 Concha [facility] [address] 00:00:00 00:00:00 Stephanie: Hub - n [address] [facility], [address] [place] [address], [facility] [place]ER [address] PROPERTY , Ph. 2021-11-20 2021-11-20 Outpatient Stephanie Loy [facility] [id number] 00:00:00 00:00:00 Concha [id number] 2021-10-24 2021-10-24 Outpatient MAHOGANY OBRIEN [id number] [place] 00:00:00 00:00:00 FOREIGN Seybol d 2021-10-18 2021-10-18 Outpatient Broosk [facility] [address] 11:42:00 11:42:00 zeski 126 n Health [place] 2021-10-18 2021-10-18 Outpatient Stephanie Loy [facility] [id number] 00:00:00 00:00:00 Cocnha [id number] 2021-10-18 2021-10-18 Concha [facility] [address] 00:00:00 00:00:00 Stephanie: Hub - n [address] [facility], [address] [place] [address], [facility] [place]ER [address] PROPERTY , Ph. 2021-10-12 2021-10-12 Outpatient TRESal VIDES [id number] [place] 16:15:00 16:15:00 Seybol d 2021-10-12 2021-10-12 Outpatient LAB08 MAHOGANY VIDES [id number] [place] 15:45:00 15:45:00 Seybol d 2021-10-12 2021-10-12 Office YAYA Obrien [id number] [place] 15:00:00 15:30:00 Visit Foreign 350.1.13.13 Se ybold 1.2.7.2.686 [id number] 2021-10-05 2021-10-05 Outpatient MAHOGANY OBRIEN [id number] [place] 08:15:00 08:15:00 FOREIGN Seybol d 2021-09-27 2021-09-27 Outpatient MAHOGANY OBRIEN [id number] [place] 00:00:00 00:00:00 FOREIGN Seybol d 2021-09-26 2021-09-26 Outpatient Brooks [facility] [address] 11:14:00 11:14:00 deriki 104 n Health Box 2021-09-26 2021-09-26 Outpatient JULES Brown Loy [id number] 00:00:00 00:00:00 Concha [id number] 2021-09-26 2021-09-26 Concha [facility] [address] 00:00:00 00:00:00 Stephanie: [facility] - n [address] [facility], [address] [place] [address], [facility] [address] [address] PROPERTY , Ph. 2021-09-19 2021-09-19 Outpatient Brooks [facility] [address] 11:25:00 11:25:00 zeyousif [address] Box 2021-09-19 2021-09-19 Outpatient JULES Brown Loy [id number] 00:00:00 00:00:00 Concha [id number] 2021-09-19 2021-09-19 Concha [facility] - Health [address] [address] 00:00:00 00:00:00 Olsindia: Hub - n [address] [facility], [address] [place] [address], [facility] [place]ER [address] PROPERTY , Ph. 2021-06-16 2021-06-16 Outpatient Stephanie JULES B [id number] 00:00:00 00:00:00 Concha [id number] 2021-06-16 Concha [facility] [address] 00:00:00 00:00:00 Stephanie: Hub - n [address] [facility], [address] [place] [address], [facility] [place]ER [address] PROPERTY , Ph. 2021-05-18 2021-05-18 Outpatient ShayneSilvana [facility] [address] 09:02:00 09:02:00 zeski 826 [address] Health [place] 2021-05-18 2021-05-18 Outpatient Jasonbecky Loy B [id number] 3da-[id number] 00:00:00 00:00:00 Concha [id number] 2021-05-18 2021-05-18 Concha [facility] [id number] [address] 00:00:00 00:00:00 Stephanie: Hub - n [address] [facility], [address] [place] [address], [facility] [place]ER [address] PROPERTY , Ph. 2021-05-05 2021-05-05 Outpatient Brooks [facility] [address] 01:40:00 01:40:00 zeski 813 [address] Health Box 2021-05-05 2021-05-05 Outpatient Stephanie Loy B [id number] 00:00:00 00:00:00 Concha [id number] 2021-05-05 2021-05-05 Concha [facility] [address] 00:00:00 00:00:00 [place] [address] [facility], [facility] [address] TRIO , Ph. ELECTRIC 2021-04-26 2021-04-26 Outpatient Brooks [facility] [address] 09:10:00 09:10:00 deriki 804 n [facility] 2021-04-26 2021-04-26 Outpatient Stephanie Loy Loy [id number] 00:00:00 00:00:00 Concha [id number] 2021-04-26 2021-04-26 Concha [facility] [address] 00:00:00 00:00:00 Stephanie: Hub - n [address] [facility], [place] [address], [facility] [address]OXER [address] PROPERTY , Ph. 2021-04-21 2021-04-21 Outpatient Brooks [facility] [address] 11:37:00 11:37:00 ind[place] 730 n [facility] 2021-04-21 2021-04-21 Outpatient Stephanie [facility] [id number] 00:00:00 00:00:00 Concha [id number] 2021-04-21 2021-04-21 Concha [facility] [address] 00:00:00 00:00:00 Stephanie: Hub - n [address] [facility], [place] [address], [facility] [address]OXER [address] PROPERTY , Ph. 2021-04-05 2021-04-05 Refill Stuart Feng [facility] 1.2.840.114 [id number] [place] 00:00:00 00:00:00 KITTREDGE 350.1.13.58 H ealth MEDICAL 9.2.7.2.686 [address] 5 [id number] 2021-04-04 2021-04-04 Office Dk Arenas GINO [facility] 1.2.840.114 [id number] [place] 08:53:47 10:26:13 Visit ORTHO AND 350.1.13.58 Health [place] 9.2.7.2.686 MEDICAL [id number] PLA[address] 1 2021-03-21 2021-03-21 Office Stuart Feng [facility] 1.2.840.114 [id number] [place] 13:59:28 15:46:35 Visit ADELIA 350.1.13.58 H [facility] MEDICAL 9.2.7.2.686 [address] 7 [id number] 5 2021-03-13 2021-03-13 Telephone Reginaldo [facility] [id number] 00:00:00 00:00:00 Jac DELVALLE 350.1.13.58 MEDICAL 9.2.7.2.686 [address] 1 [id number] 2021-03-13 2021-03-13 Telephone Reginaldo [facility] [id number] [id number] [place] 00:00:00 00:00:00 Jac DELVALLE 350.1.13.58 H [facility] MEDICAL 9.2.7.2.686 [address] 6 [id number] 5 2021-03-07 2021-03-07 Office Stuart Feng GINO [facility] 1.2.840.114 [id number] 14:09:20 15:54:48 Visit ADELIA 350.1.13.58 MEDICAL 9.2.7.2.686 [address] 4 [id number] 5 2021-03-07 2021-03-07 Office Stuart Feng [facility] 1.2.840.114 [id number] [place] 14:09:20 15:54:48 Visit ADELIA 350.1.13.58 H [facility] MEDICAL 9.2.7.2.686 [address] 4 [id number] 5 2021-03-06 2021-03-06 Telephone Reginaldo, [facility] [id number] 00:00:00 00:00:00 Jac DELVALLE 350.1.13.58 MEDICAL 9.2.7.2.686 [address] 8 [id number] 5 2021-03-06 2021-03-06 Telephone GINO Hair [facility] [id number] [place] 00:00:00 00:00:00 Jac DELVALLE 350.1.13.58 H [facility] 9.2.7.2.686 [address] 6 [id number] 5 2021-02-27 2021-02-27 Outpatient ShayneSilvana [facility] [address] 04:18:00 04:18:[address] [facility] [address] Box 2021-02-27 2021-02-27 Concha VICENTE [facility] [address] 00:00:00 00:00:00 Chuck Guidry OC dania [address] [facility], [address], [place] [address] , Ph. 2021-02-27 2021-02-27 Outpatient JULES Brown [facility] [id number] 00:00:00 00:00:00 Concha [id number] 2021-02-27 2021-02-27 Outpatient JULES Brown [facility] [id number] 00:00:00 00:00:00 Concha [id number] 2021-02-27 2021-02-27 Outpatient JULES Brown [facility] [id number] 00:00:00 00:00:00 Concha [id number] 2021-02-06 2021-02-06 Outpatient Brooks [facility] [address] 10:04:00 10:04:00 zeski 517 [address] Box 2021-02-06 2021-02-06 Outpatient JULES Brown [facility] [id number] 00:00:00 00:00:00 Concha [id number] 2021-02-06 2021-02-06 Concha [facility] [address] [address] 00:00:00 00:00:00 Stephanie: Hub - [facility]- n [address] [facility] [place], [address], [place] [address] , Ph. 2020-05-11 2020-05-11 Outpatient COH COH PDPFELD YBU COH 00:00:00 00:00:00 [id number] 2016-06-27 2016-06-27 Outpatient MHIE MHIE [id number] [address] 15:45:00 15:45:00 03 amparo Mathew 2016-06-27 2016-06-27 Outpatient MHIE MHIE [id number] 15:45:00 15:45:00 03 amparo Mathew 2016-02-22 2016-02-22 Outpatient MHIE MHIE [id number] 08:45:00 08:45:00 02 amparo Mathew 2016-02-22 2016-02-22 Outpatient MHIE MHIE [id number] 08:45:00 08:45:00 02 amparo Mathew 2015-10-12 2015-10-12 Outpatient MHIE MHIE [id number] 15:45:00 15:45:00 01 amparo Mathew 2015-10-12 2015-10-12 Outpatient MHIE MHIE [id number] 15:45:00 15:45:00 01 amparo Mathew 2015-06-15 2015-06-15 Outpatient MHIE MHIE [id number] 08:15:00 08:15:00 00 amparo Mathew 2015-06-15 2015-06-15 Outpatient MHIE MHIE [id number] [place] 08:15:00 08:15:00 [place] 2014-12-13 2014-12-13 [facility] [id number] [address] 15:50:00 18:55:00 Emergency r [place] 07 l [facility] 2014-12-13 2014-12-13 [facility] [id number] [place] 15:50:00 18:55:00 Emergency r [place] 07 l [facility] 2014-12-13 2014-12-13 Outpatient Mohsen Manriquez 2.16.840. 2.16.840. 1. [id number] 10:50:00 13:55:00 R [id number] 3.615.0.1 5.0.205 90 2886-08-15 2014-05-07 [facility] [id number] 675 [address] 15:53:00 21:11:00 Emergency r [address] 2014-05-07 2014-05-07 [facility] [id number] 675 [place] 15:53:00 21:11:[address] 2014-05-07 2014-05-07 Outpatient Nelson 2.16.840. 2.16.840.1. 3 [id number] 10:53:00 16:11:00 [place] [id number] [facility] 3.615.0.1 5.0.913 06 6477-12-10 2013-09-01 Emergency [facility] [id number] [address] 08:42:00 15:51:00 Harvinder Mathew 2013-09-01 2013-09-01 Outpatient 2.16.840. 2.16.840.1. 3 [id number] Memoria 08:42:00 15:51:00 [id number]. [id number] [facility] 3.615.0.[address] 2013-09-01 2013-09-01 [facility] [id number] [place] 08:42:00 15:51:00 [place] [address] amparo Mathew Results Test Description Test Time Test Comments Results Result Comments Source Drugs identified in Urine by Screen method 2023-04-24 08:08: 02 Test Item Value Reference Range Interpretation Comme nts Amphetamines: (test code = Amphetamines:) negative Cannabinoids: (test code = Cannabinoids:) negative Cocaine: (test code = Cocaine:) negative Opiates: (test code = Opiates:) negative Phenocyclidine: (test code = Phenocyclidine:) negative [facility] Box[facility] 1995 panel - Serum or [id number] 00:00:00 Test Item Value Reference Range Interpretation Comments Cholesterol 209 mg/dL <200 H [Mass/volume] in Serum or Plasma (test code = 2092-3) Cholesterol in HDL 51 mg/dL See_Comment [Automat ed [Mass/volume] in message] Th e system Serum or Plasma (test which generated code = 2084-) this result transmitted reference range : > or = 40. The reference range was not used to interpret this result as normal/abnormal . Triglyceride 138 mg/dL <150 [Mass/volume] in Serum or Plasma (test code = 2571-8) Cholesterol in LDL 132 mg/dL H [Mass/volume] in (calc) Serum or Plasma by calculation (test code = 03302-8) Cholesterol.total/Cho 4.1 (calc) <5.0 lesterol in HDL [Mass Ratio] in Serum or Plasma (test code = 9830-1) Cholesterol non HDL 158 mg/dL <130 H [Mass/volume] in (calc) Serum or Plasma (test code = 42706-5) [facility] - [facility] or [id number] 00:00:00 Test Item Value Reference Range Interpretation [...] or Plasma by calculation (test code = 96969-8) Cholesterol.total/Cho 3.9 (calc) <5.0 lesterol in HDL [Mass Ratio] in Serum or Plasma (test code = 9830-1) Cholesterol non HDL 152 mg/dL <130 H [Mass/volume] in (calc) Serum or Plasma (test code = 14152-3) [facility] 2000 [facility] - Serum or Plasma [...] 2020) refer ence range: (test code = 89522-8) > or = 60. The reference range [...] Plasma (test code = 2027-9) Calcium [Mass/volume] 9.4 mg/dL 8.6-10.3 in Serum or Plasma (test code = 92685-8) Protein [Mass/volume] 6.7 g/dL 6.1-8.1 in Serum or Plasma (test code = 2885-2) Albumin [Mass/volume] 4.4 g/dL 3.6-5.1 in Serum or Plasma (test code = 1751-7) Globulin [Mass/volume] 2.3 g/dL (calc) 1.9-3.7 in Serum by calculation (test code = 25431-3) Albumin/Globulin [Mass 1.9 (calc) 1.0-2.5 Ratio] in [...] Serum or Plasma (test code = 1742-6) [facility] - Serum or [id number] 00:00:00 Test Item Value Reference Range Interpretation [...] or Plasma by calculation (test code = 79837-6) Cholesterol.total/Cho 3.9 (calc) <5.0 lesterol in HDL [Mass Ratio] in Serum or Plasma (test code = 9830-1) Cholesterol non HDL 152 mg/dL <130 H [Mass/volume] in (calc) Serum or Plasma (test code = 69850-3) [facility] 2000 panel - Serum or Plasma [...] 2020) refer ence range: (test code = 68919-8) > or = 60. The reference range [...] in Serum or Plasma (test code = 207-0) Carbon dioxide, total 28 mmol/L 20-32 [Moles/volume] in Serum or Plasma (test code = 2027-) Calcium [Mass/volume] 9.4 mg/dL 8.6-10.3 in Serum or Plasma (test code = 32747-8) Protein [Mass/volume] 6.7 g/dL 6.1-8.1 in Serum or Plasma (test code = 2885-2) Albumin [Mass/volume] 4.4 g/dL 3.6-5.1 in Serum or Plasma (test code = 175-7) Globulin [Mass/volume] 2.3 g/dL (calc) 1.9-3.7 in Serum by calculation (test code = 14295-6) Albumin/Globulin [Mass 1.9 (calc) 1.0-2.5 Ratio] in Serum or Plasma (test code = 1759-0) Bilirubin.total 0.4 mg/dL 0.2-1.2 [Mass/volume] in Serum or Plasma (test code = 1974-) Alkaline phosphatase 41 U/L 35-144 [Enzymatic activity/volume] in Serum or Plasma (test code = 6768-6) Aspartate 12 U/L 10-35 aminotransferase [Enzymatic activity/volume] in Serum or Plasma (test code = 1919-8) Alanine 14 U/L 9-46 aminotransferase [Enzymatic activity/volume] in Serum or Plasma (test code = 1742-6) [facility] W Auto Differential panel - [id number] 00:00:00 Test Item Value Reference Range Interpretation [...] = 776-5) Neutrophils [#/volume] in 3381 cells/uL 1770-7880 Blood by Automated count (test code = [...] by Automated count (test code = 706-2) [facility]/Hemoglobin.total in [id number] 00:00:00 Test Item Value Reference Range Interpretation Comments Hemoglobin 5.6 % of total HGB <5.7 A1c/Hemoglobin.total in Blood (test code = 4548-4) [facility] - Serum or [id number] 00:00:00 Test Item Value Reference Range Interpretation [...] or Plasma by calculation (test code = 68089-0) Cholesterol.total/Cho 3.9 (calc) <5.0 lesterol in HDL [Mass Ratio] in Serum or Plasma (test code = 9830-1) Cholesterol non HDL 152 mg/dL <130 H [Mass/volume] in (calc) Serum or Plasma (test code = 42841-9) [facility] 2000 panel - Serum or Plasma [...] 2020) refer ence range: (test code = 39976-4) > or = 60. The reference range [...] in Serum or Plasma (test code = 93754-1) Protein [Mass/volume] 6.7 g/dL 6.1-8.1 in Serum or Plasma (test code = 2885-2) Albumin [Mass/volume] 4.4 g/dL 3.6-5.1 in Serum or Plasma (test code = 175-7) Globulin [Mass/volume] 2.3 g/dL (calc) 1.9-3.7 in Serum by calculation (test code = 75784-2) Albumin/Globulin [Mass 1.9 (calc) 1.0-2.5 Ratio] in [...] Serum or Plasma (test code = 1742-6) [facility] W Auto Differential panel - [id number] 00:00:00 Test Item Value Reference Range Interpretation [...] = 776-5) Neutrophils [#/volume] in 3381 cells/uL 1466-1090 Blood by Automated count (test code = [...] by Automated count (test code = 706-2) [facility]/Hemoglobin.total in [id number] 00:00:00 Test Item Value Reference Range Interpretation Comments Hemoglobin 5.6 % of total HGB <5.7 A1c/Hemoglobin.total in Blood (test code = 4548-4) [facility] BoxLipid 1995 panel - Serum or [id number] 00:00:00 Test Item Value Reference Range Interpretation Comments Cholesterol 208 mg/dL <200 H [Mass/volume] in Serum or Plasma (test code = 2093-3) Cholesterol in HDL 56 mg/dL See_Comment [Automat [...] or Plasma by calculation (test code = 99108-5) Cholesterol.total/Cho 3.7 (calc) <5.0 lesterol in HDL [Mass Ratio] in Serum or Plasma (test code = 9830-1) Cholesterol non HDL 152 mg/dL <130 H [Mass/volume] in (calc) Serum or Plasma (test code = 52160-6) [facility] BoxLipid 1995 panel - Serum or [id number] 00:00:00 Test Item Value Reference Range Interpretation [...] or Plasma by calculation (test code = 69510-2) Cholesterol.total/Cho 3.7 (calc) <5.0 lesterol in HDL [Mass Ratio] in Serum or Plasma (test code = 9830-1) Cholesterol non HDL 152 mg/dL <130 H [Mass/volume] in (calc) Serum or Plasma (test code = 26866-1) [facility] - Serum or [id number] 00:00:00 Test Item Value Reference Range Interpretation [...] or Plasma by calculation (test code = 26007-6) Cholesterol.total/Cho 3.7 (calc) <5.0 lesterol in HDL [Mass Ratio] in Serum or Plasma (test code = 9830-1) Cholesterol non HDL 152 mg/dL <130 H [Mass/volume] in (calc) Serum or Plasma (test code = 28582-9) [facility] panel - Serum or [id number] 00:00:00 Test Item Value Reference Range Interpretation [...] or Plasma by calculation (test code = 52798-0) Cholesterol.total/Cho 3.7 (calc) <5.0 lesterol in HDL [Mass Ratio] in Serum or Plasma (test code = 9830-1) Cholesterol non HDL 152 mg/dL <130 H [Mass/volume] in (calc) Serum or Plasma (test code = 12812-8) [facility] - Serum or [id number] 00:00:00 Test Item Value Reference Range Interpretation [...] or Plasma by calculation (test code = 23731-1) Cholesterol.total/Cho 3.7 (calc) <5.0 lesterol in HDL [Mass Ratio] in Serum or Plasma (test code = 9830-1) Cholesterol non HDL 152 mg/dL <130 H [Mass/volume] in (calc) Serum or Plasma (test code = 93815-2) [facility] 2000 panel - Serum or Plasma [...] rate/1.73 sq message] The M.predicted among system [facility] non-blacks [Volume generated this Rate/Area] in Serum, result Plasma or Blood by transmitt ed Creatinine-based reference r [place]: formula (CKD-EPI) > or = 60. The (test code = 84778-8) refere nce range was not used to interpret this result as normal/abnormal . Glomerular filtration 97 mL/min/1.73m2 See_Comment [ Automated rate/1.73 sq message] The M.predicted among system [facility] blacks [Volume generated thi s Rate/Area] in Serum, result Plasma or Blood by transmitt ed Creatinine-based reference r [place]: formula (CKD-EPI) > or = 60. The (test code = 19213-0) refere nce range was not used to [...] Plasma (test code = 2027-9) Calcium [Mass/volume] 9.1 mg/dL 8.6-10.3 in Serum or Plasma (test code = 28021-0) Protein [Mass/volume] 6.7 g/dL 6.1-8.1 in Serum or Plasma (test code = 2885-2) Albumin [Mass/volume] 4.5 g/dL 3.6-5.1 in Serum or Plasma (test code = 1751-7) Globulin [Mass/volume] 2.2 g/dL (calc) 1.9-3.7 in Serum by calculation (test code = 04790-3) Albumin/Globulin [Mass 2.0 (calc) 1.0-2.5 Ratio] in Serum or Plasma (test code = 1759-0) Bilirubin.total 0.3 mg/dL 0.2-1.2 [Mass/volume] in Serum or Plasma (test code = 1975-2) Alkaline phosphatase 35 U/L 35-144 [Enzymatic activity/volume] in Serum or Plasma (test code = 6768-6) Aspartate 13 U/L 10-35 aminotransferase [Enzymatic activity/volume] in Serum or Plasma (test code = 1920-8) Alanine 11 U/L 9-46 aminotransferase [Enzymatic activity/volume] in Serum or Plasma (test code = 1742-6) [facility] 1996 panel - Serum or [id number] 00:00:00 Test Item Value Reference Range Interpretation Comments Cholesterol 174 mg/dL <200 [Mass/volume] in Serum or Plasma (test code = 2093-3) Cholesterol in HDL 58 mg/dL See_Comment [Automat [...] or Plasma by calculation (test code = 46312-2) Cholesterol.total/Cho 3.0 (calc) <5.0 lesterol in HDL [Mass Ratio] in Serum or Plasma (test code = 9830-1) Cholesterol non HDL 116 mg/dL <130 [Mass/volume] in (calc) Serum or Plasma (test code = 56806-3) [facility] 2000 panel - Serum or Plasma [...] rate/1.73 sq message] The M.predicted among system [facility] non-blacks [Volume generated this Rate/Area] in Serum, result Plasma or Blood by transmitt ed Creatinine-based reference r [place]: formula (CKD-EPI) > or = 60. The (test code = 22043-2) refere nce range was not used to interpret this result as normal/abnormal . Glomerular filtration 79 mL/min/1.73m2 See_Comment [ Automated rate/1.73 sq message] The M.predicted among system [facility] blacks [Volume generated thi s Rate/Area] in Serum, result Plasma or Blood by transmitt ed Creatinine-based reference r [place]: formula (CKD-EPI) > or = 60. The (test code = 66218-3) refere nce range was not used to [...] in Serum or Plasma (test code = 03088-9) Protein [Mass/volume] 7.1 g/dL 6.1-8.1 in Serum or Plasma (test code = 2885-2) Albumin [Mass/volume] 4.6 g/dL 3.6-5.1 in Serum or Plasma (test code = 1751-7) Globulin [Mass/volume] 2.5 g/dL (calc) 1.9-3.7 in Serum by calculation (test code = 95526-5) Albumin/Globulin [Mass 1.8 (calc) 1.0-2.5 Ratio] in Serum or Plasma (test code = 1759-0) Bilirubin.total 0.4 mg/dL 0.2-1.2 [Mass/volume] in Serum or Plasma (test code = 1975-2) Alkaline phosphatase 38 U/L 35-144 [Enzymatic activity/volume] in Serum or Plasma (test code = 6768-6) Aspartate 22 U/L 10-35 aminotransferase [Enzymatic activity/volume] in Serum or Plasma (test code = 1920-8) Alanine 27 U/L 9-46 aminotransferase [Enzymatic activity/volume] in Serum or Plasma (test code = 1742-6) [facility] BoxLipid 1996 panel - Serum or [id number] 00:00:00 Test Item Value Reference Range Interpretation Comments Cholesterol 174 mg/dL <200 [Mass/volume] in Serum or Plasma (test code = 2093-3) Cholesterol in HDL 58 mg/dL See_Comment [Automat [...] or Plasma by calculation (test code = 42669-2) Cholesterol.total/Cho 3.0 (calc) <5.0 lesterol in HDL [Mass Ratio] in Serum or Plasma (test code = 9830-1) Cholesterol non HDL 116 mg/dL <130 [Mass/volume] in (calc) Serum or Plasma (test code = 83092-9) [facility] BoxComprehensive metabolic 1999 panel - Serum or Plasma 2022-02-16 00:00:00 [...] rate/1.73 sq message] The M.predicted among system [facility] non-blacks [Volume generated this Rate/Area] in Serum, result Plasma or Blood by transmitt ed Creatinine-based reference r [place]: formula (CKD-EPI) > or = 60. The (test code = 61782-4) refere nce range was not used to interpret this result as normal/abnormal . Glomerular filtration 79 mL/min/1.73m2 See_Comment [ Automated rate/1.73 sq message] The M.predicted among system [facility] blacks [Volume generated thi s Rate/Area] in Serum, result Plasma or Blood by transmitt ed Creatinine-based reference r [place]: formula (CKD-EPI) > or = 60. The (test code = 26453-7) refere nce range was not used to [...] (test code = 5-0) Carbon dioxide, total 26 mmol/L 20-32 [Moles/volume] in Serum or Plasma (test code = 2027-) Calcium [Mass/volume] 9.7 mg/dL 8.6-10.3 in Serum or Plasma (test code = 34943-2) Protein [Mass/volume] 7.1 g/dL 6.1-8.1 in Serum or Plasma (test code = 2885-2) Albumin [Mass/volume] 4.6 g/dL 3.6-5.1 in Serum or Plasma (test code = 1751-7) Globulin [Mass/volume] 2.5 g/dL (calc) 1.9-3.7 in Serum by calculation (test code = 47831-1) Albumin/Globulin [Mass 1.8 (calc) 1.0-2.5 Ratio] in Serum or Plasma (test code = 1759-0) Bilirubin.total 0.4 mg/dL 0.2-1.2 [Mass/volume] in Serum or Plasma (test code = 1975-2) Alkaline phosphatase 38 U/L 35-144 [Enzymatic activity/volume] in Serum or Plasma (test code = 6768-6) Aspartate 22 U/L 10-35 aminotransferase [Enzymatic activity/volume] in Serum or Plasma (test code = 1920-8) Alanine 27 U/L 9-46 aminotransferase [Enzymatic activity/volume] in Serum or Plasma (test code = 1742-6) [facility] BoxLipid 1996 panel - Serum or [id number] 00:00:00 Test Item Value Reference Range Interpretation Comments Cholesterol 204 mg/dL <200 H [Mass/volume] in Serum or Plasma (test code = 2093-3) Cholesterol in HDL 57 mg/dL See_Comment [Automat [...] or Plasma by calculation (test code = 32052-6) Cholesterol.total/Cho 3.6 (calc) <5.0 lesterol in HDL [Mass Ratio] in Serum or Plasma (test code = 9830-1) Cholesterol non HDL 147 mg/dL <130 H [Mass/volume] in (calc) Serum or Plasma (test code = 83060-7) [facility] BoxComprehensive metabolic 2000 panel - Serum or [...] rate/1.73 sq message] The M.predicted among system [facility] non-blacks [Volume generated this Rate/Area] in Serum, result Plasma or Blood by transmitt ed Creatinine-based reference r [place]: formula (CKD-EPI) > or = 60. The (test code = 08464-9) refere nce range was not used to interpret this result as normal/abnormal . Glomerular filtration 90 mL/min/1.73m2 See_Comment [ Automated rate/1.73 sq message] The M.predicted among system [facility] blacks [Volume generated thi s Rate/Area] in Serum, result Plasma or Blood by transmitt ed Creatinine-based reference r [place]: formula (CKD-EPI) > or = 60. The (test code = 39317-1) refere nce range was not used to [...] in Serum or Plasma (test code = 49656-4) Protein [Mass/volume] 6.8 g/dL 6.1-8.1 in Serum or Plasma (test code = 2885-2) Albumin [Mass/volume] 4.3 g/dL 3.6-5.1 in Serum or Plasma (test code = 1751-7) Globulin [Mass/volume] 2.5 g/dL (calc) 1.9-3.7 in Serum by calculation (test code = 23788-0) Albumin/Globulin [Mass 1.7 (calc) 1.0-2.5 Ratio] in Serum or Plasma (test code = 1759-0) Bilirubin.total 0.4 mg/dL 0.2-1.2 [Mass/volume] in Serum or Plasma (test code = 1975-2) Alkaline phosphatase 44 U/L 35-144 [Enzymatic activity/volume] in Serum or Plasma (test code = 6768-6) Aspartate 12 U/L 10-35 aminotransferase [Enzymatic activity/volume] in Serum or Plasma (test code = 1920-8) Alanine 13 U/L 9-46 aminotransferase [Enzymatic activity/volume] in Serum or Plasma (test code = 1742-6) [facility]Hemoglobin.total in [id number] 00:00:00 Test Item Value Reference Range Interpretation Comments Hemoglobin 5.6 % of total HGB <5.7 A1c/Hemoglobin.total in Blood (test code = 4548-4) [facility] - Serum or [id number] 00:00:00 Test Item Value Reference Range Interpretation Comments Cholesterol 204 mg/dL <200 H [Mass/volume] in Serum or Plasma (test code = 2093-3) Cholesterol in HDL 57 mg/dL See_Comment [Automat [...] or Plasma by calculation (test code = 11103-5) Cholesterol.total/Cho 3.6 (calc) <5.0 lesterol in HDL [Mass Ratio] in Serum or Plasma (test code = 9830-1) Cholesterol non HDL 147 mg/dL <130 H [Mass/volume] in (calc) Serum or Plasma (test code = 60205-8) [facility]Com[facility] 2000 [facility] - Serum or Plasma [...] rate/1.73 sq message] The M.predicted among system [facility] non-blacks [Volume generated this Rate/Area] in Serum, result Plasma or Blood by transmitt ed Creatinine-based reference r [place]: formula (CKD-EPI) > or = 60. The (test code = 29769-4) refere nce range was not used to interpret this result as normal/abnormal . Glomerular filtration 90 mL/min/1.73m2 See_Comment [ Automated rate/1.73 sq message] The M.predicted among system [facility] blacks [Volume generated thi s Rate/Area] in Serum, result Plasma or Blood by transmitt ed Creatinine-based reference r [place]: formula (CKD-EPI) > or = 60. The (test code = 04652-0) refere nce range was not used to [...] in Serum or Plasma (test code = 33825-5) Protein [Mass/volume] 6.8 g/dL 6.1-8.1 in Serum or Plasma (test code = 2885-2) Albumin [Mass/volume] 4.3 g/dL 3.6-5.1 in Serum or Plasma (test code = 1751-7) Globulin [Mass/volume] 2.5 g/dL (calc) 1.9-3.7 in Serum by calculation (test code = 84278-2) Albumin/Globulin [Mass 1.7 (calc) 1.0-2.5 Ratio] in Serum or Plasma (test code = 1759-0) Bilirubin.total 0.4 mg/dL 0.2-1.2 [Mass/volume] in Serum or Plasma (test code = 1975-2) Alkaline phosphatase 44 U/L 35-144 [Enzymatic activity/volume] in Serum or Plasma (test code = 6768-6) Aspartate 12 U/L 10-35 aminotransferase [Enzymatic activity/volume] in Serum or Plasma (test code = 1920-8) Alanine 13 U/L 9-46 aminotransferase [Enzymatic activity/volume] in Serum or Plasma (test code = 1742-6) [facility] HospitalHem[facility] A1c/Hemoglobin.total in [id number] 00:00:00 Test Item Value Reference Range Interpretation Comments Hemoglobin 5.6 % of total HGB <5.7 A1c/Hemoglobin.total in Blood (test code = 4548-4) [facility] HospitalECG- [id number] 23:01:34 Test Item Value Reference Range Interpretation Comments VENTRICULAR RATE BPM (test code = 78123) ATRIAL RATE (test BPM code = 60715) P-R INTERVAL (test 128 ms code = 59159) QRS DURATION (test 90 ms code = 25103) Q-T INTERVAL (test 380 ms code = 84044) QTC CALCULATION(BEZE 424 ms (test code = 81257) CALCULATED P AXIS degrees (test code = 75616) CALCULATED R AXIS degrees (test code = 95610) CALCULATED T AXIS degrees (test code = 96910) DIAGNOSIS (test code Normal sinus = 99560) rhythmNormal ECGWhen compared with ECG of 22-OCT-2019 14:06,No significant change was foundConfirmed by JAQUAN VALLEJO ([id number]) on 10/12/2021 5:01:30 PM [facility] W Auto Differential panel - [id number] 00:00:00 Test Item Value Reference Range Interpretation Comments Leukocytes [#/volume] in Blood by tnp Automated count (test code = 6690-2) [facility] HospitalPSA, serum or [id number] 00:00:00 Test Item Value Reference Range Interpretation Comments Prostate specific Ag 0.7 NG/mL See_Comment [Autom ated message] [Mass/volume] in The system which Serum or Plasma (test genera josr this result code = 2857-1) transmitted r eference range: < or = 4 .0. The reference range was not used to interpr et this result as normal/abnormal . [facility] Hospitalextra urine [id number] 00:00:00Extra Urine SpecimenComC[facility] BoxBacteria identified in Urine by Culture 2021-04-27 00:00:00Culture, Urine, [facility] BoxLipid 1996 panel - Serum or [id number] 00:00:00 Test Item Value Reference Range Interpretation [...] or Plasma by calculation (test code = 34052-8) Cholesterol.total/Cho 4.2 (calc) <5.0 lesterol in HDL [Mass Ratio] in Serum or Plasma (test code = 9830-1) Cholesterol non HDL 131 mg/dL <130 H [Mass/volume] in (calc) Serum or Plasma (test code = 21203-5) [facility] HospitalCom[facility] 2000 panel - Serum or Plasma [...] rate/1.73 sq message] The M.predicted among system [facility] non-blacks [Volume generated this Rate/Area] in Serum, result Plasma or Blood by transmitt ed Creatinine-based reference r [place]: formula (CKD-EPI) > or = 60. The (test code = 00649-7) refere nce range was not used to interpret this result as normal/abnormal . Glomerular filtration 99 mL/min/1.73m2 See_Comment [ Automated rate/1.73 sq message] The M.predicted among system [facility] blacks [Volume generated thi s Rate/Area] in Serum, result Plasma or Blood by transmitt ed Creatinine-based reference r [place]: formula (CKD-EPI) > or = 60. The (test code = 55668-2) refere nce range was not used to [...] (test code = 5-0) Carbon dioxide, total 21 mmol/L 20-32 [Moles/volume] in Serum or Plasma (test code = 2027-9) Calcium [Mass/volume] 8.9 mg/dL 8.6-10.3 in Serum or Plasma (test code = 23768-9) Protein [Mass/volume] 7.4 g/dL 6.1-8.1 in Serum or Plasma (test code = 2885-2) Albumin [Mass/volume] 4.5 g/dL 3.6-5.1 in Serum or Plasma (test code = 1751-7) Globulin [Mass/volume] 2.9 g/dL (calc) 1.9-3.7 in Serum by calculation (test code = 74142-7) Albumin/Globulin [Mass 1.6 (calc) 1.0-2.5 Ratio] in Serum or Plasma (test code = 1759-0) Bilirubin.total 0.4 mg/dL 0.2-1.2 [Mass/volume] in Serum or Plasma (test code = 1974-2) Alkaline phosphatase 54 U/L 35-144 [Enzymatic activity/volume] in Serum or Plasma (test code = 6768-6) Aspartate 25 U/L 10-35 aminotransferase [Enzymatic activity/volume] in Serum or Plasma (test code = 1920-8) Alanine 29 U/L 9-46 aminotransferase [Enzymatic activity/volume] in Serum or Plasma (test code = 1742-6) [facility] Auto Differential panel - [id number] 00:00:00 Test Item Value Reference Range Interpretation [...] 10.7 fL 7.5-12.5 volume] in Blood by Chari (test code = 776-5) Neutrophils [#/volume] in 1269 cells/uL 3779-4530 L Blood by Automated count (test code [...] by Automated count (test code = 706-2) [facility] urine [id number] 00:00:00Extra Urine SpecimenComPanola Medical CenterHemoglobin A1c/Hemoglobin.total in Blood 2021-04-27 00:00:00 Test Item Value Reference Range Interpretation Comments Hemoglobin 5.9 % of total HGB <5.7 H A1c/Hemoglobin.total in Blood (test code = 4548-4) [facility] HospitalBacteria identified in Urine by Oufxknf1022-20-07 00:00:00 [facility] [id number] 18:39:00Surgical Pathology Report Case: [id number] Authorizing Provider: Rosendo Kern MD Collected: 11/11/2019 1017 Ordering Location: [facility] Received: 11/11/2019 1428 SERVICES Pathologist: Magda Goldsmith MD Specimens: A) - Large Intestine, Colon - Sigmoid B) - Soft Tissue, Other, Distal and proximal donuts A. COLON, SIGMOID, RESECTION: - MULTIPLE DIVERTICULA - NINE BENIGN LYMPH NODES (0/9) - VIABLE SURGICAL RESECTION MARGINSB. DONUTS, EXCISION: - NO SIGINIFICANT PATHOLOGIC CHANGES Signing Pathologist Direct Phone Line: [phone] signed by Magda Goldsmith MD on 11/20/2019 at 6:39 [id number] diagnosis: Diverticulitis A. Large intestine, colon - sigmoid; B. Softtissue, otherA. Received in formalin labeled with the [...] wall measures up to 0.5 cm thick. [employer] sections are submitted as follows.Section code: A1. Margins en face, differentially inked colten e and black; A2, mesenteric margin en face; A3-A5, diverticula; A6-A8, multiple lymph nodes.B. Received in formalin labeled with the patient's name, accession number and "distal and proximal donuts" are two unoriented annular portions of colon that range from 1.5 to 2.3 cm in greatest diameter. The mucosa is beckett-pink and grossly unremarkable. The margins are differentially inked blue and black and radially sectioned. [employer] sections are submitted in B1-B2. PA/pl Performed.BASIC METABOLIC [id number] 06:44:00 Test Item Value Reference Range Interpretation [...] S NOT APPLICABLE FOR DIALYSIS PATIEN TS. Entry Level Receptionist ID - GALAPHEMOGLOBIN AND [id number] 06:09:00 Test Item Value Reference Range Interpretation Comments HEMOGLOBIN (BEAKER) (test code = 13.1 GM/DL 13.7-17.5 L 410) HEMATOCRIT (BEAKER) (test code = 38.7 % 40.1-51.0 L 411) Entry Level Receptionist ID - [id number] 08:14:00 Test Item Value Reference Range Interpretation Comments POC-GLUCOSE METER 137 mg/dL 70-110 H : TESTED A T BSC 6720 (BEAKER) (test code = [place], 1538) [address]: Entry Level Receptionist/Techni dana ID = [id number] for ED WARDS, [place], [id number] 13:18:00Reason for exam:->EMESISReason for exam:- >ABDOMINAL PAINWhat [...] of the proximal sigmoid colon. Signed: Kennedy Barretteport Verified Date/Time: 06/04/2019 13:18:46 Reading Location: [facility] Diagnostic Imaging Reading Room - SLSWV F1 1129 URINALYSIS W/ REFLEX URINE [id number] 13:10:00 Test Item Value Reference Range Interpretation [...] = Rare 1574) SOURCE(BEAKER) (test code = 3602) [id number] 11:39:00 Test Item Value Reference Range Interpretation [...] is 2.5-3.5 for patients wiht mechanical heart valves.[id number] 11:17:00 Test Item Value Reference Range Interpretation Comments LIPASE (BEAKER) (test code = 749) 14 U/L 8-78 HEPATIC FUNCTION [id number] 11:17:00 Test Item Value Reference Range Interpretation [...] = 25 U/L 6-55 347) BASIC METABOLIC [id number] 10:12:00 Test Item Value Reference Range Interpretation [...] PATIEN TS. CBC W/PLT COUNT & AUTO [id number] 10:02:00 Test Item Value Reference Range Interpretation [...] = 2801) CBC W/PLT COUNT & AUTO [id number] 06:57:00 Test Item Value Reference Range Interpretation [...] (BEAKER) (test code = 2801) BASIC METABOLIC [id number] 06:01:00 Test Item Value Reference Range Interpretation [...] APPLICABLE FOR DIALYSIS PATIEN TS. BASIC METABOLIC [id number] 05:31:00 Test Item Value Reference Range Interpretation [...] PATIEN TS. CBC W/PLT COUNT & AUTO [id number] 05:07:00 Test Item Value Reference Range Interpretation [...] PERCENT (BEAKER) (test code = 2801) CT, [id number] 19:53:00FINAL REPORT CT scan of the abdomen [...] and fascial thickening. Signed: Jo Ann Clark MDRepjohn j. [facility] Verified Date/Time: 03/05/2019 19:53:47 Reading Location: [facility] [id number] Consult Reading Room BASI METABOLIC [id number] 18:19:00 Test Item Value Reference Range Interpretation [...] APPLICABLE FOR DIALYSIS PATIEN TS. URINALYSIS W/ [id number] 16:10:00 Test Item Value Reference Range Interpretation [...] 2 /LPF 514) SOURCE(BEAKER) (test code = 9306) [id number] 15:48:00 Test Item Value Reference Range Interpretation Comments LIPASE (BEAKER) (test code = 749) 9 U/L 8-78 HEPATIC FUNCTION [id number] 15:48:00 Test Item Value Reference Range Interpretation [...] 6-55 347) CBC W/PLT COUNT & AUTO [id number] 15:27:00 Test Item Value Reference Range Interpretation [...] 0-1 PERCENT (BEAKER) (test code = 2801) [id number] 17:18:00 Test Item Value Reference Range Interpretation Comments ACTIVATED CLOTTING TIME [address] [facility] 6720 (BEAKER) (test code = [facility] 441) [address] [id number] 10:38:00 Test Item Value Reference Range Interpretation [...] 95-100% range. CREATINE KINASE (CK), TOTAL AND [id number] 10:21:00 Test Item Value Reference Range Interpretation Comments CREATINE KINASE TOTAL (BEAKER) 71 U/L 29-200 (test code = 380) CREATINE KINASE-MB (BEAKER) (test 0.5 ng/mL 0.0-6.6 code = 750) CREATINE KINASE-MB INDEX (BEAKER) 0.7 % (test code = 395) CK-MB Reference Range:<6.7 Normal6.7-10.0 Borderline>10.0 AbnormalTROPONIN [id number] 10:21:00 Test Item Value Reference Range Interpretation [...] acute neurological disease, and persistent tachyarrhythmia.BASIC METABOLIC [id number] 10:14:00 Test Item Value Reference Range Interpretation [...] ESTIMATED GFR. RAD, CHEST, 1 VIEW, NON [id number] 10:14:00Reason for exam:->SHORTNESS OF BREATHShould this be performed at the bedside?->YesFINAL REPORT Chest one view AP 08/12/2017 10:14 AM CLINICAL HISTORY: SHORTNESS OF BREATH COMPARISON: None available FINDINGS: The lungs are clear, save for bibasilar linear atelectasis. Cardiomediastinal contours are within normal limits. The central pulmonary vasculature is not engorged. IMPRESSION: Unremarkable frontal chest radiograph. Signed: Tereso Del Riodenice Verified Date/Time: 08/12/2017 10:14:27 Reading Location: [facility] Radiology Reading Room Electronicallysigned by: TERESO DEL RIO M.D. on 08/12/2017 10:14 AMCBC W/PLT COUNT & AUTO [id number] 10:01:00 Test Item Value Reference Range Interpretation [...] (BEAKER) (test code = 2801) URINE AND [id number] 16:17:00 Test Item Value Reference Range Interpretation Comments UA Leuk Est (test Negative (05/07/14 11:17 code = UA Leuk Est) AM) [facility] [id number] 16:17:00 Test Item Value Reference Range Interpretation Comments UA Blood (test code = Negative (05/07/14 11:17 UA Blood) AM) [facility] [id number] 16:17:00 Test Item Value Reference Range Interpretation Comments UA Nitrite (test code Negative (05/07/14 11:17 = UA Nitrite) AM) [facility] [id number] 16:17:00 Test Item Value Reference Range Interpretation Comments UA Leuk Est (test Negative (05/07/14 11:17 code = UA Leuk Est) AM) [facility] [id number] 16:17:00 Test Item Value Reference Range Interpretation Comments UA Blood (test code = Negative (05/07/14 11:17 UA Blood) AM) [facility] [id number] 16:17:00 Test Item Value Reference Range Interpretation Comments UA Mucus (test code = UA Mucus) Few /LPF [facility] [id number] 16:17:00 Test Item Value Reference Range Interpretation Comments UA Mucus (test code = UA Mucus) Few /LPF [facility] [id number] 16:17:00 Test Item Value Reference Range Interpretation Comments Troponin-I (test code no gt See_Comment [Auto mated message] The = Troponin-I) system which g enerated this result transmit josr reference range : <=0.40. The reference r [place] was not used to interpr et this result as sujey l/abnormal. [facility]ARDIAC [id number] 16:17:00 Test Item Value Reference Range Interpretation Comments Total CK (test code = Total CK) 92 12-191 [facility] [id number] 16:17:00 Test Item Value Reference Range Interpretation Comments CK MB (test code = CK MB) 0.6 0.5-3.6 [facility] HospitalPresstlerAC [id number] 16:17:00 Test Item Value Reference Range Interpretation Comments CK MB Index (test 0.7 See_Comment [Automate d message] The code = CK MB Index) system [facility] generated this result transmit josr reference range : <=2.5. The reference range was not used to interpr et this result as sujey l/abnormal. [facility] [employer]2014-08-15 16:17:00 Test Item Value Reference Range Interpretation Comments Lipase Lvl (test code = Lipase Lvl) 100 73-393 [facility] [employer]2014-08-15 16:17:00 Test Item Value Reference Range Interpretation Comments Amylase Lvl (test code = Amylase Lvl) 59 25-115 [facility] [employer]2014-08-15 16:17:00 Test Item Value Reference Range Interpretation Comments eGFR (test code = eGFR) 70 [facility] [employer]2014-08-15 16:17:00 Test Item Value Reference Range Interpretation Comments Potassium Lvl (test code = Potassium 4.3 3.5-5.1 Lvl) [facility] [id number] 16:17:00 Test Item Value Reference Range Interpretation Comments Chloride Lvl (test code = Chloride Lvl) 105 95-109 [facility] [employer]2014-08-15 16:17:00 Test Item Value Reference Range Interpretation Comments Troponin-I (test code no gt See_Comment [Auto mated message] The = Troponin-I) system which g enerated this result transmit josr reference range : <=0.40. The reference r [place] was not used to interpr et this result as sujey l/abnormal. [facility] [employer]2014-08-15 16:17:00 Test Item Value Reference Range Interpretation Comments CO2 (test code = CO2) 24 24-32 [facility] [employer]2014-08-15 16:17:00 Test Item Value Reference Range Interpretation Comments Sodium Lvl (test code = Sodium Lvl) 138 135-145 [facility]2014-08-15 16:17:00 Test Item Value Reference Range Interpretation Comments ALT (test code = ALT) 32 See_Comment [Auto mated message] The system which ge nerated this result transmit josr reference range : <=65. The reference range was not used to interpr et this result as sujey l/abnormal. [facility]2014-08-15 16:17:00 Test Item Value Reference Range Interpretation Comments AST (test code = AST) 18 See_Comment [Auto mated message] The system which ge nerated this result transmit josr reference range : <=37. The reference range was not used to interpr et this result as sujey l/abnormal. [facility]2014-08-15 16:17:00 Test Item Value Reference Range Interpretation Comments Alk Phos (test code = Alk Phos) 72 39-136 [facility]2014-08-15 16:17:00 Test Item Value Reference Range Interpretation Comments Bili Total (test code = Bili Total) 0.4 0.2-1.3 [facility]2014-08-15 16:17:00 Test Item Value Reference Range Interpretation Comments Total Protein (test code = Total 7.7 6.4-8.4 Protein) [facility]2014-08-15 16:17:00 Test Item Value Reference Range Interpretation Comments Albumin Lvl (test code = Albumin Lvl) 4.3 3.5-5.0 [facility]2014-08-15 16:17:00 Test Item Value Reference Range Interpretation Comments Calcium Lvl (test code = Calcium Lvl) 9.1 8.5-10.5 [facility]2014-08-15 16:17:00 Test Item Value Reference Range Interpretation Comments Creatinine Lvl (test code = Creatinine 1.2 0.5-1.4 Lvl) [facility]2014-08-15 16:17:00 Test Item Value Reference Range Interpretation Comments BUN (test code = BUN) 14 7-22 [facility]2014-08-15 16:17:00 Test Item Value Reference Range Interpretation Comments Glucose Lvl (test code = Glucose Lvl) 96 70-99 [facility]2014-08-15 16:17:00 Test Item Value Reference Range Interpretation Comments AGAP (test code = AGAP) 13.3 10.0-20.0 [facility] [id number] 16:17:00 Test Item Value Reference Range Interpretation Comments B/C Ratio (test code = B/C Ratio) 12 6-25 [facility] [id number] 16:17:00 Test Item Value Reference Range Interpretation Comments Globulin (test code = Globulin) 3.4 2.0-4.0 [facility] [id number] 16:17:00 Test Item Value Reference Range Interpretation Comments A/G Ratio (test code = A/G Ratio) 1.3 0.7-1.6 [facility] HeightsTdtnpyfDPCGGUTXLG0540-76-28 16:17:00 Test Item Value Reference Range Interpretation Comments Lymphocytes # (test code = Lymphocytes 1.2 1.0-5.5 #) [facility]HwbapqbPREKUNTOJQ6875-35-63 16:17:00 Test Item Value Reference Range Interpretation Comments Segs-Bands # (test code = Segs-Bands #) 2.8 1.5-8.1 [facility]BwbpbpvFJOCBJBNLZ2907-11-25 16:17:00 Test Item Value Reference Range Interpretation Comments Monocytes # (test code 0.4 See_Comment [Aut omated message] The = Monocytes #) system which generated this result tra nsmitted reference range : <=0.8. The reference r [place] was not used to int erpret this result as normal/abnormal . [facility] HospitalNrxitdjCHYLNQXBMS6452-12-52 16:17:00 Test Item Value Reference Range Interpretation Comments Eosinophils # (test code 0.1 See_Comment [A utomated message] The = Eosinophils #) system whic h generated this result tra nsmitted reference range : <=0.5. The reference r [place] was not used to int erpret this result as normal/abnormal . [facility] THXVLVZ7701-08-25 16:17:00 Test Item Value Reference Range Interpretation Comments Total CK (test code = Total CK) 92 12-191 [facility] HospitalIsdsjleQBNKQZTYIF7360-39-48 16:17:00 Test Item Value Reference Range Interpretation Comments Lymphocytes (test code = Lymphocytes) 27.9 20.0-40.0 [facility] HospitalDmlciwmNVUCSMHDBK3556-56-65 16:17:00 Test Item Value Reference Range Interpretation Comments Segs (test code = Segs) 62.0 45.0-75.0 [facility] HeightsHjhhjjyMDNIENESPE5625-08-97 16:17:00 Test Item Value Reference Range Interpretation Comments Basophils (test code = 0.6 See_Comment [Aut omated message] The Basophils) system which ge nerated this result tra nsmitted reference range : <=1.0. The reference r [place] was not used to int erpret this result as normal/abnormal . [facility] HeightsYgdjbkqKNPYLPJNHQ3081-14-41 16:17:00 Test Item Value Reference Range Interpretation Comments Eosinophils (test code = 1.3 See_Comment [A utomated message] The Eosinophils) system which ge nerated this result tra nsmitted reference range : <=4.0. The reference r [place] was not used to int erpret this result as normal/abnormal . [facility] HeightsKjtyrjuDUAPLXSGYQ5756-49-97 16:17:00 Test Item Value Reference Range Interpretation Comments Monocytes (test code = Monocytes) 8.2 2.0-12.0 [facility] HeightsGbwlineRUFLYRGEIL6133-22-67 16:17:00 Test Item Value Reference Range Interpretation Comments Hct (test code = Hct) 43.4 42.0-54.0 [facility] HeightsMeozyqiYCCEEXKUMG7806-39-39 16:17:00 Test Item Value Reference Range Interpretation Comments Hgb (test code = Hgb) 15.1 14.0-18.0 [facility] HeightsNwszjboWGTXRDMHCQ4395-07-05 16:17:00 Test Item Value Reference Range Interpretation Comments RBC (test code = RBC) 4.74 4.70-6.10 [facility] HeightsJfyxbhlMKDMZNIAIZ2293-22-09 16:17:00 Test Item Value Reference Range Interpretation Comments MCV (test code = MCV) 91.7 80.0-94.0 [facility] HeightsCgsihdhBCUZYKZSWC0567-61-34 16:17:00 Test Item Value Reference Range Interpretation Comments RDW (test code = RDW) 12.8 11.5-14.5 [facility] HeightsRodhrquMFHKWMCUID4038-20-79 16:17:00 Test Item Value Reference Range Interpretation Comments MCHC (test code = MCHC) 34.8 32.0-36.0 [facility] HeightsFbokgtiLTOQFGJZZA5529-00-88 16:17:00 Test Item Value Reference Range Interpretation Comments MCH (test code = MCH) 31.9 pg 27.0-31.0 [facility] MohmlbhYLSSTDWOJC4239-73-62 16:17:00 Test Item Value Reference Range Interpretation Comments Platelet (test code = Platelet) 261 133-450 [facility] MwhuulfLCPBWQGIPO3758-73-34 16:17:00 Test Item Value Reference Range Interpretation Comments MPV (test code = MPV) 9.6 7.4-10.4 [facility] XjapmwpILBKZESPEU0268-50-75 16:17:00 Test Item Value Reference Range Interpretation Comments WBC (test code = WBC) 4.4 3.7-10.4 [facility] [id number] 16:17:00 Test Item Value Reference Range Interpretation Comments UA Urobilinogen (test code = UA <=1.0 mg/dL 0.1-1.0 Urobilinogen) [facility] [id number] 16:17:00 Test Item Value Reference Range Interpretation Comments UA Sq Epi (test code = UA Sq Epi) None Seen [facility] [id number] 16:17:00 Test Item Value Reference Range Interpretation Comments UA Ketones (test code = UA Negative mg/dL Ketones) [facility] [id number] 16:17:00 Test Item Value Reference Range Interpretation Comments UA pH (test code = UA pH) 5.0 5.0-8.0 [facility] [id number] 16:17:00 Test Item Value Reference Range Interpretation Comments UA Bili (test code = Negative *NA*(05/07/14 UA Bili) 11:17 AM) [facility]annCARDIAC [id number] 16:17:00 Test Item Value Reference Range Interpretation Comments CK MB (test code = CK MB) 0.6 0.5-3.6 [facility] [id number] 16:17:00 Test Item Value Reference Range Interpretation Comments UA Glucose (test code = UA Negative mg/dL Glucose) [facility]ann[facility] [id number] 16:17:00 Test Item Value Reference Range Interpretation Comments UA Color (test code = Yellow *NA*(05/07/14 UA Color) 11:17 AM) [facility] [id number] 16:17:00 Test Item Value Reference Range Interpretation Comments UA WBC (test code = 2 See_Comment [Automa josr message] The UA WBC) system which ge nerated this result transmit josr reference range : <=5. The reference range was not used to interpr et this result as sujey l/abnormal. [facility] [id number] 16:17:00 Test Item Value Reference Range Interpretation Comments UA RBC (test code = 1 See_Comment [Automa josr message] The UA RBC) system which ge nerated this result transmit josr reference range : <=2. The reference range was not used to interpr et this result as sujey l/abnormal. [facility] [id number] 16:17:00 Test Item Value Reference Range Interpretation Comments UA Protein (test code = UA Negative mg/dL Protein) [facility]ann[facility] [id number] 16:17:00 Test Item Value Reference Range Interpretation Comments UA Turbidity (test code = Clear (05/07/14 11:17 UA Turbidity) AM) [facility]ann[facility] [id number] 16:17:00 Test Item Value Reference Range Interpretation Comments UA Spec Grav (test code = UA Spec Grav) 1.021 [facility]annC[facility] [id number] 16:17:00 Test Item Value Reference Range Interpretation Comments CK MB Index (test 0.7 See_Comment [Automate d message] The code = CK MB Index) [facility] generated [facility] result transmit josr reference range : <=2.5. The reference range was not used to interpr et this result as sujey l/abnormal. [facility] [facility]annCHEM [id number] 16:17:00 Test Item Value Reference Range Interpretation Comments Lipase Lvl (test code = Lipase Lvl) 100 73-393 [facility] HospitalL[facility] [id number] 16:17:00 Test Item Value Reference Range Interpretation Comments Amylase Lvl (test code = Amylase Lvl) 59 25-115 [facility] [id number] 16:17:00 Test Item Value Reference Range Interpretation Comments eGFR (test code = eGFR) 70 [facility] HospitalGood World GamesCHEM [id number] 16:17:00 Test Item Value Reference Range Interpretation Comments Potassium Lvl (test code = Potassium 4.3 3.5-5.1 Lvl) [facility]2014-08-15 16:17:00 Test Item Value Reference Range Interpretation Comments Chloride Lvl (test code = Chloride Lvl) 105 95-109 [place] 121224-08-15 16:17:00 Test Item Value Reference Range Interpretation Comments CO2 (test code = CO2) 24 24-32 [place] 121224-08-15 16:17:00 Test Item Value Reference Range Interpretation Comments Sodium Lvl (test code = Sodium Lvl) 138 135-145 [facility]2014-08-15 16:17:00 Test Item Value Reference Range Interpretation Comments ALT (test code = ALT) 32 See_Comment [Auto mated message] The system which ge nerated this result transmit josr reference range : <=65. The reference range was not used to interpr et this result as sujey l/abnormal. [facility]2014-08-15 16:17:00 Test Item Value Reference Range Interpretation Comments AST (test code = AST) 18 See_Comment [Auto mated message] The system which ge nerated this result transmit josr reference range : <=37. The reference range was not used to interpr et this result as sujey l/abnormal. [facility]2014-08-15 16:17:00 Test Item Value Reference Range Interpretation Comments Alk Phos (test code = Alk Phos) 72 39-136 [facility]2014-08-15 16:17:00 Test Item Value Reference Range Interpretation Comments Bili Total (test code = Bili Total) 0.4 0.2-1.3 [facility]2014-08-15 16:17:00 Test Item Value Reference Range Interpretation Comments Total Protein (test code = Total 7.7 6.4-8.4 Protein) [place] 121224-08-15 16:17:00 Test Item Value Reference Range Interpretation Comments Albumin Lvl (test code = Albumin Lvl) 4.3 3.5-5.0 [facility]2014-08-15 16:17:00 Test Item Value Reference Range Interpretation Comments Calcium Lvl (test code = Calcium Lvl) 9.1 8.5-10.5 [facility]2014-08-15 16:17:00 Test Item Value Reference Range Interpretation Comments Creatinine Lvl (test code = Creatinine 1.2 0.5-1.4 Lvl) [facility]2014-08-15 16:17:00 Test Item Value Reference Range Interpretation Comments BUN (test code = BUN) 14 7-22 [facility]2014-08-15 16:17:00 Test Item Value Reference Range Interpretation Comments Glucose Lvl (test code = Glucose Lvl) 96 70-99 [facility]2014-08-15 16:17:00 Test Item Value Reference Range Interpretation Comments AGAP (test code = AGAP) 13.3 10.0-20.0 [facility]2014-08-15 16:17:00 Test Item Value Reference Range Interpretation Comments B/C Ratio (test code = B/C Ratio) 12 6-25 [facility]2014-08-15 16:17:00 Test Item Value Reference Range Interpretation Comments Globulin (test code = Globulin) 3.4 2.0-4.0 [facility]2014-08-15 16:17:00 Test Item Value Reference Range Interpretation Comments A/G Ratio (test code = A/G Ratio) 1.3 0.7-1.6 [facility] HeightsQwkcxsdDFDBCKEIUT1571-94-50 16:17:00 Test Item Value Reference Range Interpretation Comments Lymphocytes # (test code = Lymphocytes 1.2 1.0-5.5 #) [facility] HeightsSxdynavSLAZYFSCFA5163-61-72 16:17:00 Test Item Value Reference Range Interpretation Comments Segs-Bands # (test code = Segs-Bands #) 2.8 1.5-8.1 [facility] HeightsFbsyraeKFVKNMXGKE8210-69-06 16:17:00 Test Item Value Reference Range Interpretation Comments Monocytes # (test code 0.4 See_Comment [Aut omated message] The = Monocytes #) system which generated this result tra nsmitted reference range : <=0.8. The reference r [place] was not used to int erpret this result as normal/abnormal . [facility] HeightsKerjfebNMRALLAKJX9590-62-45 16:17:00 Test Item Value Reference Range Interpretation Comments Eosinophils # (test code 0.1 See_Comment [A utomated message] The = Eosinophils #) system whic h generated this result tra nsmitted reference range : <=0.5. The reference r [place] was not used to int erpret this result as normal/abnormal . [facility] HeightsOjpjmnzONZMZSMHGW1224-04-51 16:17:00 Test Item Value Reference Range Interpretation Comments Lymphocytes (test code = Lymphocytes) 27.9 20.0-40.0 [facility] HeightsKweuwtkLMLOTADIWT7841-72-76 16:17:00 Test Item Value Reference Range Interpretation Comments Segs (test code = Segs) 62.0 45.0-75.0 [facility] HeightsCtbgeezFJPAOQUPRY4457-61-19 16:17:00 Test Item Value Reference Range Interpretation Comments Basophils (test code = 0.6 See_Comment [Aut omated message] The Basophils) system which ge nerated this result tra nsmitted reference range : <=1.0. The reference r [place] was not used to int erpret this result as normal/abnormal . [facility] HeightsDyxblrjSGCXBUZQAX6782-07-22 16:17:00 Test Item Value Reference Range Interpretation Comments Eosinophils (test code = 1.3 See_Comment [A utomated message] The Eosinophils) system which ge nerated this result tra nsmitted reference range : <=4.0. The reference r [place] was not used to int erpret this result as normal/abnormal . [facility] HeightsYirqfrkCDPEIDMQSS5854-14-30 16:17:00 Test Item Value Reference Range Interpretation Comments Monocytes (test code = Monocytes) 8.2 2.0-12.0 [facility] HeightsTirbbdaNWRSACMQNO4843-58-73 16:17:00 Test Item Value Reference Range Interpretation Comments Hct (test code = Hct) 43.4 42.0-54.0 [facility] HeightsQwecsiqOTWFPLGMNU0398-57-42 16:17:00 Test Item Value Reference Range Interpretation Comments Hgb (test code = Hgb) 15.1 14.0-18.0 [facility] HeightsZwevzjuYFUWQGNMWA8033-35-99 16:17:00 Test Item Value Reference Range Interpretation Comments RBC (test code = RBC) 4.74 4.70-6.10 [facility] HeightsJhkxprtEEUFAFTTML7563-36-81 16:17:00 Test Item Value Reference Range Interpretation Comments MCV (test code = MCV) 91.7 80.0-94.0 [facility] HeightsXeobkncYJJYFXGQUQ2735-86-99 16:17:00 Test Item Value Reference Range Interpretation Comments RDW (test code = RDW) 12.8 11.5-14.5 [facility] HeightsKmapxozWLUAAPISFE3243-82-90 16:17:00 Test Item Value Reference Range Interpretation Comments MCHC (test code = MCHC) 34.8 32.0-36.0 [facility] HeightsHfyjmonUIHCBXNEXA5421-61-49 16:17:00 Test Item Value Reference Range Interpretation Comments MCH (test code = MCH) 31.9 pg 27.0-31.0 [facility] Heigh[id number] 16:17:00 Test Item Value Reference Range Interpretation Comments Platelet (test code = Platelet) 261 133-450 [facility] HeightsXrpqofvGEOFTJIZPN7241-62-70 16:17:00 Test Item Value Reference Range Interpretation Comments MPV (test code = MPV) 9.6 7.4-10.4 [facility] HeightsKhyrwfbVUPMITYMMP0922-09-45 16:17:00 Test Item Value Reference Range Interpretation Comments WBC (test code = WBC) 4.4 3.7-10.4 [facility] AND [id number] 16:17:00 Test Item Value Reference Range Interpretation Comments UA Urobilinogen (test code = UA <=1.0 mg/dL 0.1-1.0 Urobilinogen) [facility] AND [id number] 16:17:00 Test Item Value Reference Range Interpretation Comments UA Sq Epi (test code = UA Sq Epi) None Seen [facility] AND [id number] 16:17:00 Test Item Value Reference Range Interpretation Comments UA Ketones (test code = UA Negative mg/dL Ketones) [facility] AND [id number] 16:17:00 Test Item Value Reference Range Interpretation Comments UA pH (test code = UA pH) 5.0 5.0-8.0 [facility] AND [id number] 16:17:00 Test Item Value Reference Range Interpretation Comments UA Bili (test code = Negative *NA*(05/07/14 UA Bili) 11:17 AM) [facility] AND [id number] 16:17:00 Test Item Value Reference Range Interpretation Comments UA Glucose (test code = UA Negative mg/dL Glucose) [facility] AND [id number] 16:17:00 Test Item Value Reference Range Interpretation Comments UA Color (test code = Yellow *NA*(05/07/14 UA Color) 11:17 AM) [facility] [id number] 16:17:00 Test Item Value Reference Range Interpretation Comments UA WBC (test code = 2 See_Comment [Automa josr message] The UA WBC) system which ge nerated this result transmit josr reference range : <=5. The reference range was not used to interpr et this result as sujey l/abnormal. [facility] [id number] 16:17:00 Test Item Value Reference Range Interpretation Comments UA RBC (test code = 1 See_Comment [Automa josr message] The UA RBC) system which ge nerated this result transmit josr reference range : <=2. The reference range was not used to interpr et this result as sujey l/abnormal. [facility] [id number] 16:17:00 Test Item Value Reference Range Interpretation Comments UA Protein (test code = UA Negative mg/dL Protein) [facility] [id number] 16:17:00 Test Item Value Reference Range Interpretation Comments UA Turbidity (test code = Clear (05/07/14 11:17 UA Turbidity) AM) [facility] [id number] 16:17:00 Test Item Value Reference Range Interpretation Comments UA Spec Grav (test code = UA Spec Grav) 1.021 [facility] [id number] 16:17:00 Test Item Value Reference Range Interpretation Comments UA Nitrite (test code Negative (05/07/14 11:17 = UA Nitrite) AM) [facility] [id number] 16:17:00 Test Item Value Reference Range Interpretation Comments UA Leuk Est (test Negative (05/07/14 11:17 code = UA Leuk Est) AM) [facility] [id number] 16:17:00 Test Item Value Reference Range Interpretation Comments UA Blood (test code = Negative (05/07/14 11:17 UA Blood) AM) [facility] [id number] 16:17:00 Test Item Value Reference Range Interpretation Comments UA Mucus (test code = UA Mucus) Few /LPF [facility]annC[facility]AC OERWYBR1022-30-15 16:17:00 Test Item Value Reference Range Interpretation Comments Troponin-I (test code no gt See_Comment [Auto mated message] The = Troponin-I) system which g enerated this result transmit josr reference range : <=0.40. The reference r [place] was not used to interpr et this result as sujey l/abnormal. [facility] [id number] 16:17:00 Test Item Value Reference Range Interpretation Comments Total CK (test code = Total CK) 92 12-191 [facility] MVLIEUC7624-04-87 16:17:00 Test Item Value Reference Range Interpretation Comments CK MB (test code = CK MB) 0.6 0.5-3.6 [facility] [id number] 16:17:00 Test Item Value Reference Range Interpretation Comments CK MB Index (test 0.7 See_Comment [Automate d message] The code = CK MB Index) system w [facility] generated this result transmit josr reference range : <=2.5. The reference range was not used to interpr et this result as sujey l/abnormal. [facility] [id number] 16:17:00 Test Item Value Reference Range Interpretation Comments Lipase Lvl (test code = Lipase Lvl) 100 73-393 [facility]2014-08-15 16:17:00 Test Item Value Reference Range Interpretation Comments Amylase Lvl (test code = Amylase Lvl) 59 25-115 [facility] [id number] 16:17:00 Test Item Value Reference Range Interpretation Comments eGFR (test code = eGFR) 70 [facility]2014-08-15 16:17:00 Test Item Value Reference Range Interpretation Comments Potassium Lvl (test code = Potassium 4.3 3.5-5.1 Lvl) [facility]2014-08-15 16:17:00 Test Item Value Reference Range Interpretation Comments Chloride Lvl (test code = Chloride Lvl) 105 95-109 [facility] [id number] 16:17:00 Test Item Value Reference Range Interpretation Comments CO2 (test code = CO2) 24 24-32 [facility]2014-08-15 16:17:00 Test Item Value Reference Range Interpretation Comments Sodium Lvl (test code = Sodium Lvl) 138 135-145 [facility] [id number] 16:17:00 Test Item Value Reference Range Interpretation Comments ALT (test code = ALT) 32 See_Comment [Auto mated message] The system which ge nerated this result transmit josr reference range : <=65. The reference range was not used to interpr et this result as sujey l/abnormal. [facility]2014-08-15 16:17:00 Test Item Value Reference Range Interpretation Comments AST (test code = AST) 18 See_Comment [Auto mated message] The system which ge nerated this result transmit josr reference range : <=37. The reference range was not used to interpr et this result as sujey l/abnormal. [facility]2014-08-15 16:17:00 Test Item Value Reference Range Interpretation Comments Alk Phos (test code = Alk Phos) 72 39-136 [facility]2014-08-15 16:17:00 Test Item Value Reference Range Interpretation Comments Bili Total (test code = Bili Total) 0.4 0.2-1.3 [facility]2014-08-15 16:17:00 Test Item Value Reference Range Interpretation Comments Total Protein (test code = Total 7.7 6.4-8.4 Protein) [facility]2014-08-15 16:17:00 Test Item Value Reference Range Interpretation Comments Albumin Lvl (test code = Albumin Lvl) 4.3 3.5-5.0 [facility]2014-08-15 16:17:00 Test Item Value Reference Range Interpretation Comments Calcium Lvl (test code = Calcium Lvl) 9.1 8.5-10.5 [facility]2014-08-15 16:17:00 Test Item Value Reference Range Interpretation Comments Creatinine Lvl (test code = Creatinine 1.2 0.5-1.4 Lvl) [facility]2014-08-15 16:17:00 Test Item Value Reference Range Interpretation Comments BUN (test code = BUN) 14 7-22 [facility]2014-08-15 16:17:00 Test Item Value Reference Range Interpretation Comments Glucose Lvl (test code = Glucose Lvl) 96 70-99 [facility]2014-08-15 16:17:00 Test Item Value Reference Range Interpretation Comments AGAP (test code = AGAP) 13.3 10.0-20.0 [facility]2014-08-15 16:17:00 Test Item Value Reference Range Interpretation Comments B/C Ratio (test code = B/C Ratio) 12 6-25 [facility]2014-08-15 16:17:00 Test Item Value Reference Range Interpretation Comments Globulin (test code = Globulin) 3.4 2.0-4.0 [facility]2014-08-15 16:17:00 Test Item Value Reference Range Interpretation Comments A/G Ratio (test code = A/G Ratio) 1.3 0.7-1.6 [facility] HeightsBrdxzpcOAYRFMWIJQ4821-76-22 16:17:00 Test Item Value Reference Range Interpretation Comments Lymphocytes # (test code = Lymphocytes 1.2 1.0-5.5 #) [facility] Heigh[id number] 16:17:00 Test Item Value Reference Range Interpretation Comments Segs-Bands # (test code = Segs-Bands #) 2.8 1.5-8.1 [facility] HeightsFygslyjSVUFVHXKBU5645-97-15 16:17:00 Test Item Value Reference Range Interpretation Comments Monocytes # (test code 0.4 See_Comment [Aut omated message] The = Monocytes #) system which generated this result tra nsmitted reference range : <=0.8. The reference r [place] was not used to int erpret this result as normal/abnormal . [facility] HeightsUlgyoqmQZUWCPTRJM3838-18-03 16:17:00 Test Item Value Reference Range Interpretation Comments Eosinophils # (test code 0.1 See_Comment [A utomated message] The = Eosinophils #) system ic generated this result tra nsmitted reference range : <=0.5. The reference r [place] was not used to int erpret this result as normal/abnormal . [facility] HeightsOokeittJNPNLCVWMO0895-34-81 16:17:00 Test Item Value Reference Range Interpretation Comments Lymphocytes (test code = Lymphocytes) 27.9 20.0-40.0 [facility] HeightsGqvrgmwWAXOTBIKNW9710-09-83 16:17:00 Test Item Value Reference Range Interpretation Comments Segs (test code = Segs) 62.0 45.0-75.0 [facility] HeightsXxouekcKADGCQLIVY9498-21-98 16:17:00 Test Item Value Reference Range Interpretation Comments Basophils (test code = 0.6 See_Comment [Aut omated message] The Basophils) system which ge nerated this result tra nsmitted reference range : <=1.0. The reference r [place] was not used to int erpret this result as normal/abnormal . [facility] HeightsMvptdwwVUJGXDJHXW8598-36-82 16:17:00 Test Item Value Reference Range Interpretation Comments Eosinophils (test code = 1.3 See_Comment [A utomated message] The Eosinophils) system which ge nerated this result tra nsmitted reference range : <=4.0. The reference r [place] was not used to int erpret this result as normal/abnormal . [facility] HeightsMrokikkWWLBNIJQVA7610-42-09 16:17:00 Test Item Value Reference Range Interpretation Comments Monocytes (test code = Monocytes) 8.2 2.0-12.0 [facility] HeightsPhbueyyQYMUJVAQIX4429-47-38 16:17:00 Test Item Value Reference Range Interpretation Comments Hct (test code = Hct) 43.4 42.0-54.0 [facility] HeightsNavxglfMSJKUHLIFE8135-71-00 16:17:00 Test Item Value Reference Range Interpretation Comments Hgb (test code = Hgb) 15.1 14.0-18.0 [facility] HeightsTmazaexVOERSESSYX5350-78-13 16:17:00 Test Item Value Reference Range Interpretation Comments RBC (test code = RBC) 4.74 4.70-6.10 [facility] HeightsAsjbgiwUJVGGCZMYW0760-05-71 16:17:00 Test Item Value Reference Range Interpretation Comments MCV (test code = MCV) 91.7 80.0-94.0 [facility] HeightsUpeyurzISVVJKFOND7512-23-40 16:17:00 Test Item Value Reference Range Interpretation Comments RDW (test code = RDW) 12.8 11.5-14.5 [facility] HeightsYovnzshXZPPREJULK4814-84-33 16:17:00 Test Item Value Reference Range Interpretation Comments MCHC (test code = MCHC) 34.8 32.0-36.0 [facility] HeightsTanwjldWTLVANDSEO1018-90-92 16:17:00 Test Item Value Reference Range Interpretation Comments MCH (test code = MCH) 31.9 pg 27.0-31.0 [facility] HeightsYzqusmiCYIXKWNXRS8919-49-78 16:17:00 Test Item Value Reference Range Interpretation Comments Platelet (test code = Platelet) 261 133-450 [facility] HeightsHgbbfpqKKBAGWTLNE8337-46-02 16:17:00 Test Item Value Reference Range Interpretation Comments MPV (test code = MPV) 9.6 7.4-10.4 [facility]HsibbgeZPBLWPSXUT6424-22-49 16:17:00 Test Item Value Reference Range Interpretation Comments WBC (test code = WBC) 4.4 3.7-10.4 [facility] [id number] 16:17:00 Test Item Value Reference Range Interpretation Comments UA Urobilinogen (test code = UA <=1.0 mg/dL 0.1-1.0 Urobilinogen) [facility] AND [id number] 16:17:00 Test Item Value Reference Range Interpretation Comments UA Sq Epi (test code = UA Sq Epi) None Seen [facility] AND [id number] 16:17:00 Test Item Value Reference Range Interpretation Comments UA Ketones (test code = UA Negative mg/dL Ketones) [facility] AND [id number] 16:17:00 Test Item Value Reference Range Interpretation Comments UA pH (test code = UA pH) 5.0 5.0-8.0 [facility] AND [id number] 16:17:00 Test Item Value Reference Range Interpretation Comments UA Bili (test code = Negative *NA*(05/07/14 UA Bili) 11:17 AM) [facility] AND [id number] 16:17:00 Test Item Value Reference Range Interpretation Comments UA Glucose (test code = UA Negative mg/dL Glucose) [facility] AND [id number] 16:17:00 Test Item Value Reference Range Interpretation Comments UA Color (test code = Yellow *NA*(05/07/14 UA Color) 11:17 AM) [facility] AND [id number] 16:17:00 Test Item Value Reference Range Interpretation Comments UA WBC (test code = 2 See_Comment [Automa josr message] The UA WBC) system which ge nerated this result transmit josr reference range : <=5. The reference range was not used to interpr et this result as sujey l/abnormal. [facility] AND [id number] 16:17:00 Test Item Value Reference Range Interpretation Comments UA RBC (test code = 1 See_Comment [Automa josr message] The UA RBC) system which ge nerated this result transmit josr reference range : <=2. The reference range was not used to interpr et this result as sujey l/abnormal. [facility] AND [id number] 16:17:00 Test Item Value Reference Range Interpretation Comments UA Protein (test code = UA Negative mg/dL Protein) [facility] AND [id number] 16:17:00 Test Item Value Reference Range Interpretation Comments UA Turbidity (test code = Clear (05/07/14 11:17 UA Turbidity) AM) [facility] AND [id number] 16:17:00 Test Item Value Reference Range Interpretation Comments UA Spec Grav (test code = UA Spec Grav) 1.021 [facility] AND [id number] 16:17:00 Test Item Value Reference Range Interpretation Comments UA Nitrite (test code Negative (05/07/14 11:17 = UA Nitrite) AM) [facility] AND [id number] 16:17:00 Test Item Value Reference Range Interpretation Comments UA Leuk Est (test Negative (05/07/14 11:17 code = UA Leuk Est) AM) [facility] AND [id number] 16:17:00 Test Item Value Reference Range Interpretation Comments UA Blood (test code = Negative (05/07/14 11:17 UA Blood) AM) [facility] AND [id number] 16:17:00 Test Item Value Reference Range Interpretation Comments UA Mucus (test code = UA Mucus) Few /LPF [facility]annCARDIAC [id number] 16:17:00 Test Item Value Reference Range Interpretation Comments Troponin-I (test code no gt See_Comment [Auto mated message] The = Troponin-I) system which g enerated this result transmit josr reference range : <=0.40. The reference r [place] was not used to interpr et this result as sujey l/abnormal. [facility]annCARDIAC [id number] 16:17:00 Test Item Value Reference Range Interpretation Comments Total CK (test code = Total CK) 92 12-191 [facility]annCARDIAC [id number] 16:17:00 Test Item Value Reference Range Interpretation Comments CK MB (test code = CK MB) 0.6 0.5-3.6 [facility]annCARD[facility]AC [id number] 16:17:00 Test Item Value Reference Range Interpretation Comments CK MB Index (test 0.7 See_Comment [Automate d message] The code = CK MB Index) system w [employer] generated this result transmit josr reference range : <=2.5. The reference range was not used to interpr et this result as sujey l/abnormal. [facility] [id number] 16:17:00 Test Item Value Reference Range Interpretation Comments Lipase Lvl (test code = Lipase Lvl) 100 73-393 [facility] [id number] 16:17:00 Test Item Value Reference Range Interpretation Comments Amylase Lvl (test code = Amylase Lvl) 59 25-115 [facility] [id number] 16:17:00 Test Item Value Reference Range Interpretation Comments eGFR (test code = eGFR) 70 [facility] [id number] 16:17:00 Test Item Value Reference Range Interpretation Comments Potassium Lvl (test code = Potassium 4.3 3.5-5.1 Lvl) [facility] [id number] 16:17:00 Test Item Value Reference Range Interpretation Comments Chloride Lvl (test code = Chloride Lvl) 105 95-109 [facility] [id number] 16:17:00 Test Item Value Reference Range Interpretation Comments CO2 (test code = CO2) 24 24-32 [facility] [id number] 16:17:00 Test Item Value Reference Range Interpretation Comments Sodium Lvl (test code = Sodium Lvl) 138 135-145 [facility] [id number] 16:17:00 Test Item Value Reference Range Interpretation Comments ALT (test code = ALT) 32 See_Comment [Auto mated message] The system which ge nerated this result transmit josr reference range : <=65. The reference range was not used to interpr et this result as sujey l/abnormal. [facility] [id number] 16:17:00 Test Item Value Reference Range Interpretation Comments AST (test code = AST) 18 See_Comment [Auto mated message] The system which ge nerated this result transmit josr reference range : <=37. The reference range was not used to interpr et this result as sujey l/abnormal. [facility]2014-08-15 16:17:00 Test Item Value Reference Range Interpretation Comments Alk Phos (test code = Alk Phos) 72 39-136 [facility]2014-08-15 16:17:00 Test Item Value Reference Range Interpretation Comments Bili Total (test code = Bili Total) 0.4 0.2-1.3 [facility]2014-08-15 16:17:00 Test Item Value Reference Range Interpretation Comments Total Protein (test code = Total 7.7 6.4-8.4 Protein) [facility]2014-08-15 16:17:00 Test Item Value Reference Range Interpretation Comments Albumin Lvl (test code = Albumin Lvl) 4.3 3.5-5.0 [facility]2014-08-15 16:17:00 Test Item Value Reference Range Interpretation Comments Calcium Lvl (test code = Calcium Lvl) 9.1 8.5-10.5 [facility]2014-08-15 16:17:00 Test Item Value Reference Range Interpretation Comments Creatinine Lvl (test code = Creatinine 1.2 0.5-1.4 Lvl) [facility]2014-08-15 16:17:00 Test Item Value Reference Range Interpretation Comments BUN (test code = BUN) 14 7-22 [facility]2014-08-15 16:17:00 Test Item Value Reference Range Interpretation Comments Glucose Lvl (test code = Glucose Lvl) 96 70-99 [facility]2014-08-15 16:17:00 Test Item Value Reference Range Interpretation Comments AGAP (test code = AGAP) 13.3 10.0-20.0 [facility]2014-08-15 16:17:00 Test Item Value Reference Range Interpretation Comments B/C Ratio (test code = B/C Ratio) 12 6-25 [facility]2014-08-15 16:17:00 Test Item Value Reference Range Interpretation Comments Globulin (test code = Globulin) 3.4 2.0-4.0 [facility]2014-08-15 16:17:00 Test Item Value Reference Range Interpretation Comments A/G Ratio (test code = A/G Ratio) 1.3 0.7-1.6 [facility] HeightsPexuqelVOFTPIHHZU5706-06-10 16:17:00 Test Item Value Reference Range Interpretation Comments Lymphocytes # (test code = Lymphocytes 1.2 1.0-5.5 #) [facility] [id number] 16:17:00 Test Item Value Reference Range Interpretation Comments Segs-Bands # (test code = Segs-Bands #) 2.8 1.5-8.1 [facility] HeightsZztwkqnGUABYFOAUQ4396-37-25 16:17:00 Test Item Value Reference Range Interpretation Comments Monocytes # (test code 0.4 See_Comment [Aut omated message] The = Monocytes #) system which generated this result tra nsmitted reference range : <=0.8. The reference r [place] was not used to int erpret this result as normal/abnormal . [facility] HeightsMpocnaqIFVGZWWRUS0978-45-63 16:17:00 Test Item Value Reference Range Interpretation Comments Eosinophils # (test code 0.1 See_Comment [A utomated message] The = Eosinophils #) system wh h generated this result tra nsmitted reference range : <=0.5. The reference r [place] was not used to int erpret this result as normal/abnormal . [facility] HeightsDcutlvxCJAYTIDECM5657-68-26 16:17:00 Test Item Value Reference Range Interpretation Comments Lymphocytes (test code = Lymphocytes) 27.9 20.0-40.0 [facility] HeightsRwdftdqYIEJIBRLDC9773-51-87 16:17:00 Test Item Value Reference Range Interpretation Comments Segs (test code = Segs) 62.0 45.0-75.0 [facility] HeightsErovudvCNRHXHDWXT6212-15-27 16:17:00 Test Item Value Reference Range Interpretation Comments Basophils (test code = 0.6 See_Comment [Aut omated message] The Basophils) system which ge nerated this result tra nsmitted reference range : <=1.0. The reference r [place] was not used to int erpret this result as normal/abnormal . [facility] HeightsVoeqgacWAXFCMQZVE8997-57-73 16:17:00 Test Item Value Reference Range Interpretation Comments Eosinophils (test code = 1.3 See_Comment [A utomated message] The Eosinophils) system which ge nerated this result tra nsmitted reference range : <=4.0. The reference r [place] was not used to int erpret this result as normal/abnormal . [facility] HeightsJvlynkzZRWBXBFNQV5792-23-83 16:17:00 Test Item Value Reference Range Interpretation Comments Monocytes (test code = Monocytes) 8.2 2.0-12.0 [facility] HeightsUlrlxylPCLNSPSLVB8351-80-29 16:17:00 Test Item Value Reference Range Interpretation Comments Hct (test code = Hct) 43.4 42.0-54.0 [facility] HeightsFxqszgbQWLAVPFPHU6680-32-34 16:17:00 Test Item Value Reference Range Interpretation Comments Hgb (test code = Hgb) 15.1 14.0-18.0 [facility] HeightsFnxnttmOWBUIRQETT6103-01-93 16:17:00 Test Item Value Reference Range Interpretation Comments RBC (test code = RBC) 4.74 4.70-6.10 [facility] HeightsCixljthGVZZPKVBQX5548-40-53 16:17:00 Test Item Value Reference Range Interpretation Comments MCV (test code = MCV) 91.7 80.0-94.0 [facility] HeightsFkmikllKQVTWIMPCA7279-87-51 16:17:00 Test Item Value Reference Range Interpretation Comments RDW (test code = RDW) 12.8 11.5-14.5 [facility] HeightsEmvbpsvRXYJLGOONF9010-25-48 16:17:00 Test Item Value Reference Range Interpretation Comments MCHC (test code = MCHC) 34.8 32.0-36.0 [facility] HeightsCeroqkcCKIUDXYXPV0901-54-84 16:17:00 Test Item Value Reference Range Interpretation Comments MCH (test code = MCH) 31.9 pg 27.0-31.0 [facility] HeightsQmswessEKOQRYVMRN9870-12-87 16:17:00 Test Item Value Reference Range Interpretation Comments Platelet (test code = Platelet) 261 133-450 [facility] HeightsGdsajuzZTJXIJWQUY0960-64-44 16:17:00 Test Item Value Reference Range Interpretation Comments MPV (test code = MPV) 9.6 7.4-10.4 [facility] HeightsHcesemdABTAMLZFAA7781-69-99 16:17:00 Test Item Value Reference Range Interpretation Comments WBC (test code = WBC) 4.4 3.7-10.4 [facility]2014-08-15 16:17:00 Test Item Value Reference Range Interpretation Comments UA Urobilinogen (test code = UA <=1.0 mg/dL 0.1-1.0 Urobilinogen) [facility] AND [id number] 16:17:00 Test Item Value Reference Range Interpretation Comments UA Sq Epi (test code = UA Sq Epi) None Seen [facility] AND [id number] 16:17:00 Test Item Value Reference Range Interpretation Comments UA Ketones (test code = UA Negative mg/dL Ketones) [facility] AND [id number] 16:17:00 Test Item Value Reference Range Interpretation Comments UA pH (test code = UA pH) 5.0 5.0-8.0 [facility] AND [id number] 16:17:00 Test Item Value Reference Range Interpretation Comments UA Bili (test code = Negative *NA*(05/07/14 UA Bili) 11:17 AM) [facility] AND [id number] 16:17:00 Test Item Value Reference Range Interpretation Comments UA Glucose (test code = UA Negative mg/dL Glucose) [facility] AND [id number] 16:17:00 Test Item Value Reference Range Interpretation Comments UA Color (test code = Yellow *NA*(05/07/14 UA Color) 11:17 AM) [facility] AND [id number] 16:17:00 Test Item Value Reference Range Interpretation Comments UA WBC (test code = 2 See_Comment [Automa josr message] The UA WBC) system which ge nerated this result transmit josr reference range : <=5. The reference range was not used to interpr et this result as sujey l/abnormal. [facility] AND [id number] 16:17:00 Test Item Value Reference Range Interpretation Comments UA RBC (test code = 1 See_Comment [Automa josr message] The UA RBC) system which ge nerated this result transmit josr reference range : <=2. The reference range was not used to interpr et this result as sujey l/abnormal. [facility] AND [id number] 16:17:00 Test Item Value Reference Range Interpretation Comments UA Protein (test code = UA Negative mg/dL Protein) [facility] AND [id number] 16:17:00 Test Item Value Reference Range Interpretation Comments UA Turbidity (test code = Clear (05/07/14 11:17 UA Turbidity) AM) [facility] AND [id number] 16:17:00 Test Item Value Reference Range Interpretation Comments UA Spec Grav (test code = UA Spec Grav) 1.021 [facility] [id number] 16:17:00 Test Item Value Reference Range Interpretation Comments UA Nitrite (test code Negative (05/07/14 11:17 = UA Nitrite) AM) [facility]FnhnjpyLPYWQCYFV2213-15-28 16:55:00 Test Item Value Reference Range Interpretation Comments AGAP (test code = AGAP) 10.9 10.0-20.0 N [facility]wallYboqyjgHJTTGRQQC8333-14-96 16:55:00 Test Item Value Reference Range Interpretation Comments eGFR (test code = eGFR) 78 [facility]wallMdpzdcwNDRJTISBL2877-44-67 16:55:00 Test Item Value Reference Range Interpretation Comments Calcium Lvl (test code = Calcium Lvl) 9.0 8.5-10.5 N [facility]wallCnhekgwJOIANEGTT7803-75-54 16:55:00 Test Item Value Reference Range Interpretation Comments Creatinine Lvl (test code = Creatinine 1.1 0.5-1.4 N Lvl) [facility]wallSuumlztRJLVLHQSS3019-59-18 16:55:00 Test Item Value Reference Range Interpretation Comments BUN (test code = BUN) 11 7-22 N [facility]wallMkgfcfoZQFBGQYUY3728-07-60 16:55:00 Test Item Value Reference Range Interpretation Comments Sodium Lvl (test code = Sodium Lvl) 136 135-145 N [facility]wallOhusdnaMXMPVHWVV1707-59-44 16:55:00 Test Item Value Reference Range Interpretation Comments Chloride Lvl (test code = Chloride Lvl) 105 95-109 N [facility] RockwallUwsigsvNNRXJEDER6340-39-74 16:55:00 Test Item Value Reference Range Interpretation Comments CO2 (test code = CO2) 24 24-32 N [facility] RockwallNvllikkEGDBBZBTS5648-14-52 16:55:00 Test Item Value Reference Range Interpretation Comments Potassium Lvl (test code = Potassium 3.9 3.5-5.1 N Lvl) [facility]wallYvkkewmNUIBNFYZT8631-16-88 16:55:00 Test Item Value Reference Range Interpretation Comments Glucose Lvl (test code = Glucose Lvl) 114 70-99 H [facility] RockwallBrqvzzhLPHXKDGQJ8649-14-84 16:55:00 Test Item Value Reference Range Interpretation Comments Lactic Acid Lvl (test code = Lactic 1.2 0.5-2.2 N Acid Lvl) [facility]PcfksgmFPPZFXIFAY9346-96-42 16:55:00 Test Item Value Reference Range Interpretation Comments MPV (test code = MPV) 8.8 7.4-10.4 N [facility] HeightsHzckjjiSVBSCTEVAC9663-88-27 16:55:00 Test Item Value Reference Range Interpretation Comments WBC X 10x3 (test code = WBC X 10x3) 6.6 3.7-10.4 N [facility] HeightsDpzoshyWKJZUYIXMD4345-30-95 16:55:00 Test Item Value Reference Range Interpretation Comments RBC X 10x6 (test code = RBC X 10x6) 4.63 4.70-6.10 L [facility] HeightsJufkhcwLVKJXGLIGC0212-57-85 16:55:00 Test Item Value Reference Range Interpretation Comments Hgb (test code = Hgb) 14.8 14.0-18.0 N [facility] HeightsNavfrcqPPTNIOFFHT8959-52-88 16:55:00 Test Item Value Reference Range Interpretation Comments MCH (test code = MCH) 32.0 pg 27.0-31.0 H [facility] HeightsClmhhvfNBQJFDLANO7664-18-04 16:55:00 Test Item Value Reference Range Interpretation Comments Hct (test code = Hct) 43.2 42.0-54.0 N [facility] HeightsZcmbeboLSFUYZHICT0388-69-78 16:55:00 Test Item Value Reference Range Interpretation Comments MCV (test code = MCV) 93.3 80.0-94.0 N [facility] HeightsNwiqewiQKVQYJYVEL1065-26-99 16:55:00 Test Item Value Reference Range Interpretation Comments RDW (test code = RDW) 12.8 11.5-14.5 N [facility] HeightsKiodhcxQITQEKUQLL4938-22-67 16:55:00 Test Item Value Reference Range Interpretation Comments MCHC (test code = MCHC) 34.3 32.0-36.0 N [facility] HeightsPxyenyhVMQUTPVXEO4368-21-73 16:55:00 Test Item Value Reference Range Interpretation Comments Platelet (test code = Platelet) 221 133-450 N [facility] HeightsSluznkbSCJDZNMKHR0501-31-92 16:55:00 Test Item Value Reference Range Interpretation Comments Monocytes (test code = Monocytes) 11.4 2.0-12.0 N [facility] HeightsOiduksmPEPELXRLLN5490-84-98 16:55:00 Test Item Value Reference Range Interpretation Comments Eosinophils (test code = 0.2 See_Comment N [A utomated message] The Eosinophils) system which ge nerated this result tra nsmitted reference range : <=4.0. The reference r [place] was not used to int erpret this result as normal/abnormal . [facility] HeightsEbjlbekUYDEZFOYNL5307-46-87 16:55:00 Test Item Value Reference Range Interpretation Comments Basophils (test code = 0.2 See_Comment N [Aut omated message] The Basophils) system which ge nerated this result tra nsmitted reference range : <=1.0. The reference r [place] was not used to int erpret this result as normal/abnormal . [facility] HeightsLjdmnbaQWUNVDEAXP1454-63-86 16:55:00 Test Item Value Reference Range Interpretation Comments Segs-Bands # (test code = Segs-Bands #) 5.4 1.5-8.1 N [facility] HeightsKumnipcWKNJQATUKG4459-89-75 16:55:00 Test Item Value Reference Range Interpretation Comments Lymphocytes # (test code = Lymphocytes 0.4 1.0-5.5 L #) [facility] HeightsVbhtvteIULWFFRKTX4507-92-71 16:55:00 Test Item Value Reference Range Interpretation Comments Monocytes # (test code 0.8 See_Comment N [Aut omated message] The = Monocytes #) system which generated this result tra nsmitted reference range : <=0.8. The reference r [place] was not used to int erpret this result as normal/abnormal . [facility] HeightsOxwogghANXJKWDUGT4972-17-47 16:55:00 Test Item Value Reference Range Interpretation Comments Eosinophils # (test code 0.0 See_Comment N [A utomated message] The = Eosinophils #) system whic h generated this result tra nsmitted reference range : <=0.5. The reference r [place] was not used to int erpret this result as normal/abnormal . [facility] HeightsKashisfDUVDGXLXXX5651-78-94 16:55:00 Test Item Value Reference Range Interpretation Comments Basophils # (test code 0.0 See_Comment N [Aut omated message] The = Basophils #) system which generated this result tra nsmitted reference range : <=0.2. The reference r [place] was not used to int erpret this result as normal/abnormal . [facility] HeightsSsnzhdwLXMCKMFTEP1912-83-11 16:55:00 Test Item Value Reference Range Interpretation Comments Lymphocytes (test code = Lymphocytes) 6.5 20.0-40.0 L [facility] AtlantaWszyuleTBVLMGGSUL9352-25-66 16:55:00 Test Item Value Reference Range Interpretation Comments Segs (test code = Segs) 81.7 45.0-75.0 H [facility] AtlantaRqxfjtbTEJOJUKVNB5187-54-66 16:55:00 Test Item Value Reference Range Interpretation Comments UA Urobilinogen (test code = UA <=1.0 mg/dL 0.1-1.0 Urobilinogen) [facility]AvixbqwJLDCCIVHGN1772-94-25 16:55:00 Test Item Value Reference Range Interpretation Comments UA Color (test code = UA Color) Ltyellow [facility]ZmvwzhwCQITRRREDH3541-84-52 16:55:00 Test Item Value Reference Range Interpretation Comments UA Sq Epi (test code = UA Sq Epi) None [facility]en [facility] HospitalPljaofcXKKSFNYGAM4179-21-71 16:55:00 Test Item Value Reference Range Interpretation Comments UA Mucus (test code = UA Mucus) Few /LPF [facility] HospitalDcqoymmOAUDMEOYXY6118-04-62 16:55:00 Test Item Value Reference Range Interpretation Comments UA WBC (test code = no gt See_Comment N [Automa josr message] The UA WBC) system which ge nerated this result transmit josr reference range : <=5. The reference range was not used to interpr et this result as sujey l/abnormal. [facility] HospitalUyadncxFJAKKIMCZQ3744-08-57 16:55:00 Test Item Value Reference Range Interpretation Comments UA Bili (test code = Negative *NA*(09/01/2013 UA Bili) 10:55:00) [facility]OpusbrkYOKAGOXMNT1938-37-42 16:55:00 Test Item Value Reference Range Interpretation Comments UA Ketones (test code = UA Negative mg/dL Ketones) [facility] HospitalKqxzuxbMMMFXAPPFC6288-04-04 16:55:00 Test Item Value Reference Range Interpretation Comments UA pH (test code = UA pH) 5.0 5.0-8.0 N [facility] HospitalXwnbihyEZETXRQQKK1130-03-22 16:55:00 Test Item Value Reference Range Interpretation Comments UA Nitrite (test code Negative (09/01/2013 N = UA Nitrite) 10:55:00) [facility]viewRygfaveWYGURIVVAV4589-85-42 16:55:00 Test Item Value Reference Range Interpretation Comments UA Blood (test code = Negative (09/01/2013 N UA Blood) 10:55:00) [facility] HospitalIsfaphdQMCWVWUFGV4138-16-08 16:55:00 Test Item Value Reference Range Interpretation Comments UA Leuk Est (test Negative (09/01/2013 N code = UA Leuk Est) 10:55:00) [facility] HospitalUugggjfMMOEPBAPJQ7285-84-16 16:55:00 Test Item Value Reference Range Interpretation Comments UA Protein (test code = UA Negative mg/dL N Protein) [facility] HospitalYdqaaytXSMHSYUXVL2964-82-19 16:55:00 Test Item Value Reference Range Interpretation Comments UA Glucose (test code = UA Negative mg/dL Glucose) [facility] HospitalWkytmglGAMLQJUCMG0737-05-00 16:55:00 Test Item Value Reference Range Interpretation Comments UA Spec Grav (test code = UA Spec Grav) 1.024 N [facility] HospitalPorwgynOMAGDRUSYI8062-09-67 16:55:00 Test Item Value Reference Range Interpretation Comments UA Turbidity (test code = Clear (09/01/2013 N UA Turbidity) 10:55:00) [facility] ICZSLIAO6275-55-25 16:55:00 Test Item Value Reference Range Interpretation Comments Influ B (test code = Negative 1(09/01/2013 N Influ B) 10:55:00) [facility] NTLLVDPD4570-31-95 16:55:00 Test Item Value Reference Range Interpretation Comments Influ A (test code = Negative (09/01/2013 N Influ A) 10:55:00) [facility]ExabpvnTHRUWMTYN6752-37-85 16:55:00 Test Item Value Reference Range Interpretation Comments AGAP (test code = AGAP) 10.9 10.0-20.0 N [facility]wallRpssdctIGVYDYRNF2415-64-46 16:55:00 Test Item Value Reference Range Interpretation Comments eGFR (test code = eGFR) 78 [facility]wallYshqpfbLAPIMVJRA4870-88-19 16:55:00 Test Item Value Reference Range Interpretation Comments Calcium Lvl (test code = Calcium Lvl) 9.0 8.5-10.5 N [facility]wallBxsqmmsVOSXQTFWE8695-74-56 16:55:00 Test Item Value Reference Range Interpretation Comments Creatinine Lvl (test code = Creatinine 1.1 0.5-1.4 N Lvl) [facility]wallCogczchSUUAIUUBZ4026-47-48 16:55:00 Test Item Value Reference Range Interpretation Comments BUN (test code = BUN) 11 7-22 N [facility]wallGpooecuZRGEGTMDA5594-59-20 16:55:00 Test Item Value Reference Range Interpretation Comments Sodium Lvl (test code = Sodium Lvl) 136 135-145 N [facility]wallQftccwqHZTGEPWXU5325-18-96 16:55:00 Test Item Value Reference Range Interpretation Comments Chloride Lvl (test code = Chloride Lvl) 105 95-109 N [facility]wallLvgzfdaNPTZMQBVZ2923-75-70 16:55:00 Test Item Value Reference Range Interpretation Comments CO2 (test code = CO2) 24 24-32 N [facility] RockwallDclohmwUZYORLXUR6910-38-92 16:55:00 Test Item Value Reference Range Interpretation Comments Potassium Lvl (test code = Potassium 3.9 3.5-5.1 N Lvl) [facility]wallIzamaxkHGWFYEGCH4818-84-25 16:55:00 Test Item Value Reference Range Interpretation Comments Glucose Lvl (test code = Glucose Lvl) 114 70-99 H [facility] RockwallDngjfllCADGMUZPT0943-67-61 16:55:00 Test Item Value Reference Range Interpretation Comments Lactic Acid Lvl (test code = Lactic 1.2 0.5-2.2 N Acid Lvl) [facility] HeightsMkeuabnMBYAEUGBNA2085-37-30 16:55:00 Test Item Value Reference Range Interpretation Comments MPV (test code = MPV) 8.8 7.4-10.4 N [facility] HeightsDourlujOVUTKWPJNC6862-52-77 16:55:00 Test Item Value Reference Range Interpretation Comments WBC X 10x3 (test code = WBC X 10x3) 6.6 3.7-10.4 N [facility] HeightsHjlzxmbBJIQEVITCC1033-28-55 16:55:00 Test Item Value Reference Range Interpretation Comments RBC X 10x6 (test code = RBC X 10x6) 4.63 4.70-6.10 L [facility] HeightsEyeqhgtYMXPISUHRD4171-01-10 16:55:00 Test Item Value Reference Range Interpretation Comments Hgb (test code = Hgb) 14.8 14.0-18.0 N [facility] HeightsNkmagjpCBJAIVCDWQ6953-53-22 16:55:00 Test Item Value Reference Range Interpretation Comments MCH (test code = MCH) 32.0 pg 27.0-31.0 H [facility] HeightsPqaprfyEOHHYDMYFT0987-59-19 16:55:00 Test Item Value Reference Range Interpretation Comments Hct (test code = Hct) 43.2 42.0-54.0 N [facility] HeightsVrpieubAVLLWCMWCM4602-73-46 16:55:00 Test Item Value Reference Range Interpretation Comments MCV (test code = MCV) 93.3 80.0-94.0 N [facility] HeightsQgzzydiTNYKOQWZVZ2403-00-25 16:55:00 Test Item Value Reference Range Interpretation Comments RDW (test code = RDW) 12.8 11.5-14.5 N [facility] HeightsMnnibmlOYLYNBASQC5020-55-16 16:55:00 Test Item Value Reference Range Interpretation Comments MCHC (test code = MCHC) 34.3 32.0-36.0 N [facility] HeightsIawtkghQOSOSXBCQW2169-72-29 16:55:00 Test Item Value Reference Range Interpretation Comments Platelet (test code = Platelet) 221 133-450 N [facility] HeightsPvtcsfwXKHXSLTZPD9563-58-01 16:55:00 Test Item Value Reference Range Interpretation Comments Monocytes (test code = Monocytes) 11.4 2.0-12.0 N [facility] HeightsAxttevqPTBBDANPLO6524-38-98 16:55:00 Test Item Value Reference Range Interpretation Comments Eosinophils (test code = 0.2 See_Comment N [A utomated message] The Eosinophils) system which ge nerated this result tra nsmitted reference range : <=4.0. The reference r [place] was not used to int erpret this result as normal/abnormal . [facility] HeightsBykgfsxCMPXUZEUJM5844-74-19 16:55:00 Test Item Value Reference Range Interpretation Comments Basophils (test code = 0.2 See_Comment N [Aut omated message] The Basophils) system which ge nerated this result tra nsmitted reference range : <=1.0. The reference r [place] was not used to int erpret this result as normal/abnormal . [facility] HeightsLepfeklDWBPUFTSZY1350-49-24 16:55:00 Test Item Value Reference Range Interpretation Comments Segs-Bands # (test code = Segs-Bands #) 5.4 1.5-8.1 N [facility] HeightsNxdcfgjMUOPWVJCVH6955-14-21 16:55:00 Test Item Value Reference Range Interpretation Comments Lymphocytes # (test code = Lymphocytes 0.4 1.0-5.5 L #) [facility] HeightsDsjhwinWKOWTVZFMV4517-14-19 16:55:00 Test Item Value Reference Range Interpretation Comments Monocytes # (test code 0.8 See_Comment N [Aut omated message] The = Monocytes #) system which generated this result tra nsmitted reference range : <=0.8. The reference r [place] was not used to int erpret this result as normal/abnormal . [facility] HeightsYolhuycATOETMOWTH8664-92-73 16:55:00 Test Item Value Reference Range Interpretation Comments Eosinophils # (test code 0.0 See_Comment N [A utomated message] The = Eosinophils #) system whic h generated this result tra nsmitted reference range : <=0.5. The reference r [place] was not used to int erpret this result as normal/abnormal . [facility] HeightsFczpwtvDRBMRXWSJK3808-09-08 16:55:00 Test Item Value Reference Range Interpretation Comments Basophils # (test code 0.0 See_Comment N [Aut omated message] The = Basophils #) system which generated this result tra nsmitted reference range : <=0.2. The reference r [place] was not used to int erpret this result as normal/abnormal . [facility] HeightsOhkbnwaXZMYGWBVKT6542-37-59 16:55:00 Test Item Value Reference Range Interpretation Comments Lymphocytes (test code = Lymphocytes) 6.5 20.0-40.0 L [facility] HeightsDslnxbyFHNOIQEDAG8925-64-85 16:55:00 Test Item Value Reference Range Interpretation Comments Segs (test code = Segs) 81.7 45.0-75.0 H [facility] HospitalIoxxysdGVYTBESXOQ1828-62-53 16:55:00 Test Item Value Reference Range Interpretation Comments UA Urobilinogen (test code = UA <=1.0 mg/dL 0.1-1.0 Urobilinogen) [facility] HospitalCcudradMVVZZJIIHC1692-40-92 16:55:00 Test Item Value Reference Range Interpretation Comments UA Color (test code = UA Color) Ltyellow [facility] HospitalZrtpuarKUHTUDNTJT9837-65-85 16:55:00 Test Item Value Reference Range Interpretation Comments UA Sq Epi (test code = UA Sq Epi) None Seen [facility] HospitalZswnymiUNAAZLYTVC1580-70-79 16:55:00 Test Item Value Reference Range Interpretation Comments UA Mucus (test code = UA Mucus) Few /LPF [facility] HospitalGelnkzfQNUAVVOLHY1749-13-32 16:55:00 Test Item Value Reference Range Interpretation Comments UA WBC (test code = no gt See_Comment N [Automa josr message] The UA WBC) system which ge nerated this result transmit josr reference range : <=5. The reference range was not used to interpr et this result as sujey l/abnormal. [facility] HospitalQriajzhZKCINKFZAX9362-86-57 16:55:00 Test Item Value Reference Range Interpretation Comments UA Bili (test code = Negative *NA*(09/01/2013 UA Bili) 10:55:00) [facility] HospitalVpntkayMZOHLCAJZQ3056-82-10 16:55:00 Test Item Value Reference Range Interpretation Comments UA Ketones (test code = UA Negative mg/dL Ketones) [facility] HospitalYrapmkpHYIQYJXMGX5863-57-77 16:55:00 Test Item Value Reference Range Interpretation Comments UA pH (test code = UA pH) 5.0 5.0-8.0 N [facility] HospitalTyqvktgYBRTGHPXCK4684-23-90 16:55:00 Test Item Value Reference Range Interpretation Comments UA Nitrite (test code Negative (09/01/2013 N = UA Nitrite) 10:55:00) [facility] HospitalRycfftoJQBJIFWXVM7723-88-98 16:55:00 Test Item Value Reference Range Interpretation Comments UA Blood (test code = Negative (09/01/2013 N UA Blood) 10:55:00) [facility] HospitalPugwjsoMGEKOZXJKD1944-08-07 16:55:00 Test Item Value Reference Range Interpretation Comments UA Leuk Est (test Negative (09/01/2013 N code = UA Leuk Est) 10:55:00) [facility] HospitalJzcfbzfYXWSIEOYHP7704-14-30 16:55:00 Test Item Value Reference Range Interpretation Comments UA Protein (test code = UA Negative mg/dL N Protein) [facility] HospitalLshrfcrSSFKXOWHRG4166-69-01 16:55:00 Test Item Value Reference Range Interpretation Comments UA Glucose (test code = UA Negative mg/dL Glucose) [facility] HospitalOslwvwtEWAWEKLBBK5240-02-07 16:55:00 Test Item Value Reference Range Interpretation Comments UA Spec Grav (test code = UA Spec Grav) 1.024 N [facility] HospitalYqnnddyVUJLKWJHOZ6470-08-59 16:55:00 Test Item Value Reference Range Interpretation Comments UA Turbidity (test code = Clear (09/01/2013 N UA Turbidity) 10:55:00) [facility] OABQAOKK9351-29-21 16:55:00 Test Item Value Reference Range Interpretation Comments Influ B (test code = Negative 1(09/01/2013 N Influ B) 10:55:00) [facility] EOWVYGBI7917-29-12 16:55:00 Test Item Value Reference Range Interpretation Comments Influ A (test code = Negative (09/01/2013 N Influ A) 10:55:00) [facility]wallOcqwmqwLVEUDRERR9582-76-77 16:55:00 Test Item Value Reference Range Interpretation Comments AGAP (test code = AGAP) 10.9 10.0-20.0 N [facility]wallFnevmusCBNIVADHD6062-18-27 16:55:00 Test Item Value Reference Range Interpretation Comments eGFR (test code = eGFR) 78 [facility]wallVshanqrJZRXRDTBA3300-51-15 16:55:00 Test Item Value Reference Range Interpretation Comments Calcium Lvl (test code = Calcium Lvl) 9.0 8.5-10.5 N [facility]wallZnbtwznLBGPJINYU9704-48-14 16:55:00 Test Item Value Reference Range Interpretation Comments Creatinine Lvl (test code = Creatinine 1.1 0.5-1.4 N Lvl) [facility]wallCbkltweZDGHBBKED8390-97-99 16:55:00 Test Item Value Reference Range Interpretation Comments BUN (test code = BUN) 11 7-22 N [facility]wallErmappiBLJDAEJMW8764-32-77 16:55:00 Test Item Value Reference Range Interpretation Comments Sodium Lvl (test code = Sodium Lvl) 136 135-145 N [facility]wallRkptjafGUQZKIUSL2117-84-00 16:55:00 Test Item Value Reference Range Interpretation Comments Chloride Lvl (test code = Chloride Lvl) 105 95-109 N [facility]wallOntuqbbXCIAPBAOI7487-19-00 16:55:00 Test Item Value Reference Range Interpretation Comments CO2 (test code = CO2) 24 24-32 N [facility] RockwallRkhbvugLEHSKCIAG3723-80-14 16:55:00 Test Item Value Reference Range Interpretation Comments Potassium Lvl (test code = Potassium 3.9 3.5-5.1 N Lvl) [facility]wallLkhdewzHHIPMGPFB8528-53-55 16:55:00 Test Item Value Reference Range Interpretation Comments Glucose Lvl (test code = Glucose Lvl) 114 70-99 H [facility] AtlantaQewjptrQBHXVOFZI2998-31-01 16:55:00 Test Item Value Reference Range Interpretation Comments Lactic Acid Lvl (test code = Lactic 1.2 0.5-2.2 N Acid Lvl) [facility] HeightsSufqowqEZZQQLYVKE3752-65-00 16:55:00 Test Item Value Reference Range Interpretation Comments MPV (test code = MPV) 8.8 7.4-10.4 N [facility] HeightsLuvbmulTIIRMQUSSN4631-72-20 16:55:00 Test Item Value Reference Range Interpretation Comments WBC X 10x3 (test code = WBC X 10x3) 6.6 3.7-10.4 N [facility] HeightsPollsdbDRIKOLVJEE0992-51-07 16:55:00 Test Item Value Reference Range Interpretation Comments RBC X 10x6 (test code = RBC X 10x6) 4.63 4.70-6.10 L [facility] HeightsAfmbcpjOUZLIGRXDF2110-02-10 16:55:00 Test Item Value Reference Range Interpretation Comments Hgb (test code = Hgb) 14.8 14.0-18.0 N [facility] HeightsLiqzwacOLQKFUOEIW5435-09-27 16:55:00 Test Item Value Reference Range Interpretation Comments MCH (test code = MCH) 32.0 pg 27.0-31.0 H [facility] HeightsEoxsdziRDHCTPKEDX2589-91-66 16:55:00 Test Item Value Reference Range Interpretation Comments Hct (test code = Hct) 43.2 42.0-54.0 N [facility] HeightsPoirukmOEBZYOHFCI7190-09-99 16:55:00 Test Item Value Reference Range Interpretation Comments MCV (test code = MCV) 93.3 80.0-94.0 N [facility] HeightsYuuilngAIOHYDYAUY5529-20-68 16:55:00 Test Item Value Reference Range Interpretation Comments RDW (test code = RDW) 12.8 11.5-14.5 N [facility] HeightsVofhqhlQGIROVMYKW5925-54-67 16:55:00 Test Item Value Reference Range Interpretation Comments MCHC (test code = MCHC) 34.3 32.0-36.0 N [facility] HeightsVezjlxtYEMSNCTWGE6729-25-57 16:55:00 Test Item Value Reference Range Interpretation Comments Platelet (test code = Platelet) 221 133-450 N [facility] HeightsWxqqyrqCMNPFUZAJJ4890-51-98 16:55:00 Test Item Value Reference Range Interpretation Comments Monocytes (test code = Monocytes) 11.4 2.0-12.0 N [facility] HeightsTxillcpOGQPQGWVVQ7056-99-31 16:55:00 Test Item Value Reference Range Interpretation Comments Eosinophils (test code = 0.2 See_Comment N [A utomated message] The Eosinophils) system which ge nerated this result tra nsmitted reference range : <=4.0. The reference r [place] was not used to int erpret this result as normal/abnormal . [facility] HeightsJmooxtcPIPDTLWDBL1457-74-00 16:55:00 Test Item Value Reference Range Interpretation Comments Basophils (test code = 0.2 See_Comment N [Aut omated message] The Basophils) system which ge nerated this result tra nsmitted reference range : <=1.0. The reference r [place] was not used to int erpret this result as normal/abnormal . [facility] HeightsXtthvqlWTFTPSEQVA6275-38-57 16:55:00 Test Item Value Reference Range Interpretation Comments Segs-Bands # (test code = Segs-Bands #) 5.4 1.5-8.1 N [facility] HeightsTzhmnozMNKICREDDP8995-66-37 16:55:00 Test Item Value Reference Range Interpretation Comments Lymphocytes # (test code = Lymphocytes 0.4 1.0-5.5 L #) [facility] HeightsAkffdntOXKYOOOMUB3277-00-34 16:55:00 Test Item Value Reference Range Interpretation Comments Monocytes # (test code 0.8 See_Comment N [Aut omated message] The = Monocytes #) system which generated this result tra nsmitted reference range : <=0.8. The reference r [place] was not used to int erpret this result as normal/abnormal . [facility] HeightsGprwgvcKAWDXDWPCA3594-16-84 16:55:00 Test Item Value Reference Range Interpretation Comments Eosinophils # (test code 0.0 See_Comment N [A utomated message] The = Eosinophils #) system [facility] h generated this result tra nsmitted reference range : <=0.5. The reference r [place] was not used to int erpret this result as normal/abnormal . [facility] HeightsBkmgyhgHKDWWWTNDG7556-05-63 16:55:00 Test Item Value Reference Range Interpretation Comments Basophils # (test code 0.0 See_Comment N [Aut omated message] The = Basophils #) system which generated this result tra nsmitted reference range : <=0.2. The reference r [place] was not used to int erpret this result as normal/abnormal . [facility] HeightsBskmbfaUPVYYBXQTU0128-92-28 16:55:00 Test Item Value Reference Range Interpretation Comments Lymphocytes (test code = Lymphocytes) 6.5 20.0-40.0 L [facility] HeightsApumqteVFLEOIPYOB5399-11-23 16:55:00 Test Item Value Reference Range Interpretation Comments Segs (test code = Segs) 81.7 45.0-75.0 H [facility] HospitalBvuqxbeFUGOBTUIGU4788-79-34 16:55:00 Test Item Value Reference Range Interpretation Comments UA Urobilinogen (test code = UA <=1.0 mg/dL 0.1-1.0 Urobilinogen) [facility] HospitalJdnghfiKNAZQMLNCD2353-44-91 16:55:00 Test Item Value Reference Range Interpretation Comments UA Color (test code = UA Color) Ltyellow [facility] HospitalLpkoyggAKFDLBJDTA0978-04-03 16:55:00 Test Item Value Reference Range Interpretation Comments UA Sq Epi (test code = UA Sq Epi) None Seen [facility] HospitalWdzvvtpBMIEZKXCNU9313-43-14 16:55:00 Test Item Value Reference Range Interpretation Comments UA Mucus (test code = UA Mucus) Few /LPF [facility] HospitalIfissxoGQLEILQUSS9222-23-14 16:55:00 Test Item Value Reference Range Interpretation Comments UA WBC (test code = no gt See_Comment N [Automa josr message] The UA WBC) system which ge nerated this result transmit josr reference range : <=5. The reference range was not used to interpr et this result as sujey l/abnormal. [facility]viewAhyqvqlYCLRLVZCCK3547-42-30 16:55:00 Test Item Value Reference Range Interpretation Comments UA Bili (test code = Negative *NA*(09/01/2013 UA Bili) 10:55:00) [facility] HospitalPsttuneBRSFLDUELX0135-66-48 16:55:00 Test Item Value Reference Range Interpretation Comments UA Ketones (test code = UA Negative mg/dL Ketones) [facility] HospitalHlykdkvXAWLZVEVUA5279-67-64 16:55:00 Test Item Value Reference Range Interpretation Comments UA pH (test code = UA pH) 5.0 5.0-8.0 N [facility] HospitalYxlesrpNBVVHJCTRJ7185-52-12 16:55:00 Test Item Value Reference Range Interpretation Comments UA Nitrite (test code Negative (09/01/2013 N = UA Nitrite) 10:55:00) [facility]viewAynjnzcJPGSDZPJVO5904-62-20 16:55:00 Test Item Value Reference Range Interpretation Comments UA Blood (test code = Negative (09/01/2013 N UA Blood) 10:55:00) [facility]viewWizhgmoOOREUFIIMZ5053-75-73 16:55:00 Test Item Value Reference Range Interpretation Comments UA Leuk Est (test Negative (09/01/2013 N code = UA Leuk Est) 10:55:00) [facility]viewKuuxncmYJXRHMGUHE4759-58-53 16:55:00 Test Item Value Reference Range Interpretation Comments UA Protein (test code = UA Negative mg/dL N Protein) [facility] HospitalIkzlmhaJPLRYOBDIO2844-98-65 16:55:00 Test Item Value Reference Range Interpretation Comments UA Glucose (test code = UA Negative mg/dL Glucose) [facility]viewHimtunvENXFRHFMWI8868-61-24 16:55:00 Test Item Value Reference Range Interpretation Comments UA Spec Grav (test code = UA Spec Grav) 1.024 N [facility]viewOcaqadgYXTPCNCVNI5255-53-48 16:55:00 Test Item Value Reference Range Interpretation Comments UA Turbidity (test code = Clear (09/01/2013 N UA Turbidity) 10:55:00) [facility] ADLBNTDN3775-99-68 16:55:00 Test Item Value Reference Range Interpretation Comments Influ B (test code = Negative 1(09/01/2013 N Influ B) 10:55:00) [facility] - XUSRPFZS6368-79-66 16:55:00 Test Item Value Reference Range Interpretation Comments Influ A (test code = Negative (09/01/2013 N Influ A) 10:55:00) [facility]wallBjoqdflHMDWMTSNP8802-20-96 16:55:00 Test Item Value Reference Range Interpretation Comments AGAP (test code = AGAP) 10.9 10.0-20.0 N [facility]wallVzwglzkAYGCMTDDO5858-95-31 16:55:00 Test Item Value Reference Range Interpretation Comments eGFR (test code = eGFR) 78 [facility]wallUhohsrqZXUFFJHNR9300-06-01 16:55:00 Test Item Value Reference Range Interpretation Comments Calcium Lvl (test code = Calcium Lvl) 9.0 8.5-10.5 N [facility]wallQnrzmpmRVAGBTRWX5958-36-39 16:55:00 Test Item Value Reference Range Interpretation Comments Creatinine Lvl (test code = Creatinine 1.1 0.5-1.4 N Lvl) [facility]wallAlkyfnvBUJXDMQSQ6203-32-13 16:55:00 Test Item Value Reference Range Interpretation Comments BUN (test code = BUN) 11 7-22 N [facility]wallGpqgxzsNXNSHZRCI6770-41-56 16:55:00 Test Item Value Reference Range Interpretation Comments Sodium Lvl (test code = Sodium Lvl) 136 135-145 N [facility] [place]ivdiijMXJSJJJUQ0656-39-30 16:55:00 Test Item Value Reference Range Interpretation Comments Chloride Lvl (test code = Chloride Lvl) 105 95-109 N [facility]ZmttsqoXFYLZCAZU3562-27-40 16:55:00 Test Item Value Reference Range Interpretation Comments CO2 (test code = CO2) 24 24-32 N [facility]wallKxaadtpFAGFMRFVP8611-39-84 16:55:00 Test Item Value Reference Range Interpretation Comments Potassium Lvl (test code = Potassium 3.9 3.5-5.1 N Lvl) [facility]wallOvinjyxUBGYTXREP7677-53-62 16:55:00 Test Item Value Reference Range Interpretation Comments Glucose Lvl (test code = Glucose Lvl) 114 70-99 H [facility] RockwallGesxbigCFFVFQCFW9938-51-61 16:55:00 Test Item Value Reference Range Interpretation Comments Lactic Acid Lvl (test code = Lactic 1.2 0.5-2.2 N Acid Lvl) [facility]CtemsokZNEJGKOWSA6084-50-48 16:55:00 Test Item Value Reference Range Interpretation Comments MPV (test code = MPV) 8.8 7.4-10.4 N [facility] HeightsOwydhpeYHACNXVBYK5074-11-92 16:55:00 Test Item Value Reference Range Interpretation Comments WBC X 10x3 (test code = WBC X 10x3) 6.6 3.7-10.4 N [facility] HeightsQvsfuewCTFQWMVAHU0489-12-79 16:55:00 Test Item Value Reference Range Interpretation Comments RBC X 10x6 (test code = RBC X 10x6) 4.63 4.70-6.10 L [facility] HeightsRjfjfnxEBPQOHCIHL6415-73-46 16:55:00 Test Item Value Reference Range Interpretation Comments Hgb (test code = Hgb) 14.8 14.0-18.0 N [facility] HeightsJxkcbluASVTYFXLXS3453-00-75 16:55:00 Test Item Value Reference Range Interpretation Comments MCH (test code = MCH) 32.0 pg 27.0-31.0 H [facility] HeightsWhzhruxONAFTIRTWH0285-33-29 16:55:00 Test Item Value Reference Range Interpretation Comments Hct (test code = Hct) 43.2 42.0-54.0 N [facility] HeightsDewhgfkGRZFNQXIAR0030-43-31 16:55:00 Test Item Value Reference Range Interpretation Comments MCV (test code = MCV) 93.3 80.0-94.0 N [facility] HeightsGbfcojyPXIJBGOBQV7829-71-03 16:55:00 Test Item Value Reference Range Interpretation Comments RDW (test code = RDW) 12.8 11.5-14.5 N [facility] HeightsXthgnomJCPIIHSYOP9086-14-80 16:55:00 Test Item Value Reference Range Interpretation Comments MCHC (test code = MCHC) 34.3 32.0-36.0 N [facility] HeightsZlkvanfAIROJCQZLL7560-57-31 16:55:00 Test Item Value Reference Range Interpretation Comments Platelet (test code = Platelet) 221 133-450 N [facility] HeightsEgkcawrBXMPNZSZQJ6955-73-58 16:55:00 Test Item Value Reference Range Interpretation Comments Monocytes (test code = Monocytes) 11.4 2.0-12.0 N [facility] HeightsUmrsiffFJALNYZXEA2065-40-10 16:55:00 Test Item Value Reference Range Interpretation Comments Eosinophils (test code = 0.2 See_Comment N [A utomated message] The Eosinophils) system which ge nerated this result tra nsmitted reference range : <=4.0. The reference r [place] was not used to int erpret this result as normal/abnormal . [facility] HeightsGozmaxtOIGKKGBAOE4200-65-10 16:55:00 Test Item Value Reference Range Interpretation Comments Basophils (test code = 0.2 See_Comment N [Aut omated message] The Basophils) system which ge nerated this result tra nsmitted reference range : <=1.0. The reference r [place] was not used to int erpret this result as normal/abnormal . [facility] HeightsZwfyapiHNSMFYDOLA1847-54-00 16:55:00 Test Item Value Reference Range Interpretation Comments Segs-Bands # (test code = Segs-Bands #) 5.4 1.5-8.1 N [facility] HeightsRsizxsaKPYALMVPCG3961-16-22 16:55:00 Test Item Value Reference Range Interpretation Comments Lymphocytes # (test code = Lymphocytes 0.4 1.0-5.5 L #) [facility] HeightsEvcrintNVXIXBPNFX8064-46-72 16:55:00 Test Item Value Reference Range Interpretation Comments Monocytes # (test code 0.8 See_Comment N [Aut omated message] The = Monocytes #) system which generated this result tra nsmitted reference range : <=0.8. The reference r [place] was not used to int erpret this result as normal/abnormal . [facility] HeightsAeyjxhpTASWLYBKIU3051-49-11 16:55:00 Test Item Value Reference Range Interpretation Comments Eosinophils # (test code 0.0 See_Comment N [A utomated message] The = Eosinophils #) system whic h generated this result tra nsmitted reference range : <=0.5. The reference r [place] was not used to int erpret this result as normal/abnormal . [facility] HeightsKhergzzKBTYRLKJSO4014-18-70 16:55:00 Test Item Value Reference Range Interpretation Comments Basophils # (test code 0.0 See_Comment N [Aut omated message] The = Basophils #) system which generated this result tra nsmitted reference range : <=0.2. The reference r [place] was not used to int erpret this result as normal/abnormal . [facility] HeightsJntzhppSNGDTNHVEB9287-75-85 16:55:00 Test Item Value Reference Range Interpretation Comments Lymphocytes (test code = Lymphocytes) 6.5 20.0-40.0 L [facility] HeightsEqmknqmDQOFVVSNZH1661-32-08 16:55:00 Test Item Value Reference Range Interpretation Comments Segs (test code = Segs) 81.7 45.0-75.0 H [facility]GxzzzwrYTPWDDAZNM1184-43-92 16:55:00 Test Item Value Reference Range Interpretation Comments UA Urobilinogen (test code = UA <=1.0 mg/dL 0.1-1.0 Urobilinogen) [facility]PqihpfpKQHLTPFZGG6734-94-38 16:55:00 Test Item Value Reference Range Interpretation Comments UA Color (test code = UA Color) Ltyellow [facility] AtlantaIvkytprJVBFHIUXUP9518-90-98 16:55:00 Test Item Value Reference Range Interpretation Comments UA Sq Epi (test code = UA Sq Epi) None [facility]en [facility]LjejhqvAXXRJBBBRI3933-75-27 16:55:00 Test Item Value Reference Range Interpretation Comments UA Mucus (test code = UA Mucus) Few /LPF [facility] HospitalEwwhuxlTMIFKKRRYP1209-51-04 16:55:00 Test Item Value Reference Range Interpretation Comments UA WBC (test code = no gt See_Comment N [Automa josr message] The UA WBC) system which ge nerated this result transmit josr reference range : <=5. The reference range was not used to interpr et this result as sujey l/abnormal. [facility] HospitalOzjydjqNRLUPRMMSP8215-04-52 16:55:00 Test Item Value Reference Range Interpretation Comments UA Bili (test code = Negative *NA*(09/01/2013 UA Bili) 10:55:00) [facility] HospitalRgnhtfqXVFYPBMRUD3845-06-08 16:55:00 Test Item Value Reference Range Interpretation Comments UA Ketones (test code = UA Negative mg/dL Ketones) [facility] HospitalWnmgvdfWGLTDLPCGH3327-24-16 16:55:00 Test Item Value Reference Range Interpretation Comments UA pH (test code = UA pH) 5.0 5.0-8.0 N [facility] HospitalUohcttkHPDMKRJPCJ9696-10-19 16:55:00 Test Item Value Reference Range Interpretation Comments UA Nitrite (test code Negative (09/01/2013 N = UA Nitrite) 10:55:00) [facility] HospitalQzenpnkYXQRBBZHEI7403-86-32 16:55:00 Test Item Value Reference Range Interpretation Comments UA Blood (test code = Negative (09/01/2013 N UA Blood) 10:55:00) [facility] HospitalPqyuzvhNCUIPCWCBT6058-56-56 16:55:00 Test Item Value Reference Range Interpretation Comments UA Leuk Est (test Negative (09/01/2013 N code = UA Leuk Est) 10:55:00) [facility] HospitalHowvfddVJACTZNEPQ7187-54-65 16:55:00 Test Item Value Reference Range Interpretation Comments UA Protein (test code = UA Negative mg/dL N Protein) [facility] HospitalNuwxeiaUBQBZAUOCY5681-12-19 16:55:00 Test Item Value Reference Range Interpretation Comments UA Glucose (test code = UA Negative mg/dL Glucose) [facility] HospitalUlkuxrwUUIKQJDDFL0986-40-13 16:55:00 Test Item Value Reference Range Interpretation Comments UA Spec Grav (test code = UA Spec Grav) 1.024 N [facility] DqrmfoiNFBRVGOGXZ3296-89-22 16:55:00 Test Item Value Reference Range Interpretation Comments UA Turbidity (test code = Clear (09/01/2013 N UA Turbidity) 10:55:00) [facility] [id number] 16:55:00 Test Item Value Reference Range Interpretation Comments Influ B (test code = Negative 1(09/01/2013 N Influ B) 10:55:00) [facility] [id number] 16:55:00 Test Item Value Reference Range Interpretation Comments Influ A (test code = Negative (09/01/2013 N Influ A) 10:55:00) [facility] Notes Date/Time Note Provider Source 2019-11-11 18:15:53-00:[address] [facility] OPERATIVE/PROCEDURE REPORT HARLEY MOURA FACILITY: [facility] Billing #: [id number] Room: [address] [place] [address] MR #: [id number] : 1965 DATE OF PROCEDURE: 11/11/2019 SURGEON: Rosendo Kern MD PREOPERATIVE DIAGNOSIS: Diverticulitis. POSTOPERATIVE DIAGNOSIS: Diverticulitis. PROCEDURE PERFORMED: Laparoscopic sigmoid colect ghazal. EXECUTIVE ADVISOR: Mickie Mccabe PA-C. ANESTHESIA: General endotracheal anesthetic. COMPLICATIONS: None. SPECIMEN: Sigmoid colon sent to Pathology for an alysis. DISPOSITION: Patient to PACU in good condition. INDICATION: This is a 53-year-old male who prese nted with history of diverticulitis. After discussion of r isks, benefits, and options, he elected to undergo a s igmoid colectomy. DESCRIPTION OF PROCEDURE: The patient was taken to the operating room and placed in supine position. Th e patient was intubated in usual endotracheal manner and he wa s repositioned to lithotomy position. He had a Kraft catheter p laced and was prepped and draped in a sterile fashion. We bega n the procedure by making a small incision at the umbi licus extending both superiorly and inferiorly in order to place a hand port. This was done with a #15 blade scalpel. This was carried down to underlying tissue using Bovie electrocautery. and the Jeff trocar was placed through this, t he abdomen was insufflated to 15 mmHg pressure. I then placed a 12 mm trocar in left lower quadrant under direct visualizatio n and another 5 mm trocar in the lower midline under direct visu alization. There was no harm to any underlying structures. Placed the camera through the trocar site and then utilized a hand port in the left hand, could easily palpate the sigmoid colon which was inflamed at one specific point. The adhesions we re carefully taken down using scissors and the LigaSure devic e. Once this was done, I was able to then pick a point to the rectosigmoid junction in order to place a stapler, I created a window in the mesentery using the LigaSure device, used gold l oad laparoscopic CARLOS stapler to staple across this j uncture. At this point, I used LigaSure to take down the mes entery and work our way up superiorly the area of the sigmoid co talya where there was no further inflammation. No further divertic lara noted. At this point, I used a blue load of the CARLOS staple r to staple across this portion of colon. The colon was then removed and was sent to Pathology for analysis. I then had t o take down a great deal of the lateral attachments of the lef t colon and the splenic flexure due to so there would be minimal tension on the anastomosis. I did have to place an additional 5 mm in left upper quadrant and unable to take d own the adhesions in the entire splenic flexure. Once th is was accomplished LigaSure device and once this was accomplished in the left colon, reached easily t o the pelvis. At this point, I was able to bring out the dista l left colon through the hand port and desufflated the abdome n. I was able to resect the staple line using scissors and too k down some additional mesentery using the LigaSure device a s well in order to free this up a little further. I then placed the anvil of the stapler through this area and then was able to suture around this using 3-0 Prolene sutures. As I was cleaning off some of the fat around this portion of colon, I did make a small hole within the colon. This was oversewn u sing 3-0 silk sutures. This was all within the area of the anv il which will be resected. This was then delivered back in the abdominal cavity. I was able to replace the hand port and insufflate the abdomen. My assistant superintendent for curriculum, Mickie Mccabe, went from below and inserted the powered EEA stapler 29 size. Once t was able to work our way up through the rectum to the sta ple line, she then delivered the spike through this area and w e were able to re-anastomose in the end fashion, the anvil to t he stapler. After the anastomosis was performed, great care was taken, so there was nothing else caught in staple lines. S he was then able to remove the stapler and two complete donu ts were noted within the stapler. We then filled water into th e pelvis and I was able to hold pressure in the left colon. She then inserted area using a proctoscope and there was no leakag e noted. The air was decompressed and the water was suctioned dry from the pelvic cavity as well. Did use the omentum to la y down into the pelvis as well and no instruments or laparot ghazal pads were left in the abdomen either. Trocars were removed under direct visualization. No bleeding from trocar sites. Th e abdomen was desufflated. The right lower quadrant trocar sit e, which was a 12 mm one, was closed using 0 Vicryl sutures in a vbeill-sr-rzhbg manner. Great care was taken in placement of all sutures. There was no harm to underlying str uctures. There was no further herniation noted. The midli ne incision was then closed using #1 PDS in a running manner . Great care was taken in placement of all sutures. There wer e no underlying structures and there was no further h erniation noted. Wounds were irrigated with normal saline. Skin was closed using 4-0 Vicryl in a subcuticular manner . Dermabond was applied. The patient was extubated in operat ing room and transferred to PACU in good condition. BLANCA/CORTEZ /[id number] 2014-12-13 12:40:00-00:00 RIGHT KNEE MH Gela theast (3 Views) HISTORY: Injury, trauma right knee. Right knee p ain. TECHNIQUE: Frontal, lateral, and oblique views of the right knee were obtained. FINDINGS: There is no evidence of effusion or other soft t issue abnormality. There are no significant deg enerative changes. The joint spaces are well maintained. There is no evidence of frac ture, dislocation, or other acute osteoarticular abnormality. There are no destructive lesions. CONCLUSION: 1.Negative right knee. Coding: Knee 3 views SL: 13 Ulysses Montemayor M.D. 2014-05-07 14:42:18-00:00 CT RENAL STONE WITHOUT CONTRAST [facility] INDICATION: Flank pain COMPARISON: CT abdomen/pelvis 10/08/2012 DISCUSSION: URINARY TRACT: No urinary tract calculi are visualized. There is no hydronephrosis. The kidneys and bladder are grossly normal in morphology. ABDOMEN/PELVIS: The liver, spleen, pancreas, gallbladder, and adrenal glands are grossly normal in morphology. There is mild colonic diverticulosis. The appendix is absent. No free fluid or abnormal fluid collections a re seen. Prostate is unremarkable. The abdominal aorta is normal in caliber. BONES: No acute bony abnormalities are seen. IMPRESSION: 1. No evidence of urolithiasis. 2. Diverticulosis. SL: 16 2014-05-07 12:16:00-00:00 PA and lateral: The cardiome diastinal silhouette, pulmonary vasculature and antonietta are within normal limits. The lungs and pleural spaces are clear. There are no significant osseous abnormalities. There is no significant change compared to 09/01/2013. [facility] IMPRESSION: No acute radiographic abnormality in the chest. SL:13 2013-09-01 11:00:00-00:00 HISTORY: Cough and fever. [facility] Chest 2 views. Lungs are clear. Heart size normal. No pleural e ffusion or pneumothorax. IMPRESSION: No acute findings. Baseline since . SL:16
[2023-06-11] MEDS ORDERED: ONDANSETRON 4 MG/2 ML VIAL ONE (10:42)
[2023-06-11] MEDS ORDERED: FAMOTIDINE 20 MG/2 ML VIAL IV ONE (10:42)
[2023-06-11 10:56] LABS: Absolute Lymphocytes (CBC) 1.3 K/uL (0.7-4.9); Hematocrit 40.8 % (39.6-49.0); Lymphocytes % 28.5 % (15.3-44.8); MCV 94.1 fL (80-100); Platelets 212 thou/uL (152-406); RBC Red Blood Cell Count 4.33 M/uL (4.33-5.43)
[2023-06-11 11:01] LABS: Specific Gravity 1.022 (1.005-1.030); Urine Bilirubin NEGATIVE (Negative); Urine Blood Negative (Negative); Urine Clarity Clear (Clear); Urine Color Light-Yellow (Yellow); Urine Glucose TRACE (Negative); Urine Protein NEGATIVE (Negative); Urine Urobilinogen Normal (Normal); Urine pH 5.5 (5.0-7.0)
[2023-06-11 11:15] LABS: Bilirubin Total 0.5 mg/dL (0.2-1.0); Potassium 4.2 mEq/L (3.5-5.1); Protein, Total 7.4 g/dL (6.4-8.2)
--- NOTE | 2023-06-11 12:13 | RAD REPORT ---
EXAM DESCRIPTION: CT - Abdomen Pelvis W Contrast - 06/11/2023 11:30 am CLINICAL HISTORY: ABD PAIN COMPARISON: No comparisons TECHNIQUE: Thin cut axial CT imaging of the abdomen and pelvis was performed following intravenous a dministration of 100 mL Isovue 300. Multiplanar reformats were generated and reviewed. All CT scans are performed using dose optimization technique as appropriate and may include automated exposure control or mA/KV adjustment according to patient size. FINDINGS: No suspicious findings in the lung bases. The liver, spleen, and pancreas show no suspicious findings. Gallbladder and biliary tree are also wi thout suspicious finding. Symmetric renal function is seen with no hydronephrosis or suspicious renal mass. No dilated bowel loops or bowel wall thickening. Sequelae of distal colon resection with end-to-end a nastomosis. Sequelae of appendicectomy. No free air, free fluid or inflammatory stranding. No hernia, mass or bulky lymphadenopathy. The urinary bladder is without significant finding. No suspicious bony findings. IMPRESSION: No acute intra-abdominal process.
--- NOTE | 2023-06-11 12:38 | ER ---
Nurse's Notes [facility] Name: Luis Moura Age: 57 yrs Sex: Male : 1965 Arrival Date: 06/11/2023 Time: 09:57 Bed 15 Private MD: Diagnosis: Abdominal pain, Generalized;Nausea with vomiting, unspecified Presentation: 06/11 10:10 Chief complaint: Patient states: "I've been having N/V/ and abdominal pain for the past mb9 2 months. I missed my appointment with the GI specialist and have another one scheduled in 1 month, but I need relief now.". Coronavirus screen: Vaccine status: Patient reports receiving the 2nd dose of the covid vaccine. Ebola Screen: No symptoms or risks identified at this time. Initial Sepsis Screen: Does the patient meet any 2 criteria? No. Patient's initial sepsis screen is negative. Does the patient have a suspected source of infection? No. Patient's initial sepsis screen is negative. Risk Assessment: Do you want to hurt yourself or someone else? Patient reports no desire to harm self or others. Onset of symptoms was 2022. 10:10 Method Of Arrival: Ambulatory mb9 10:10 Acuity: OK 3 mb9 Triage Assessment: 10:13 General: Appears uncomfortable, Behavior is calm, cooperative. Pain: Complains of pain mb9 in abdomen Pain does not radiate. Pain currently is 7 out of 10 on a pain scale. Quality of pain is described as throbbing, Pain began 2 months ago Is intermittent. Neuro: Molina Agitation-Sedation Scale (RASS): 0 - Alert and Calm Level of Consciousness is awake, alert, obeys commands, Oriented to person, place, time, situation, Appropriate for age. Cardiovascular: Heart tones S1 S2 present. Respiratory: Airway is patent Respiratory effort is even, unlabored, Respiratory pattern is regular, symmetrical. GI: Abdomen is round non-distended, Bowel sounds present X 4 quads. Abd is soft Abdomen is tender to palpation in umbilical area Reports nausea, vomiting, Patient currently denies constipation, diarrhea. : No signs and/or symptoms were reported regarding the genitourinary system. Derm: Skin is pink, warm \\T\\ dry. Musculoskeletal: Range of motion: intact in all extremities. Historical: - Allergies: 10:11 No Known Allergies; mb9 - Home Meds: 10:11 tadalafil 5 mg Oral tablet once [Active]; Pepcid 20 mg Oral tablet once [Active]; mb9 lisinopril 20 mg Oral tablet daily [Active]; hydrochlorothiazide 12.5 mg Oral capsule once [Active]; aspirin 81 mg Oral tablet daily [Active]; atorvastatin 40 mg oral tablet every day at bedtime [Active]; - PMHx: 10:11 Hypertensive disorder; mb9 - PSHx: 10:11 Appendectomy; rotator cuff; mb9 - Immunization history:: Adult Immunizations up to date. - Social history:: Smoking status: Patient denies any tobacco usage or history of. Screenin:15 [facility] ED Fall Risk Assessment (Adult) History of falling in the last 3 months, mb9 including since admission No falls in past 3 months (0 pts) Confusion or Disorientation No (0 pts) Intoxicated or Sedated No (0 pts) Impaired Gait No (0 pts) Mobility Assist Device Used No (0 pt) Altered Elimination No (0 pt) Score/Fall Risk Level 0 - 2 = Low Risk Oriented to surroundings, Maintained a safe environment, Educated pt \\T\\ family on fall prevention, incl call for assistance when getting out of bed. Abuse screen: Denies threats or abuse. Nutritional screening: No deficits noted. Tuberculosis screening: No symptoms or risk factors identified. Assessment: 10:15 Reassessment: see triage assessment. mb9 11:44 Reassessment: No changes from previously documented assessment. Patient and/or family mb9 updated on plan of care and expected duration. Pain level reassessed. Patient is alert, oriented x 3, equal unlabored respirations, skin warm/dry/pink. Vital Signs: 10:10 BP 126 / 85; Pulse 79; Resp 18; Temp 97.2; Pulse Ox 100% on R/A; Weight 90.72 kg; mb9 Height 5 ft. 9 in. ; Pain 7/10; 11:44 BP 141 / 84; Pulse 84; Resp 17; Pulse Ox 100% on R/A; mb9 12:18 BP 117 / 81; Pulse 72; Resp 16; Pulse Ox 99% on R/A; me1 13:01 BP 117 / 81; Pulse 69; Resp 17; Pulse Ox 98% on R/A; me1 13:14 BP 118 / 77; Pulse 72; Resp 17; Pulse Ox 99% on R/A; me1 10:10 Body Mass Index 29.53 (90.72 kg, 175.26 cm) mb9 10:10 Pain Scale: Adult mb9 ED Course: 09:58 Patient arrived in ED. rg4 10:04 Kiran Montero DO is Attending Physician. ms3 10:04 iLnda Alberto, RN is Primary Nurse. mb9 10:11 Triage completed. mb9 10:11 Arm band placed on. mb9 10:14 Placed in gown. Bed in low position. Call light in reach. Side rails up X 1. Client mb9 placed on continuous cardiac and pulse oximetry monitoring. NIBP monitoring applied. 10:35 Inserted saline lock: 20 gauge in right antecubital area, using aseptic technique. mb9 10:51 CBC with Diff Sent. mb9 10:51 CMP Sent. mb9 10:51 Lipase Sent. mb9 10:51 Urinalysis w/ reflexes Sent. mb9 11:31 CT Abd/Pelvis - IV Contrast Only In Process Unspecified. EDMS 12:18 No provider procedures requiring assistance completed. me1 12:19 Provided Education on: POC. Verbalized understanding.. me1 12:37 Ahmet Woodall MD is Referral Physician. ms3 13:13 IV discontinued, intact, bleeding controlled, No redness/swelling at site. Pressure me1 dressing applied. Administered Medications: 10:40 Drug: Famotidine IVP 20 mg IVP once; dilute with 10 mL 0.9% NaCl; give over 2 minutes mb9 Route: IVP; Site: right antecubital; 13:15 Follow up: Response: No adverse reaction me1 10:42 Drug: Ondansetron IVP 4 mg IVP once; over 2 minutes Route: IVP; Site: right antecubital;mb9 13:15 Follow up: Response: No adverse reaction me1 Medication: 10:15 VIS not applicable for this client. mb9 Outcome: 12:38 Discharge ordered by . ms3 13:13 Discharged to home ambulatory, me1 13:13 Condition: stable 13:13 Discharge instructions given to patient, Instructed on discharge instructions, follow up and referral plans. medication usage, Demonstrated understanding of instructions, follow-up care, medications, Prescriptions given X 1, 13:14 Patient left the ED. me1 Signatures: Dispatcher [employer] Disha Padgett rg4 Kiran Montero DO DO ms3 Linda Alberto RN RN mb9 Minna Zapata RN RN me1
--- NOTE | 2023-06-11 12:38 | EDPHYS ---
Physician Documentation [facility] Name: Luis Moura Age: 57 yrs Sex: Male : 1965 Arrival Date: 06/11/2023 Time: 09:57 Bed 15 Private MD: ED Physician Kiarn Montero HPI: 06/11 10:57 This 57 yrs old Male presents to ER via Ambulatory with complaints of ms3 Abdominal Pain, Vomiting. 10:57 57-year-old male with past medical history of hypertension presents for generalized ms3 abdominal pain has been going on for 2 months. Patient states he has noted a decrease in the ability to tolerate p.o., nausea, and vomiting every morning. Patient states his discomfort is 7/10 located periumbilically and described as pressure. Patient denies fevers, chills, diarrhea. Patient denies alleviating or inciting factors.. Historical: - Allergies: 10:11 No Known Allergies; mb9 - Home Meds: 10:11 tadalafil 5 mg Oral tablet once [Active]; Pepcid 20 mg Oral tablet once [Active]; mb9 lisinopril 20 mg Oral tablet daily [Active]; hydrochlorothiazide 12.5 mg Oral capsule once [Active]; aspirin 81 mg Oral tablet daily [Active]; atorvastatin 40 mg oral tablet every day at bedtime [Active]; - PMHx: 10:11 Hypertensive disorder; mb9 - PSHx: 10:11 Appendectomy; rotator cuff; mb9 - Immunization history:: Adult Immunizations up to date. - Social history:: Smoking status: Patient denies any tobacco usage or history of. ROS: 10:57 Constitutional: Negative for fever, and chills. ENT: Negative for injury, pain, and ms3 discharge, Neck: Negative for injury, pain, and swelling, Cardiovascular: Negative for chest pain, and palpitations. Respiratory: Negative for shortness of breath, cough, wheezing, and pleuritic chest pain, MS/Extremity: Negative for injury and deformity, Skin: Negative for injury, rash, and discoloration, 10:57 Abdomen/GI: Positive for abdominal pain, nausea and vomiting, 10:57 All other systems are negative, Exam: 10:57 Constitutional: This is a well developed, well nourished patient who is awake, alert, ms3 and in no acute distress. Head/Face: Normocephalic, atraumatic. Neck: Trachea midline, no cervical lymphadenopathy. Supple, full range of motion without nuchal rigidity, or vertebral point tenderness. No Meningismus. Chest/axilla: Normal chest wall appearance and motion. Nontender with no deformity. Cardiovascular: Regular rate and rhythm with a normal S1 and S2. No gallops, murmurs, or rubs. Normal PMI, no JVD. No pulse deficits. Respiratory: Lungs have equal breath sounds bilaterally, clear to auscultation and percussion. No rales, rhonchi or wheezes noted. No increased work of breathing, no retractions or nasal flaring. 10:57 Skin: Warm, dry with normal turgor. Normal color with no rashes, no lesions, and no evidence of cellulitis. MS/ Extremity: Pulses equal, no cyanosis. Neurovascular intact. Full, normal range of motion. 10:57 Abdomen/GI: Inspection: abdomen appears normal, Bowel sounds: normal, Palpation: mild abdominal tenderness, in all quadrants, Vital Signs: 10:10 BP 126 / 85; Pulse 79; Resp 18; Temp 97.2; Pulse Ox 100% on R/A; Weight 90.72 kg; mb9 Height 5 ft. 9 in. ; Pain 7/10; 11:44 BP 141 / 84; Pulse 84; Resp 17; Pulse Ox 100% on R/A; mb9 12:18 BP 117 / 81; Pulse 72; Resp 16; Pulse Ox 99% on R/A; me1 13:01 BP 117 / 81; Pulse 69; Resp 17; Pulse Ox 98% on R/A; me1 13:14 BP 118 / 77; Pulse 72; Resp 17; Pulse Ox 99% on R/A; me1 10:10 Body Mass Index 29.53 (90.72 kg, 175.26 cm) mb9 10:10 Pain Scale: Adult mb9 MDM: 10:30 Patient medically screened. ms3 10:57 Differential diagnosis: Nonspecific abd pain, gastritis, Cancer. ms3 12:38 Data reviewed: vital signs, nurses notes, lab test result(s), radiologic studies, and ms3 as a result, I will discharge patient. I considered the following discharge prescriptions or medication management in the emergency department Medications were administered in the Emergency Department. See MAR. Independent interpretation of the following test(s) in the Emergency Department. Historians other than the Patient: Spouse/Significant Other: Patient's . Counseling: I had a detailed discussion with the patient and/or guardian regarding the historical points, exam findings, and any diagnostic results supporting the discharge/admit diagnosis, lab results, radiology results, the need for outpatient follow up, to return to the emergency department if symptoms worsen or persist or if there are any questions or concerns that arise at home. Special discussion: Based on the patient's Hx, exam, and Dx evaluation, there is no indication for emergent surgery or inpatient Tx. It is understood by the patient/guardian that if the Sx's persist or worsen they need to return immediately for re-evaluation. ED course: Discussed labs, CT finding with patient and his . Patient to follow-up with gastroenterology in 2 to 3 days. Patient and his understand and agree with plan. All questions were answered. Return precautions discussed include worsening symptoms, or any other concerns. On reevaluation patient is alert and orient x4, no apparent distress, nontoxic-appearing, ambulatory number department, speaking full sentences. 06/11 10:28 Order name: CBC with Diff; Complete Time: 11:18 ms3 06/11 10:28 Order name: CMP; Complete Time: 11:18 ms3 06/11 10:28 Order name: Lipase; Complete Time: 11:18 ms3 06/11 10:28 Order name: Urinalysis w/ reflexes; Complete Time: 11:18 ms3 06/11 10:28 Order name: CT Abd/Pelvis - IV Contrast Only; Complete Time: 12:27 ms3 06/11 10:28 Order name: IV Saline Lock; Complete Time: 10:51 ms3 06/11 10:28 Order name: Labs collected and sent; Complete Time: 10:51 ms3 Administered Medications: 10:40 Drug: Famotidine IVP 20 mg IVP once; dilute with 10 mL 0.9% NaCl; give over 2 minutes mb9 Route: IVP; Site: right antecubital; 13:15 Follow up: Response: No adverse reaction me1 10:42 Drug: Ondansetron IVP 4 mg IVP once; over 2 minutes Route: IVP; Site: right antecubital;mb9 13:15 Follow up: Response: No adverse reaction me1 Disposition Summary: 06/11/23 12:38 Discharge Ordered Notes: Location: Home ms3 Condition: Stable ms3 Diagnosis - Abdominal pain, Generalized ms3 - Nausea with vomiting, unspecified ms3 Followup: ms3 - With: Ahmet Woodall MD - When: 2 - 3 days - Reason: Recheck today's complaints Discharge Instructions: - Discharge Summary Sheet ms3 - Abdominal Pain, Adult ms3 Forms: - Medication Reconciliation Form ms3 - Thank You Letter ms3 - Antibiotic Education ms3 - Prescription Opioid Use ms3 - Patient Portal Instructions ms3 - Leadership Thank You Letter ms3 Prescriptions: - ondansetron 4 mg Oral Tablet,disintegrating - take 1 tablet ORAL route every 8 hours; 15 tablet; Refills: 0, Product ms3 Selection Permitted Signatures: Dispatcher [employer] Kiran Scales, DO ms3 Linda Alberto RN RN mb9 Minna Zapata RN me1
[2023-06-11 13:59] VITALS: TEMP 97.2
[2023-06-11 14:04] VITALS: BP 118/77; O2SAT 99
== END 2023-06-11 13:14 | disposition home or self-care (01) ==
LOC: ER 09:57
DX: R10.84 Generalized abdominal pain (principal); R11.2 Nausea with vomiting, unspecified; I10 Essential (primary) hypertension; Z79.82 Long term (current) use of aspirin
CPT/HCPCS: 85025; 36415; 81003; 83690; 80053; 74177; Q9967; J2405